=== PATIENT | female | born 1950 | race Hispanic/Latino ===

== ENCOUNTER 2020-03-21 15:40 | Emergency (ER) | payer MEDICARE ==
--- NOTE | 2020-03-21 16:23 | Emergency Department Report ---
ED Fall HPI - General Stated Complaint: FALL Time Seen by Provider: 03/21/20 16:09 Source: EMS Mode of arrival: Stretcher - History of Present Illness Initial Comments: 69-year-old female with history of Alzheimer's disease DVT, fall from [facility] senior care. Patient had ground level fall, fell and hit wheelchair. Unknown LOC. Patient has small abrasions to forehead. She denies any other pain. MD Complaint: fall -: This afternoon Fall From: standing Fall Witnessed: yes, by living facility s Place Fall Occurred: senior care/SNF Loss of Consciousness: unsure Symptoms Prior to Fall: none Location: head Severity: mild Associated Symptoms: headache. denies: neck pain, chest paint, shortness of breath - Related Data Allergies Allergy/AdvReac Type Severity Reaction Status Date / Time codeine Allergy Unknown Verified 03/21/20 16:27 levofloxacin [From Levaquin] Allergy Unknown Verified 03/21/20 16:27 ED Review of Systems ROS: Stated complaint: FALL Other details as noted in HPI Comment: All other systems reviewed and negative Respiratory: denies: shortness of breath Cardiovascular: denies: chest pain Musculoskeletal: denies: back pain Neurological: headache ED Physical Exam - General General appearance: alert, in no apparent distress - Head Head exam: Present: normocephalic, other (1 cm laceration to forehead) - Eye Eye exam: Present: PERRL, EOMI, other (abrasion to left lower eyelid) - ENT ENT exam: Present: mucous membranes moist, other (abrasion to left lower lip) - Neck Neck exam: Present: normal inspection, full ROM. Absent: tenderness - Respiratory Respiratory exam: Present: normal lung sounds bilaterally. Absent: respiratory distress - Cardiovascular Cardiovascular Exam: Present: regular rate, normal rhythm - GI/Abdominal GI/Abdominal exam: Present: soft. Absent: distended, tenderness - Extremities Exam Extremities exam: Present: normal inspection, full ROM. Absent: tenderness - Back Exam Back exam: Present: normal inspection. Absent: paraspinal tenderness, vertebral tenderness - Neurological Exam Neurological exam: Present: alert. Absent: oriented X3 (oriented to self; hx Alzheimer's) - Psychiatric Psychiatric exam: Present: normal affect, normal mood - Skin Skin exam: Present: warm, dry, intact, normal color ED Course Vital Signs 03/21/20 03/21/20 03/21/20 15:53 16:00 16:27 Temperature 98.3 F Pulse Rate 76 72 Respiratory 15 18 Rate Blood Pressure 128/52 130/45 Blood Pressure 128/52 [Left] O2 Sat by Pulse 100 100 Oximetry 03/21/20 03/21/20 03/21/20 17:00 17:38 18:00 Temperature Pulse Rate 68 69 88 Respiratory 15 12 9 L Rate Blood Pressure 130/45 125/63 Blood Pressure 125/61 [Left] O2 Sat by Pulse 100 100 100 Oximetry - Laceration /Wound Repair Face Wound Location: face Wound Length (cm): 1 Wound's Depth, Shape: superficial Irrigated w/ Saline (ccs): 30 Wound Repaired With: Dermabond ED Medical Decision Making - Radiology Data Radiology results: report reviewed, image reviewed - Medical Decision Making 69 yo F, hx dementia, s/p ground level fall at senior care. Pt sustained 1 cm laceration to forehead, with small abrasions to left eye and left lower lip. CT Head negative for any acute abnormalities. Laceration cleaned and repaired w/ dermabond. D/c back to senior care. - Differential Diagnosis intracranial injury, concussion, fracture Critical care attestation.: If time is entered above; I have spent that time in minutes in the direct care of this critically ill patient, excluding procedure time. ED Disposition Clinical Impression: Fall, Acute head injury, Simple laceration of face Disposition: DC-01 TO HOME OR SELFCARE Is pt being admited?: No Condition: Stable Instructions: Laceration (ED), Fall Prevention for Older Adults (ED), Minor Head Injury (ED), Skin Adhesive Care (ED) Referrals: PRIMARY CARE, [Referring] - 3-5 Days Time of Disposition: 18:05
--- NOTE | 2020-03-21 17:34 | Cat Scan Report ---
CT BRAIN: 03/21/2020 INDICATION / CLINICAL INFORMATION: MAIN: fall, injury frontal . COMPARISON: None available. FINDINGS: BRAIN/INTRACRANIAL STRUCTURES: Unenhanced CT images of the brain dated straight no evidence of acute intracranial abnormality. Ventricles and sulci are slightly prominent in size, consistent with age-related atrophic change. There is no evidence of ischemic injury, hemorrhage, or mass. There are no abnormal extra-axial fluid collections. Prominent dural ossification is noted, normal variant. EXTRACRANIAL STRUCTURES: Unremarkable. IMPRESSION: No acute abnormality. All CT scans at this location are performed using dose reduction to ALARA by means of automated expos ure control. Signer Name: Reji Hanna MD Signed: 03/21/2020 5:29 PM Workstation Name: [id number]
[2020-03-21 18:35] VITALS: BP 125/63
== END 2020-03-21 19:35 | disposition home or self-care (01) ==
LOC: ED 15:40
DX: S01.81XA Laceration without foreign body of other part of head, initial encounter (principal); Z88.6 Allergy status to analgesic agent; W22.8XXA Striking against or struck by other objects, initial encounter; Y93.89 Activity, other specified; Y92.89 Other specified places as the place of occurrence of the external cause; Y99.8 Other external cause status
CPT/HCPCS: 70450

== ENCOUNTER 2020-04-02 21:35 | Emergency (ER) | payer MEDICARE ==
[2020-04-02 22:07] VITALS: BP 134/50
[2020-04-02 22:36] LABS: Bilirubin,Urine NEG (Negative); Blood,Urine NEG (Negative); Color,Urine Yellow (Yellow); Hyaline Casts,Urine 3 /LPF; Mucus,Urine 1+ /HPF
[2020-04-02 23:15] LABS: Hematocrit 40.4 % (30.3-42.9); Hemoglobin 13.7 gm/dl (10.1-14.3); Mean Corpuscular HGB Conc 34 % (30-34); Mean Corpuscular Volume 87 fl (79-97); Platelet Count 144 K/mm3 (140-440); Red Blood Count 4.63 M/mm3 (3.65-5.03); Red Cell Distribution Width 14.7 % (13.2-15.2)
[2020-04-02 23:35] LABS: Calcium 9.9 mg/dL (8.4-10.2)
== END 2020-04-03 01:02 | disposition other institution (70) ==
LOC: ED 21:35
DX: E83.42 Hypomagnesemia (principal); R82.81 Pyuria; F03.90 Unspecified dementia, unspecified severity, without behavioral disturbance, psychotic disturbance, mood disturbance, and anxiety; E11.9 Type 2 diabetes mellitus without complications; Z88.6 Allergy status to analgesic agent; Z79.899 Other long term (current) drug therapy; Z88.8 Allergy status to other drugs, medicaments and biological substances; W18.30XA Fall on same level, unspecified, initial encounter; Y93.89 Activity, other specified; Y92.89 Other specified places as the place of occurrence of the external cause; Y99.8 Other external cause status
CPT/HCPCS: 36415; 70450; 71045; 72125; 72170; 80048; 80320; 81001; 82550; 83735; 84443; 85027; 87086; 93005; G0480

== ENCOUNTER 2021-01-13 10:58 | Emergency (ER) | payer MEDICARE ==
--- NOTE | 2021-01-13 12:28 | Emergency Department Report ---
ED Fall HPI - General Chief Complaint: Fall Stated Complaint: FALL Time Seen by Provider: 01/13/21 11:40 Source: EMS Mode of arrival: Stretcher Limitations: No Limitations - History of Present Illness Initial Comments: Patient is a resident at [facility] residential who suffered a fall sometime overnight. The fall was unwitnessed and is unknown whether the patient had loss of consciousness. Is also is unknown whether it was a ground-level fall or from the bed. Patient is complaining of some right forehead pain. There is a large hematoma present. Patient is not complaining of any pain in the extremities. She denies any chest pain abdominal pain or hip pain at this time. - Related Data Previous Rx's Medication Instructions Recorded Last Taken Type Magnesium Oxide 400 mg PO QDAY #30 tablet 04/02/20 Unknown Rx Nitrofurantoin Payne/M-Cryst 100 mg PO Q12HR #13 capsule 04/02/20 Unknown Rx [Macrobid CAP] Allergies Allergy/AdvReac Type Severity Reaction Status Date / Time codeine Allergy Unknown Verified 03/21/20 16:27 levofloxacin [From Levaquin] Allergy Unknown Verified 03/21/20 16:27 ED Review of Systems ROS: Stated complaint: FALL Other details as noted in HPI Comment: All other systems reviewed and negative ED Past Medical Hx - Past Medical History Previous Medical History?: Yes Hx Diabetes: Yes Hx Renal Disease: Yes Hx Dementia: Yes - Social History Smoking Status: Unknown if ever smoked - Medications Home Medications: Home Medications Medication Instructions Recorded Confirmed Last Taken Type Magnesium Oxide 400 mg PO QDAY #30 tablet 04/02/20 Unknown Rx Nitrofurantoin Payne/M-Cryst 100 mg PO Q12HR #13 capsule 04/02/20 Unknown Rx [Macrobid CAP] ED Physical Exam - General Limitations: Other General appearance: alert, in no apparent distress - Head Head exam: Present: normocephalic, other - Expanded Head Exam Expanded 1 - large hematoma present with tenderness - Eye Eye exam: Present: normal appearance - ENT ENT exam: Present: normal orophraynx, mucous membranes moist - Neck Neck exam: Present: normal inspection - Respiratory Respiratory exam: Present: normal lung sounds bilaterally. Absent: respiratory distress, wheezes, rales, rhonchi - Cardiovascular Cardiovascular Exam: Present: regular rate, normal rhythm, normal heart sounds. Absent: systolic murmur, diastolic murmur, rubs, gallop - GI/Abdominal GI/Abdominal exam: Present: soft, normal bowel sounds. Absent: distended, tenderness, guarding, rebound - Extremities Exam Extremities exam: Present: normal inspection - Back Exam Back exam: Present: normal inspection - Neurological Exam Neurological exam: Present: alert, oriented X3 - Psychiatric Psychiatric exam: Present: normal affect, normal mood - Skin Skin exam: Present: warm, dry, intact, normal color. Absent: rash ED Course Vital Signs 01/13/21 01/13/21 12:07 12:09 Temperature 97.6 F Pulse Rate 65 Respiratory 16 16 Rate Blood Pressure 104/46 [Right] O2 Sat by Pulse 100 100 Oximetry ED Medical Decision Making - Radiology Data Conveyor Loader Date: CT cervical spine wo con INDICATION / CLINICAL INFORMATION: 70 years Female; pain from injury. TECHNIQUE: Axial CT images of the cervical spine were obtained. Sagittal and coronal reformatted images were produced. All CT scans at this location are performed using CT dose reduction for ALARA by means of automated exposure control. COMPARISON: 04/02/2020 FINDINGS: POST-SURGICAL CHANGES: None. ALIGNMENT: No significant abnormality. VERTEBRAE: No signs of fracture. Vertebral bodies are grossly normal in height throughout. There is moderate osseous foraminal narrowing on the right at C5-6 from uncinate hypertrophy. INTRAVERTEBRAL DISCS: Disc space narrowing seen at C5-6 and C6-7. Posterocentral disc protrusion with callus desiccation seen at C4-5, which encroaches upon the cervical cord. No definitive impingement. Mild disc disease seen at other levels as well. PARASPINAL SOFT TISSUES: No significant abnormality. ADDITIONAL FINDINGS: Partial opacification of the inferior mastoids noted on the left. Atherosclerotic disease seen in the anterior and posterior circulation. Thyroid gland is mildly enlarged with small cysts/nodules suggested in the right thyroid lobe-unchanged from prior. IMPRESSION: 1. No signs of acute bony trauma to the cervical spine. Signer Name: Mal Murguia MD, III Signed: 01/13/2021 11:49 AM Workstation Name: [email or web address] Reporting MD: Terrell Palma Dictation Time: January 13, 2021 11:46 Edging Machine Catcher: Not available Conveyor Loader Date: CT head/brain wo con INDICATION / CLINICAL INFORMATION: 70 years Female; fall injury. TECHNIQUE: Routine CT head without contrast. All CT scans at this location are performed using CT dose reduction for ALARA by means of automated exposure control. COMPARISON: The study is compared to the previous CT of 04/02/2020. FINDINGS: BRAIN / INTRACRANIAL CONTENTS: There is a right frontal scalp hematoma. There is continued dense calcification along the falx and portions of the tentorium. The motion degrades the image quality. However, there is no clear CT evidence of acute intracranial hemorrhage or significant mass effect. There is mild to moderate cerebral white matter disease most consistent with m icrovascular angiopathy. The ventricular system remains unchanged in size and configuration. The calvarium appears intact. ORBITS: No significant abnormality of visualized orbits. SINUSES / MASTOIDS: There has been interval development of moderate mucosal thickening within the right maxillary sinus with air-fluid level. There is thickening of the right mastoid sinus wall indicative of chronic inflammatory process. CRANIOCERVICAL JUNCTION: No significant abnormality. ADDITIONAL FINDINGS: None. IMPRESSION: 1. There is a hematoma involving right frontal scalp without clear CT ends of acute intracranial hemorrhage. 2. There is continued mild to moderate microvascular angiopathy and mild c erebral atrophy. Signer Name: Terrell Palma MD Signed: 01/13/2021 11:46 AM Workstation Name: [id number] - Medical Decision Making CT head and neck are within normal limits patient will be discharged back to his residential Critical care attestation.: If time is entered above; I have spent that time in minutes in the direct care of this critically ill patient, excluding procedure time. ED Disposition Clinical Impression: Closed head injury Qualifiers: Encounter type: initial encounter Qualified Code(s): S09.90XA - Unspecified injury of head, initial encounter Scalp hematoma Qualifiers: Encounter type: initial encounter Qualified Code(s): S00.03XA - Contusion of scalp, initial encounter Disposition: -01 TO HOME OR SELFCARE Is pt being admited?: No Does the pt Need Aspirin: No Condition: Stable Instructions: Head Injury, Adult, [id number], Facial or Scalp Contusion Referrals: PRIMARY CARE, [Primary Care Provider] - 3-5 Days Time of Disposition: 13:42
--- NOTE | 2021-01-13 12:50 | Cat Scan Report ---
CT head/brain wo con INDICATION / CLINICAL INFORMATION: 70 years Female; fall injury. TECHNIQUE: Routine CT head without contrast. All CT scans at this location are performed using CT dos e reduction for ALARA by means of automated exposure control. COMPARISON: The study is compared to the previous CT of 04/02/2020. FINDINGS: BRAIN / INTRACRANIAL CONTENTS: There is a right frontal scalp hematoma. There is continued dense calc ification along the falx and portions of the tentorium. The motion degrades the image quality. Howeve r, there is no clear CT evidence of acute intracranial hemorrhage or significant mass effect. There is mild to moderate cerebral white matter disease most consistent with microvascular angiopathy . The ventricular system remains unchanged in size and configuration. The calvarium appears intact. ORBITS: No significant abnormality of visualized orbits. SINUSES / MASTOIDS: There has been interval development of moderate mucosal thickening within the rig ht maxillary sinus with air-fluid level. There is thickening of the right mastoid sinus wall indicati ve of chronic inflammatory process. CRANIOCERVICAL JUNCTION: No significant abnormality. ADDITIONAL FINDINGS: None. IMPRESSION: 1. There is a hematoma involving right frontal scalp without clear CT ends of acute intracranial hemo rrhage. 2. There is continued mild to moderate microvascular angiopathy and mild cerebral atrophy. Signer Name: Terrell Palma MD Signed: 01/13/2021 12:46 PM Workstation Name: [id number]
--- NOTE | 2021-01-13 12:53 | Cat Scan Report ---
CT cervical spine wo con INDICATION / CLINICAL INFORMATION: 70 years Female; pain from injury. TECHNIQUE: Axial CT images of the cervical spine were obtained. Sagittal and coronal reformatted images were pr oduced. All CT scans at this location are performed using CT dose reduction for ALARA by means of aut omated exposure control. COMPARISON: 04/02/2020 FINDINGS: POST-SURGICAL CHANGES: None. ALIGNMENT: No significant abnormality. VERTEBRAE: No signs of fracture. Vertebral bodies are grossly normal in height throughout. There is moderate osseous foraminal narrowing on the right at C5-6 from uncinate hypertrophy. INTRAVERTEBRAL DISCS: Disc space narrowing seen at C5-6 and C6-7. Posterocentral disc protrusion with callus desiccation seen at C4-5, which encroaches upon the cervic al cord. No definitive impingement. Mild disc disease seen at other levels as well. PARASPINAL SOFT TISSUES: No significant abnormality. ADDITIONAL FINDINGS: Partial opacification of the inferior mastoids noted on the left. Atherosclerotic disease seen in the anterior and posterior circulation. Thyroid gland is mildly enlarged with small cysts/nodules suggested in the right thyroid lobe-unchang ed from prior. IMPRESSION: 1. No signs of acute bony trauma to the cervical spine. Signer Name: Mal Murguia MD, III Signed: 01/13/2021 12:49 PM Workstation Name: [email or web address]
[2021-01-13 16:25] VITALS: BP 128/80
== END 2021-01-13 20:12 | disposition home or self-care (01) ==
LOC: ED 10:58
DX: S00.03XA Contusion of scalp, initial encounter (principal); E11.9 Type 2 diabetes mellitus without complications; Z79.899 Other long term (current) drug therapy; W18.30XA Fall on same level, unspecified, initial encounter; Y93.89 Activity, other specified; Y92.89 Other specified places as the place of occurrence of the external cause; Y99.8 Other external cause status
CPT/HCPCS: 70450; 72125; 99283

== ENCOUNTER 2021-04-12 20:22 | Emergency (ER) | payer MEDICARE ==
--- NOTE | 2021-04-12 20:58 | Emergency Department Report ---
ED General Adult HPI - General Chief complaint: Fall Stated complaint: GROUND LEVEL FALL Time Seen by Provider: 04/12/21 20:36 Source: EMS, RN notes reviewed Mode of arrival: Stretcher Limitations: Other - History of Present Illness Initial comments: 70-year-old female, history of Alzheimer's dementia, diabetes, CAD, DVT, depression, COVID-19, gait abnormality, presents to ED from longterm for evaluation possible fall. Patient was found crawling on the floor, staff is unsure if patient fell down. Patient sent to ED for evaluation. Patient is poor historian, however she denies any headache, neck pain, back pain. Patient is able to move all extremities. -: This evening Associated Symptoms: denies other symptoms Treatments Prior to Arrival: none - Related Data Previous Rx's Medication Instructions Recorded Last Taken Type Magnesium Oxide 400 mg PO QDAY #30 tablet 04/02/20 Unknown Rx Nitrofurantoin Throckmorton/M-Cryst 100 mg PO Q12HR #13 capsule 04/02/20 Unknown Rx [Macrobid CAP] Allergies Allergy/AdvReac Type Severity Reaction Status Date / Time codeine Allergy Unknown Verified 03/21/20 16:27 levofloxacin [From Levaquin] Allergy Unknown Verified 03/21/20 16:27 ED Review of Systems ROS: Stated complaint: GROUND LEVEL FALL Other details as noted in HPI Comment: Unobtainable due to pts medical conditions (Dementia) Musculoskeletal: denies: back pain Neurological: denies: headache ED Past Medical Hx - Past Medical History Previous Medical History?: Yes Hx Diabetes: Yes Hx Renal Disease: Yes Hx Psychiatric Treatment: Yes (major depressive disorder) Hx Dementia: Yes Additional medical history: Heart DZ - Social History Smoking Status: Unknown if ever smoked - Medications Home Medications: Home Medications Medication Instructions Recorded Confirmed Last Taken Type Magnesium Oxide 400 mg PO QDAY #30 tablet 04/02/20 Unknown Rx Nitrofurantoin Throckmorton/M-Cryst 100 mg PO Q12HR #13 capsule 04/02/20 Unknown Rx [Macrobid CAP] ED Physical Exam - General Limitations: Other General appearance: alert, in no apparent distress - Head Head exam: Present: atraumatic, normocephalic - Eye Eye exam: Present: normal appearance, PERRL, EOMI - ENT ENT exam: Present: mucous membranes moist - Neck Neck exam: Present: normal inspection. Absent: tenderness - Respiratory Respiratory exam: Present: normal lung sounds bilaterally. Absent: respiratory distress - Cardiovascular Cardiovascular Exam: Present: regular rate, normal rhythm - GI/Abdominal GI/Abdominal exam: Present: soft. Absent: distended, tenderness - Extremities Exam Extremities exam: Present: normal inspection, full ROM (Patient able to lift both legs up off of the stretcher; able to flex and extend at the knees and hips). Absent: tenderness - Back Exam Back exam: Present: normal inspection. Absent: paraspinal tenderness, vertebral tenderness - Neurological Exam Neurological exam: Present: alert. Absent: oriented X3 (Confused at baseline, history of dementia) - Psychiatric Psychiatric exam: Present: normal affect, normal mood - Skin Skin exam: Present: warm, dry, intact, normal color ED Course Vital Signs 04/12/21 04/13/21 21:13 03:19 Temperature 97.8 F Pulse Rate 55 L 52 L Respiratory 13 13 Rate Blood Pressure 125/45 Blood Pressure 115/62 [Right] O2 Sat by Pulse 100 100 Oximetry ED Medical Decision Making - Radiology Data Radiology results: report reviewed, image reviewed - Medical Decision Making 70-year-old female floor, presents to ED from longterm for evaluation. CT head and C-spine are unremarkable for any acute findings. Patient is moving all extremities. Vital signs are stable. Patient will be discharged back to longterm. Outpatient follow-up advised, return precautions given. Critical care attestation.: If time is entered above; I have spent that time in minutes in the direct care of this critically ill patient, excluding procedure time. ED Disposition Clinical Impression: Fall Disposition: DC-01 TO HOME OR SELFCARE Is pt being admited?: No Condition: Stable Referrals: PRIMARY CARE, [Primary Care Provider] - 3-5 Days Time of Disposition: 23:07
--- NOTE | 2021-04-12 22:44 | Cat Scan Report ---
CT HEAD WITHOUT CONTRAST INDICATION / CLINICAL INFORMATION: Status-Post fall, now with head pain.. TECHNIQUE: All CT scans at this location are performed using CT dose reduction for ALARA by means of automated e xposure control. COMPARISON: 01/13/2021 FINDINGS: HEMORRHAGE: None. EXTRA-AXIAL SPACES: Normal in size and morphology for the patient's age. VENTRICULAR SYSTEM: Ex vacuo dilatation of the ventricular system consistent with age related changes . CEREBRAL PARENCHYMA: Parenchymal atrophy with chronic microvascular changes, similar to prior exam. N o acute large territorial ischemic changes. MIDLINE SHIFT OR HERNIATION: None. CEREBELLUM / BRAINSTEM: No significant abnormality. ORBITS: Normal as visualized. SOFT TISSUES of HEAD: Interval resolution of previous noted right scalp hematoma. CALVARIUM: No significant abnormality. PARANASAL SINUSES / MASTOID AIR CELLS: Interval worsening of previously noted right maxillary sinus m ucosal thickening. ADDITIONAL FINDINGS: Chronic dural calcifications are again noted. IMPRESSION: 1. No acute intracranial abnormality. 2. Age-related parenchymal atrophy and chronic microvascular changes are similar to prior exam. 3. Interval resolution of previously noted right frontal scalp hematoma. Signer Name: Aiden Jj MD Signed: 04/12/2021 10:40 PM Workstation Name: [id number]
--- NOTE | 2021-04-12 22:48 | Cat Scan Report ---
CT CERVICAL SPINE WITHOUT CONTRAST INDICATION / CLINICAL INFORMATION: Status-Post fall, now with neck pain.. TECHNIQUE: Axial CT images of the spine were obtained. Sagittal and coronal reformatted images were produced. Al l CT scans at this location are performed using CT dose reduction for ALARA by means of automated exp osure control. COMPARISON: 01/13/2021 FINDINGS: Acute Fracture(s) or Subluxation: None. Spinal Degenerative Changes: Moderate multilevel degenerative changes are noted of the spine. Multipl e levels of dural calcifications are noted within the spinal canal. Multiple levels of disc herniatio n are again noted, most prominent at C4-C5, unchanged from prior exam. Paraspinal soft tissues: No soft tissue swelling or other acute abnormalities. Additional Findings: No significant additional findings. IMPRESSION: 1. No acute fracture or misalignment. 2. Moderate multilevel cervical spondylosis, unchanged from prior exam. Signer Name: Aiden Jj MD Signed: 04/12/2021 10:44 PM Workstation Name: [id number]
[2021-04-13 03:20] VITALS: BP 115/62
== END 2021-04-13 03:19 | disposition home or self-care (01) ==
LOC: ED 20:22
DX: F03.90 Unspecified dementia, unspecified severity, without behavioral disturbance, psychotic disturbance, mood disturbance, and anxiety (principal); E11.9 Type 2 diabetes mellitus without complications; Z79.899 Other long term (current) drug therapy; Z88.8 Allergy status to other drugs, medicaments and biological substances; W18.30XA Fall on same level, unspecified, initial encounter; Y93.89 Activity, other specified; Y92.89 Other specified places as the place of occurrence of the external cause; Y99.8 Other external cause status
CPT/HCPCS: 70450; 72125

== ENCOUNTER 2022-05-14 04:56 | Inpatient (IN) | payer MEDICARE ==
[2022-05-14] MEDS ORDERED: SODIUM CHLORIDE 0.9% 1000 ML 1,000 ML IV ONE ×2 (05:19)
[2022-05-14 05:57] LABS: Hematocrit 41.2 % (30.3-42.9); Hemoglobin 14.1 gm/dl (10.1-14.3); Mean Corpuscular HGB Conc 34 % (30-34); Mean Corpuscular Volume 90 fl (79-97); Platelet Count 171 K/mm3 (140-440); Red Blood Count 4.59 M/mm3 (3.65-5.03)
--- NOTE | 2022-05-14 06:00 | XRay Report ---
CHEST 1 VIEW INDICATION / CLINICAL INFORMATION: Fever, hypoxia. COMPARISON: Chest x-ray 04/02/2020 FINDINGS: SUPPORT DEVICES: None. HEART / MEDIASTINUM: Heart size is within normal limits. Mediastinal contour demonstrates no signific ant abnormality. LUNGS / PLEURA: Airspace opacities are present within the mid and lower left lung. Lungs otherwise gr ossly clear. BONES: No significant osseous abnormality. ADDITIONAL FINDINGS: No significant additional findings. IMPRESSION: 1. Infectious process left lung base could be considered. Signer Name: Christiano Mcgee II, MD Signed: 05/14/2022 5:55 AM Workstation Name: [id number]
[2022-05-14 06:19] LABS: Albumin 2.7 g/dL (3.9-5); Calcium 9.8 mg/dL (8.4-10.2)
[2022-05-14] MEDS ORDERED: cefTRIAXone/NS 2 GM/100 ML 2 GM/100 ML BAG IV ONE (06:20)
[2022-05-14] MEDS ORDERED: SODIUM CHLORIDE 0.9% 1000 ML IV SOLN IV ONE (06:20)
[2022-05-14] MEDS ORDERED: AZITHROMYCIN/NS 500 MG/250 ML 500 MG/250 ML BAG IV ONE (06:20)
[2022-05-14] MEDS ORDERED: ACETAMINOPHEN 650 MG RECT SUPP PR ONE (06:21)
[2022-05-14] MEDS ORDERED: INSULIN REGULAR, HUMAN 100 UNITS/1 ML IV ONE (06:26)
[2022-05-14 07:50] LABS: Band Neutrophils # (Manual) 1.2 K/mm3; Basophils % (Manual) 0 % (0.0-1.8); Eosinophils % (Manual) 0 % (0.0-4.3); Total Cells Counted 100
[2022-05-14 07:51] LABS: Platelet Estimate Consistent w Auto; RBC Morphology Normal
[2022-05-14] MEDS ORDERED: MAGNESIUM SULFATE 2 GM/50 ML BAG IV ONE (08:24)
--- NOTE | 2022-05-14 09:12 | Cat Scan Report ---
CT HEAD WITHOUT CONTRAST INDICATION: ams TECHNIQUE: All CT scans at this location are performed using CT dose reduction for ALARA by means of automated exposure control. COMPARISON: 04/12/2021 FINDINGS: BRAIN: No hemorrhage or mass effect are seen. No evidence of acute infarction is noted. Atrophic garza ges are again noted. ORBITS: Normal as visualized. SOFT TISSUES OF HEAD: Normal. CALVARIUM: Normal. VISUALIZED PARANASAL SINUSES AND MASTOID AIR CELLS: Right maxillary prominent mucosal thickening is a gain noted. ADDITIONAL FINDINGS: None. IMPRESSION: No acute intracranial abnormality. Signer Name: Rinku Penaloza MD Signed: 05/14/2022 9:08 AM Workstation Name: [id number]
--- NOTE | 2022-05-14 09:18 | Emergency Department Report ---
ED Altered Mental Status HPI - General Chief Complaint: Altered Mental Status Stated Complaint: SEPSIS Time Seen by Provider: 05/14/22 06:17 Source: EMS, old records reviewed Mode of arrival: Stretcher Limitations: Altered Mental Status, Physical Limitation - History of Present Illness Initial Comments: 71-year-old female presents to the hospital from [facility] with a past medical history of Alzheimer's dementia, chronic renal insufficiency, diabetes, CAD, DVT, depression, dysphagia, thrombocytopenia, and hypomagnesemia with complaints of fever, hypoxia, and diminished mental status. As per triage patient's room air saturation was 88%. Patient currently on 2 L satting 91%. Patient is lethargic, does not open eyes to voice, does not follow commands, and is unable to provide any history of present illness. Triage vital signs include temp 102 .4, BP 150/100, respiratory rate 111, respiratory rate 18, 95% saturation documented initially with nonrebreather. - Related Data Previous Rx's Medication Instructions Recorded Last Taken Type Magnesium Oxide 400 mg PO QDAY #30 tablet 04/02/20 Unknown Rx Nitrofurantoin [place]/M-Cryst 100 mg PO Q12HR #13 capsule 04/02/20 Unknown Rx [Macrobid CAP] Allergies Allergy/AdvReac Type Severity Reaction Status Date / Time codeine Allergy Unknown Verified 03/21/20 16:27 levofloxacin [From Levaquin] Allergy Unknown Verified 03/21/20 16:27 ED Review of Systems ROS: Stated complaint: SEPSIS Other details as noted in HPI Comment: Unobtainable due to pts medical conditions ED Past Medical Hx - Past Medical History Previous Medical History?: Yes Hx Diabetes: Yes Hx Renal Disease: Yes Hx Psychiatric Treatment: Yes (major depressive disorder) Hx Dementia: Yes Additional medical history: Heart DZ - Surgical History Past Surgical History?: No - Social History Smoking Status: Unknown if ever smoked - Medications Home Medications: Home Medications Medication Instructions Recorded Confirmed Last Taken Type Magnesium Oxide 400 mg PO QDAY #30 tablet 04/02/20 Unknown Rx Nitrofurantoin Ocean/M-Cryst 100 mg PO Q12HR #13 capsule 04/02/20 Unknown Rx [Macrobid CAP] ED Physical Exam - General Limitations: Altered Mental Status - Other Other exam information: General: Minimally responsive Head: Atraumatic Eyes: normal appearance ENT: Dry mucous membrane Neck: Normal appearance, no midline tenderness Chest: Bilateral rhonchi CV: Regular rate and rhythm Abdomen: Soft, normal bowel sounds, no grimace with palpation Extremity: Normal inspection, full range of motion Neuro: Lethargic, patient does withdraw extremity in response to tactile stimulation of bilateral arms and legs. Does not follow commands. Nonverbal. Does not open eyes to voice. Psych: Appropriate behavior ED Course Vital Signs 05/14/22 05/14/22 05/14/22 04:57 05:30 05:46 Temperature 102.4 F H Pulse Rate 111 H 88 Respiratory 18 38 H Rate Blood Pressure 150/100 96/37 O2 Sat by Pulse 95 98 91 Oximetry 05/14/22 05/14/22 05/14/22 05:55 05:56 06:00 Temperature 102.4 F H Pulse Rate 98 H 79 Respiratory 37 H Rate Blood Pressure 96/37 O2 Sat by Pulse 91 Oximetry 05/14/22 05/14/22 05/14/22 06:16 06:30 06:46 Temperature Pulse Rate 82 83 80 Respiratory 33 H 25 H 26 H Rate Blood Pressure 96/47 96/47 115/43 O2 Sat by Pulse 89 91 93 Oximetry 05/14/22 05/14/22 05/14/22 06:47 07:00 07:16 Temperature Pulse Rate 79 85 Respiratory 22 26 H 25 H Rate Blood Pressure 115/43 109/56 O2 Sat by Pulse 92 93 93 Oximetry 05/14/22 05/14/22 05/14/22 07:30 07:46 08:00 Temperature Pulse Rate 90 87 84 Respiratory 31 H 25 H 24 Rate Blood Pressure 115/43 111/48 111/48 O2 Sat by Pulse 92 93 94 Oximetry 05/14/22 05/14/22 05/14/22 08:16 09:25 09:30 Temperature Pulse Rate 85 86 84 Respiratory 24 14 25 H Rate Blood Pressure 111/48 95/43 107/50 O2 Sat by Pulse 94 89 Oximetry 05/14/22 05/14/22 05/14/22 09:46 10:00 10:16 Temperature Pulse Rate 88 87 88 Respiratory 33 H 32 H 28 H Rate Blood Pressure 110/47 110/47 100/50 O2 Sat by Pulse 98 95 91 Oximetry 05/14/22 05/14/22 05/14/22 10:30 10:38 10:46 Temperature 98.6 F Pulse Rate 91 H 87 Respiratory 25 H 27 H Rate Blood Pressure 108/53 108/53 O2 Sat by Pulse 98 92 Oximetry 05/14/22 05/14/22 05/14/22 11:00 11:16 11:30 Temperature Pulse Rate 83 86 86 Respiratory 21 26 H 21 Rate Blood Pressure 88/49 106/50 106/50 O2 Sat by Pulse 95 96 94 Oximetry 05/14/22 05/14/22 05/14/22 11:46 12:00 12:16 Temperature Pulse Rate 90 86 83 Respiratory 29 H 26 H 29 H Rate Blood Pressure 103/54 103/54 101/52 O2 Sat by Pulse 94 93 Oximetry 05/14/22 12:31 Temperature Pulse Rate 84 Respiratory 14 Rate Blood Pressure O2 Sat by Pulse 94 Oximetry - Reevaluation(s) Reevaluation #1: 05/14/22 09:38 Prior to going to CAT scan patient was satting 91% 1 to 2 L nasal cannula oxygen. Nurse informs me that patient returned from CT he was not placed on oxygen and was satting 84% on room air. She placed patient on a nonrebreather with improvement to O2 saturation to 91%. I requested for respiratory therapist to come to the bedside and titrate oxygen requirement. 05/14/22 10:47 Patient satting 95% on 50% Ventimask. ABG requested 05/14/22 11:25 ABG results reviewed - Consultations Consultation #1: 05/14/22 11:28 Case discussed with ham sawyer Dr. Romero. Agrees with initiation of high flow oxygen at this time. Recommends cefepime and vancomycin. Cefepime has been ordered by hospitalist and I have added vancomycin. I updated Dr Pennington who is aware - Lab Data Result diagrams: 05/14/22 05:45 05/14/22 05:45 Lab Results 05/14/22 05/14/22 05/14/22 Range/Units 05:45 05:45 05:45 WBC 20.8 H (4.5-11.0) K/mm3 RBC 4.59 (3.65-5.03) M/mm3 Hgb 14.1 (10.1-14.3) gm/dl Hct 41.2 (30.3-42.9) % MCV 90 (79-97) fl MCH 31 (28-32) pg MCHC 34 (30-34) % RDW 14.0 (13.2-15.2) % Plt Count 171 (140-440) K/mm3 Add Manual Diff Complete Total Counted 100 Seg Neutrophils % Cafe Or Restaurant Manager Seg Neuts % (Manual) 85.0 H (40.0-70.0) % Band Neutrophils % 6.0 % Lymphocytes % (Manual) 5.0 L (13.4-35.0) % Reactive Lymphs % (Man) 0 % Monocytes % (Manual) 4.0 (0.0-7.3) % Eosinophils % (Manual) 0 (0.0-4.3) % Basophils % (Manual) 0 (0.0-1.8) % Metamyelocytes % 0 % Myelocytes % 0 % Promyelocytes % 0 % Blast Cells % 0 % Nucleated RBC % Not Reportable Seg Neutrophils # Man 17.7 H (1.8-7.7) K/mm3 Band Neutrophils # 1.2 K/mm3 Lymphocytes # (Manual) 1.0 L (1.2-5.4) K/mm3 Abs React Lymphs (Man) 0.0 K/mm3 Monocytes # (Manual) 0.8 (0.0-0.8) K/mm3 Eosinophils # (Manual) 0.0 (0.0-0.4) K/mm3 Basophils # (Manual) 0.0 (0.0-0.1) K/mm3 Metamyelocytes # 0.0 K/mm3 Myelocytes # 0.0 K/mm3 Promyelocytes # 0.0 K/mm3 Blast Cells # 0.0 K/mm3 WBC Morphology Not Reportable Hypersegmented Neuts Not Reportable Hyposegmented Neuts Not Reportable Hypogranular Neuts Not Reportable Smudge Cells Not Reportable Toxic Granulation Not Reportable Toxic Vacuolation Not Reportable Dohle Bodies Not Reportable Pelger-Huet Anomaly Not Reportable Supa Rods Not Reportable Platelet Estimate Consistent w auto Clumped Platelets Not Reportable Plt Clumps, EDTA Not Reportable Large Platelets Not Reportable Giant Platelets Not Reportable Platelet Satelliting Not Reportable Plt Morphology Comment Not Reportable RBC Morphology Normal Dimorphic RBCs Not Reportable Polychromasia Not Reportable Hypochromasia Not Reportable Poikilocytosis Not Reportable Anisocytosis Not Reportable Microcytosis Not Reportable Macrocytosis Not Reportable Spherocytes Not Reportable Pappenheimer Bodies Not Reportable Sickle Cells Not Reportable Target Cells Not Reportable Tear Drop Cells Not Reportable Ovalocytes Not Reportable Helmet Cells Not Reportable [place] Bodies Not Reportable [place] Rings Not Reportable [place] Cells Not Reportable Bite Cells Not Reportable Crenated Cell Not Reportable Elliptocytes Not Reportable Acanthocytes (Spur) Not Reportable Rouleaux Not Reportable Hemoglobin C Crystals Not Reportable Schistocytes Not Reportable Malaria parasites Not Reportable Parveen Bodies Not Reportable Hem Pathologist Commnt No Sodium 134 L (137-145) mmol/L Potassium 4.3 (3.6-5.0) mmol/L Chloride 94.2 L (98-107) mmol/L Carbon Dioxide 25 (22-30) mmol/L Anion Gap 19 mmol/L BUN 35 H (7-17) mg/dL Creatinine 2.1 H (0.6-1.2) mg/dL Estimated GFR 23 ml/min BUN/Creatinine Ratio 17 % Glucose 403 H (65-100) mg/dL POC Glucose (70-105) mg/dL Lactic Acid 6.60 H* (0.7-2.0) mmol/L Calcium 9.8 (8.4-10.2) mg/dL Magnesium (1.7-2.3) mg/dL Total Bilirubin 0.40 (0.1-1.2) mg/dL AST 18 (5-40) units/L ALT 10 (7-56) units/L Alkaline Phosphatase 57 (35-129) units/L Total Protein 6.3 (6.3-8.2) g/dL Albumin 2.7 L (3.9-5) g/dL Albumin/Globulin Ratio 0.8 % 05/14/22 05/14/22 05/14/22 Range/Units 05:45 07:02 09:26 WBC (4.5-11.0) K/mm3 RBC (3.65-5.03) M/mm3 Hgb (10.1-14.3) gm/dl Hct (30.3-42.9) % MCV (79-97) fl MCH (28-32) pg MCHC (30-34) % RDW (13.2-15.2) % Plt Count (140-440) K/mm3 Add Manual Diff Total Counted Seg Neutrophils % Seg Neuts % (Manual) (40.0-70.0) % Band Neutrophils % % Lymphocytes % (Manual) (13.4-35.0) % Reactive Lymphs % (Man) % Monocytes % (Manual) (0.0-7.3) % Eosinophils % (Manual) (0.0-4.3) % Basophils % (Manual) (0.0-1.8) % Metamyelocytes % % Myelocytes % % Promyelocytes % % Blast Cells % % Nucleated RBC % Seg Neutrophils # Man (1.8-7.7) K/mm3 Band Neutrophils # K/mm3 Lymphocytes # (Manual) (1.2-5.4) K/mm3 Abs React Lymphs (Man) K/mm3 Monocytes # (Manual) (0.0-0.8) K/mm3 Eosinophils # (Manual) (0.0-0.4) K/mm3 Basophils # (Manual) (0.0-0.1) K/mm3 Metamyelocytes # K/mm3 Myelocytes # K/mm3 Promyelocytes # K/mm3 Blast Cells # K/mm3 WBC Morphology Hypersegmented Neuts Hyposegmented Neuts Hypogranular Neuts Smudge Cells Toxic Granulation Toxic Vacuolation Dohle Bodies Pelger-Huet Anomaly Supa Rods Platelet Estimate Clumped Platelets Plt Clumps, EDTA Large Platelets Giant Platelets Platelet Satelliting Plt Morphology Comment RBC Morphology Dimorphic RBCs Polychromasia Hypochromasia Poikilocytosis Anisocytosis Microcytosis Macrocytosis Spherocytes Pappenheimer Bodies Sickle Cells Target Cells Tear Drop Cells Ovalocytes Helmet Cells [place] Bodies [place] Rings [place] Cells Bite Cells Crenated Cell Elliptocytes Acanthocytes (Spur) Rouleaux Hemoglobin C Crystals Schistocytes Malaria parasites Parveen Bodies Hem Pathologist Commnt Sodium (137-145) mmol/L Potassium (3.6-5.0) mmol/L Chloride (98-107) mmol/L Carbon Dioxide (22-30) mmol/L Anion Gap mmol/L BUN (7-17) mg/dL Creatinine (0.6-1.2) mg/dL Estimated GFR ml/min BUN/Creatinine Ratio % Glucose (65-100) mg/dL POC Glucose (70-105) mg/dL Lactic Acid 5.70 H* 5.30 H* (0.7-2.0) mmol/L Calcium (8.4-10.2) mg/dL Magnesium 1.10 L (1.7-2.3) mg/dL Total Bilirubin (0.1-1.2) mg/dL AST (5-40) units/L ALT (7-56) units/L Alkaline Phosphatase (35-129) units/L Total Protein (6.3-8.2) g/dL Albumin (3.9-5) g/dL Albumin/Globulin Ratio % // Range/Units 09:31 WBC (4.5-11.0) K/mm3 RBC (3.65-5.03) M/mm3 Hgb (10.1-14.3) gm/dl Hct (30.3-42.9) % MCV (79-97) fl MCH (28-32) pg MCHC (30-34) % RDW (13.2-15.2) % Plt Count (140-440) K/mm3 Add Manual Diff Total Counted Seg Neutrophils % Seg Neuts % (Manual) (40.0-70.0) % Band Neutrophils % % Lymphocytes % (Manual) (13.4-35.0) % Reactive Lymphs % (Man) % Monocytes % (Manual) (0.0-7.3) % Eosinophils % (Manual) (0.0-4.3) % Basophils % (Manual) (0.0-1.8) % Metamyelocytes % % Myelocytes % % Promyelocytes % % Blast Cells % % Nucleated RBC % Seg Neutrophils # Man (1.8-7.7) K/mm3 Band Neutrophils # K/mm3 Lymphocytes # (Manual) (1.2-5.4) K/mm3 Abs React Lymphs (Man) K/mm3 Monocytes # (Manual) (0.0-0.8) K/mm3 Eosinophils # (Manual) (0.0-0.4) K/mm3 Basophils # (Manual) (0.0-0.1) K/mm3 Metamyelocytes # K/mm3 Myelocytes # K/mm3 Promyelocytes # K/mm3 Blast Cells # K/mm3 WBC Morphology Hypersegmented Neuts Hyposegmented Neuts Hypogranular Neuts Smudge Cells Toxic Granulation Toxic Vacuolation Dohle Bodies Pelger-Huet Anomaly Supa Rods Platelet Estimate Clumped Platelets Plt Clumps, EDTA Large Platelets Giant Platelets Platelet Satelliting Plt Morphology Comment RBC Morphology Dimorphic RBCs Polychromasia Hypochromasia Poikilocytosis Anisocytosis Microcytosis Macrocytosis Spherocytes Pappenheimer Bodies Sickle Cells Target Cells Tear Drop Cells Ovalocytes Helmet Cells [place] Bodies [place] Rings Donovan Cells Bite Cells Crenated Cell Elliptocytes Acanthocytes (Spur) Rouleaux Hemoglobin C Crystals Schistocytes Malaria parasites Parveen Bodies Hem Pathologist Commnt Sodium (137-145) mmol/L Potassium (3.6-5.0) mmol/L Chloride (98-107) mmol/L Carbon Dioxide (22-30) mmol/L Anion Gap mmol/L BUN (7-17) mg/dL Creatinine (0.6-1.2) mg/dL Estimated GFR ml/min BUN/Creatinine Ratio % Glucose (65-100) mg/dL POC Glucose 209 H (70-105) mg/dL Lactic Acid (0.7-2.0) mmol/L Calcium (8.4-10.2) mg/dL Magnesium (1.7-2.3) mg/dL Total Bilirubin (0.1-1.2) mg/dL AST (5-40) units/L ALT (7-56) units/L Alkaline Phosphatase (35-129) units/L Total Protein (6.3-8.2) g/dL Albumin (3.9-5) g/dL Albumin/Globulin Ratio % - EKG Data -: EKG Interpreted by Me (Right bundle branch block, left posterior fascicular block) EKG shows normal: sinus rhythm, ST-T waves (No ST elevation) Rate: normal (94) - Radiology Data Radiology results: report reviewed CT HEAD WITHOUT CONTRAST INDICATION: ams TECHNIQUE: All CT scans at this location are performed using CT dose reduction for ALARA by means of automated exposure control. COMPARISON: 04/12/2021 FINDINGS: BRAIN: No hemorrhage or mass effect are seen. No evidence of acute infarction is noted. Atrophic changes are again noted. ORBITS: Normal as visualized. SOFT TISSUES OF HEAD: Normal. CALVARIUM: Normal. VISUALIZED PARANASAL SINUSES AND MASTOID AIR CELLS: Right maxillary prominent mucosal thickening is again noted. ADDITIONAL FINDINGS: None. IMPRESSION: No acute intracranial abnormality. CHEST 1 VIEW INDICATION / CLINICAL INFORMATION: Fever, hypoxia. COMPARISON: Chest x-ray 04/02/2020 FINDINGS: SUPPORT DEVICES: None. HEART / MEDIASTINUM: Heart size is within normal limits. Mediastinal contour demonstrates no significant abnormality. LUNGS / PLEURA: Airspace opacities are present within the mid and lower left lung. Lungs otherwise grossly clear. BONES: No significant osseous abnormality. ADDITIONAL FINDINGS: No significant additional findings. IMPRESSION: 1. Infectious process left lung base could be considered. - Medical Decision Making 71-year-old female presents to the hospital alteration mental status, fever, and hypoxia. Patient has left lower lobe pneumonia as per chest x-ray. CT head unremarkable. Patient meets criteria for severe sepsis with elevation of lactic acid and leukocytosis. No signs of septic shock at this time. Patient treated as per sepsis protocol with 30 mill per KG bolus of normal saline, Rocephin, azithromycin, Tylenol, and supplemental oxygenation. IV magnesium initiated for mild hypomagnesemia. patient to be admitted to the hospitalist service for further treatment. Bridging orders placed to IMCU after discussion with Dr. Godoy Critical Care Time: Yes Critical care time in (mins) excluding proc time.: 40 Critical care attestation.: If time is entered above; I have spent that time in minutes in the direct care of this critically ill patient, excluding procedure time. Critical Care Time: 40 Minutes of critical care time excluding procedures were used in the care of the patient. I obtained history from EMS at the bedside. I discussed treatment plan with the nursing team members. Patient required multiple interventions and reassessments. Spoke with hospitalist and consultants for collaborative care ED Disposition Clinical Impression: Sepsis, Pneumonia, Acute encephalopathy, Acute respiratory failure with hypoxia, Hypomagnesemia, Hyperglycemia due to diabetes mellitus Disposition: ADMITTED INPATIENT Is pt being admited?: Yes Condition: Stable Time of Disposition: 09:21
[2022-05-14] MEDS ORDERED: ACETAMINOPHEN 325 MG TAB PO PRN (09:33)
[2022-05-14] MEDS ORDERED: MORPHINE 2 MG/1 ML INJ IV PRN (09:33)
--- NOTE | 2022-05-14 10:35 | History and Physical Report ---
History of Present Illness Date of examination: 05/14/22 Date of admission: 05/14/2022 Chief complaint: Altered level of consciousness ,acute respiratory failure and fever History of present illness: 71-year-old female patient [facility] resident with significant past medical history of Alzheimer's dementia diabetes, coronary artery disease, depression, dysphagia, thrombocytopenia was sent to the emergency room with complaints of altered level of consciousness and sepsis. Patient was noted to be severely hypoxemic on arrival saturating only 88% on joann m air however improved to 91% on 2 L. After returning from CT scan patient suddenly went into severe hypoxic respiratory failure requiring 15 L When I went and re evaluated the patient, the respiratory therapist at the bedside and patient is on high flow nasal cannula oxygen 30 L/65% FiO2/O2 sats 95 percent. Patient was already planned to admit to [facility], ER physician consulted pulmonary critical care Dr. Romero. Patient is lethargic noncommunicative, no other history is available Past History Past Medical History: diabetes, hypertension, other (Alzheimer's dementia, major depression) Past Surgical History: No surgical history Social history: denies: smoking, alcohol abuse, prescription drug abuse Family history: no significant family history Medications and Allergies Allergies Allergy/AdvReac Type Severity Reaction Status Date / Time codeine Allergy Unknown Verified 03/21/20 16:27 levofloxacin [From Levaquin] Allergy Unknown Verified 03/21/20 16:27 Home Medications Medication Instructions Recorded Confirmed Last Taken Type Magnesium Oxide 400 mg PO QDAY #30 tablet 04/02/20 05/14/22 Unknown Rx Nitrofurantoin [place]/M-Cryst 100 mg PO Q12HR #13 capsule 04/02/20 05/14/22 Unknown Rx [Macrobid CAP] Acidophilus Lactobacilli 1 mg PO DAILY 05/14/22 05/14/22 Unknown History Aspirin 81 mg PO ONCE 05/14/22 05/14/22 Unknown History Bisacodyl 10 mg PO Q24HR 05/14/22 05/14/22 Unknown History Flonase 2 spray PRN 05/14/22 05/14/22 Unknown History Lantus VIAL 16 units PO BID 05/14/22 05/14/22 Unknown History Multiple Vitamin TAB (Theragran) 1 mg PO DAILY 05/14/22 05/14/22 Unknown History Polyethylene Glycol 3350 17 mg PO PRN 05/14/22 05/14/22 Unknown History Risperdal 0.5 mg PO BID 05/14/22 05/14/22 Unknown History Timolol 1 drop OU BID 05/14/22 05/14/22 Unknown History Travatan Z 0.004% 1 drop OS HS 05/14/22 05/14/22 Unknown History Tylenol /Codeine # 3 tab 650 mg PO PRN 05/14/22 05/14/22 Unknown History Zoloft 50 mg PO DAILY 05/14/22 05/14/22 Unknown History Active Meds: Active Medications Acetaminophen (Acetaminophen 325 Mg Tab) 650 mg PO Q6H PRN PRN Reason: Pain MILD(1-3)/Fever >100.5/SNELL Morphine Sulfate (Morphine 2 Mg/1 Ml Inj) 2 mg IV Q4H PRN PRN Reason: Pain, Moderate (4-6) Sodium Chloride (Sodium Chloride 0.9% 10 Ml Flush Syringe) 10 ml IV BID DUKE Sodium Chloride (Sodium Chloride 0.9% 10 Ml Flush Syringe) 10 ml IV PRN PRN PRN Reason: LINE FLUSH Review of Systems ROS unobtainable: due to mental status Respiratory: other Exam - Constitutional Vitals: Temp Pulse Resp BP Pulse Ox 102.4 F H 87 32 H 110/47 90 05/14/22 05:55 05/14/22 10:00 05/14/22 10:00 05/14/22 10:00 05/14/22 10:00 General appearance: Present: no acute distress, well-nourished - EENT Eyes: Present: PERRL, EOM intact - Neck Neck: Present: supple, normal ROM - Respiratory Respiratory effort: normal Respiratory: bilateral: diminished, negative: rales, rhonchi, wheezing - Cardiovascular Rhythm: regular Heart Sounds: Present: S1 & S2 - Extremities Extremities: no ischemia, No edema - Abdominal General gastrointestinal: Present: soft, non-tender, non-distended - Integumentary Integumentary: Present: clear, warm - Musculoskeletal Musculoskeletal: generalized weakness - Psychiatric Psychiatric: other - Neurologic Neurologic: moves all extremities Results - Labs CBC & Chem 7: 05/14/22 05:45 05/14/22 05:45 Labs: Abnormal lab results 05/14/22 05/14/22 05/14/22 Range/Units 05:45 05:45 05:45 WBC 20.8 H (4.5-11.0) K/mm3 Seg Neuts % (Manual) 85.0 H (40.0-70.0) % Lymphocytes % (Manual) 5.0 L (13.4-35.0) % Seg Neutrophils # Man 17.7 H (1.8-7.7) K/mm3 Lymphocytes # (Manual) 1.0 L (1.2-5.4) K/mm3 Sodium 134 L (137-145) mmol/L Chloride 94.2 L (98-107) mmol/L BUN 35 H (7-17) mg/dL Creatinine 2.1 H (0.6-1.2) mg/dL Glucose 403 H (65-100) mg/dL POC Glucose (70-105) mg/dL Lactic Acid 6.60 H* (0.7-2.0) mmol/L Magnesium (1.7-2.3) mg/dL Albumin 2.7 L (3.9-5) g/dL 05/14/22 05/14/22 05/14/22 Range/Units 05:45 07:02 09:26 WBC (4.5-11.0) K/mm3 Seg Neuts % (Manual) (40.0-70.0) % Lymphocytes % (Manual) (13.4-35.0) % Seg Neutrophils # Man (1.8-7.7) K/mm3 Lymphocytes # (Manual) (1.2-5.4) K/mm3 Sodium (137-145) mmol/L Chloride (98-107) mmol/L BUN (7-17) mg/dL Creatinine (0.6-1.2) mg/dL Glucose (65-100) mg/dL POC Glucose (70-105) mg/dL Lactic Acid 5.70 H* 5.30 H* (0.7-2.0) mmol/L Magnesium 1.10 L (1.7-2.3) mg/dL Albumin (3.9-5) g/dL 05/14/22 Range/Units 09:31 WBC (4.5-11.0) K/mm3 Seg Neuts % (Manual) (40.0-70.0) % Lymphocytes % (Manual) (13.4-35.0) % Seg Neutrophils # Man (1.8-7.7) K/mm3 Lymphocytes # (Manual) (1.2-5.4) K/mm3 Sodium (137-145) mmol/L Chloride (98-107) mmol/L BUN (7-17) mg/dL Creatinine (0.6-1.2) mg/dL Glucose (65-100) mg/dL POC Glucose 209 H (70-105) mg/dL Lactic Acid (0.7-2.0) mmol/L Magnesium (1.7-2.3) mg/dL Albumin (3.9-5) g/dL Assessment and Plan --Acute metabolic encephalopathy; Multifactorial, sepsis, pneumonia , hypoxia Respiratory failure advanced age Treat the underlying cause Neurochecks -- Acute hypoxic respiratory failure; Requiring supplemental oxygen Probably secondary to pneumonia Oxygen titrate O2 sats to more than 90% Pulmonary consult if needed -- Lactic acidosis; Probably secondary to sepsis, IV fluids Empiric IV antibiotics, follow cultures Trend lactic levels -- Left-sided pneumonia[possible HCAP/[facility] resident] Blood cultures, sputum cultures Empiric antibiotics cefepime Oxygen titrate O2 sats to more than 90% Supportive care Pulmonary/ID service needed --Sepsis secondary to left-sided pneumonia -Acute kidney injury; vasomotor nephropathy Gentle hydration, monitor renal function Avoid nephrotoxins, nephrology consult if needed -- Mild hyponatremia; Closely monitor electrolytes -- Severe protein calorie malnutrition; Nutrition supplements, supportive care Nutrition consult -- Severe hypoalbuminemia; Nutrition supplements and supportive care -- DVT prophylaxis Subcu heparin renal dose -- Full CODE STATUS We will closely monitor the patient and adjust the management as needed Patient will be admitted to IMCU, closely monitor ABG wean oxygen as tolerated, if no improvement consider intubation As needed Plan of care reviewed with the patient this nurse and the ER physician. I discussed with video game developer Dr. Romero , who was already consulted by ER physician . Will try to contact family Critical care time 60 minutes; The high probability of a clinically significant, sudden or life threatening deterioration of the [multi] system(s) required my full and direct attention, intervention and personal management. The aggregate critical care time was [60] minutes. [x] Data Review and interpretation [x] Patient assessment and monitoring of vital signs [x] Documentation [x] Medication orders and management Total medical care time spent; 62 minutes
[2022-05-14 11:06] LABS: Bilirubin,Urine NEG (Negative); Blood,Urine MOD (Negative); Urobilinogen,Urine < 2.0 mg/dL (<2.0)
[2022-05-14 11:17] LABS: ABG Base Excess 1.1 mmol/L (-2.0-3.0); ABG HCO3 25.6 mmol/L (20.0-26.0); ABG Methemoglobin 0.3 % (0.0-1.5); ABG Oxygen Saturation 88.4 % (95.0-99.0); ABG PCO2 40.2 mm Hg; ABG PH 7.422 pH Units (7.350-7.450); ABG PO2 51.4 mm Hg (80.0-90.0)
[2022-05-14 11:23] LABS: Bacteria,Urine 4+ /HPF (Negative); Mucus,Urine 1+ /HPF
[2022-05-14 11:25] LABS: Color,Urine Brown (Yellow); RBC,Urine > 182.0 /HPF (0.0-6.0); WBC,Urine > 182.0 /HPF (0.0-6.0)
[2022-05-14] MEDS ORDERED: VANCOMYCIN 1,250 MG in SODIUM CHLORIDE 0.9% 500 ML 500 ML IV ONE (12:00)
[2022-05-14] MEDS ORDERED: ALBUTEROL 2.5 MG/3 ML NEBU IH PRN (12:52)
[2022-05-14] MEDS ORDERED: VANCOMYCIN PHARMACY TO DOSE IV SCH (13:00)
[2022-05-14] MEDS: SODIUM CHLORIDE 0.9% 1000 ML 1,000 ML IV SCH ×2 (15:00→23:23)
[2022-05-14] MEDS: INSULIN LISPRO 100 UNIT/ML SUB-Q SCH (18:23)
[2022-05-14] MEDS: HEPARIN 5,000 UNIT/1 ML VIAL SUB-Q SCH (21:24)
[2022-05-15] MEDS: INSULIN LISPRO 100 UNIT/ML SUB-Q SCH ×4 (00:31→17:01)
--- NOTE | 2022-05-15 08:10 | Progress Note ---
Assessment and Plan Assessment and plan: History of present illness: 71-year-old female patient [facility] resident with significant past medical history of Alzheimer's dementia diabetes, coronary artery disease, depression, dysphagia, thrombocytopenia was sent to the emergency room with complaints of altered level of consciousness and sepsis. Patient was noted to be severely hypoxemic on arrival saturating only 88% on room air however improved to 91% on 2 L. After returning from CT scan patient suddenly went into severe hypoxic respiratory failure requiring 15 L When I went and re evaluated the patient, the respiratory therapist at the bedside and patient is on high flow nasal cannula oxygen 30 L/65% FiO2/O2 sats 95 percent. Patient was already planned to admit to [facility], ER physician consulted pulmonary critical care Dr. Romero. Patient is lethargic noncommunicative, no other history is available Hospital Course: 05/15: Remains encephalopathic, on high flow nasal cannula. We will continue to wean as patient tolerates. Continue therapy with IV vancomycin and cefepime. ABG/Chest x-ray ordered for tomorrow. Will follow pulmonary recs. Assessment and Plan: #Acute hypoxic respiratory failure Requiring supplemental oxygen Probably secondary to pneumonia Oxygen titrate O2 sats to more than 90%, currently on high flow nasal cannula Pulmonary consultation #Sepsis POA secondary to left-sided pneumonia/Urinary Tract Infection - follow bcx,scx,ucx - COVID RT PCR negative - abx: vanc/cefepime IV - trend fever curve/wbc ct #Hospital Acquired Pneumonia [facility] resident] Blood cultures, sputum cultures Empiric antibiotics cefepime Oxygen titrate O2 sats to more than 90% Supportive care Pulmonary/ID service needed #Urinary tract infection - WBC: 20.8K, UA [id number] - cefepime as above. #Acute metabolic encephalopathy; -Multifactorial, sepsis, pneumonia , hypoxia in the setting of advanced dementia -Respiratory failure advanced age -Treat the underlying cause -Neurochecks -CT brain on admission demonstrated no acute intracranial abnormality #Lactic acidosis; -Probably secondary to sepsis, IV fluids -Empiric IV antibiotics, follow cultures -Trend lactic levels #Acute kidney injury; vasomotor nephropathy -Gentle hydration, monitor renal function -Avoid nephrotoxins, nephrology consult if needed #Mild hyponatremia; -Closely monitor electrolytes #Severe protein calorie malnutrition; -Nutrition supplements, supportive care -Nutrition consult #Severe hypoalbuminemia; -Nutrition supplements and supportive care -- Full CODE STATUS dispo: [facility] once clinically stable The high probability of a clinically significant, sudden or life threatening deterioration of the [multi] system(s) required my full and direct attention, intervention and personal management. The aggregate critical care time was [60] minutes. This time is in addition to time spent performing reported procedures but includes the following: [x] Data Review and interpretation [x] Patient assessment and monitoring of vital signs [x] Documentation [x] Medication orders and management History Interval history: Resting comfortably on encounter. Not following commands or localizing to voice. Remains encephalopathic Hospitalist Physical - Physical exam Narrative exam: Physical Exam: VITAL SIGNS: Reviewed. GENERAL: The patient appears normally developed, Vital signs as documented. Ill-appearing elderly woman. HEAD: No signs of head trauma. EYES: Pupils are equal. EARS: Hearing grossly intact. MOUTH: Oropharynx is normal. NECK: No adenopathy, no JVD. CHEST: Chest with clear breath sounds bilaterally. No wheezes, rales, or rhonchi. CARDIAC: Regular rate and rhythm. S1 and S2, without murmurs, gallops, or rubs. VASCULAR: No Edema. Peripheral pulses normal and equal in all extremities. ABDOMEN: Soft, non tender and non distended. No rebound or guarding, and no masses palpated. Bowel Sounds normal. MUSCULOSKELETAL: Good range of motion of all major joints. Extremities without clubbing, cyanosis or edema. NEUROLOGIC EXAM: Unable to assess encephalopathic PSYCHIATRIC: Unable to assess in several SKIN: detail exam as documented in skin assessment - Constitutional Vitals: Temp Pulse Resp BP Pulse Ox 98.3 F 80 17 119/35 100 05/15/22 07:50 05/15/22 07:31 05/15/22 07:31 05/15/22 07:31 05/15/22 07:31 General appearance: Present: no acute distress, well-nourished Results - Labs CBC & Chem 7: 05/14/22 05:45 05/14/22 05:45 Labs: Laboratory Last Values WBC 20.8 K/mm3 (4.5-11.0) H 05/14/22 05:45 RBC 4.59 M/mm3 (3.65-5.03) 05/14/22 05:45 Hgb 14.1 gm/dl (10.1-14.3) 05/14/22 05:45 Hct 41.2 % (30.3-42.9) 05/14/22 05:45 MCV 90 fl (79-97) 05/14/22 05:45 MCH 31 pg (28-32) 05/14/22 05:45 MCHC 34 % (30-34) 05/14/22 05:45 RDW 14.0 % (13.2-15.2) 05/14/22 05:45 Plt Count 171 K/mm3 (140-440) 05/14/22 05:45 Add Manual Diff Complete 05/14/22 05:45 Total Counted 100 05/14/22 05:45 Seg Neutrophils % Flight Attendant/Inflight Supervisor 05/14/22 05:45 Seg Neuts % (Manual) 85.0 % (40.0-70.0) H 05/14/22 05:45 Band Neutrophils % 6.0 % 05/14/22 05:45 Lymphocytes % (Manual) 5.0 % (13.4-35.0) L 05/14/22 05:45 Reactive Lymphs % (Man) 0 % 05/14/22 05:45 Monocytes % (Manual) 4.0 % (0.0-7.3) 05/14/22 05:45 Eosinophils % (Manual) 0 % (0.0-4.3) 05/14/22 05:45 Basophils % (Manual) 0 % (0.0-1.8) 05/14/22 05:45 Metamyelocytes % 0 % 05/14/22 05:45 Myelocytes % 0 % 05/14/22 05:45 Promyelocytes % 0 % 05/14/22 05:45 Blast Cells % 0 % 05/14/22 05:45 Nucleated RBC % Not Reportable 05/14/22 05:45 Seg Neutrophils # Man 17.7 K/mm3 (1.8-7.7) H 05/14/22 05:45 Band Neutrophils # 1.2 K/mm3 05/14/22 05:45 Lymphocytes # (Manual) 1.0 K/mm3 (1.2-5.4) L 05/14/22 05:45 Abs React Lymphs (Man) 0.0 K/mm3 05/14/22 05:45 Monocytes # (Manual) 0.8 K/mm3 (0.0-0.8) 05/14/22 05:45 Eosinophils # (Manual) 0.0 K/mm3 (0.0-0.4) 05/14/22 05:45 Basophils # (Manual) 0.0 K/mm3 (0.0-0.1) 05/14/22 05:45 Metamyelocytes # 0.0 K/mm3 05/14/22 05:45 Myelocytes # 0.0 K/mm3 05/14/22 05:45 Promyelocytes # 0.0 K/mm3 05/14/22 05:45 Blast Cells # 0.0 K/mm3 05/14/22 05:45 WBC Morphology Not Reportable 05/14/22 05:45 Hypersegmented Neuts Not Reportable 05/14/22 05:45 Hyposegmented Neuts Not Reportable 05/14/22 05:45 Hypogranular Neuts Not Reportable 05/14/22 05:45 Smudge Cells Not Reportable 05/14/22 05:45 Toxic Granulation Not Reportable 05/14/22 05:45 Toxic Vacuolation Not Reportable 05/14/22 05:45 Dohle Bodies Not Reportable 05/14/22 05:45 Pelger-Huet Anomaly Not Reportable 05/14/22 05:45 Supa Rods Not Reportable 05/14/22 05:45 Platelet Estimate Consistent w auto 05/14/22 05:45 Clumped Platelets Not Reportable 05/14/22 05:45 Plt Clumps, EDTA Not Reportable 05/14/22 05:45 Large Platelets Not Reportable 05/14/22 05:45 Giant Platelets Not Reportable 05/14/22 05:45 Platelet Satelliting Not Reportable 05/14/22 05:45 Plt Morphology Comment Not Reportable 05/14/22 05:45 RBC Morphology Normal 05/14/22 05:45 Dimorphic RBCs Not Reportable 05/14/22 05:45 Polychromasia Not Reportable 05/14/22 05:45 Hypochromasia Not Reportable 05/14/22 05:45 Poikilocytosis Not Reportable 05/14/22 05:45 Anisocytosis Not Reportable 05/14/22 05:45 Microcytosis Not Reportable 05/14/22 05:45 Macrocytosis Not Reportable 05/14/22 05:45 Spherocytes Not Reportable 05/14/22 05:45 Pappenheimer Bodies Not Reportable 05/14/22 05:45 Sickle Cells Not Reportable 05/14/22 05:45 Target Cells Not Reportable 05/14/22 05:45 Tear Drop Cells Not Reportable 05/14/22 05:45 Ovalocytes Not Reportable 05/14/22 05:45 Helmet Cells Not Reportable 05/14/22 05:45 [place] Bodies Not Reportable 05/14/22 05:45 [place] Rings Not Reportable 05/14/22 05:45 [place] Cells Not Reportable 05/14/22 05:45 Bite Cells Not Reportable 05/14/22 05:45 Crenated Cell Not Reportable 05/14/22 05:45 Elliptocytes Not Reportable 05/14/22 05:45 Acanthocytes (Spur) Not Reportable 05/14/22 05:45 Rouleaux Not Reportable 05/14/22 05:45 Hemoglobin C Crystals Not Reportable 05/14/22 05:45 Schistocytes Not Reportable 05/14/22 05:45 Malaria parasites Not Reportable 05/14/22 05:45 Parveen Bodies Not Reportable 05/14/22 05:45 Hem Pathologist Commnt No 05/14/22 05:45 ABG pH 7.422 pH Units (7.350-7.450) 05/14/22 10:50 ABG pCO2 40.2 mm Hg 05/14/22 10:50 ABG pO2 51.4 mm Hg (80.0-90.0) L 05/14/22 10:50 ABG HCO3 25.6 mmol/L (20.0-26.0) 05/14/22 10:50 ABG O2 Saturation 88.4 % (95.0-99.0) L 05/14/22 10:50 ABG O2 Content 13.9 (0.0-44) 05/14/22 10:50 ABG Base Excess 1.1 mmol/L (-2.0-3.0) 05/14/22 10:50 ABG Hemoglobin 11.5 gm/dl (12.0-16.0) L 05/14/22 10:50 ABG Carboxyhemoglobin 1.8 % (0.0-5.0) 05/14/22 10:50 ABG Methemoglobin 0.3 % (0.0-1.5) 05/14/22 10:50 Oxyhemoglobin 86.5 % (95.0-99.0) L 05/14/22 10:50 FiO2 50 % 05/14/22 10:50 Sodium 134 mmol/L (137-145) L 05/14/22 05:45 Potassium 4.3 mmol/L (3.6-5.0) 05/14/22 05:45 Chloride 94.2 mmol/L (98-107) L 05/14/22 05:45 Carbon Dioxide 25 mmol/L (22-30) 05/14/22 05:45 Anion Gap 19 mmol/L 05/14/22 05:45 BUN 35 mg/dL (7-17) H 05/14/22 05:45 Creatinine 2.1 mg/dL (0.6-1.2) H 05/14/22 05:45 Estimated GFR 23 ml/min 05/14/22 05:45 BUN/Creatinine Ratio 17 % 05/14/22 05:45 Glucose 403 mg/dL (65-100) H 05/14/22 05:45 POC Glucose 245 mg/dL (70-105) H 05/14/22 17:15 Lactic Acid 5.30 mmol/L (0.7-2.0) H* 05/14/22 09:26 Calcium 9.8 mg/dL (8.4-10.2) 05/14/22 05:45 Magnesium 1.10 mg/dL (1.7-2.3) L 05/14/22 05:45 Total Bilirubin 0.40 mg/dL (0.1-1.2) 05/14/22 05:45 AST 18 units/L (5-40) 05/14/22 05:45 ALT 10 units/L (7-56) 05/14/22 05:45 Alkaline Phosphatase 57 units/L (35-129) 05/14/22 05:45 Total Protein 6.3 g/dL (6.3-8.2) 05/14/22 05:45 Albumin 2.7 g/dL (3.9-5) L 05/14/22 05:45 Albumin/Globulin Ratio 0.8 % 05/14/22 05:45 Urine Color Brown (Yellow) 05/14/22 10:38 Urine Turbidity Turbid (Clear) 05/14/22 10:38 Urine pH 5.0 (5.0-7.0) 05/14/22 10:38 Ur Specific [place] 1.017 (1.003-1.030) 05/14/22 10:38 Urine Protein 100 mg/dl mg/dL (Negative) 05/14/22 10:38 Urine Glucose (UA) Neg mg/dL (Negative) 05/14/22 10:38 Urine Ketones Neg mg/dL (Negative) 05/14/22 10:38 Urine Blood Mod (Negative) 05/14/22 10:38 Urine Nitrite Neg (Negative) 05/14/22 10:38 Urine Bilirubin Neg (Negative) 05/14/22 10:38 Urine Ictotest Not Reportable 05/14/22 10:38 Urine Urobilinogen < 2.0 mg/dL (<2.0) 05/14/22 10:38 Ur Leukocyte Esterase Tr (Negative) 05/14/22 10:38 Urine WBC (Auto) > 182.0 /HPF (0.0-6.0) H 05/14/22 10:38 Urine RBC (Auto) > 182.0 /HPF (0.0-6.0) 05/14/22 10:38 Urine Bacteria (Auto) 4+ /HPF (Negative) 05/14/22 10:38 Urine WBC Clumps 3+ /HPF 05/14/22 10:38 Urine Mucus 1+ /HPF 05/14/22 10:38 SARS-CoV-2 (PCR) Negative (Negative) 05/14/22 10:38 Microbiology: Microbiology 05/14/22 05:45 Peripheral/Venous Blood Culture - Preliminary Culture in Progress 05/14/22 05:39 Peripheral/Venous Blood Culture - Preliminary Culture in Progress [place]oe/IV: Voiding Method Indwelling Catheter Active Medications - Current Medications Current Medications: Generic Name Dose Route Start Last Admin Trade Name Freq PRN Reason Stop Dose Admin Acetaminophen 650 mg 05/14/22 09:33 Acetaminophen 325 Mg Tab PO Q6H PRN Pain MILD(1-3)/Fever >100.5/SNELL Albuterol 2.5 mg 05/14/22 12:52 Albuterol 2.5 Mg/3 Ml Nebu IH Q4H PRN Shortness Of Breath Heparin Sodium (Porcine) 5,000 unit 05/14/22 22:00 05/14/22 21:24 Heparin 5,000 Unit/1 Ml Vial SUB-Q 5,000 unit Q12HR [facility] Administration Cefepime HCl 1 gm in 100 mls @ 200 mls/hr 05/15/22 10:00 Cefepime/Ns 1 Gm/100 Ml IV QDAY [facility] Protocol Sodium Chloride 1,000 mls @ 75 mls/hr 05/14/22 14:00 05/14/22 23:23 Nacl 0.9% 1000 Ml IV 75 mls/hr DIRECT [facility] Administration Insulin Human Lispro 0 unit 05/14/22 18:00 05/15/22 05:59 Insulin Lispro 100 Unit/Ml SUB-Q 3 unit Q6HR [facility] Administration Protocol Morphine Sulfate 2 mg 05/14/22 09:33 Morphine 2 Mg/1 Ml Inj IV Q4H PRN Pain, Moderate (4-6) Sodium Chloride 10 ml 05/14/22 10:00 05/14/22 21:24 Sodium Chloride 0.9% 10 Ml Flush Syringe IV 10 ml BID [facility] Administration Sodium Chloride 10 ml 05/14/22 09:32 Sodium Chloride 0.9% 10 Ml Flush Syringe IV PRN PRN LINE FLUSH
[2022-05-15] MEDS: HEPARIN 5,000 UNIT/1 ML VIAL SUB-Q SCH ×2 (09:01→22:21)
[2022-05-15] MEDS: CEFEPIME/NS 1 GM/100 ML 1 GM/100 ML BAG IV SCH (09:01)
[2022-05-15] MEDS: SODIUM CHLORIDE 0.9% 1000 ML 1,000 ML IV SCH ×2 (11:51→22:20)
[2022-05-15] MEDS ORDERED: VANCOMYCIN/NS 1 GM/250 ML 1 GM/250 ML BAG IV SCH (13:00)
--- NOTE | 2022-05-15 13:25 | Consultation ---
History of Present Illness Consult date: 05/15/22 Requesting physician: REECE RODRÍGUEZ Reason for consult: hypoxemia History of present illness: 71 y/o female with acute respiratory failure thought secondary to left lower lobe pneumonia. Patient is not able to provide any further history secondary to mental status. Past History Past Medical History: diabetes, hypertension, other (Alzheimer's dementia, major depression) Past Surgical History: No surgical history Social history: denies: smoking, alcohol abuse, prescription drug abuse Family history: no significant family history Medications and Allergies Allergies Allergy/AdvReac Type Severity Reaction Status Date / Time codeine Allergy Unknown Verified 03/21/20 16:27 levofloxacin [From Levaquin] Allergy Unknown Verified 03/21/20 16:27 Home Medications Medication Instructions Recorded Confirmed Last Taken Type Magnesium Oxide 400 mg PO QDAY #30 tablet 04/02/20 05/14/22 Unknown Rx Nitrofurantoin [place]/M-Cryst 100 mg PO Q12HR #13 capsule 04/02/20 05/14/22 Unknown Rx [Macrobid CAP] Acidophilus Lactobacilli 1 mg PO DAILY 05/14/22 05/14/22 Unknown History Aspirin 81 mg PO ONCE 05/14/22 05/14/22 Unknown History Bisacodyl 10 mg PO Q24HR 05/14/22 05/14/22 Unknown History Flonase 2 spray PRN 05/14/22 05/14/22 Unknown History Lantus VIAL 16 units PO BID 05/14/22 05/14/22 Unknown History Multiple Vitamin TAB (Theragran) 1 mg PO DAILY 05/14/22 05/14/22 Unknown History Polyethylene Glycol 3350 17 mg PO PRN 05/14/22 05/14/22 Unknown History Risperdal 0.5 mg PO BID 05/14/22 05/14/22 Unknown History Timolol 1 drop OU BID 05/14/22 05/14/22 Unknown History Travatan Z 0.004% 1 drop OS HS 05/14/22 05/14/22 Unknown History Tylenol /Codeine # 3 tab 650 mg PO PRN 05/14/22 05/14/22 Unknown History Zoloft 50 mg PO DAILY 05/14/22 05/14/22 Unknown History Active Meds: Active Medications Acetaminophen (Acetaminophen 325 Mg Tab) 650 mg PO Q6H PRN PRN Reason: Pain MILD(1-3)/Fever >100.5/SNELL Albuterol (Albuterol 2.5 Mg/3 Ml Nebu) 2.5 mg IH Q4H PRN PRN Reason: Shortness Of Breath Heparin Sodium (Porcine) (Heparin 5,000 Unit/1 Ml Vial) 5,000 unit SUB-Q Q12HR [facility] Last Admin: 05/15/22 09:01 Dose: 5,000 unit Cefepime HCl (Cefepime/Ns 1 Gm/100 Ml) 1 gm in 100 mls @ 200 mls/hr IV QDAY [facility]; Protocol Last Infusion: 05/15/22 09:33 Dose: Infused Sodium Chloride (Nacl 0.9% 1000 Ml) 1,000 mls @ 75 mls/hr IV DIRECT [facility] Last Admin: 05/15/22 11:51 Dose: 75 mls/hr Vancomycin HCl (Vancomycin/Ns 1 Gm/250 Ml) 1 gm in 250 mls @ 166.667 mls/hr IV Q24H [facility] Last Admin: 05/15/22 12:43 Dose: 166.667 mls/hr Insulin Human Lispro (Insulin Lispro 100 Unit/Ml) 0 unit SUB-Q Q6HR [facility]; Protocol Last Admin: 05/15/22 11:51 Dose: 3 unit Morphine Sulfate (Morphine 2 Mg/1 Ml Inj) 2 mg IV Q4H PRN PRN Reason: Pain, Moderate (4-6) Sodium Chloride (Sodium Chloride 0.9% 10 Ml Flush Syringe) 10 ml IV BID [facility] Last Admin: 05/15/22 09:01 Dose: 10 ml Sodium Chloride (Sodium Chloride 0.9% 10 Ml Flush Syringe) 10 ml IV PRN PRN PRN Reason: LINE FLUSH Review of Systems ROS unobtainable: due to mental status Physical Examination Vital signs: Vital Signs Temp Pulse Resp BP Pulse Ox 102.4 F H 111 H 18 150/100 95 05/14/22 04:57 05/14/22 04:57 05/14/22 04:57 05/14/22 04:57 05/14/22 04:57 General appearance: no acute distress, appears uncomfortable ENT: oropharynx moist Neck: supple Effort: mildly labored Ascultation: Left: rales (left lower lobe) Cardiovascular: regular rate and rhythm Gastrointestinal: normoactive bowel sounds Results - Laboratory Findings CBC and BMP: 05/14/22 05:45 05/14/22 05:45 ABG ABG pH 7.422 pH Units (7.350-7.450) 05/14/22 10:50 ABG pCO2 40.2 mm Hg 05/14/22 10:50 ABG pO2 51.4 mm Hg (80.0-90.0) L 05/14/22 10:50 ABG O2 Saturation 88.4 % (95.0-99.0) L 05/14/22 10:50 Abnormal lab findings: Abnormal Labs 05/14/22 05/14/22 05/14/22 05:45 05:45 05:45 WBC 20.8 H Seg Neuts % (Manual) 85.0 H Lymphocytes % (Manual) 5.0 L Seg Neutrophils # Man 17.7 H Lymphocytes # (Manual) 1.0 L ABG pO2 ABG O2 Saturation ABG Hemoglobin Oxyhemoglobin Sodium 134 L Chloride 94.2 L BUN 35 H Creatinine 2.1 H Glucose 403 H POC Glucose Lactic Acid 6.60 H* Magnesium Albumin 2.7 L Urine WBC (Auto) 05/14/22 05/14/22 05/14/22 05:45 07:02 09:26 WBC Seg Neuts % (Manual) Lymphocytes % (Manual) Seg Neutrophils # Man Lymphocytes # (Manual) ABG pO2 ABG O2 Saturation ABG Hemoglobin Oxyhemoglobin Sodium Chloride BUN Creatinine Glucose POC Glucose Lactic Acid 5.70 H* 5.30 H* Magnesium 1.10 L Albumin Urine WBC (Auto) 05/14/22 05/14/22 05/14/22 09:31 10:38 10:50 WBC Seg Neuts % (Manual) Lymphocytes % (Manual) Seg Neutrophils # Man Lymphocytes # (Manual) ABG pO2 51.4 L ABG O2 Saturation 88.4 L ABG Hemoglobin 11.5 L Oxyhemoglobin 86.5 L Sodium Chloride BUN Creatinine Glucose POC Glucose 209 H Lactic Acid Magnesium Albumin Urine WBC (Auto) > 182.0 H 05/14/22 05/14/22 05/15/22 13:24 17:15 11:25 WBC Seg Neuts % (Manual) Lymphocytes % (Manual) Seg Neutrophils # Man Lymphocytes # (Manual) ABG pO2 ABG O2 Saturation ABG Hemoglobin Oxyhemoglobin Sodium Chloride BUN Creatinine Glucose POC Glucose 212 H 245 H 232 H Lactic Acid Magnesium Albumin Urine WBC (Auto) - Diagnostic Findings Chest x-ray: image reviewed (left lower lobe infiltrate) Assessment and Plan 71 y/o female with sepsis, and acute respiratory failure most likely secondary to left lower lobe infiltrate with acute renal failure 1. Pulm-has been weaned to 15 liters and 55%. Sats good. Continue to wean for sats >88%. Agree with repeat CXR tomorrow and ABG if needed. 2. CV-hypotensive, will bolus now and reassess. May be more volume deplete, especially given renal failure. Repeat chemistry later today to see if renal function improves with volume. If so give more 3. Neuro-intial head CT is negative. May need repeat if she does not improve with abx and fluid hydration. Given her mental state, if her oxygenation worsens, would need intubation, not a candidate for bipap 4. Guarded progonsis CCT 31 minutes.
[2022-05-15] MEDS ORDERED: SODIUM CHLORIDE 0.9% 1000 ML 1,000 ML IV ONE ×2 (13:41→14:00)
--- NOTE | 2022-05-15 15:14 | Electrocardiograph Report ---
[facility] Test Date: 2022-05-14 Test Time: 05:37:13 Pat Name: ROSSY ALEGRIA Department: Room: A264 Gender: F Commutator Tester: MARIZA : 1950 Requested By: LINDA JENSEN Order Number: [id number] Reading MD: Bo Smith Measurements Intervals [place] Rate: 94 P: 61 MI: 182 QRS: 92 QRSD: 127 T: 38 QT: 416 QTc: 520 Interpretive Statements Sinus rhythm RBBB and LPFB No previous ECG available for comparison Electronically Signed On 05-15-2022 15:14:19 EDT by Bo Smith
[2022-05-15 18:24] LABS: BUN/Creatinine Ratio 46; Blood Urea Nitrogen 32 mg/dL (7-17); Calcium 9.1 mg/dL (8.4-10.2); Hemolysis Index 5
[2022-05-16] MEDS: INSULIN LISPRO 100 UNIT/ML SUB-Q SCH ×5 (01:06→23:49)
[2022-05-16 05:11] LABS: Hematocrit 34.7 % (30.3-42.9); Hemoglobin 11.3 gm/dl (10.1-14.3); Mean Corpuscular HGB Conc 33 % (30-34); Mean Corpuscular Volume 92 fl (79-97); Platelet Count 172 K/mm3 (140-440); Red Blood Count 3.79 M/mm3 (3.65-5.03)
--- NOTE | 2022-05-16 05:11 | XRay Report ---
CHEST 1 VIEW INDICATION / CLINICAL INFORMATION: pneumonia. COMPARISON: Chest x-ray 05/14/2022 FINDINGS: SUPPORT DEVICES: None. HEART / MEDIASTINUM: Stable interval appearance of the cardiomediastinal silhouette. LUNGS / PLEURA: Interval partial clearing of left lung base persistent slightly worsened airspace [place] lower right lung. Upper lungs clear. BONES: No significant osseous abnormality. ADDITIONAL FINDINGS: No significant additional findings. IMPRESSION: 1. Interval partial clearing of the left lung base with slightly worsened airspace opacities right lo wer lung. Signer Name: Christiano Mcgee II, MD Signed: 05/16/2022 5:07 AM Workstation Name: [id number]
[2022-05-16 05:29] LABS: Blood Urea Nitrogen 29 mg/dL (7-17); Calcium 9.3 mg/dL (8.4-10.2); Hemolysis Index 8
[2022-05-16 05:46] LABS: BUN/Creatinine Ratio 48
[2022-05-16 08:05] LABS: Basophils % (Manual) 0 % (0.0-1.8); Eosinophils % (Manual) 0 % (0.0-4.3); Platelet Estimate Consistent w Auto; RBC Morphology Normal; Total Cells Counted 100
--- NOTE | 2022-05-16 08:44 | Progress Note ---
Assessment and Plan 71 y/o female with sepsis, and acute respiratory failure most likely secondary to left lower lobe infiltrate with acute renal failure 05/16/22: I gave 2 boluses yesterday secondary to marginal BP's. thats likely why cxr looks slightly worse. Will discontinue IVF's. Continue to wean FiO2 for sats >88%. Continue IV abx, has gram negative rods in the urine so maybe able to stop vanc. stable BP. Would be ok with patient going back to floor. Replace K 1. Pulm-has been weaned to 15 liters and 55%. Sats good. Continue to wean for sats >88%. Agree with repeat CXR tomorrow and ABG if needed. 2. CV-hypotensive, will bolus now and reassess. May be more volume deplete, especially given renal failure. Repeat chemistry later today to see if renal function improves with volume. If so give more 3. Neuro-intial head CT is negative. May need repeat if she does not improve with abx and fluid hydration. Given her mental state, if her oxygenation worsens, would need intubation, not a candidate for bipap 4. Guarded progonsis CCT 31 minutes. Subjective Date of service: 05/16/22 Interval history: Clinically improved despite CXR looking slightly worse. Down to 4 liters with good sats. Mental status is also better as patient actually responded appropriately to me this morning. Objective Vital Signs - 12hr 05/15/22 05/15/22 05/15/22 21:00 22:00 23:00 Temperature Pulse Rate 78 80 83 Pulse Rate [ From Monitor] Respiratory 24 18 20 Rate Respiratory 20 Rate [ Generalized] Blood Pressure 119/44 135/53 101/32 O2 Sat by Pulse 97 99 98 Oximetry 05/16/22 05/16/22 05/16/22 00:00 00:20 01:01 Temperature 98.7 F Pulse Rate 77 83 87 Pulse Rate [ 77 From Monitor] Respiratory 11 L 26 H Rate Respiratory Rate [ Generalized] Blood Pressure 120/46 87/39 O2 Sat by Pulse 100 99 Oximetry 05/16/22 05/16/22 05/16/22 02:00 03:00 03:45 Temperature Pulse Rate 79 78 77 Pulse Rate [ From Monitor] Respiratory 16 24 Rate Respiratory Rate [ Generalized] Blood Pressure 119/40 121/42 O2 Sat by Pulse 100 100 Oximetry 05/16/22 05/16/22 05/16/22 04:00 05:00 05:01 Temperature 98.0 F Pulse Rate 78 95 H Pulse Rate [ 87 From Monitor] Respiratory 17 16 20 Rate Respiratory Rate [ Generalized] Blood Pressure 124/50 132/45 O2 Sat by Pulse 100 96 94 Oximetry 05/16/22 05/16/22 06:00 07:00 Temperature Pulse Rate 78 80 Pulse Rate [ From Monitor] Respiratory 26 H 12 Rate Respiratory Rate [ Generalized] Blood Pressure 130/40 125/52 O2 Sat by Pulse 99 99 Oximetry Constitutional: no acute distress, appears uncomfortable ENT: oropharynx moist Neck: supple Effort: mildly labored Ascultation: Left: rales (left lower lobe) Cardiovascular: regular rate and rhythm Gastrointestinal: normoactive bowel sounds CBC and BMP: 05/16/22 04:28 05/16/22 04:28 ABG, PT/INR, D-dimer: ABG ABG pH 7.422 pH Units (7.350-7.450) 05/14/22 10:50 ABG pCO2 40.2 mm Hg 05/14/22 10:50 ABG pO2 51.4 mm Hg (80.0-90.0) L 05/14/22 10:50 ABG O2 Saturation 88.4 % (95.0-99.0) L 05/14/22 10:50 Abnormal lab findings: Abnormal Labs 05/14/22 05/14/22 05/14/22 05:45 05:45 05:45 WBC 20.8 H Seg Neuts % (Manual) 85.0 H Lymphocytes % (Manual) 5.0 L Seg Neutrophils # Man 17.7 H Lymphocytes # (Manual) 1.0 L ABG pO2 ABG O2 Saturation ABG Hemoglobin Oxyhemoglobin Sodium 134 L Potassium Chloride 94.2 L BUN 35 H Creatinine 2.1 H Glucose 403 H POC Glucose Lactic Acid 6.60 H* Magnesium Albumin 2.7 L Urine WBC (Auto) 05/14/22 05/14/22 05/14/22 05:45 07:02 09:26 WBC Seg Neuts % (Manual) Lymphocytes % (Manual) Seg Neutrophils # Man Lymphocytes # (Manual) ABG pO2 ABG O2 Saturation ABG Hemoglobin Oxyhemoglobin Sodium Potassium Chloride BUN Creatinine Glucose POC Glucose Lactic Acid 5.70 H* 5.30 H* Magnesium 1.10 L Albumin Urine WBC (Auto) 05/14/22 05/14/22 05/14/22 09:31 10:38 10:50 WBC Seg Neuts % (Manual) Lymphocytes % (Manual) Seg Neutrophils # Man Lymphocytes # (Manual) ABG pO2 51.4 L ABG O2 Saturation 88.4 L ABG Hemoglobin 11.5 L Oxyhemoglobin 86.5 L Sodium Potassium Chloride BUN Creatinine Glucose POC Glucose 209 H Lactic Acid Magnesium Albumin Urine WBC (Auto) > 182.0 H 05/14/22 05/14/22 05/15/22 13:24 17:15 11:25 WBC Seg Neuts % (Manual) Lymphocytes % (Manual) Seg Neutrophils # Man Lymphocytes # (Manual) ABG pO2 ABG O2 Saturation ABG Hemoglobin Oxyhemoglobin Sodium Potassium Chloride BUN Creatinine Glucose POC Glucose 212 H 245 H 232 H Lactic Acid Magnesium Albumin Urine WBC (Auto) 05/15/22 05/15/22 05/16/22 16:16 17:56 04:28 WBC 21.8 H Seg Neuts % (Manual) 97.0 H Lymphocytes % (Manual) 0 L Seg Neutrophils # Man 21.1 H Lymphocytes # (Manual) 0.0 L ABG pO2 ABG O2 Saturation ABG Hemoglobin Oxyhemoglobin Sodium Potassium 3.5 L Chloride 110.1 H BUN 32 H Creatinine Glucose 207 H POC Glucose 166 H Lactic Acid Magnesium Albumin Urine WBC (Auto) 05/16/22 04:28 WBC Seg Neuts % (Manual) Lymphocytes % (Manual) Seg Neutrophils # Man Lymphocytes # (Manual) ABG pO2 ABG O2 Saturation ABG Hemoglobin Oxyhemoglobin Sodium Potassium 3.5 L Chloride 110.2 H BUN 29 H Creatinine Glucose 222 H POC Glucose Lactic Acid Magnesium Albumin Urine WBC (Auto)
[2022-05-16] MEDS: HEPARIN 5,000 UNIT/1 ML VIAL SUB-Q SCH ×2 (09:31→21:58)
[2022-05-16] MEDS: CEFEPIME/NS 1 GM/100 ML 1 GM/100 ML BAG IV SCH (09:31)
--- NOTE | 2022-05-16 13:06 | Progress Note ---
<YONI NOONAN - Last Filed: 05/16/22 15:37> Assessment and Plan - Patient Problems (1) Respiratory failure Current Visit: Yes Status: Acute Plan to address problem: Acute hypoxic respiratory failure likely 2/2 to PNA- requiring oxygen supplement Monitor 02 saturation Pulmonary consultation-f/u with reces (2) Leukocytosis (leucocytosis) Current Visit: Yes Status: Acute Plan to address problem: Likely secondary to left-sided pneumonia/Urinary Tract Infection Blood and urine culture-f/u with result Continue vanc/cefepime IV Monitor WBC (3) UTI (urinary tract infection) Current Visit: Yes Status: Acute Plan to address problem: Continue antibiotic F/U with urine culture (4) Physical deconditioning Current Visit: Yes Status: Acute Plan to address problem: PT/OT consult Position every 2hrs-keep pt clean and dry (5) PNA (pneumonia) Current Visit: Yes Status: Acute Plan to address problem: Hospital Acquired Pneumonia NH resident] Blood cultures, sputum cultures Empiric antibiotics cefepime Oxygen titrate O2 sats to more than 90% Supportive care Pulmonary/ID service needed (6) Acute metabolic encephalopathy Current Visit: Yes Status: Acute Plan to address problem: Acute metabolic encephalopathy likely 2/2 to sepsis/PNA Hx of advanced dementia Neurochecks CT brain on admission demonstrated no acute intracranial abnormality (7) Acute kidney failure Current Visit: Yes Status: Acute Plan to address problem: Monitor kidney function -Avoid nephrotoxins (8) Protein calorie malnutrition Current Visit: Yes Status: Acute Plan to address problem: Nutrition supplements, supportive care -Nutrition consult (9) Full code status Current Visit: Yes Status: Acute Plan to address problem: Patient is full code History Interval history: patient seen at bedside. On oxygen per N/C. She open's eye to verbal stimuli. Reviewed lab, mar and v/s. Reviewed specialist note-input appreciated. The high probability of a clinically significant, sudden or life threatening deterioration of the [multi] system(s) required my full and direct attention, intervention and personal management. The aggregate critical care time was [60] minutes. This time is in addition to time spent performing reported procedures but includes the following: [x] Data Review and interpretation [x] Patient assessment and monitoring of vital signs [x] Documentation [x] Medication orders and management Disposition Plan: icu Total Time Spent with Patient (Minutes): 60 Hospitalist Physical - Constitutional Vitals: Temp Pulse Resp BP Pulse Ox 99.4 F 87 16 127/58 96 05/16/22 11:41 05/16/22 12:00 05/16/22 12:00 05/16/22 12:00 05/16/22 12:00 General appearance: Present: no acute distress - Respiratory Respiratory: bilateral: diminished - Integumentary Integumentary: Present: warm, decreased turgor - Allied Health Allied health notes reviewed: nursing, PT Results - Labs CBC & Chem 7: 05/16/22 04:28 05/16/22 04:28 Labs: Laboratory Last Values WBC 21.8 K/mm3 (4.5-11.0) H 05/16/22 04:28 RBC 3.79 M/mm3 (3.65-5.03) 05/16/22 04:28 Hgb 11.3 gm/dl (10.1-14.3) 05/16/22 04:28 Hct 34.7 % (30.3-42.9) D 05/16/22 04:28 MCV 92 fl (79-97) 05/16/22 04:28 MCH 30 pg (28-32) 05/16/22 04:28 MCHC 33 % (30-34) 05/16/22 04:28 RDW 14.0 % (13.2-15.2) 05/16/22 04:28 Plt Count 172 K/mm3 (140-440) 05/16/22 04:28 Add Manual Diff Complete 05/16/22 04:28 Total Counted 100 05/16/22 04:28 Seg Neutrophils % [facility] 05/16/22 04:28 Seg Neuts % (Manual) 97.0 % (40.0-70.0) H 05/16/22 04:28 Band Neutrophils % 0 % 05/16/22 04:28 Lymphocytes % (Manual) 0 % (13.4-35.0) L 05/16/22 04:28 Reactive Lymphs % (Man) 0 % 05/16/22 04:28 Monocytes % (Manual) 3.0 % (0.0-7.3) 05/16/22 04:28 Eosinophils % (Manual) 0 % (0.0-4.3) 05/16/22 04:28 Basophils % (Manual) 0 % (0.0-1.8) 05/16/22 04:28 Metamyelocytes % 0 % 05/16/22 04:28 Myelocytes % 0 % 05/16/22 04:28 Promyelocytes % 0 % 05/16/22 04:28 Blast Cells % 0 % 05/16/22 04:28 Nucleated RBC % Not Reportable 05/16/22 04:28 Seg Neutrophils # Man 21.1 K/mm3 (1.8-7.7) H 05/16/22 04:28 Band Neutrophils # 0.0 K/mm3 05/16/22 04:28 Lymphocytes # (Manual) 0.0 K/mm3 (1.2-5.4) L 05/16/22 04:28 Abs React Lymphs (Man) 0.0 K/mm3 05/16/22 04:28 Monocytes # (Manual) 0.7 K/mm3 (0.0-0.8) 05/16/22 04:28 Eosinophils # (Manual) 0.0 K/mm3 (0.0-0.4) 05/16/22 04:28 Basophils # (Manual) 0.0 K/mm3 (0.0-0.1) 05/16/22 04:28 Metamyelocytes # 0.0 K/mm3 05/16/22 04:28 Myelocytes # 0.0 K/mm3 05/16/22 04:28 Promyelocytes # 0.0 K/mm3 05/16/22 04:28 Blast Cells # 0.0 K/mm3 05/16/22 04:28 WBC Morphology Not Reportable 05/16/22 04:28 Hypersegmented Neuts Not Reportable 05/16/22 04:28 Hyposegmented Neuts Not Reportable 05/16/22 04:28 Hypogranular Neuts Not Reportable 05/16/22 04:28 Smudge Cells Not Reportable 05/16/22 04:28 Toxic Granulation Not Reportable 05/16/22 04:28 Toxic Vacuolation Not Reportable 05/16/22 04:28 Dohle Bodies Not Reportable 05/16/22 04:28 Pelger-Huet Anomaly Not Reportable 05/16/22 04:28 Supa Rods Not Reportable 05/16/22 04:28 Platelet Estimate Consistent w auto 05/16/22 04:28 Clumped Platelets Not Reportable 05/16/22 04:28 Plt Clumps, EDTA Not Reportable 05/16/22 04:28 Large Platelets Not Reportable 05/16/22 04:28 Giant Platelets Not Reportable 05/16/22 04:28 Platelet Satelliting Not Reportable 05/16/22 04:28 Plt Morphology Comment Not Reportable 05/16/22 04:28 RBC Morphology Normal 05/16/22 04:28 Dimorphic RBCs Not Reportable 05/16/22 04:28 Polychromasia Not Reportable 05/16/22 04:28 Hypochromasia Not Reportable 05/16/22 04:28 Poikilocytosis Not Reportable 05/16/22 04:28 Anisocytosis Not Reportable 05/16/22 04:28 Microcytosis Not Reportable 05/16/22 04:28 Macrocytosis Not Reportable 05/16/22 04:28 Spherocytes Not Reportable 05/16/22 04:28 Pappenheimer Bodies Not Reportable 05/16/22 04:28 Sickle Cells Not Reportable 05/16/22 04:28 Target Cells Not Reportable 05/16/22 04:28 Tear Drop Cells Not Reportable 05/16/22 04:28 Ovalocytes Not Reportable 05/16/22 04:28 Helmet Cells Not Reportable 05/16/22 04:28 [place] Bodies Not Reportable 05/16/22 04:28 [place] Rings Not Reportable 05/16/22 04:28 [place] Cells Not Reportable 05/16/22 04:28 Bite Cells Not Reportable 05/16/22 04:28 Crenated Cell Not Reportable 05/16/22 04:28 Elliptocytes Not Reportable 05/16/22 04:28 Acanthocytes (Spur) Not Reportable 05/16/22 04:28 Rouleaux Not Reportable 05/16/22 04:28 Hemoglobin C Crystals Not Reportable 05/16/22 04:28 Schistocytes Not Reportable 05/16/22 04:28 Malaria parasites Not Reportable 05/16/22 04:28 Parveen Bodies Not Reportable 05/16/22 04:28 Hem Pathologist Commnt No 05/16/22 04:28 ABG pH 7.422 pH Units (7.350-7.450) 05/14/22 10:50 ABG pCO2 40.2 mm Hg 05/14/22 10:50 ABG pO2 51.4 mm Hg (80.0-90.0) L 05/14/22 10:50 ABG HCO3 25.6 mmol/L (20.0-26.0) 05/14/22 10:50 ABG O2 Saturation 88.4 % (95.0-99.0) L 05/14/22 10:50 ABG O2 Content 13.9 (0.0-44) 05/14/22 10:50 ABG Base Excess 1.1 mmol/L (-2.0-3.0) 05/14/22 10:50 ABG Hemoglobin 11.5 gm/dl (12.0-16.0) L 05/14/22 10:50 ABG Carboxyhemoglobin 1.8 % (0.0-5.0) 05/14/22 10:50 ABG Methemoglobin 0.3 % (0.0-1.5) 05/14/22 10:50 Oxyhemoglobin 86.5 % (95.0-99.0) L 05/14/22 10:50 FiO2 50 % 05/14/22 10:50 Sodium 144 mmol/L (137-145) 05/16/22 04:28 Potassium 3.5 mmol/L (3.6-5.0) L 05/16/22 04:28 Chloride 110.2 mmol/L (98-107) H 05/16/22 04:28 Carbon Dioxide 22 mmol/L (22-30) 05/16/22 04:28 Anion Gap 15 mmol/L 05/16/22 04:28 BUN 29 mg/dL (7-17) H 05/16/22 04:28 Creatinine 0.6 mg/dL (0.6-1.2) 05/16/22 04:28 Estimated GFR > 60 ml/min 05/16/22 04:28 BUN/Creatinine Ratio 48 % 05/16/22 04:28 Glucose 222 mg/dL (65-100) H 05/16/22 04:28 POC Glucose 193 mg/dL (70-105) H 05/16/22 11:36 Lactic Acid 1.50 mmol/L (0.7-2.0) 05/16/22 04:28 Calcium 9.3 mg/dL (8.4-10.2) 05/16/22 04:28 Magnesium 1.10 mg/dL (1.7-2.3) L 05/14/22 05:45 Total Bilirubin 0.40 mg/dL (0.1-1.2) 05/14/22 05:45 AST 18 units/L (5-40) 05/14/22 05:45 ALT 10 units/L (7-56) 05/14/22 05:45 Alkaline Phosphatase 57 units/L (35-129) 05/14/22 05:45 Total Protein 6.3 g/dL (6.3-8.2) 05/14/22 05:45 Albumin 2.7 g/dL (3.9-5) L 05/14/22 05:45 Albumin/Globulin Ratio 0.8 % 05/14/22 05:45 Urine Color Brown (Yellow) 05/14/22 10:38 Urine Turbidity Turbid (Clear) 05/14/22 10:38 Urine pH 5.0 (5.0-7.0) 05/14/22 10:38 Ur Specific [place] 1.017 (1.003-1.030) 05/14/22 10:38 Urine Protein 100 mg/dl mg/dL (Negative) 05/14/22 10:38 Urine Glucose (UA) Neg mg/dL (Negative) 05/14/22 10:38 Urine Ketones Neg mg/dL (Negative) 05/14/22 10:38 Urine Blood Mod (Negative) 05/14/22 10:38 Urine Nitrite Neg (Negative) 05/14/22 10:38 Urine Bilirubin Neg (Negative) 05/14/22 10:38 Urine Ictotest Not Reportable 05/14/22 10:38 Urine Urobilinogen < 2.0 mg/dL (<2.0) 05/14/22 10:38 Ur Leukocyte Esterase Tr (Negative) 05/14/22 10:38 Urine WBC (Auto) > 182.0 /HPF (0.0-6.0) H 05/14/22 10:38 Urine RBC (Auto) > 182.0 /HPF (0.0-6.0) 05/14/22 10:38 Urine Bacteria (Auto) 4+ /HPF (Negative) 05/14/22 10:38 Urine WBC Clumps 3+ /HPF 05/14/22 10:38 Urine Mucus 1+ /HPF 05/14/22 10:38 SARS-CoV-2 (PCR) Negative (Negative) 05/14/22 10:38 Microbiology: Microbiology 05/14/22 05:45 Peripheral/Venous Blood Culture - Preliminary NO GROWTH AFTER 48 HOURS 05/14/22 05:39 Peripheral/Venous Blood Culture - Preliminary NO GROWTH AFTER 48 HOURS 05/14/22 Unknown Urine,Catheterized - Straight Catheter Urine Culture - Preliminary Gram Negative Rene Choe/IV: Voiding Method Incontinent Active Medications - Current Medications Current Medications: Generic Name Dose Route Start Last Admin Trade Name Freq PRN Reason Stop Dose Admin Acetaminophen 650 mg 05/14/22 09:33 Acetaminophen 325 Mg Tab PO Q6H PRN Pain MILD(1-3)/Fever >100.5/SNELL Albuterol 2.5 mg 05/14/22 12:52 Albuterol 2.5 Mg/3 Ml Nebu IH Q4H PRN Shortness Of Breath Heparin Sodium (Porcine) 5,000 unit 05/14/22 22:00 05/16/22 09:31 Heparin 5,000 Unit/1 Ml Vial SUB-Q 5,000 unit Q12HR DUKE Administration Cefepime HCl 1 gm in 100 mls @ 200 mls/hr 05/15/22 10:00 05/16/22 09:31 Cefepime/Ns 1 Gm/100 Ml IV 100 mls/hr QDAY DUKE Administration Protocol Insulin Human Lispro 0 unit 05/14/22 18:00 05/16/22 12:11 Insulin Lispro 100 Unit/Ml SUB-Q 2 unit Q6HR DUKE Administration Protocol Morphine Sulfate 2 mg 05/14/22 09:33 Morphine 2 Mg/1 Ml Inj IV Q4H PRN Pain, Moderate (4-6) Sodium Chloride 10 ml 05/14/22 10:00 05/16/22 09:30 Sodium Chloride 0.9% 10 Ml Flush Syringe IV 10 ml BID DUKE Administration Sodium Chloride 10 ml 05/14/22 09:32 Sodium Chloride 0.9% 10 Ml Flush Syringe IV PRN PRN LINE FLUSH Nutrition/Malnutrition Assess - Dietary Evaluation Nutrition/Malnutrition Findings: Nutrition Notes Start: 05/15/22 11:28 Freq: Status: Active Protocol: Document 05/15/22 11:28 RS (Rec: 05/15/22 11:46 [id number]) Nutrition Notes Need for Assessment generated from: MD Order Initial or Follow up Assessment Current Diagnosis Acute Kidney Injury,Coronary Artery Disease,Diabetes, Respiratory Failure Other Pertinent Diagnosis Dementia, Depression, Dysphasia, Encephalopathy, Pneu Current Diet NPO Labs/Tests No recent labs Pertinent Medications NaCl 0.9% at 75mL/hr Height 5 ft 2.4 in Weight 62 kg [place] Body Weight (kg) 50.90 BMI 24.7 Weight change and time frame JUSTIN wt hx Weight Status Appropriate Subjective/Other Information MD consult for Malnutrition. pt currently NPO. RD unable to assess intakes before adm and wt hx. RD performed physical assessment. Noted moderate- severe temporal muscle wasting , hollow look/loose skin around orbital region, protruding clavical bone, and noted edema. Percent of energy/protein needs met: 0%/0% Burn Absent Trauma Absent GI Symptoms None Current % PO Negligible Minimum of two criteria Yes Body Fat Depletion Mild depletion (non-severe) Muscle Mass Moderate Depletion (severe) Fluid Accumulation Moderate to Severe (severe) #1 Nutrition Diagnosis Malnutrition Etiology Dementia As Evidenced by Signs and Symptoms severe edema, moderate-severe temporal muscle wasting, hollow look/loose skin around orbital region, protruding clavical bone Is patient on ventilator? No Is Patient Ambulatory and/or Out of Bed No REE-([facility]-confined to bed) 1325.532 Kcal/Kg value to use for calculation 30 Approximate Energy Requirements Using 1860 kcal/Kg Calculation Used for Recommendations Kcal/kg Additional Notes Protein: 75-93g/day (1.2-1.5g/ kg BW/day) Fluid needs: 1mL/kcal or per MD Nutrition Intervention Goal #1 Diet advancement Anticipated Discharge Needs: JUSTIN at this time Follow-Up By: 05/17/22 Additional Comments F/U for diet advancement <TAPAN BYDR - Last Filed: 05/17/22 13:01> History Interval history: I saw and evaluated the patient. Discussed with the nurse practitioner and agree with their findings and plan as documented in this note. Hospitalist Physical - Constitutional Vitals: Temp Pulse Resp BP Pulse Ox 99.0 F 92 H 18 126/57 99 05/17/22 06:00 05/17/22 06:00 05/17/22 06:00 05/17/22 06:00 05/17/22 08:38 Results - Labs CBC & Chem 7: 05/17/22 00:17 05/17/22 00:17 Labs: Laboratory Last Values WBC 18.6 K/mm3 (4.5-11.0) H 05/17/22 00:17 RBC 3.81 M/mm3 (3.65-5.03) 05/17/22 00:17 Hgb 11.4 gm/dl (10.1-14.3) 05/17/22 00:17 Hct 34.8 % (30.3-42.9) 05/17/22 00:17 MCV 91 fl (79-97) 05/17/22 00:17 MCH 30 pg (28-32) 05/17/22 00:17 MCHC 33 % (30-34) 05/17/22 00:17 RDW 14.2 % (13.2-15.2) 05/17/22 00:17 Plt Count 168 K/mm3 (140-440) 05/17/22 00:17 Add Manual Diff Complete 05/17/22 00:17 Total Counted 100 05/17/22 00:17 Seg Neutrophils % [facility] 05/17/22 00:17 Seg Neuts % (Manual) 91.0 % (40.0-70.0) H 05/17/22 00:17 Band Neutrophils % 1.0 % 05/17/22 00:17 Lymphocytes % (Manual) 4.0 % (13.4-35.0) L 05/17/22 00:17 Reactive Lymphs % (Man) 0 % 05/17/22 00:17 Monocytes % (Manual) 4.0 % (0.0-7.3) 05/17/22 00:17 Eosinophils % (Manual) 0 % (0.0-4.3) 05/17/22 00:17 Basophils % (Manual) 0 % (0.0-1.8) 05/17/22 00:17 Metamyelocytes % 0 % 05/17/22 00:17 Myelocytes % 0 % 05/17/22 00:17 Promyelocytes % 0 % 05/17/22 00:17 Blast Cells % 0 % 05/17/22 00:17 Nucleated RBC % Not Reportable 05/17/22 00:17 Seg Neutrophils # Man 16.9 K/mm3 (1.8-7.7) H 05/17/22 00:17 Band Neutrophils # 0.2 K/mm3 05/17/22 00:17 Lymphocytes # (Manual) 0.7 K/mm3 (1.2-5.4) L 05/17/22 00:17 Abs React Lymphs (Man) 0.0 K/mm3 05/17/22 00:17 Monocytes # (Manual) 0.7 K/mm3 (0.0-0.8) 05/17/22 00:17 Eosinophils # (Manual) 0.0 K/mm3 (0.0-0.4) 05/17/22 00:17 Basophils # (Manual) 0.0 K/mm3 (0.0-0.1) 05/17/22 00:17 Metamyelocytes # 0.0 K/mm3 05/17/22 00:17 Myelocytes # 0.0 K/mm3 05/17/22 00:17 Promyelocytes # 0.0 K/mm3 05/17/22 00:17 Blast Cells # 0.0 K/mm3 05/17/22 00:17 WBC Morphology Not Reportable 05/17/22 00:17 Hypersegmented Neuts Not Reportable 05/17/22 00:17 Hyposegmented Neuts Not Reportable 05/17/22 00:17 Hypogranular Neuts Not Reportable 05/17/22 00:17 Smudge Cells Not Reportable 05/17/22 00:17 Toxic Granulation Not Reportable 05/17/22 00:17 Toxic Vacuolation Not Reportable 05/17/22 00:17 Dohle Bodies Not Reportable 05/17/22 00:17 Pelger-Huet Anomaly Not Reportable 05/17/22 00:17 Supa Rods Not Reportable 05/17/22 00:17 Platelet Estimate Consistent w auto 05/17/22 00:17 Clumped Platelets Not Reportable 05/17/22 00:17 Plt Clumps, EDTA Not Reportable 05/17/22 00:17 Large Platelets Not Reportable 05/17/22 00:17 Giant Platelets Not Reportable 05/17/22 00:17 Platelet Satelliting Not Reportable 05/17/22 00:17 Plt Morphology Comment Not Reportable 05/17/22 00:17 RBC Morphology Normal 05/17/22 00:17 Dimorphic RBCs Not Reportable 05/17/22 00:17 Polychromasia Not Reportable 05/17/22 00:17 Hypochromasia Not Reportable 05/17/22 00:17 Poikilocytosis Not Reportable 05/17/22 00:17 Anisocytosis Not Reportable 05/17/22 00:17 Microcytosis Not Reportable 05/17/22 00:17 Macrocytosis Not Reportable 05/17/22 00:17 Spherocytes Not Reportable 05/17/22 00:17 Pappenheimer Bodies Not Reportable 05/17/22 00:17 Sickle Cells Not Reportable 05/17/22 00:17 Target Cells Not Reportable 05/17/22 00:17 Tear Drop Cells Not Reportable 05/17/22 00:17 Ovalocytes Not Reportable 05/17/22 00:17 Helmet Cells Not Reportable 05/17/22 00:17 [place] Bodies Not Reportable 05/17/22 00:17 [place] Rings Not Reportable 05/17/22 00:17 [place] Cells Not Reportable 05/17/22 00:17 Bite Cells Not Reportable 05/17/22 00:17 Crenated Cell Not Reportable 05/17/22 00:17 Elliptocytes Not Reportable 05/17/22 00:17 Acanthocytes (Spur) Not Reportable 05/17/22 00:17 Rouleaux Not Reportable 05/17/22 00:17 Hemoglobin C Crystals Not Reportable 05/17/22 00:17 Schistocytes Not Reportable 05/17/22 00:17 Malaria parasites Not Reportable 05/17/22 00:17 Parveen Bodies Not Reportable 05/17/22 00:17 Hem Pathologist Commnt No 05/17/22 00:17 ABG pH 7.422 pH Units (7.350-7.450) 05/14/22 10:50 ABG pCO2 40.2 mm Hg 05/14/22 10:50 ABG pO2 51.4 mm Hg (80.0-90.0) L 05/14/22 10:50 ABG HCO3 25.6 mmol/L (20.0-26.0) 05/14/22 10:50 ABG O2 Saturation 88.4 % (95.0-99.0) L 05/14/22 10:50 ABG O2 Content 13.9 (0.0-44) 05/14/22 10:50 ABG Base Excess 1.1 mmol/L (-2.0-3.0) 05/14/22 10:50 ABG Hemoglobin 11.5 gm/dl (12.0-16.0) L 05/14/22 10:50 ABG Carboxyhemoglobin 1.8 % (0.0-5.0) 05/14/22 10:50 ABG Methemoglobin 0.3 % (0.0-1.5) 05/14/22 10:50 Oxyhemoglobin 86.5 % (95.0-99.0) L 05/14/22 10:50 FiO2 50 % 05/14/22 10:50 Sodium 150 mmol/L (137-145) H 05/17/22 00:17 Potassium 3.5 mmol/L (3.6-5.0) L 05/17/22 00:17 Chloride 112.5 mmol/L (98-107) H 05/17/22 00:17 Carbon Dioxide 18 mmol/L (22-30) L 05/17/22 00:17 Anion Gap 23 mmol/L 05/17/22 00:17 BUN 22 mg/dL (7-17) H 05/17/22 00:17 Creatinine 0.4 mg/dL (0.6-1.2) L 05/17/22 00:17 Estimated GFR > 60 ml/min 05/17/22 00:17 BUN/Creatinine Ratio 55 % 05/17/22 00:17 Glucose 242 mg/dL (65-100) H 05/17/22 00:17 POC Glucose 305 mg/dL (70-105) H 05/17/22 12:13 Lactic Acid 1.50 mmol/L (0.7-2.0) 05/16/22 04:28 Calcium 9.7 mg/dL (8.4-10.2) 05/17/22 00:17 Magnesium 1.10 mg/dL (1.7-2.3) L 05/14/22 05:45 Total Bilirubin 0.40 mg/dL (0.1-1.2) 05/14/22 05:45 AST 18 units/L (5-40) 05/14/22 05:45 ALT 10 units/L (7-56) 05/14/22 05:45 Alkaline Phosphatase 57 units/L (35-129) 05/14/22 05:45 Total Protein 6.3 g/dL (6.3-8.2) 05/14/22 05:45 Albumin 2.7 g/dL (3.9-5) L 05/14/22 05:45 Albumin/Globulin Ratio 0.8 % 05/14/22 05:45 Urine Color Brown (Yellow) 05/14/22 10:38 Urine Turbidity Turbid (Clear) 05/14/22 10:38 Urine pH 5.0 (5.0-7.0) 05/14/22 10:38 Ur Specific [place] 1.017 (1.003-1.030) 05/14/22 10:38 Urine Protein 100 mg/dl mg/dL (Negative) 05/14/22 10:38 Urine Glucose (UA) Neg mg/dL (Negative) 05/14/22 10:38 Urine Ketones Neg mg/dL (Negative) 05/14/22 10:38 Urine Blood Mod (Negative) 05/14/22 10:38 Urine Nitrite Neg (Negative) 05/14/22 10:38 Urine Bilirubin Neg (Negative) 05/14/22 10:38 Urine Ictotest Not Reportable 05/14/22 10:38 Urine Urobilinogen < 2.0 mg/dL (<2.0) 05/14/22 10:38 Ur Leukocyte Esterase Tr (Negative) 05/14/22 10:38 Urine WBC (Auto) > 182.0 /HPF (0.0-6.0) H 05/14/22 10:38 Urine RBC (Auto) > 182.0 /HPF (0.0-6.0) 05/14/22 10:38 Urine Bacteria (Auto) 4+ /HPF (Negative) 05/14/22 10:38 Urine WBC Clumps 3+ /HPF 05/14/22 10:38 Urine Mucus 1+ /HPF 05/14/22 10:38 SARS-CoV-2 (PCR) Negative (Negative) 05/14/22 10:38 Microbiology: Microbiology 05/14/22 05:45 Peripheral/Venous Blood Culture - Preliminary NO GROWTH AFTER 72 HOURS 05/14/22 05:39 Peripheral/Venous Blood Culture - Preliminary NO GROWTH AFTER 72 HOURS 05/14/22 Unknown Urine,Catheterized - Straight Catheter Urine Culture - Final Escherichia Coli Choe/IV: Voiding Method Incontinent Active Medications - Current Medications Current Medications: Generic Name Dose Route Start Last Admin Trade Name Freq PRN Reason Stop Dose Admin Acetaminophen 650 mg 05/14/22 09:33 Acetaminophen 325 Mg Tab PO Q6H PRN Pain MILD(1-3)/Fever >100.5/SNELL Albuterol 2.5 mg 05/14/22 12:52 Albuterol 2.5 Mg/3 Ml Nebu IH Q4H PRN Shortness Of Breath Heparin Sodium (Porcine) 5,000 unit 05/14/22 22:00 05/17/22 09:46 Heparin 5,000 Unit/1 Ml Vial SUB-Q 5,000 unit Q12HR DUKE Administration Ceftriaxone Sodium 1 gm in 50 mls @ 100 mls/hr 05/18/22 10:00 Rocephin/Ns 1 Gm/50 Ml IV 05/21/22 10:29 Q24H DUKE Protocol Insulin Human Lispro 0 unit 05/14/22 18:00 05/17/22 12:20 Insulin Lispro 100 Unit/Ml SUB-Q 6 unit Q6HR DUKE Administration Protocol Morphine Sulfate 2 mg 05/14/22 09:33 Morphine 2 Mg/1 Ml Inj IV Q4H PRN Pain, Moderate (4-6) Sodium Chloride 10 ml 05/14/22 10:00 05/17/22 09:46 Sodium Chloride 0.9% 10 Ml Flush Syringe IV 10 ml BID DUKE Administration Sodium Chloride 10 ml 05/14/22 09:32 Sodium Chloride 0.9% 10 Ml Flush Syringe IV PRN PRN LINE FLUSH Nutrition/Malnutrition Assess - Dietary Evaluation Nutrition/Malnutrition Findings: Nutrition Notes Start: 05/15/22 11:28 Freq: Status: Active Protocol: Document 05/15/22 11:28 RS (Rec: 05/15/22 11:46 RS [id number]) Nutrition Notes Need for Assessment generated from: MD Order Initial or Follow up Assessment Current Diagnosis Acute Kidney Injury,Coronary Artery Disease,Diabetes, Respiratory Failure Other Pertinent Diagnosis Dementia, Depression, Dysphasia, Encephalopathy, Pneu Current Diet NPO Labs/Tests No recent labs Pertinent Medications NaCl 0.9% at 75mL/hr Height 5 ft 2.4 in Weight 62 kg [place] Body Weight (kg) 50.90 BMI 24.7 Weight change and time frame JUSTIN wt hx Weight Status Appropriate Subjective/Other Information MD consult for Malnutrition. pt currently NPO. RD unable to assess intakes before adm and wt hx. RD performed physical assessment. Noted moderate- severe temporal muscle wasting , hollow look/loose skin around orbital region, protruding clavical bone, and noted edema. Percent of energy/protein needs met: 0%/0% Burn Absent Trauma Absent GI Symptoms None Current % PO Negligible Minimum of two criteria Yes Body Fat Depletion Mild depletion (non-severe) Muscle Mass Moderate Depletion (severe) Fluid Accumulation Moderate to Severe (severe) #1 Nutrition Diagnosis Malnutrition Etiology Dementia As Evidenced by Signs and Symptoms severe edema, moderate-severe temporal muscle wasting, hollow look/loose skin around orbital region, protruding clavical bone Is patient on ventilator? No Is Patient Ambulatory and/or Out of Bed No REE-([place]-confined to bed) 1325.532 Kcal/Kg value to use for calculation 30 Approximate Energy Requirements Using 1860 kcal/Kg Calculation Used for Recommendations Kcal/kg Additional Notes Protein: 75-93g/day (1.2-1.5g/ kg BW/day) Fluid needs: 1mL/kcal or per MD Nutrition Intervention Goal #1 Diet advancement Anticipated Discharge Needs: JUSTIN at this time Follow-Up By: 05/17/22 Additional Comments F/U for diet advancement
--- NOTE | 2022-05-16 15:36 | XRay Report ---
ABDOMEN 1 VIEW 05/16/2022 INDICATION / CLINICAL INFORMATION: Feeding tube placement. COMPARISON: Chest radiograph dated 05/14/2022 FINDINGS: TUBES / LINES: Weighted enteric tube terminates within the stomach. BOWEL GAS PATTERN: No significant abnormality. FREE AIR / EXTRALUMINAL GAS: None seen. ADDITIONAL FINDINGS: Increased interstitial markings bilateral lung bases. IMPRESSION: 1. No significant abnormality. Signer Name: Jvay Richardson DO Signed: 05/16/2022 3:26 PM Workstation Name: [id number]
[2022-05-17 01:05] LABS: Hematocrit 34.8 % (30.3-42.9); Hemoglobin 11.4 gm/dl (10.1-14.3); Mean Corpuscular HGB Conc 33 % (30-34); Mean Corpuscular Volume 91 fl (79-97); Platelet Count 168 K/mm3 (140-440); Red Blood Count 3.81 M/mm3 (3.65-5.03); Red Cell Distribution Width 14.2 % (13.2-15.2)
[2022-05-17 02:18] LABS: Band Neutrophils # (Manual) 0.2 K/mm3; Basophils % (Manual) 0 % (0.0-1.8); Eosinophils % (Manual) 0 % (0.0-4.3); Total Cells Counted 100
[2022-05-17 02:19] LABS: Platelet Estimate Consistent w Auto; RBC Morphology Normal
[2022-05-17 02:21] LABS: Blood Urea Nitrogen 22 mg/dL (7-17); Calcium 9.7 mg/dL (8.4-10.2); Hemolysis Index 40
[2022-05-17 02:24] LABS: BUN/Creatinine Ratio 55
[2022-05-17] MEDS: INSULIN LISPRO 100 UNIT/ML SUB-Q SCH ×3 (06:24→18:22)
[2022-05-17] MEDS: CEFEPIME/NS 1 GM/100 ML 1 GM/100 ML BAG IV SCH (09:46)
[2022-05-17] MEDS: HEPARIN 5,000 UNIT/1 ML VIAL SUB-Q SCH ×2 (09:46→22:12)
--- NOTE | 2022-05-17 09:48 | Progress Note ---
Assessment and Plan Assessment and plan: 71-year-old female patient [facility] intermediate resident with significant past medical history of Alzheimer's dementia diabetes, coronary artery disease, depression, dysphagia, thrombocytopenia was sent to the emergency room with complaints of altered level of consciousness and sepsis. Patient was noted to be severely hypoxemic on arrival saturating only 88% on room air however improved to 91% on 2 L. After returning from CT scan patient suddenly went into severe hypoxic respiratory failure requiring 15 L When I went and re evaluated the patient, the respiratory therapist at the bedside and patient is on high flow nasal cannula oxygen 30 L/65% FiO2/O2 sats 95 percent. Patient was already planned to admit to [facility], ER physician consulted pulmonary critical care Dr. Romero. Patient is lethargic noncommunicative, no other history is available Hospital Course: 05/15: Remains encephalopathic, on high flow nasal cannula. We will continue to wean as patient tolerates. Continue therapy with IV vancomycin and cefepime. ABG/Chest x-ray ordered for tomorrow. Will follow pulmonary recs. 05/17: Patient remains encephalopathic. Patient requiring 3 L O2 with sa turations at 99%. Patient still with significant leukocytosis. Urine culture reveals E. coli. Abx will be switched to Rocephin Assessment and Plan: #Acute hypoxic respiratory failure Requiring supplemental oxygen Probably secondary to pneumonia Oxygen titrate O2 sats to more than 90%, currently on high flow nasal cannula Pulmonary consultation #Sepsis POA secondary to left-sided pneumonia/Urinary Tract Infection - follow bcx,scx,ucx - COVID RT PCR negative - abx: vanc/cefepime IV - trend fever curve/wbc ct #Hospital Acquired Pneumonia [place] resident] Blood cultures, sputum cultures Empiric antibiotics cefepime Oxygen titrate O2 sats to more than 90% Supportive care Pulmonary/ID service needed #Urinary tract infection #Acute metabolic encephalopathy; -Multifactorial, sepsis, pneumonia , hypoxia in the setting of advanced dementia -Respiratory failure advanced age -Treat the underlying cause -Neurochecks -CT brain on admission demonstrated no acute intracranial abnormality #Lactic acidosis; -Probably secondary to sepsis, IV fluids -Empiric IV antibiotics, follow cultures -Trend lactic levels #Acute kidney injury; vasomotor nephropathy -Gentle hydration, monitor renal function -Avoid nephrotoxins, nephrology consult if needed #Mild hyponatremia; -Closely monitor electrolytes #Severe protein calorie malnutrition; -Nutrition supplements, supportive care -Nutrition consult #Severe hypoalbuminemia; -Nutrition supplements and supportive care History Interval history: No new issues overnight Hospitalist Physical - Constitutional Vitals: Temp Pulse Resp BP Pulse Ox 99.0 F 92 H 18 126/57 99 05/17/22 06:00 05/17/22 06:00 05/17/22 06:00 05/17/22 06:00 05/17/22 08:38 General appearance: Present: no acute distress - EENT Eyes: Present: PERRL, EOM intact ENT: hearing intact, clear oral mucosa, dentition normal - Neck Neck: Present: supple, normal ROM - Respiratory Respiratory effort: normal Respiratory: bilateral: CTA - Cardiovascular Rhythm: regular Heart Sounds: Present: S1 & S2. Absent: gallop, rub - Extremities Extremities: no ischemia, No edema, Full ROM - Abdominal General gastrointestinal: soft, non-tender, non-distended, normal bowel sounds - Integumentary Integumentary: Present: clear, warm, dry - Neurologic Neurologic: CNII-XII intact, moves all extremities Results - Labs CBC & Chem 7: 05/17/22 00:17 05/17/22 00:17 Labs: Laboratory Last Values WBC 18.6 K/mm3 (4.5-11.0) H 05/17/22 00:17 RBC 3.81 M/mm3 (3.65-5.03) 05/17/22 00:17 Hgb 11.4 gm/dl (10.1-14.3) 05/17/22 00:17 Hct 34.8 % (30.3-42.9) 05/17/22 00:17 MCV 91 fl (79-97) 05/17/22 00:17 MCH 30 pg (28-32) 05/17/22 00:17 MCHC 33 % (30-34) 05/17/22 00:17 RDW 14.2 % (13.2-15.2) 05/17/22 00:17 Plt Count 168 K/mm3 (140-440) 05/17/22 00:17 Add Manual Diff Complete 05/17/22 00:17 Total Counted 100 05/17/22 00:17 Seg Neutrophils % Educational Institution Curator 05/17/22 00:17 Seg Neuts % (Manual) 91.0 % (40.0-70.0) H 05/17/22 00:17 Band Neutrophils % 1.0 % 05/17/22 00:17 Lymphocytes % (Manual) 4.0 % (13.4-35.0) L 05/17/22 00:17 Reactive Lymphs % (Man) 0 % 05/17/22 00:17 Monocytes % (Manual) 4.0 % (0.0-7.3) 05/17/22 00:17 Eosinophils % (Manual) 0 % (0.0-4.3) 05/17/22 00:17 Basophils % (Manual) 0 % (0.0-1.8) 05/17/22 00:17 Metamyelocytes % 0 % 05/17/22 00:17 Myelocytes % 0 % 05/17/22 00:17 Promyelocytes % 0 % 05/17/22 00:17 Blast Cells % 0 % 05/17/22 00:17 Nucleated RBC % Not Reportable 05/17/22 00:17 Seg Neutrophils # Man 16.9 K/mm3 (1.8-7.7) H 05/17/22 00:17 Band Neutrophils # 0.2 K/mm3 05/17/22 00:17 Lymphocytes # (Manual) 0.7 K/mm3 (1.2-5.4) L 05/17/22 00:17 Abs React Lymphs (Man) 0.0 K/mm3 05/17/22 00:17 Monocytes # (Manual) 0.7 K/mm3 (0.0-0.8) 05/17/22 00:17 Eosinophils # (Manual) 0.0 K/mm3 (0.0-0.4) 05/17/22 00:17 Basophils # (Manual) 0.0 K/mm3 (0.0-0.1) 05/17/22 00:17 Metamyelocytes # 0.0 K/mm3 05/17/22 00:17 Myelocytes # 0.0 K/mm3 05/17/22 00:17 Promyelocytes # 0.0 K/mm3 05/17/22 00:17 Blast Cells # 0.0 K/mm3 05/17/22 00:17 WBC Morphology Not Reportable 05/17/22 00:17 Hypersegmented Neuts Not Reportable 05/17/22 00:17 Hyposegmented Neuts Not Reportable 05/17/22 00:17 Hypogranular Neuts Not Reportable 05/17/22 00:17 Smudge Cells Not Reportable 05/17/22 00:17 Toxic Granulation Not Reportable 05/17/22 00:17 Toxic Vacuolation Not Reportable 05/17/22 00:17 Dohle Bodies Not Reportable 05/17/22 00:17 Pelger-Huet Anomaly Not Reportable 05/17/22 00:17 Supa Rods Not Reportable 05/17/22 00:17 Platelet Estimate Consistent w auto 05/17/22 00:17 Clumped Platelets Not Reportable 05/17/22 00:17 Plt Clumps, EDTA Not Reportable 05/17/22 00:17 Large Platelets Not Reportable 05/17/22 00:17 Giant Platelets Not Reportable 05/17/22 00:17 Platelet Satelliting Not Reportable 05/17/22 00:17 Plt Morphology Comment Not Reportable 05/17/22 00:17 RBC Morphology Normal 05/17/22 00:17 Dimorphic RBCs Not Reportable 05/17/22 00:17 Polychromasia Not Reportable 05/17/22 00:17 Hypochromasia Not Reportable 05/17/22 00:17 Poikilocytosis Not Reportable 05/17/22 00:17 Anisocytosis Not Reportable 05/17/22 00:17 Microcytosis Not Reportable 05/17/22 00:17 Macrocytosis Not Reportable 05/17/22 00:17 Spherocytes Not Reportable 05/17/22 00:17 Pappenheimer Bodies Not Reportable 05/17/22 00:17 Sickle Cells Not Reportable 05/17/22 00:17 Target Cells Not Reportable 05/17/22 00:17 Tear Drop Cells Not Reportable 05/17/22 00:17 Ovalocytes Not Reportable 05/17/22 00:17 Helmet Cells Not Reportable 05/17/22 00:17 [place] Bodies Not Reportable 05/17/22 00:17 [place] Rings Not Reportable 05/17/22 00:17 [place] Cells Not Reportable 05/17/22 00:17 Bite Cells Not Reportable 05/17/22 00:17 Crenated Cell Not Reportable 05/17/22 00:17 Elliptocytes Not Reportable 05/17/22 00:17 Acanthocytes (Spur) Not Reportable 05/17/22 00:17 Rouleaux Not Reportable 05/17/22 00:17 Hemoglobin C Crystals Not Reportable 05/17/22 00:17 Schistocytes Not Reportable 05/17/22 00:17 Malaria parasites Not Reportable 05/17/22 00:17 Parveen Bodies Not Reportable 05/17/22 00:17 Hem Pathologist Commnt No 05/17/22 00:17 ABG pH 7.422 pH Units (7.350-7.450) 05/14/22 10:50 ABG pCO2 40.2 mm Hg 05/14/22 10:50 ABG pO2 51.4 mm Hg (80.0-90.0) L 05/14/22 10:50 ABG HCO3 25.6 mmol/L (20.0-26.0) 05/14/22 10:50 ABG O2 Saturation 88.4 % (95.0-99.0) L 05/14/22 10:50 ABG O2 Content 13.9 (0.0-44) 05/14/22 10:50 ABG Base Excess 1.1 mmol/L (-2.0-3.0) 05/14/22 10:50 ABG Hemoglobin 11.5 gm/dl (12.0-16.0) L 05/14/22 10:50 ABG Carboxyhemoglobin 1.8 % (0.0-5.0) 05/14/22 10:50 ABG Methemoglobin 0.3 % (0.0-1.5) 05/14/22 10:50 Oxyhemoglobin 86.5 % (95.0-99.0) L 05/14/22 10:50 FiO2 50 % 05/14/22 10:50 Sodium 150 mmol/L (137-145) H 05/17/22 00:17 Potassium 3.5 mmol/L (3.6-5.0) L 05/17/22 00:17 Chloride 112.5 mmol/L (98-107) H 05/17/22 00:17 Carbon Dioxide 18 mmol/L (22-30) L 05/17/22 00:17 Anion Gap 23 mmol/L 05/17/22 00:17 BUN 22 mg/dL (7-17) H 05/17/22 00:17 Creatinine 0.4 mg/dL (0.6-1.2) L 05/17/22 00:17 Estimated GFR > 60 ml/min 05/17/22 00:17 BUN/Creatinine Ratio 55 % 05/17/22 00:17 Glucose 242 mg/dL (65-100) H 05/17/22 00:17 POC Glucose 277 mg/dL (70-105) H 05/17/22 05:17 Lactic Acid 1.50 mmol/L (0.7-2.0) 05/16/22 04:28 Calcium 9.7 mg/dL (8.4-10.2) 05/17/22 00:17 Magnesium 1.10 mg/dL (1.7-2.3) L 05/14/22 05:45 Total Bilirubin 0.40 mg/dL (0.1-1.2) 05/14/22 05:45 AST 18 units/L (5-40) 05/14/22 05:45 ALT 10 units/L (7-56) 05/14/22 05:45 Alkaline Phosphatase 57 units/L (35-129) 05/14/22 05:45 Total Protein 6.3 g/dL (6.3-8.2) 05/14/22 05:45 Albumin 2.7 g/dL (3.9-5) L 05/14/22 05:45 Albumin/Globulin Ratio 0.8 % 05/14/22 05:45 Urine Color Brown (Yellow) 05/14/22 10:38 Urine Turbidity Turbid (Clear) 05/14/22 10:38 Urine pH 5.0 (5.0-7.0) 05/14/22 10:38 Ur Specific [place] 1.017 (1.003-1.030) 05/14/22 10:38 Urine Protein 100 mg/dl mg/dL (Negative) 05/14/22 10:38 Urine Glucose (UA) Neg mg/dL (Negative) 05/14/22 10:38 Urine Ketones Neg mg/dL (Negative) 05/14/22 10:38 Urine Blood Mod (Negative) 05/14/22 10:38 Urine Nitrite Neg (Negative) 05/14/22 10:38 Urine Bilirubin Neg (Negative) 05/14/22 10:38 Urine Ictotest Not Reportable 05/14/22 10:38 Urine Urobilinogen < 2.0 mg/dL (<2.0) 05/14/22 10:38 Ur Leukocyte Esterase Tr (Negative) 05/14/22 10:38 Urine WBC (Auto) > 182.0 /HPF (0.0-6.0) H 05/14/22 10:38 Urine RBC (Auto) > 182.0 /HPF (0.0-6.0) 05/14/22 10:38 Urine Bacteria (Auto) 4+ /HPF (Negative) 05/14/22 10:38 Urine WBC Clumps 3+ /HPF 05/14/22 10:38 Urine Mucus 1+ /HPF 05/14/22 10:38 SARS-CoV-2 (PCR) Negative (Negative) 05/14/22 10:38 Microbiology: Microbiology 05/14/22 Unknown Urine,Catheterized - Straight Catheter Urine Culture - Final Escherichia Coli 05/14/22 05:45 Peripheral/Venous Blood Culture - Preliminary NO GROWTH AFTER 48 HOURS 05/14/22 05:39 Peripheral/Venous Blood Culture - Preliminary NO GROWTH AFTER 48 HOURS Choe/IV: Voiding Method Incontinent Active Medications - Current Medications Current Medications: Generic Name Dose Route Start Last Admin Trade Name Freq PRN Reason Stop Dose Admin Acetaminophen 650 mg 05/14/22 09:33 Acetaminophen 325 Mg Tab PO Q6H PRN Pain MILD(1-3)/Fever >100.5/SNELL Albuterol 2.5 mg 05/14/22 12:52 Albuterol 2.5 Mg/3 Ml Nebu IH Q4H PRN Shortness Of Breath Heparin Sodium (Porcine) 5,000 unit 05/14/22 22:00 05/16/22 21:58 Heparin 5,000 Unit/1 Ml Vial SUB-Q 5,000 unit Q12HR DUKE Administration Cefepime HCl 1 gm in 100 mls @ 200 mls/hr 05/15/22 10:00 05/16/22 09:31 Cefepime/Ns 1 Gm/100 Ml IV 100 mls/hr QDAY DUKE Administration Protocol Insulin Human Lispro 0 unit 05/14/22 18:00 05/17/22 06:24 Insulin Lispro 100 Unit/Ml SUB-Q 4 unit Q6HR DUKE Administration Protocol Morphine Sulfate 2 mg 07/16/22 09:33 Morphine 2 Mg/1 Ml Inj IV Q4H PRN Pain, Moderate (4-6) Sodium Chloride 10 ml 05/14/22 10:00 05/16/22 21:58 Sodium Chloride 0.9% 10 Ml Flush Syringe IV 10 ml BID DUKE Administration Sodium Chloride 10 ml 05/14/22 09:32 Sodium Chloride 0.9% 10 Ml Flush Syringe IV PRN PRN LINE FLUSH Nutrition/Malnutrition Assess - Dietary Evaluation Nutrition/Malnutrition Findings: Nutrition Notes Start: 05/15/22 11:28 Freq: Status: Active Protocol: Document 05/15/22 11:28 RS (Rec: 05/15/22 11:46 RS [id number]) Nutrition Notes Need for Assessment generated from: MD Order Initial or Follow up Assessment Current Diagnosis Acute Kidney Injury,Coronary Artery Disease,Diabetes, Respiratory Failure Other Pertinent Diagnosis Dementia, Depression, Dysphasia, Encephalopathy, Pneu Current Diet NPO Labs/Tests No recent labs Pertinent Medications NaCl 0.9% at 75mL/hr Height 5 ft 2.4 in Weight 62 kg [place] Body Weight (kg) 50.90 BMI 24.7 Weight change and time frame JUSTIN wt hx Weight Status Appropriate Subjective/Other Information MD consult for Malnutrition. pt currently NPO. RD unable to assess intakes before adm and wt hx. RD performed physical assessment. Noted moderate- severe temporal muscle wasting , hollow look/loose skin around orbital region, protruding clavical bone, and noted edema. Percent of energy/protein needs met: 0%/0% Burn Absent Trauma Absent GI Symptoms None Current % PO Negligible Minimum of two criteria Yes Body Fat Depletion Mild depletion (non-severe) Muscle Mass Moderate Depletion (severe) Fluid Accumulation Moderate to Severe (severe) #1 Nutrition Diagnosis Malnutrition Etiology Dementia As Evidenced by Signs and Symptoms severe edema, moderate-severe temporal muscle wasting, hollow look/loose skin around orbital region, protruding clavical bone Is patient on ventilator? No Is Patient Ambulatory and/or Out of Bed No REE-([facility]-confined to bed) 1325.532 Kcal/Kg value to use for calculation 30 Approximate Energy Requirements Using 1860 kcal/Kg Calculation Used for Recommendations Kcal/kg Additional Notes Protein: 75-93g/day (1.2-1.5g/ kg BW/day) Fluid needs: 1mL/kcal or per MD Nutrition Intervention Goal #1 Diet advancement Anticipated Discharge Needs: JUSTIN at this time Follow-Up By: 05/17/22 Additional Comments F/U for diet advancement
--- NOTE | 2022-05-17 10:31 | Progress Note ---
Assessment and Plan 71 y/o female with sepsis, and acute respiratory failure most likely secondary to left lower lobe infiltrate with acute renal failure 05/17/22: IV abx therapy. Growing E. Coli. Wean FiO2 as tolerated for sats >88% 05/16/22: I gave 2 boluses yesterday secondary to marginal BP's. thats likely why cxr looks slightly worse. Will discontinue IVF's. Continue to wean FiO2 for sats >88%. Continue IV abx, has gram negative rods in the urine so maybe able to stop vanc. stable BP. Would be ok with patient going back to floor. Replace K 1. Pulm-has been weaned to 15 liters and 55%. Sats good. Continue to wean for sats >88%. Agree with repeat CXR tomorrow and ABG if needed. 2. CV-hypotensive, will bolus now and reassess. May be more volume deplete, especially given renal failure. Repeat chemistry later today to see if renal function improves with volume. If so give more 3. Neuro-intial head CT is negative. May need repeat if she does not improve with abx and fluid hydration. Given her mental state, if her oxygenation worsens, would need intubation, not a candidate for bipap 4. Guarded progonsis CCT 31 minutes. Subjective Date of service: 05/17/22 Interval history: Down to 3 liters. Good sats. Objective Vital Signs - 12hr 05/17/22 05/17/22 05/17/22 00:33 06:00 08:33 Temperature 98.1 F 99.0 F Pulse Rate 85 92 H Respiratory 18 18 Rate Blood Pressure 120/57 126/57 [Right] O2 Sat by Pulse 100 98 96 Oximetry 05/17/22 08:38 Temperature Pulse Rate Respiratory Rate Blood Pressure [Right] O2 Sat by Pulse 99 Oximetry Constitutional: no acute distress, appears uncomfortable ENT: oropharynx moist Neck: supple Effort: mildly labored Ascultation: Left: rales (left lower lobe) Cardiovascular: regular rate and rhythm Gastrointestinal: normoactive bowel sounds CBC and BMP: 05/17/22 00:17 05/17/22 00:17 ABG, PT/INR, D-dimer: ABG ABG pH 7.422 pH Units (7.350-7.450) 05/14/22 10:50 ABG pCO2 40.2 mm Hg 05/14/22 10:50 ABG pO2 51.4 mm Hg (80.0-90.0) L 05/14/22 10:50 ABG O2 Saturation 88.4 % (95.0-99.0) L 05/14/22 10:50 Abnormal lab findings: Abnormal Labs 05/14/22 05/14/22 05/14/22 05:45 05:45 05:45 WBC 20.8 H Seg Neuts % (Manual) 85.0 H Lymphocytes % (Manual) 5.0 L Seg Neutrophils # Man 17.7 H Lymphocytes # (Manual) 1.0 L ABG pO2 ABG O2 Saturation ABG Hemoglobin Oxyhemoglobin Sodium 134 L Potassium Chloride 94.2 L Carbon Dioxide BUN 35 H Creatinine 2.1 H Glucose 403 H POC Glucose Lactic Acid 6.60 H* Magnesium Albumin 2.7 L Urine WBC (Auto) 05/14/22 05/14/22 05/14/22 05:45 07:02 09:26 WBC Seg Neuts % (Manual) Lymphocytes % (Manual) Seg Neutrophils # Man Lymphocytes # (Manual) ABG pO2 ABG O2 Saturation ABG Hemoglobin Oxyhemoglobin Sodium Potassium Chloride Carbon Dioxide BUN Creatinine Glucose POC Glucose Lactic Acid 5.70 H* 5.30 H* Magnesium 1.10 L Albumin Urine WBC (Auto) 05/14/22 05/14/22 05/14/22 09:31 10:38 10:50 WBC Seg Neuts % (Manual) Lymphocytes % (Manual) Seg Neutrophils # Man Lymphocytes # (Manual) ABG pO2 51.4 L ABG O2 Saturation 88.4 L ABG Hemoglobin 11.5 L Oxyhemoglobin 86.5 L Sodium Potassium Chloride Carbon Dioxide BUN Creatinine Glucose POC Glucose 209 H Lactic Acid Magnesium Albumin Urine WBC (Auto) > 182.0 H 05/14/22 05/14/22 05/15/22 13:24 17:15 11:25 WBC Seg Neuts % (Manual) Lymphocytes % (Manual) Seg Neutrophils # Man Lymphocytes # (Manual) ABG pO2 ABG O2 Saturation ABG Hemoglobin Oxyhemoglobin Sodium Potassium Chloride Carbon Dioxide BUN Creatinine Glucose POC Glucose 212 H 245 H 232 H Lactic Acid Magnesium Albumin Urine WBC (Auto) 05/15/22 05/15/22 05/16/22 16:16 17:56 04:28 WBC 21.8 H Seg Neuts % (Manual) 97.0 H Lymphocytes % (Manual) 0 L Seg Neutrophils # Man 21.1 H Lymphocytes # (Manual) 0.0 L ABG pO2 ABG O2 Saturation ABG Hemoglobin Oxyhemoglobin Sodium Potassium 3.5 L Chloride 110.1 H Carbon Dioxide BUN 32 H Creatinine Glucose 207 H POC Glucose 166 H Lactic Acid Magnesium Albumin Urine WBC (Auto) 05/16/22 05/16/22 05/16/22 04:28 11:36 17:24 WBC Seg Neuts % (Manual) Lymphocytes % (Manual) Seg Neutrophils # Man Lymphocytes # (Manual) ABG pO2 ABG O2 Saturation ABG Hemoglobin Oxyhemoglobin Sodium Potassium 3.5 L Chloride 110.2 H Carbon Dioxide BUN 29 H Creatinine Glucose 222 H POC Glucose 193 H 170 H Lactic Acid Magnesium Albumin Urine WBC (Auto) 05/16/22 05/17/22 05/17/22 23:21 00:17 00:17 WBC 18.6 H Seg Neuts % (Manual) 91.0 H Lymphocytes % (Manual) 4.0 L Seg Neutrophils # Man 16.9 H Lymphocytes # (Manual) 0.7 L ABG pO2 ABG O2 Saturation ABG Hemoglobin Oxyhemoglobin Sodium 150 H Potassium 3.5 L Chloride 112.5 H Carbon Dioxide 18 L BUN 22 H Creatinine 0.4 L Glucose 242 H POC Glucose 192 H Lactic Acid Magnesium Albumin Urine WBC (Auto) 05/17/22 05:17 WBC Seg Neuts % (Manual) Lymphocytes % (Manual) Seg Neutrophils # Man Lymphocytes # (Manual) ABG pO2 ABG O2 Saturation ABG Hemoglobin Oxyhemoglobin Sodium Potassium Chloride Carbon Dioxide BUN Creatinine Glucose POC Glucose 277 H Lactic Acid Magnesium Albumin Urine WBC (Auto)
[2022-05-18] MEDS: INSULIN LISPRO 100 UNIT/ML SUB-Q SCH ×4 (00:17→18:25)
--- NOTE | 2022-05-18 05:46 | Progress Note ---
Assessment and Plan 71 y/o female with sepsis, and acute respiratory failure most likely secondary to left lower lobe infiltrate with acute renal failure 05/18/22: Stable pulm status, however, would continue to attempt to wean for sats >88%. Pt/OT and Incentive naila. No objection to discharge once bed available. Will continue to follow. 05/17/22: IV abx therapy. Growing E. Coli. Wean FiO2 as tolerated for sats >88% 05/16/22: I gave 2 boluses yesterday secondary to marginal BP's. thats likely why cxr looks slightly worse. Will discontinue IVF's. Continue to wean FiO2 for sats >88%. Continue IV abx, has gram negative rods in the urine so maybe able to stop vanc. stable BP. Would be ok with patient going back to floor. Replace K 1. Pulm-has been weaned to 15 liters and 55%. Sats good. Continue to wean for sats >88%. Agree with repeat CXR tomorrow and ABG if needed. 2. CV-hypotensive, will bolus now and reassess. May be more volume deplete, especially given renal failure. Repeat chemistry later today to see if renal function improves with volume. If so give more 3. Neuro-intial head CT is negative. May need repeat if she does not improve with abx and fluid hydration. Given her mental state, if her oxygenation worsen s, would need intubation, not a candidate for bipap 4. Guarded progonsis CCT 31 minutes. Subjective Date of service: 05/18/22 Interval history: No acute events. Stable on 3 liters. Per CM note, working on placement at [facility]. Abx changed. Objective Vital Signs - 12hr 05/17/22 05/17/22 22:00 23:33 Temperature 99.0 F Pulse Rate 101 H 99 H Respiratory 18 16 Rate Blood Pressure 138/60 O2 Sat by Pulse 96 100 Oximetry Constitutional: no acute distress, appears uncomfortable ENT: oropharynx moist Neck: supple Effort: mildly labored Ascultation: Left: rales (left lower lobe) Cardiovascular: regular rate and rhythm Gastrointestinal: normoactive bowel sounds CBC and BMP: 05/17/22 00:17 05/17/22 00:17 ABG, PT/INR, D-dimer: ABG ABG pH 7.422 pH Units (7.350-7.450) 05/14/22 10:50 ABG pCO2 40.2 mm Hg 05/14/22 10:50 ABG pO2 51.4 mm Hg (80.0-90.0) L 05/14/22 10:50 ABG O2 Saturation 88.4 % (95.0-99.0) L 05/14/22 10:50 Abnormal lab findings: Abnormal Labs 05/14/22 05/14/22 05/14/22 05:45 05:45 05:45 WBC 20.8 H Seg Neuts % (Manual) 85.0 H Lymphocytes % (Manual) 5.0 L Seg Neutrophils # Man 17.7 H Lymphocytes # (Manual) 1.0 L ABG pO2 ABG O2 Saturation ABG Hemoglobin Oxyhemoglobin Sodium 134 L Potassium Chloride 94.2 L Carbon Dioxide BUN 35 H Creatinine 2.1 H Glucose 403 H POC Glucose Lactic Acid 6.60 H* Magnesium Albumin 2.7 L Urine WBC (Auto) 05/14/22 05/14/22 05/14/22 05:45 07:02 09:26 WBC Seg Neuts % (Manual) Lymphocytes % (Manual) Seg Neutrophils # Man Lymphocytes # (Manual) ABG pO2 ABG O2 Saturation ABG Hemoglobin Oxyhemoglobin Sodium Potassium Chloride Carbon Dioxide BUN Creatinine Glucose POC Glucose Lactic Acid 5.70 H* 5.30 H* Magnesium 1.10 L Albumin Urine WBC (Auto) 05/14/22 05/14/22 05/14/22 09:31 10:38 10:50 WBC Seg Neuts % (Manual) Lymphocytes % (Manual) Seg Neutrophils # Man Lymphocytes # (Manual) ABG pO2 51.4 L ABG O2 Saturation 88.4 L ABG Hemoglobin 11.5 L Oxyhemoglobin 86.5 L Sodium Potassium Chloride Carbon Dioxide BUN Creatinine Glucose POC Glucose 209 H Lactic Acid Magnesium Albumin Urine WBC (Auto) > 182.0 H 05/14/22 05/14/22 05/14/22 13:24 17:15 23:38 WBC Seg Neuts % (Manual) Lymphocytes % (Manual) Seg Neutrophils # Man Lymphocytes # (Manual) ABG pO2 ABG O2 Saturation ABG Hemoglobin Oxyhemoglobin Sodium Potassium Chloride Carbon Dioxide BUN Creatinine Glucose POC Glucose 212 H 245 H 246 H Lactic Acid Magnesium Albumin Urine WBC (Auto) 05/15/22 05/15/22 05/15/22 05:23 11:25 16:16 WBC Seg Neuts % (Manual) Lymphocytes % (Manual) Seg Neutrophils # Man Lymphocytes # (Manual) ABG pO2 ABG O2 Saturation ABG Hemoglobin Oxyhemoglobin Sodium Potassium Chloride Carbon Dioxide BUN Creatinine Glucose POC Glucose 236 H 232 H 166 H Lactic Acid Magnesium Albumin Urine WBC (Auto) 05/15/22 05/16/22 05/16/22 17:56 00:58 04:28 WBC 21.8 H Seg Neuts % (Manual) 97.0 H Lymphocytes % (Manual) 0 L Seg Neutrophils # Man 21.1 H Lymphocytes # (Manual) 0.0 L ABG pO2 ABG O2 Saturation ABG Hemoglobin Oxyhemoglobin Sodium Potassium 3.5 L Chloride 110.1 H Carbon Dioxide BUN 32 H Creatinine Glucose 207 H POC Glucose 215 H Lactic Acid Magnesium Albumin Urine WBC (Auto) 05/16/22 05/16/22 05/16/22 04:28 05:47 11:36 WBC Seg Neuts % (Manual) Lymphocytes % (Manual) Seg Neutrophils # Man Lymphocytes # (Manual) ABG pO2 ABG O2 Saturation ABG Hemoglobin Oxyhemoglobin Sodium Potassium 3.5 L Chloride 110.2 H Carbon Dioxide BUN 29 H Creatinine Glucose 222 H POC Glucose 186 H 193 H Lactic Acid Magnesium Albumin Urine WBC (Auto) 05/16/22 05/16/22 05/17/22 17:24 23:21 00:17 WBC 18.6 H Seg Neuts % (Manual) 91.0 H Lymphocytes % (Manual) 4.0 L Seg Neutrophils # Man 16.9 H Lymphocytes # (Manual) 0.7 L ABG pO2 ABG O2 Saturation ABG Hemoglobin Oxyhemoglobin Sodium Potassium Chloride Carbon Dioxide BUN Creatinine Glucose POC Glucose 170 H 192 H Lactic Acid Magnesium Albumin Urine WBC (Auto) 05/17/22 05/17/22 05/17/22 00:17 05:17 12:13 WBC Seg Neuts % (Manual) Lymphocytes % (Manual) Seg Neutrophils # Man Lymphocytes # (Manual) ABG pO2 ABG O2 Saturation ABG Hemoglobin Oxyhemoglobin Sodium 150 H Potassium 3.5 L Chloride 112.5 H Carbon Dioxide 18 L BUN 22 H Creatinine 0.4 L Glucose 242 H POC Glucose 277 H 305 H Lactic Acid Magnesium Albumin Urine WBC (Auto) 05/17/22 05/17/22 05/18/22 18:17 23:41 05:16 WBC Seg Neuts % (Manual) Lymphocytes % (Manual) Seg Neutrophils # Man Lymphocytes # (Manual) ABG pO2 ABG O2 Saturation ABG Hemoglobin Oxyhemoglobin Sodium Potassium Chloride Carbon Dioxide BUN Creatinine Glucose POC Glucose 331 H 372 H 313 H Lactic Acid Magnesium Albumin Urine WBC (Auto)
--- NOTE | 2022-05-18 09:06 | Progress Note ---
Assessment and Plan Assessment and plan: 71-year-old female patient [facility] resident with significant past medical history of Alzheimer's dementia diabetes, coronary artery disease, depression, dysphagia, thrombocytopenia was sent to the emergency room with complaints of altered level of consciousness and sepsis. Patient was noted to be severely hypoxemic on arrival saturating only 88% on room air however improved to 91% on 2 L. After returning from CT scan patient suddenly went into severe hypoxic respiratory failure requiring 15 L When I went and re evaluated the patient, the respiratory therapist at the bedside and patient is on high flow nasal cannula oxygen 30 L/65% FiO2/O2 sats 95 percent. Patient was already planned to admit to [facility], ER physician consulted pulmonary critical care Dr. Romero. Patient is lethargic noncommunicative, no other history is available Assessment and Plan: #Acute hypoxic respiratory failure Requiring supplemental oxygen Probably secondary to pneumonia Oxygen titrate O2 sats to more than 90%, currently on high flow nasal cannula Pulmonary consultation #Sepsis POA secondary to left-sided pneumonia/Urinary Tract Infection - follow bcx,scx,ucx - COVID RT PCR negative - abx: vanc/cefepime IV - trend fever curve/wbc ct #Hospital Acquired Pneumonia [place] resident Blood cultures, sputum cultures Empiric antibiotics cefepime Oxygen titrate O2 sats to more than 90% Supportive care Pulmonary/ID service needed #E. coli urinary tract infection #Acute metabolic encephalopathy; -Multifactorial, sepsis, pneumonia , hypoxia in the setting of advanced dementia -Respiratory failure advanced age -Treat the underlying cause -Neurochecks -CT brain on admission demonstrated no acute intracranial abnormality #Lactic acidosis; -Probably secondary to sepsis, IV fluids -Empiric IV antibiotics, follow cultures -Trend lactic levels #Acute kidney injury; vasomotor nephropathy -Gentle hydration, monitor renal function -Avoid nephrotoxins, nephrology consult if needed #Mild hyponatremia; -Closely monitor electrolytes #Severe protein calorie malnutrition; -Nutrition supplements, supportive care -Nutrition consult #Severe hypoalbuminemia; -Nutrition supplements and supportive care Hospital Course: 05/15: Remains encephalopathic, on high flow nasal cannula. We will continue to wean as patient tolerates. Continue therapy with IV vancomycin and cefepime. ABG/Chest x-ray ordered for tomorrow. Will follow pulmonary recs. 05/16/22: Pulmonary gave 2 boluses yesterday secondary to marginal BP's which is why cxr looks slightly worse. Will discontinue IVF's. Continue to wean FiO2 for sats >88%. Continue IV abx, has gram negative rods in the urine so maybe able to stop vanc. stable BP. Would be ok with patient going back to floor. Replace K 05/17: Patient remains encephalopathic. Patient requiring 3 L O2 with satur ations at 99%. Patient still with significant leukocytosis. Urine culture reveals E. coli. Abx will be switched to Rocephin 05/18: Patient with stable respiratory status. Patient with saturations of 95% on 2 L O2. Continue antibiotics of Rocephin. Authorization started for fdc placement History Interval history: No new issues overnight Hospitalist Physical - Constitutional Vitals: Temp Pulse Resp BP Pulse Ox 99.0 F 99 H 16 138/60 95 05/17/22 23:33 05/17/22 23:33 05/17/22 23:33 05/17/22 23:33 05/18/22 08:41 General appearance: Present: no acute distress - EENT Eyes: Present: PERRL, EOM intact ENT: hearing intact, clear oral mucosa, dentition normal - Neck Neck: Present: supple, normal ROM - Respiratory Respiratory effort: normal Respiratory: bilateral: CTA - Cardiovascular Rhythm: regular Heart Sounds: Present: S1 & S2. Absent: gallop, rub - Extremities Extremities: no ischemia, No edema, Full ROM - Abdominal General gastrointestinal: soft, non-tender, non-distended, normal bowel sounds - Integumentary Integumentary: Present: clear, warm, dry - Neurologic Neurologic: CNII-XII intact, moves all extremities Results - Labs CBC & Chem 7: 05/17/22 00:17 05/17/22 00:17 Labs: Laboratory Last Values WBC 18.6 K/mm3 (4.5-11.0) H 05/17/22 00:17 RBC 3.81 M/mm3 (3.65-5.03) 05/17/22 00:17 Hgb 11.4 gm/dl (10.1-14.3) 05/17/22 00:17 Hct 34.8 % (30.3-42.9) 05/17/22 00:17 MCV 91 fl (79-97) 05/17/22 00:17 MCH 30 pg (28-32) 05/17/22 00:17 MCHC 33 % (30-34) 05/17/22 00:17 RDW 14.2 % (13.2-15.2) 05/17/22 00:17 Plt Count 168 K/mm3 (140-440) 05/17/22 00:17 Add Manual Diff Complete 05/17/22 00:17 Total Counted 100 05/17/22 00:17 Seg Neutrophils % Retail Sales Associate Seasonal 05/17/22 00:17 Seg Neuts % (Manual) 91.0 % (40.0-70.0) H 05/17/22 00:17 Band Neutrophils % 1.0 % 05/17/22 00:17 Lymphocytes % (Manual) 4.0 % (13.4-35.0) L 05/17/22 00:17 Reactive Lymphs % (Man) 0 % 05/17/22 00:17 Monocytes % (Manual) 4.0 % (0.0-7.3) 05/17/22 00:17 Eosinophils % (Manual) 0 % (0.0-4.3) 05/17/22 00:17 Basophils % (Manual) 0 % (0.0-1.8) 05/17/22 00:17 Metamyelocytes % 0 % 05/17/22 00:17 Myelocytes % 0 % 05/17/22 00:17 Promyelocytes % 0 % 05/17/22 00:17 Blast Cells % 0 % 05/17/22 00:17 Nucleated RBC % Not Reportable 05/17/22 00:17 Seg Neutrophils # Man 16.9 K/mm3 (1.8-7.7) H 05/17/22 00:17 Band Neutrophils # 0.2 K/mm3 05/17/22 00:17 Lymphocytes # (Manual) 0.7 K/mm3 (1.2-5.4) L 05/17/22 00:17 Abs React Lymphs (Man) 0.0 K/mm3 05/17/22 00:17 Monocytes # (Manual) 0.7 K/mm3 (0.0-0.8) 05/17/22 00:17 Eosinophils # (Manual) 0.0 K/mm3 (0.0-0.4) 05/17/22 00:17 Basophils # (Manual) 0.0 K/mm3 (0.0-0.1) 05/17/22 00:17 Metamyelocytes # 0.0 K/mm3 05/17/22 00:17 Myelocytes # 0.0 K/mm3 05/17/22 00:17 Promyelocytes # 0.0 K/mm3 05/17/22 00:17 Blast Cells # 0.0 K/mm3 05/17/22 00:17 WBC Morphology Not Reportable 05/17/22 00:17 Hypersegmented Neuts Not Reportable 05/17/22 00:17 Hyposegmented Neuts Not Reportable 05/17/22 00:17 Hypogranular Neuts Not Reportable 05/17/22 00:17 Smudge Cells Not Reportable 05/17/22 00:17 Toxic Granulation Not Reportable 05/17/22 00:17 Toxic Vacuolation Not Reportable 05/17/22 00:17 Dohle Bodies Not Reportable 05/17/22 00:17 Pelger-Huet Anomaly Not Reportable 05/17/22 00:17 Supa Rods Not Reportable 05/17/22 00:17 Platelet Estimate Consistent w auto 05/17/22 00:17 Clumped Platelets Not Reportable 05/17/22 00:17 Plt Clumps, EDTA Not Reportable 05/17/22 00:17 Large Platelets Not Reportable 05/17/22 00:17 Giant Platelets Not Reportable 05/17/22 00:17 Platelet Satelliting Not Reportable 05/17/22 00:17 Plt Morphology Comment Not Reportable 05/17/22 00:17 RBC Morphology Normal 05/17/22 00:17 Dimorphic RBCs Not Reportable 05/17/22 00:17 Polychromasia Not Reportable 05/17/22 00:17 Hypochromasia Not Reportable 05/17/22 00:17 Poikilocytosis Not Reportable 05/17/22 00:17 Anisocytosis Not Reportable 05/17/22 00:17 Microcytosis Not Reportable 05/17/22 00:17 Macrocytosis Not Reportable 05/17/22 00:17 Spherocytes Not Reportable 05/17/22 00:17 Pappenheimer Bodies Not Reportable 05/17/22 00:17 Sickle Cells Not Reportable 05/17/22 00:17 Target Cells Not Reportable 05/17/22 00:17 Tear Drop Cells Not Reportable 05/17/22 00:17 Ovalocytes Not Reportable 05/17/22 00:17 Helmet Cells Not Reportable 05/17/22 00:17 [place] Bodies Not Reportable 05/17/22 00:17 Volin Rings Not Reportable 05/17/22 00:17 Donovan Cells Not Reportable 05/17/22 00:17 Bite Cells Not Reportable 05/17/22 00:17 Crenated Cell Not Reportable 05/17/22 00:17 Elliptocytes Not Reportable 05/17/22 00:17 Acanthocytes (Spur) Not Reportable 05/17/22 00:17 Rouleaux Not Reportable 05/17/22 00:17 Hemoglobin C Crystals Not Reportable 05/17/22 00:17 Schistocytes Not Reportable 05/17/22 00:17 Malaria parasites Not Reportable 05/17/22 00:17 Parveen Bodies Not Reportable 05/17/22 00:17 Hem Pathologist Commnt No 05/17/22 00:17 ABG pH 7.422 pH Units (7.350-7.450) 05/14/22 10:50 ABG pCO2 40.2 mm Hg 05/14/22 10:50 ABG pO2 51.4 mm Hg (80.0-90.0) L 05/14/22 10:50 ABG HCO3 25.6 mmol/L (20.0-26.0) 05/14/22 10:50 ABG O2 Saturation 88.4 % (95.0-99.0) L 05/14/22 10:50 ABG O2 Content 13.9 (0.0-44) 05/14/22 10:50 ABG Base Excess 1.1 mmol/L (-2.0-3.0) 05/14/22 10:50 ABG Hemoglobin 11.5 gm/dl (12.0-16.0) L 05/14/22 10:50 ABG Carboxyhemoglobin 1.8 % (0.0-5.0) 05/14/22 10:50 ABG Methemoglobin 0.3 % (0.0-1.5) 05/14/22 10:50 Oxyhemoglobin 86.5 % (95.0-99.0) L 05/14/22 10:50 FiO2 50 % 05/14/22 10:50 Sodium 150 mmol/L (137-145) H 05/17/22 00:17 Potassium 3.5 mmol/L (3.6-5.0) L 05/17/22 00:17 Chloride 112.5 mmol/L (98-107) H 05/17/22 00:17 Carbon Dioxide 18 mmol/L (22-30) L 05/17/22 00:17 Anion Gap 23 mmol/L 05/17/22 00:17 BUN 22 mg/dL (7-17) H 05/17/22 00:17 Creatinine 0.4 mg/dL (0.6-1.2) L 05/17/22 00:17 Estimated GFR > 60 ml/min 05/17/22 00:17 BUN/Creatinine Ratio 55 % 05/17/22 00:17 Glucose 242 mg/dL (65-100) H 05/17/22 00:17 POC Glucose 313 mg/dL (70-105) H 05/18/22 05:16 Lactic Acid 1.50 mmol/L (0.7-2.0) 05/16/22 04:28 Calcium 9.7 mg/dL (8.4-10.2) 05/17/22 00:17 Magnesium 1.10 mg/dL (1.7-2.3) L 05/14/22 05:45 Total Bilirubin 0.40 mg/dL (0.1-1.2) 05/14/22 05:45 AST 18 units/L (5-40) 05/14/22 05:45 ALT 10 units/L (7-56) 05/14/22 05:45 Alkaline Phosphatase 57 units/L (35-129) 05/14/22 05:45 Total Protein 6.3 g/dL (6.3-8.2) 05/14/22 05:45 Albumin 2.7 g/dL (3.9-5) L 05/14/22 05:45 Albumin/Globulin Ratio 0.8 % 05/14/22 05:45 Urine Color Brown (Yellow) 05/14/22 10:38 Urine Turbidity Turbid (Clear) 05/14/22 10:38 Urine pH 5.0 (5.0-7.0) 05/14/22 10:38 Ur Specific [place] 1.017 (1.003-1.030) 05/14/22 10:38 Urine Protein 100 mg/dl mg/dL (Negative) 05/14/22 10:38 Urine Glucose (UA) Neg mg/dL (Negative) 05/14/22 10:38 Urine Ketones Neg mg/dL (Negative) 05/14/22 10:38 Urine Blood Mod (Negative) 05/14/22 10:38 Urine Nitrite Neg (Negative) 05/14/22 10:38 Urine Bilirubin Neg (Negative) 05/14/22 10:38 Urine Ictotest Not Reportable 05/14/22 10:38 Urine Urobilinogen < 2.0 mg/dL (<2.0) 05/14/22 10:38 Ur Leukocyte Esterase Tr (Negative) 05/14/22 10:38 Urine WBC (Auto) > 182.0 /HPF (0.0-6.0) H 05/14/22 10:38 Urine RBC (Auto) > 182.0 /HPF (0.0-6.0) 05/14/22 10:38 Urine Bacteria (Auto) 4+ /HPF (Negative) 05/14/22 10:38 Urine WBC Clumps 3+ /HPF 05/14/22 10:38 Urine Mucus 1+ /HPF 05/14/22 10:38 SARS-CoV-2 (PCR) Negative (Negative) 05/14/22 10:38 Microbiology: Microbiology 05/14/22 05:45 Peripheral/Venous Blood Culture - Preliminary NO GROWTH AFTER 72 HOURS 05/14/22 05:39 Peripheral/Venous Blood Culture - Preliminary NO GROWTH AFTER 72 HOURS Choe/IV: Voiding Method Incontinent Active Medications - Current Medications Current Medications: Generic Name Dose Route Start Last Admin Trade Name Freq PRN Reason Stop Dose Admin Acetaminophen 650 mg 05/14/22 09:33 Acetaminophen 325 Mg Tab PO Q6H PRN Pain MILD(1-3)/Fever >100.5/SNELL Albuterol 2.5 mg 05/14/22 12:52 Albuterol 2.5 Mg/3 Ml Nebu IH Q4H PRN Shortness Of Breath Heparin Sodium (Porcine) 5,000 unit 05/14/22 22:00 05/17/22 22:12 Heparin 5,000 Unit/1 Ml Vial SUB-Q 5,000 unit Q12HR DUKE Administration Ceftriaxone Sodium 1 gm in 50 mls @ 100 mls/hr 05/18/22 10:00 Rocephin/Ns 1 Gm/50 Ml IV 05/21/22 10:29 Q24H DUKE Protocol Insulin Human Lispro 0 unit 05/14/22 18:00 05/18/22 05:54 Insulin Lispro 100 Unit/Ml SUB-Q 6 unit Q6HR DUKE Administration Protocol Morphine Sulfate 2 mg 05/14/22 09:33 Morphine 2 Mg/1 Ml Inj IV Q4H PRN Pain, Moderate (4-6) Sodium Chloride 10 ml 05/14/22 10:00 05/17/22 22:12 Sodium Chloride 0.9% 10 Ml Flush Syringe IV 10 ml BID DUKE Administration Sodium Chloride 10 ml 05/14/22 09:32 Sodium Chloride 0.9% 10 Ml Flush Syringe IV PRN PRN LINE FLUSH Nutrition/Malnutrition Assess - Dietary Evaluation Nutrition/Malnutrition Findings: Nutrition Notes Start: 05/15/22 11:28 Freq: Status: Active Protocol: Document 05/17/22 12:26 CLARENCE (Rec: 05/17/22 13:12 CLARENCE [email or web address]) Nutrition Notes Initial or Follow up Reassessment Current Diagnosis Acute Kidney Injury,Sepsis, Respiratory Failure, Malnutrition Other Pertinent Diagnosis Metabolic Encephalopathy, UTI, HAP, Leukocytosis, Lactic Acidosis, ... Current Diet TF-Glucerna 1.2 [place] @ 45 ml/hr (since B 05/17). Labs/Tests 05/17: Na 150, K 3.5, Cl 112.5 , CO2 18, BUN 22, Crea 0.4, Glu 242. Pertinent Medications 05/17: Humalog 6U, others nutritionally unremarkable. 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 No body weight change reported in 2 days. Weight Status Appropriate Subjective/Other Information RD consult for routine F/U on dietary advancement. Diet advanced to TF without RD consultation, Pt currently receiving TF-Glucerna 1.2 [place] @ 35 ml/hr (75% Kcal; 68%AA) since this morning. I will assess and adjust current TF prescription if needed to provide Pt with, at least, 75% of energy/protein needs during LOS. Pt on Nasal Cannula, O2 saturation @ 96%, according to Physical Assessment History notes. Pt presents L-LE wounds as signs of concern for skin risk at the time, according to Physical Assessment History notes. Percent of energy/protein needs met: Prescribed TF-Glucerna 1.2 [place] @ 45 ml/hr provides for energy/protein needs (1,310 Kcal/66 g) during LOS, 99% Kcal; 89% AA. Burn Absent Trauma Absent GI Symptoms None Food Allergy No Skin Integrity/Comment L-LE wounds. 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 No Is Patient Ambulatory and/or Out of Bed No REE-([place]-[facility] [place]-confined to bed) 1325.148 Calculation Used for Recommendations [facility] Additional Notes Protein: 1.2-1.5 g/Kg ABW; 74- 93 g/day. Fluids: 1 ml/Kcal, or as per MD. Nutrition Intervention Nutrition Support: Adjust to TF-Glucerna 1.2 [place] @ 45 ml/hr. Flush: 100 ml water Q 4 hr, or as per MD. Kcal 1,310 Protein (gm) 66 Carbohydrates (gm) 125 Fat (gm) 66 Fluid (mL) 879 Fiber (gm) 18 % RDI: 99% Kcal; 89% AA. Goal #1 Provide at least 75% of energy /protein needs through Enteral Feeding during LOS. Follow-Up By: 05/19/22 Additional Comments Continue monitoring TF tolerance and BM.
[2022-05-18] MEDS: cefTRIAXone/NS 1 GM/50 ML 1 GM/50 ML BAG IV SCH (09:37)
[2022-05-18] MEDS: HEPARIN 5,000 UNIT/1 ML VIAL SUB-Q SCH ×2 (09:37→21:50)
--- NOTE | 2022-05-18 14:07 | XRay Report ---
CHEST 1 VIEW INDICATION / CLINICAL INFORMATION: pna STUDY TIME: 1222 COMPARISON: 05/16/2022 FINDINGS: SUPPORT DEVICES: Feeding tube now extends well into the stomach HEART / MEDIASTINUM: No significant abnormality. LUNGS / PLEURA: Bilateral perihilar and basilar infiltrates, worse left than right, have increased in prominence from prior study. Mild congestion is noted. No pneumothorax. ADDITIONAL FINDINGS: No significant additional findings. Signer Name: Rinku Penaloza MD Signed: 05/18/2022 2:02 PM Workstation Name: [employer]
[2022-05-18] MEDS: INSULIN GLARGINE 100 UNITS/ML SUB-Q SCH (14:10)
[2022-05-19] MEDS: INSULIN LISPRO 100 UNIT/ML SUB-Q SCH ×4 (00:13→18:38)
[2022-05-19 05:27] LABS: Hemoglobin 11.2 gm/dl (10.1-14.3); Mean Corpuscular HGB Conc 33 % (30-34); Mean Corpuscular Volume 91 fl (79-97); Platelet Count 210 K/mm3 (140-440); Red Blood Count 3.74 M/mm3 (3.65-5.03); Red Cell Distribution Width 13.8 % (13.2-15.2)
[2022-05-19 05:44] LABS: Blood Urea Nitrogen 18 mg/dL (7-17); Calcium 10.4 mg/dL (8.4-10.2); Hemolysis Index 1
[2022-05-19 05:46] LABS: BUN/Creatinine Ratio 45
[2022-05-19 08:25] LABS: Band Neutrophils # (Manual) 0.2 K/mm3; Basophils % (Manual) 0 % (0.0-1.8); Eosinophils % (Manual) 0 % (0.0-4.3); Platelet Estimate Consistent w Auto; RBC Morphology Normal; Total Cells Counted 100
[2022-05-19] MEDS: cefTRIAXone/NS 1 GM/50 ML 1 GM/50 ML BAG IV SCH (09:09)
[2022-05-19] MEDS: HEPARIN 5,000 UNIT/1 ML VIAL SUB-Q SCH ×2 (09:10→22:14)
[2022-05-19] MEDS: INSULIN GLARGINE 100 UNITS/ML SUB-Q SCH (09:10)
--- NOTE | 2022-05-19 09:27 | Progress Note ---
Assessment and Plan Assessment and plan: 71-year-old female patient [facility] resident with significant past medical history of Alzheimer's dementia diabetes, coronary artery disease, depression, dysphagia, thrombocytopenia was sent to the emergency room with complaints of altered level of consciousness and sepsis. Patient was noted to be severely hypoxemic on arrival saturating only 88% on room air however improved to 91% on 2 L. After returning from CT scan patient suddenly went into severe hypoxic respiratory failure requiring 15 L When I went and re evaluated the patient, the respiratory therapist at the bedside and patient is on high flow nasal cannula oxygen 30 L/65% FiO2/O2 sats 95 percent. Patient was already planned to admit to [facility], ER physician consulted pulmonary critical care Dr. Romero. Patient is lethargic noncommunicative, no other history is available Assessment and Plan: #Acute hypoxic respiratory failure Requiring supplemental oxygen Probably secondary to pneumonia Oxygen titrate O2 sats to more than 90%, currently on high flow nasal cannula Pulmonary consultation #Sepsis POA secondary to left-sided pneumonia/Urinary Tract Infection - follow bcx,scx,ucx - COVID RT PCR negative - abx: vanc/cefepime IV - trend fever curve/wbc ct #Hospital Acquired Pneumonia [place] resident Blood cultures, sputum cultures Empiric antibiotics cefepime Oxygen titrate O2 sats to more than 90% Supportive care Pulmonary/ID service needed #E. coli urinary tract infection #Acute metabolic encephalopathy; -Multifactorial, sepsis, pneumonia , hypoxia in the setting of advanced dementia -Respiratory failure advanced age -Treat the underlying cause -Neurochecks -CT brain on admission demonstrated no acute intracranial abnormality #Lactic acidosis; -Probably secondary to sepsis, IV fluids -Empiric IV antibiotics, follow cultures -Trend lactic levels #Acute kidney injury; vasomotor nephropathy -Gentle hydration, monitor renal function -Avoid nephrotoxins, nephrology consult if needed #Mild hyponatremia; -Closely monitor electrolytes #Severe protein calorie malnutrition; -Nutrition supplements, supportive care -Nutrition consult #Severe hypoalbuminemia; -Nutrition supplements and supportive care Hospital Course: 05/15: Remains encephalopathic, on high flow nasal cannula. We will continue to wean as patient tolerates. Continue therapy with IV vancomycin and cefepime. ABG/Chest x-ray ordered for tomorrow. Will follow pulmonary recs. 05/16/22: Pulmonary gave 2 boluses yesterday secondary to marginal BP's which is why cxr looks slightly worse. Will discontinue IVF's. Continue to wean FiO2 for sats >88%. Continue IV abx, has gram negative rods in the urine so maybe able to stop vanc. stable BP. Would be ok with patient going back to floor. Replace K 05/17: Patient remains encephalopathic. Patient requiring 3 L O2 with satur ations at 99%. Patient still with significant leukocytosis. Urine culture reveals E. coli. Abx will be switched to Rocephin 05/18: Patient with stable respiratory status. Patient with saturations of 95% on 2 L O2. Continue antibiotics of Rocephin. Authorization started for jail placement 05/19: Patient with blood cultures no growth to date x4 days. Rocephin to complete on 05/21 for E. coli UTI. Await authorization for patient to return to [facility]. The patient remains lethargic and noncommunicative since admission. I discussed patient's mental status with the [id number] ([phone]) yesterday who reports that this is essentially the baseline. She also reports that the patient's /her brother is autistic. Patient currently with DHT receiving enteral feeds. GI consulted for PEG placement. History Interval history: No new issues overnight Hospitalist Physical - Constitutional Vitals: Temp Pulse Resp BP Pulse Ox 98.1 F 80 20 144/53 98 05/19/22 05:10 05/19/22 05:10 05/19/22 05:10 05/19/22 05:10 05/19/22 05:10 General appearance: Present: no acute distress - EENT Eyes: Present: PERRL, EOM intact ENT: hearing intact, clear oral mucosa, dentition normal - Neck Neck: Present: supple, normal ROM - Respiratory Respiratory effort: normal Respiratory: bilateral: CTA - Cardiovascular Rhythm: regular Heart Sounds: Present: S1 & S2. Absent: gallop, rub - Extremities Extremities: no ischemia, No edema, Full ROM - Abdominal General gastrointestinal: soft, non-tender, non-distended, normal bowel sounds - Integumentary Integumentary: Present: clear, warm, dry - Neurologic Neurologic: CNII-XII intact, moves all extremities Results - Labs CBC & Chem 7: 05/19/22 04:22 05/19/22 04:22 Labs: Laboratory Last Values WBC 17.3 K/mm3 (4.5-11.0) H 05/19/22 04:22 RBC 3.74 M/mm3 (3.65-5.03) 05/19/22 04:22 Hgb 11.2 gm/dl (10.1-14.3) 05/19/22 04:22 Hct 34.0 % (30.3-42.9) 05/19/22 04:22 MCV 91 fl (79-97) 05/19/22 04:22 MCH 30 pg (28-32) 05/19/22 04:22 MCHC 33 % (30-34) 05/19/22 04:22 RDW 13.8 % (13.2-15.2) 05/19/22 04:22 Plt Count 210 K/mm3 (140-440) 05/19/22 04:22 Add Manual Diff Complete 05/19/22 04:22 Total Counted 100 05/19/22 04:22 Seg Neutrophils % [employer] 05/17/22 00:17 Seg Neuts % (Manual) 96.0 % (40.0-70.0) H 05/19/22 04:22 Band Neutrophils % 1.0 % 05/19/22 04:22 Lymphocytes % (Manual) 1.0 % (13.4-35.0) L 05/19/22 04:22 Reactive Lymphs % (Man) 1.0 % 05/19/22 04:22 Monocytes % (Manual) 1.0 % (0.0-7.3) 05/19/22 04:22 Eosinophils % (Manual) 0 % (0.0-4.3) 05/19/22 04:22 Basophils % (Manual) 0 % (0.0-1.8) 05/19/22 04:22 Metamyelocytes % 0 % 05/19/22 04:22 Myelocytes % 0 % 05/19/22 04:22 Promyelocytes % 0 % 05/19/22 04:22 Blast Cells % 0 % 05/19/22 04:22 Nucleated RBC % Not Reportable 05/19/22 04:22 Seg Neutrophils # Man 16.6 K/mm3 (1.8-7.7) H 05/19/22 04:22 Band Neutrophils # 0.2 K/mm3 05/19/22 04:22 Lymphocytes # (Manual) 0.2 K/mm3 (1.2-5.4) L 05/19/22 04:22 Abs React Lymphs (Man) 0.2 K/mm3 05/19/22 04:22 Monocytes # (Manual) 0.2 K/mm3 (0.0-0.8) 05/19/22 04:22 Eosinophils # (Manual) 0.0 K/mm3 (0.0-0.4) 05/19/22 04:22 Basophils # (Manual) 0.0 K/mm3 (0.0-0.1) 05/19/22 04:22 Metamyelocytes # 0.0 K/mm3 05/19/22 04:22 Myelocytes # 0.0 K/mm3 05/19/22 04:22 Promyelocytes # 0.0 K/mm3 05/19/22 04:22 Blast Cells # 0.0 K/mm3 05/19/22 04:22 WBC Morphology Not Reportable 05/19/22 04:22 Hypersegmented Neuts Not Reportable 05/19/22 04:22 Hyposegmented Neuts Not Reportable 05/19/22 04:22 Hypogranular Neuts Not Reportable 05/19/22 04:22 Smudge Cells Not Reportable 05/19/22 04:22 Toxic Granulation Not Reportable 05/19/22 04:22 Toxic Vacuolation Not Reportable 05/19/22 04:22 Dohle Bodies Not Reportable 05/19/22 04:22 Pelger-Huet Anomaly Not Reportable 05/19/22 04:22 Supa Rods Not Reportable 05/19/22 04:22 Platelet Estimate Consistent w auto 05/19/22 04:22 Clumped Platelets Not Reportable 05/19/22 04:22 Plt Clumps, EDTA Not Reportable 05/19/22 04:22 Large Platelets Not Reportable 05/19/22 04:22 Giant Platelets Not Reportable 05/19/22 04:22 Platelet Satelliting Not Reportable 05/19/22 04:22 Plt Morphology Comment Not Reportable 05/19/22 04:22 RBC Morphology Normal 05/19/22 04:22 Dimorphic RBCs Not Reportable 05/19/22 04:22 Polychromasia Not Reportable 05/19/22 04:22 Hypochromasia Not Reportable 05/19/22 04:22 Poikilocytosis Not Reportable 05/19/22 04:22 Anisocytosis Not Reportable 05/19/22 04:22 Microcytosis Not Reportable 05/19/22 04:22 Macrocytosis Not Reportable 05/19/22 04:22 Spherocytes Not Reportable 05/19/22 04:22 Pappenheimer Bodies Not Reportable 05/19/22 04:22 Sickle Cells Not Reportable 05/19/22 04:22 Target Cells Not Reportable 05/19/22 04:22 Tear Drop Cells Not Reportable 05/19/22 04:22 Ovalocytes Not Reportable 05/19/22 04:22 Helmet Cells Not Reportable 05/19/22 04:22 [place] Bodies Not Reportable 05/19/22 04:22 [place] Rings Not Reportable 05/19/22 04:22 Donovan Cells Not Reportable 05/19/22 04:22 Bite Cells Not Reportable 05/19/22 04:22 Crenated Cell Not Reportable 05/19/22 04:22 Elliptocytes Not Reportable 05/19/22 04:22 Acanthocytes (Spur) Not Reportable 05/19/22 04:22 Rouleaux Not Reportable 05/19/22 04:22 Hemoglobin C Crystals Not Reportable 05/19/22 04:22 Schistocytes Not Reportable 05/19/22 04:22 Malaria parasites Not Reportable 05/19/22 04:22 Parveen Bodies Not Reportable 05/19/22 04:22 Hem Pathologist Commnt No 05/19/22 04:22 ABG pH 7.422 pH Units (7.350-7.450) 05/14/22 10:50 ABG pCO2 40.2 mm Hg 05/14/22 10:50 ABG pO2 51.4 mm Hg (80.0-90.0) L 05/14/22 10:50 ABG HCO3 25.6 mmol/L (20.0-26.0) 05/14/22 10:50 ABG O2 Saturation 88.4 % (95.0-99.0) L 05/14/22 10:50 ABG O2 Content 13.9 (0.0-44) 05/14/22 10:50 ABG Base Excess 1.1 mmol/L (-2.0-3.0) 05/14/22 10:50 ABG Hemoglobin 11.5 gm/dl (12.0-16.0) L 05/14/22 10:50 ABG Carboxyhemoglobin 1.8 % (0.0-5.0) 05/14/22 10:50 ABG Methemoglobin 0.3 % (0.0-1.5) 05/14/22 10:50 Oxyhemoglobin 86.5 % (95.0-99.0) L 05/14/22 10:50 FiO2 50 % 05/14/22 10:50 Sodium 151 mmol/L (137-145) H 05/19/22 04:22 Potassium 3.7 mmol/L (3.6-5.0) 05/19/22 04:22 Chloride 111.9 mmol/L (98-107) H 05/19/22 04:22 Carbon Dioxide 32 mmol/L (22-30) H D 05/19/22 04:22 Anion Gap 11 mmol/L 05/19/22 04:22 BUN 18 mg/dL (7-17) H 05/19/22 04:22 Creatinine 0.4 mg/dL (0.6-1.2) L 05/19/22 04:22 Estimated GFR > 60 ml/min 05/19/22 04:22 BUN/Creatinine Ratio 45 % 05/19/22 04:22 Glucose 323 mg/dL (65-100) H 05/19/22 04:22 POC Glucose 296 mg/dL (70-105) H 05/19/22 04:59 Lactic Acid 1.50 mmol/L (0.7-2.0) 05/16/22 04:28 Calcium 10.4 mg/dL (8.4-10.2) H 05/19/22 04:22 Magnesium 1.10 mg/dL (1.7-2.3) L 05/14/22 05:45 Total Bilirubin 0.40 mg/dL (0.1-1.2) 05/14/22 05:45 AST 18 units/L (5-40) 05/14/22 05:45 ALT 10 units/L (7-56) 05/14/22 05:45 Alkaline Phosphatase 57 units/L (35-129) 05/14/22 05:45 Total Protein 6.3 g/dL (6.3-8.2) 05/14/22 05:45 Albumin 2.7 g/dL (3.9-5) L 05/14/22 05:45 Albumin/Globulin Ratio 0.8 % 05/14/22 05:45 Urine Color Brown (Yellow) 05/14/22 10:38 Urine Turbidity Turbid (Clear) 05/14/22 10:38 Urine pH 5.0 (5.0-7.0) 05/14/22 10:38 Ur Specific [place] 1.017 (1.003-1.030) 05/14/22 10:38 Urine Protein 100 mg/dl mg/dL (Negative) 05/14/22 10:38 Urine Glucose (UA) Neg mg/dL (Negative) 05/14/22 10:38 Urine Ketones Neg mg/dL (Negative) 05/14/22 10:38 Urine Blood Mod (Negative) 05/14/22 10:38 Urine Nitrite Neg (Negative) 05/14/22 10:38 Urine Bilirubin Neg (Negative) 05/14/22 10:38 Urine Ictotest Not Reportable 05/14/22 10:38 Urine Urobilinogen < 2.0 mg/dL (<2.0) 05/14/22 10:38 Ur Leukocyte Esterase Tr (Negative) 05/14/22 10:38 Urine WBC (Auto) > 182.0 /HPF (0.0-6.0) H 05/14/22 10:38 Urine RBC (Auto) > 182.0 /HPF (0.0-6.0) 05/14/22 10:38 Urine Bacteria (Auto) 4+ /HPF (Negative) 05/14/22 10:38 Urine WBC Clumps 3+ /HPF 05/14/22 10:38 Urine Mucus 1+ /HPF 05/14/22 10:38 SARS-CoV-2 (PCR) Negative (Negative) 05/14/22 10:38 Microbiology: Microbiology 05/14/22 05:45 Peripheral/Venous Blood Culture - Preliminary NO GROWTH AFTER 4 DAYS 05/14/22 05:39 Peripheral/Venous Blood Culture - Preliminary NO GROWTH AFTER 4 DAYS Choe/IV: Voiding Method External Female Catheter Active Medications - Current Medications Current Medications: Generic Name Dose Route Start Last Admin Trade Name Freq PRN Reason Stop Dose Admin Acetaminophen 650 mg 05/14/22 09:33 Acetaminophen 325 Mg Tab PO Q6H PRN Pain MILD(1-3)/Fever >100.5/SNELL Albuterol 2.5 mg 05/14/22 12:52 Albuterol 2.5 Mg/3 Ml Nebu IH Q4H PRN Shortness Of Breath Heparin Sodium (Porcine) 5,000 unit 05/14/22 22:00 05/19/22 09:10 Heparin 5,000 Unit/1 Ml Vial SUB-Q 5,000 unit Q12HR [facility] Administration Ceftriaxone Sodium 1 gm in 50 mls @ 100 mls/hr 05/18/22 10:00 05/19/22 09:09 Rocephin/Ns 1 Gm/50 Ml IV 05/21/22 10:29 100 mls/hr Q24H DUKE Administration Protocol Insulin Glargine 15 units 05/18/22 13:00 05/19/22 09:10 Insulin Glargine 100 Units/Ml SUB-Q 15 units DAILY DUKE Administration Insulin Human Lispro 0 unit 05/14/22 18:00 05/19/22 05:17 Insulin Lispro 100 Unit/Ml SUB-Q 6 unit Q6HR DUKE Administration Protocol Morphine Sulfate 2 mg 05/14/22 09:33 Morphine 2 Mg/1 Ml Inj IV Q4H PRN Pain, Moderate (4-6) Sodium Chloride 10 ml 05/14/22 10:00 05/19/22 09:10 Sodium Chloride 0.9% 10 Ml Flush Syringe IV 10 ml BID DUKE Administration Sodium Chloride 10 ml 05/14/22 09:32 Sodium Chloride 0.9% 10 Ml Flush Syringe IV PRN PRN LINE FLUSH Nutrition/Malnutrition Assess - Dietary Evaluation Nutrition/Malnutrition Findings: Nutrition Notes Start: 05/15/22 11:28 Freq: Status: Active Protocol: Document 05/17/22 12:26 CLARENCE (Rec: 05/17/22 13:12 CLARENCE [id number]) Nutrition Notes Initial or Follow up Reassessment Current Diagnosis Acute Kidney Injury,Sepsis, Respiratory Failure, Malnutrition Other Pertinent Diagnosis Metabolic Encephalopathy, UTI, HAP, Leukocytosis, Lactic Acidosis, ... Current Diet TF-Glucerna 1.2 Le[place] @ 45 ml/hr (since B 05/17). Labs/Tests 05/17: Na 150, K 3.5, Cl 112.5 , CO2 18, BUN 22, Crea 0.4, Glu 242. Pertinent Medications 05/17: Humalog 6U, others nutritionally unremarkable. Height 5 ft 2.4 in Weight 62 kg Anderson Body Weight (kg) 50.90 BMI 24.7 Intake Prior to Admission Poor Weight change and time frame Pt states being unsure if loss body weight KNOT [employer]ER. No body weight change reported in 2 days. Weight Status Appropriate Subjective/Other Information RD consult for routine F/U on dietary advancement. Diet advanced to TF without RD consultation, Pt currently receiving TF-Glucerna 1.2 [place] @ 35 ml/hr (75% Kcal; 68%AA) since this morning. I will assess and adjust current TF prescription if needed to provide Pt with, at least, 75% of energy/protein needs during LOS. Pt on Nasal Cannula, O2 saturation @ 96%, according to Physical Assessment History notes. Pt presents L-LE wounds as signs of concern for skin risk at the time, according to Physical Assessment History notes. Percent of energy/protein needs met: Prescribed TF-Glucerna 1.2 [place] @ 45 ml/hr provides for energy/protein needs (1,310 Kcal/66 g) during LOS, 99% Kcal; 89% AA. Burn Absent Trauma Absent GI Symptoms None Food Allergy No Skin Integrity/Comment L-LE wounds. Current % PO Other Minimum of two criteria Yes Body Fat Depletion Mild depletion (non-severe) Muscle Mass Moderate Depletion (severe) Fluid Accumulation Moderate to Severe (severe) Reduced Instrumentation Designer Strength N/A (non-severe) Protein-Calorie Malnutrition Severe #1 Nutrition Diagnosis Malnutrition Diagnosis Progress(for reassessment Continues documentation) Is patient on ventilator? No Is Patient Ambulatory and/or Out of Bed No REE-([facility]-confined to bed) [phone] Calculation Used for Recommendations [facility] Additional Notes Protein: 1.2-1.5 g/Kg ABW; 74- 93 g/day. Fluids: 1 ml/Kcal, or as per MD. Nutrition Intervention Nutrition Support: Adjust to TF-Glucerna 1.2 [place] @ 45 ml/hr. Flush: 100 ml water Q 4 hr, or as per MD. Kcal 1,310 Protein (gm) 66 Carbohydrates (gm) 125 Fat (gm) 66 Fluid (mL) 879 Fiber (gm) 18 % RDI: 99% Kcal; 89% AA. Goal #1 Provide at least 75% of energy /protein needs through Enteral Feeding during LOS. Follow-Up By: 05/19/22 Additional Comments Continue monitoring TF tolerance and BM.
--- NOTE | 2022-05-19 16:07 | Gastroenterology Consultation ---
History of Present Illness - Reason for Consult Consult date: 05/19/22 Neurogenic Dysphagia Requesting physician: SAGAR ESTRADA - History of Present Illness The patient is a 71 yo female with dementia who resides at a memory care facility x 2 years. Hx is per the chart and her Jordan. She was admitted with a UTI, but also pneumonia. While here, her PO consumption has been minimal, and is now being fed with an NG tube. She has no N/V and no obvious pain. No blood in her BMs. Her says "she eats fine" at the [facility], though admits she has lost some weight recently. On exam, she follows no commands nor can respond to questions. Past History Past Medical History: diabetes, hypertension, other (Alzheimer's dementia, major depression) Past Surgical History: No surgical history Social history: denies: smoking, alcohol abuse, prescription drug abuse Family history: no significant family history Medications and Allergies Allergies Allergy/AdvReac Type Severity Reaction Status Date / Time codeine Allergy Unknown Verified 03/21/20 16:27 levofloxacin [From Levaquin] Allergy Unknown Verified 03/21/20 16:27 Home Medications Medication Instructions Recorded Confirmed Last Taken Type Magnesium Oxide 400 mg PO QDAY #30 tablet 04/02/20 05/14/22 Unknown Rx Nitrofurantoin Craven/M-Cryst 100 mg PO Q12HR #13 capsule 04/02/20 05/14/22 Unknown Rx [Macrobid CAP] Acidophilus Lactobacilli 1 mg PO DAILY 05/14/22 05/14/22 Unknown History Aspirin 81 mg PO ONCE 05/14/22 05/14/22 Unknown History Bisacodyl 10 mg PO Q24HR 05/14/22 05/14/22 Unknown History Flonase 2 spray PRN 05/14/22 05/14/22 Unknown History Lantus VIAL 16 units PO BID 05/14/22 05/14/22 Unknown History Multiple Vitamin TAB (Theragran) 1 mg PO DAILY 05/14/22 05/14/22 Unknown History Polyethylene Glycol 3350 17 mg PO PRN 05/14/22 05/14/22 Unknown History Risperdal 0.5 mg PO BID 05/14/22 05/14/22 Unknown History Timolol 1 drop OU BID 05/14/22 05/14/22 Unknown History Travatan Z 0.004% 1 drop OS HS 05/14/22 05/14/22 Unknown History Tylenol /Codeine # 3 tab 650 mg PO PRN 05/14/22 05/14/22 Unknown History Zoloft 50 mg PO DAILY 05/14/22 05/14/22 Unknown History Active Meds: Active Medications Acetaminophen (Acetaminophen 325 Mg Tab) 650 mg PO Q6H PRN PRN Reason: Pain MILD(1-3)/Fever >100.5/SNELL Albuterol (Albuterol 2.5 Mg/3 Ml Nebu) 2.5 mg IH Q4H PRN PRN Reason: Shortness Of Breath Heparin Sodium (Porcine) (Heparin 5,000 Unit/1 Ml Vial) 5,000 unit SUB-Q Q12HR [facility] Last Admin: 05/19/22 09:10 Dose: 5,000 unit Ceftriaxone Sodium (Rocephin/Ns 1 Gm/50 Ml) 1 gm in 50 mls @ 100 mls/hr IV Q24H [facility]; Protocol Stop: 05/21/22 10:29 Last Infusion: 05/19/22 09:56 Dose: Infused Insulin Glargine (Insulin Glargine 100 Units/Ml) 15 units SUB-Q DAILY [facility] Last Admin: 05/19/22 09:10 Dose: 15 units Insulin Human Lispro (Insulin Lispro 100 Unit/Ml) 0 unit SUB-Q Q6HR [facility]; Protocol Last Admin: 05/19/22 13:08 Dose: 6 unit Morphine Sulfate (Morphine 2 Mg/1 Ml Inj) 2 mg IV Q4H PRN PRN Reason: Pain, Moderate (4-6) Sodium Chloride (Sodium Chloride 0.9% 10 Ml Flush Syringe) 10 ml IV BID [facility] Last Admin: 05/19/22 09:10 Dose: 10 ml Sodium Chloride (Sodium Chloride 0.9% 10 Ml Flush Syringe) 10 ml IV PRN PRN PRN Reason: LINE FLUSH I HAVE REVIEWED/RECONCILED MEDICATIONS Review of Systems - Review of Systems ROS unobtainable: due to mental status Exam - Constitutional Vital Signs: Temp Pulse Resp BP Pulse Ox 97.3 F L 75 18 153/66 98 05/19/22 12:47 05/19/22 12:47 05/19/22 12:47 05/19/22 12:47 05/19/22 12:47 General appearance: no acute distress - EENT Eyes: PERRL, EOM intact ENT: clear oral mucosa, other (NG tube present in the nares) - Neck Neck: supple, normal ROM - Respiratory Respiratory effort: normal Respiratory: bilateral: CTA - Cardiovascular Rhythm: regular Heart Sounds: Present: S1 & S2 Extremities: no ischemia, No edema - Gastrointestinal General gastrointestinal: Present: soft, non-tender, non-distended - Integumentary Integumentary: Present: clear, warm, dry - Neurologic Neurological: disoriented, other (Does not follow commands, but will open eyes with stimulation; no meaningful speech) - Labs CBC & Chem 7: 05/19/22 04:22 05/19/22 04:22 Lab Results: Laboratory Results - last 24 hr 05/18/22 05/18/22 05/19/22 16:43 23:53 04:22 WBC 17.3 H RBC 3.74 Hgb 11.2 Hct 34.0 MCV 91 MCH 30 MCHC 33 RDW 13.8 Plt Count 210 Add Manual Diff Complete Total Counted 100 Seg Neuts % (Manual) 96.0 H Band Neutrophils % 1.0 Lymphocytes % (Manual) 1.0 L Reactive Lymphs % (Man) 1.0 Monocytes % (Manual) 1.0 Eosinophils % (Manual) 0 Basophils % (Manual) 0 Metamyelocytes % 0 Myelocytes % 0 Promyelocytes % 0 Blast Cells % 0 Nucleated RBC % Not Reportable Seg Neutrophils # Man 16.6 H Band Neutrophils # 0.2 Lymphocytes # (Manual) 0.2 L Abs React Lymphs (Man) 0.2 Monocytes # (Manual) 0.2 Eosinophils # (Manual) 0.0 Basophils # (Manual) 0.0 Metamyelocytes # 0.0 Myelocytes # 0.0 Promyelocytes # 0.0 Blast Cells # 0.0 WBC Morphology Not Reportable Hypersegmented Neuts Not Reportable Hyposegmented Neuts Not Reportable Hypogranular Neuts Not Reportable Smudge Cells Not Reportable Toxic Granulation Not Reportable Toxic Vacuolation Not Reportable Dohle Bodies Not Reportable Pelger-Huet Anomaly Not Reportable Supa Rods Not Reportable Platelet Estimate Consistent w auto Clumped Platelets Not Reportable Plt Clumps, EDTA Not Reportable Large Platelets Not Reportable Giant Platelets Not Reportable Platelet Satelliting Not Reportable Plt Morphology Comment Not Reportable RBC Morphology Normal Dimorphic RBCs Not Reportable Polychromasia Not Reportable Hypochromasia Not Reportable Poikilocytosis Not Reportable Anisocytosis Not Reportable Microcytosis Not Reportable Macrocytosis Not Reportable Spherocytes Not Reportable Pappenheimer Bodies Not Reportable Sickle Cells Not Reportable Target Cells Not Reportable Tear Drop Cells Not Reportable Ovalocytes Not Reportable Helmet Cells Not Reportable [place] Bodies Not Reportable [place] Rings Not Reportable [place] Cells Not Reportable Bite Cells Not Reportable Crenated Cell Not Reportable Elliptocytes Not Reportable Acanthocytes (Spur) Not Reportable Rouleaux Not Reportable Hemoglobin C Crystals Not Reportable Schistocytes Not Reportable Malaria parasites Not Reportable Parveen Bodies Not Reportable Hem Pathologist Commnt No Sodium Potassium Chloride Carbon Dioxide Anion Gap BUN Creatinine Estimated GFR BUN/Creatinine Ratio Glucose POC Glucose 287 H 300 H Calcium 05/19/22 05/19/22 05/19/22 04:22 04:59 11:17 WBC RBC Hgb Hct MCV MCH MCHC RDW Plt Count Add Manual Diff Total Counted Seg Neuts % (Manual) Band Neutrophils % Lymphocytes % (Manual) Reactive Lymphs % (Man) Monocytes % (Manual) Eosinophils % (Manual) Basophils % (Manual) Metamyelocytes % Myelocytes % Promyelocytes % Blast Cells % Nucleated RBC % Seg Neutrophils # Man Band Neutrophils # Lymphocytes # (Manual) Abs React Lymphs (Man) Monocytes # (Manual) Eosinophils # (Manual) Basophils # (Manual) Metamyelocytes # Myelocytes # Promyelocytes # Blast Cells # WBC Morphology Hypersegmented Neuts Hyposegmented Neuts Hypogranular Neuts Smudge Cells Toxic Granulation Toxic Vacuolation Dohle Bodies Pelger-Huet Anomaly Supa Rods Platelet Estimate Clumped Platelets Plt Clumps, EDTA Large Platelets Giant Platelets Platelet Satelliting Plt Morphology Comment RBC Morphology Dimorphic RBCs Polychromasia Hypochromasia Poikilocytosis Anisocytosis Microcytosis Macrocytosis Spherocytes Pappenheimer Bodies Sickle Cells Target Cells Tear Drop Cells Ovalocytes Helmet Cells [place] Bodies [place] Rings Donovan Cells Bite Cells Crenated Cell Elliptocytes Acanthocytes (Spur) Rouleaux Hemoglobin C Crystals Schistocytes Malaria parasites Parveen Bodies Hem Pathologist Commnt Sodium 151 H Potassium 3.7 Chloride 111.9 H Carbon Dioxide 32 H D Anion Gap 11 BUN 18 H Creatinine 0.4 L Estimated GFR > 60 BUN/Creatinine Ratio 45 Glucose 323 H POC Glucose 296 H 295 H Calcium 10.4 H Assessment and Plan - Patient Problems (1) Neurogenic dysphagia Current Visit: Yes Status: Acute Plan to address problem: - I discussed the case with the . He does not want a PEG tube "unless there is no other choice" but declines to pursue comfort measures/hospice. - I will get a formal opinion from ST about her ability to safely swallow any consistencies. - If she fails ST evaluation, then the will consent to placement of a PEG tube.
--- NOTE | 2022-05-20 00:22 | Progress Note ---
Assessment and Plan Imp: 1. Acute metabolic encephalopathy 2. UTI 3. LLL pneumonia 4. Sepsis 5. R/o OP dysphagia 6. ROXANE 7. Hypernatremia Rec: 1. ST eval. 2. Aspiration precautions 3. Free water per DHT 4. Finish ABX 5. Will follow No family present Subjective Date of service: 05/19/22 Principal diagnosis: Pneumonia, Sepsis Interval history: No events. Eyes open. Nonverbal. Cannot give history. On NC. Active Medications Acetaminophen (Acetaminophen 325 Mg Tab) 650 mg PO Q6H PRN PRN Reason: Pain MILD(1-3)/Fever >100.5/SNELL Albuterol (Albuterol 2.5 Mg/3 Ml Nebu) 2.5 mg IH Q4H PRN PRN Reason: Shortness Of Breath Heparin Sodium (Porcine) (Heparin 5,000 Unit/1 Ml Vial) 5,000 unit SUB-Q Q12HR [facility] Last Admin: 05/19/22 22:14 Dose: 5,000 unit Ceftriaxone Sodium (Rocephin/Ns 1 Gm/50 Ml) 1 gm in 50 mls @ 100 mls/hr IV Q24H [facility]; Protocol Stop: 05/21/22 10:29 Last Infusion: 05/19/22 09:56 Dose: Infused Insulin Glargine (Insulin Glargine 100 Units/Ml) 15 units SUB-Q DAILY [facility] Last Admin: 05/19/22 09:10 Dose: 15 units Insulin Human Lispro (Insulin Lispro 100 Unit/Ml) 0 unit SUB-Q Q6HR [facility]; Protocol Last Admin: 05/19/22 18:38 Dose: 6 unit Morphine Sulfate (Morphine 2 Mg/1 Ml Inj) 2 mg IV Q4H PRN PRN Reason: Pain, Moderate (4-6) Sodium Chloride (Sodium Chloride 0.9% 10 Ml Flush Syringe) 10 ml IV BID [facility] Last Admin: 05/19/22 22:15 Dose: 10 ml Sodium Chloride (Sodium Chloride 0.9% 10 Ml Flush Syringe) 10 ml IV PRN PRN PRN Reason: LINE FLUSH Objective Vital Signs - 12hr 05/19/22 05/19/22 05/19/22 12:47 17:38 20:59 Temperature 97.3 F L 98.6 F Pulse Rate 75 82 Respiratory 18 18 Rate Respiratory Rate [ Generalized] Blood Pressure 153/66 142/54 O2 Sat by Pulse 98 92 99 Oximetry 05/19/22 05/19/22 22:00 23:25 Temperature 99.0 F Pulse Rate 82 Respiratory 18 20 Rate Respiratory 19 Rate [ Generalized] Blood Pressure 154/40 O2 Sat by Pulse 97 97 Oximetry Constitutional: no acute distress, alert Eyes: non-icteric ENT: oropharynx moist Neck: supple Effort: normal Ascultation: Bilateral: rhonchi Cardiovascular: regular rate and rhythm (no mrg) Gastrointestinal: normoactive bowel sounds, soft, non-tender, non-distended Integumentary: normal Extremities: no cyanosis, no edema, pink and warm Neurologic: unable to assess Psychiatric: other (unable to assess) CBC and BMP: 05/19/22 04:22 05/19/22 04:22 ABG, PT/INR, D-dimer: ABG ABG pH 7.422 pH Units (7.350-7.450) 05/14/22 10:50 ABG pCO2 40.2 mm Hg 05/14/22 10:50 ABG pO2 51.4 mm Hg (80.0-90.0) L 05/14/22 10:50 ABG O2 Saturation 88.4 % (95.0-99.0) L 05/14/22 10:50 Abnormal lab findings: Abnormal Labs 05/14/22 05/14/22 05/14/22 05:45 05:45 05:45 WBC 20.8 H Seg Neuts % (Manual) 85.0 H Lymphocytes % (Manual) 5.0 L Seg Neutrophils # Man 17.7 H Lymphocytes # (Manual) 1.0 L ABG pO2 ABG O2 Saturation ABG Hemoglobin Oxyhemoglobin Sodium 134 L Potassium Chloride 94.2 L Carbon Dioxide BUN 35 H Creatinine 2.1 H Glucose 403 H POC Glucose Lactic Acid 6.60 H* Calcium Magnesium Albumin 2.7 L Urine WBC (Auto) 05/14/22 05/14/22 05/14/22 05:45 07:02 09:26 WBC Seg Neuts % (Manual) Lymphocytes % (Manual) Seg Neutrophils # Man Lymphocytes # (Manual) ABG pO2 ABG O2 Saturation ABG Hemoglobin Oxyhemoglobin Sodium Potassium Chloride Carbon Dioxide BUN Creatinine Glucose POC Glucose Lactic Acid 5.70 H* 5.30 H* Calcium Magnesium 1.10 L Albumin Urine WBC (Auto) 05/14/22 05/14/22 05/14/22 09:31 10:38 10:50 WBC Seg Neuts % (Manual) Lymphocytes % (Manual) Seg Neutrophils # Man Lymphocytes # (Manual) ABG pO2 51.4 L ABG O2 Saturation 88.4 L ABG Hemoglobin 11.5 L Oxyhemoglobin 86.5 L Sodium Potassium Chloride Carbon Dioxide BUN Creatinine Glucose POC Glucose 209 H Lactic Acid Calcium Magnesium Albumin Urine WBC (Auto) > 182.0 H 05/14/22 05/14/22 05/14/22 13:24 17:15 23:38 WBC Seg Neuts % (Manual) Lymphocytes % (Manual) Seg Neutrophils # Man Lymphocytes # (Manual) ABG pO2 ABG O2 Saturation ABG Hemoglobin Oxyhemoglobin Sodium Potassium Chloride Carbon Dioxide BUN Creatinine Glucose POC Glucose 212 H 245 H 246 H Lactic Acid Calcium Magnesium Albumin Urine WBC (Auto) 05/15/22 05/15/22 05/15/22 05:23 11:25 16:16 WBC Seg Neuts % (Manual) Lymphocytes % (Manual) Seg Neutrophils # Man Lymphocytes # (Manual) ABG pO2 ABG O2 Saturation ABG Hemoglobin Oxyhemoglobin Sodium Potassium Chloride Carbon Dioxide BUN Creatinine Glucose POC Glucose 236 H 232 H 166 H Lactic Acid Calcium Magnesium Albumin Urine WBC (Auto) 05/15/22 05/16/22 05/16/22 17:56 00:58 04:28 WBC 21.8 H Seg Neuts % (Manual) 97.0 H Lymphocytes % (Manual) 0 L Seg Neutrophils # Man 21.1 H Lymphocytes # (Manual) 0.0 L ABG pO2 ABG O2 Saturation ABG Hemoglobin Oxyhemoglobin Sodium Potassium 3.5 L Chloride 110.1 H Carbon Dioxide BUN 32 H Creatinine Glucose 207 H POC Glucose 215 H Lactic Acid Calcium Magnesium Albumin Urine WBC (Auto) 05/16/22 05/16/22 05/16/22 04:28 05:47 11:36 WBC Seg Neuts % (Manual) Lymphocytes % (Manual) Seg Neutrophils # Man Lymphocytes # (Manual) ABG pO2 ABG O2 Saturation ABG Hemoglobin Oxyhemoglobin Sodium Potassium 3.5 L Chloride 110.2 H Carbon Dioxide BUN 29 H Creatinine Glucose 222 H POC Glucose 186 H 193 H Lactic Acid Calcium Magnesium Albumin Urine WBC (Auto) 05/16/22 05/16/22 05/17/22 17:24 23:21 00:17 WBC 18.6 H Seg Neuts % (Manual) 91.0 H Lymphocytes % (Manual) 4.0 L Seg Neutrophils # Man 16.9 H Lymphocytes # (Manual) 0.7 L ABG pO2 ABG O2 Saturation ABG Hemoglobin Oxyhemoglobin Sodium Potassium Chloride Carbon Dioxide BUN Creatinine Glucose POC Glucose 170 H 192 H Lactic Acid Calcium Magnesium Albumin Urine WBC (Auto) 05/17/22 05/17/22 05/17/22 00:17 05:17 12:13 WBC Seg Neuts % (Manual) Lymphocytes % (Manual) Seg Neutrophils # Man Lymphocytes # (Manual) ABG pO2 ABG O2 Saturation ABG Hemoglobin Oxyhemoglobin Sodium 150 H Potassium 3.5 L Chloride 112.5 H Carbon Dioxide 18 L BUN 22 H Creatinine 0.4 L Glucose 242 H POC Glucose 277 H 305 H Lactic Acid Calcium Magnesium Albumin Urine WBC (Auto) 05/17/22 05/17/22 05/18/22 18:17 23:41 05:16 WBC Seg Neuts % (Manual) Lymphocytes % (Manual) Seg Neutrophils # Man Lymphocytes # (Manual) ABG pO2 ABG O2 Saturation ABG Hemoglobin Oxyhemoglobin Sodium Potassium Chloride Carbon Dioxide BUN Creatinine Glucose POC Glucose 331 H 372 H 313 H Lactic Acid Calcium Magnesium Albumin Urine WBC (Auto) 05/18/22 05/18/22 05/18/22 11:23 16:43 23:53 WBC Seg Neuts % (Manual) Lymphocytes % (Manual) Seg Neutrophils # Man Lymphocytes # (Manual) ABG pO2 ABG O2 Saturation ABG Hemoglobin Oxyhemoglobin Sodium Potassium Chloride Carbon Dioxide BUN Creatinine Glucose POC Glucose 332 H 287 H 300 H Lactic Acid Calcium Magnesium Albumin Urine WBC (Auto) 05/19/22 05/19/22 05/19/22 04:22 04:22 04:59 WBC 17.3 H Seg Neuts % (Manual) 96.0 H Lymphocytes % (Manual) 1.0 L Seg Neutrophils # Man 16.6 H Lymphocytes # (Manual) 0.2 L ABG pO2 ABG O2 Saturation ABG Hemoglobin Oxyhemoglobin Sodium 151 H Potassium Chloride 111.9 H Carbon Dioxide 32 H D BUN 18 H Creatinine 0.4 L Glucose 323 H POC Glucose 296 H Lactic Acid Calcium 10.4 H Magnesium Albumin Urine WBC (Auto) 05/19/22 05/19/22 05/19/22 11:17 17:17 23:20 WBC Seg Neuts % (Manual) Lymphocytes % (Manual) Seg Neutrophils # Man Lymphocytes # (Manual) ABG pO2 ABG O2 Saturation ABG Hemoglobin Oxyhemoglobin Sodium Potassium Chloride Carbon Dioxide BUN Creatinine Glucose POC Glucose 295 H 266 H 250 H Lactic Acid Calcium Magnesium Albumin Urine WBC (Auto) Chest x-ray: report reviewed, image reviewed
[2022-05-20] MEDS: INSULIN LISPRO 100 UNIT/ML SUB-Q SCH ×4 (00:33→17:47)
[2022-05-20] MEDS: INSULIN GLARGINE 100 UNITS/ML SUB-Q SCH (09:51)
[2022-05-20] MEDS: HEPARIN 5,000 UNIT/1 ML VIAL SUB-Q SCH ×2 (09:52→22:28)
[2022-05-20] MEDS: cefTRIAXone/NS 1 GM/50 ML 1 GM/50 ML BAG IV SCH (09:57)
--- NOTE | 2022-05-20 10:03 | Progress Note ---
Assessment and Plan Assessment and plan: 71-year-old female patient [facility] resident with significant past medical history of Alzheimer's dementia diabetes, coronary artery disease, depression, dysphagia, thrombocytopenia was sent to the emergency room with complaints of altered level of consciousness and sepsis. Patient was noted to be severely hypoxemic on arrival saturating only 88% on room air however improved to 91% on 2 L. After returning from CT scan patient suddenly went into severe hypoxic respiratory failure requiring 15 L When I went and re evaluated the patient, the respiratory therapist at the bedside and patient is on high flow nasal cannula oxygen 30 L/65% FiO2/O2 sats 95 percent. Patient was already planned to admit to [facility], ER physician consulted pulmonary critical care Dr. Romero. Patient is lethargic noncommunicative, no other history is available Assessment and Plan: #Acute hypoxic respiratory failure Requiring supplemental oxygen Probably secondary to pneumonia Oxygen titrate O2 sats to more than 90%, currently on high flow nasal cannula Pulmonary consultation #Sepsis POA secondary to left-sided pneumonia/Urinary Tract Infection - follow bcx,scx,ucx - COVID RT PCR negative - abx: vanc/cefepime IV - trend fever curve/wbc ct #Hospital Acquired Pneumonia [place] resident Blood cultures, sputum cultures Empiric antibiotics cefepime Oxygen titrate O2 sats to more than 90% Supportive care Pulmonary/ID service needed #E. coli urinary tract infection #Acute metabolic encephalopathy; -Multifactorial, sepsis, pneumonia , hypoxia in the setting of advanced dementia -Respiratory failure advanced age -Treat the underlying cause -Neurochecks -CT brain on admission demonstrated no acute intracranial abnormality #Lactic acidosis; -Probably secondary to sepsis, IV fluids -Empiric IV antibiotics, follow cultures -Trend lactic levels #Acute kidney injury; vasomotor nephropathy -Gentle hydration, monitor renal function -Avoid nephrotoxins, nephrology consult if needed #Mild hyponatremia; -Closely monitor electrolytes #Severe protein calorie malnutrition; -Nutrition supplements, supportive care -Nutrition consult #Severe hypoalbuminemia; -Nutrition supplements and supportive care Hospital Course: 05/15: Remains encephalopathic, on high flow nasal cannula. We will continue to wean as patient tolerates. Continue therapy with IV vancomycin and cefepime. ABG/Chest x-ray ordered for tomorrow. Will follow pulmonary recs. 05/16/22: Pulmonary gave 2 boluses yesterday secondary to marginal BP's which is why cxr looks slightly worse. Will discontinue IVF's. Continue to wean FiO2 for sats >88%. Continue IV abx, has gram negative rods in the urine so maybe able to stop vanc. stable BP. Would be ok with patient going back to floor. Replace K 05/17: Patient remains encephalopathic. Patient requiring 3 L O2 with satur ations at 99%. Patient still with significant leukocytosis. Urine culture reveals E. coli. Abx will be switched to Rocephin 05/18: Patient with stable respiratory status. Patient with saturations of 95% on 2 L O2. Continue antibiotics of Rocephin. Authorization started for [facility] placement 05/19: Patient with blood cultures no growth to date x4 days. Rocephin to complete on 05/21 for E. coli UTI. Await authorization for patient to return to [facility]. The patient remains lethargic and noncommunicative since admission. I discussed patient's mental status with the [id number] ([phone]) yesterday who reports that this is essentially the baseline. She also reports that the patient's /her brother is autistic. Patient currently with DHT receiving enteral feeds. GI consulted for PEG placement. 05/20: GI evaluated the patient and attempted to obtain consent from the who reported he did not want a PEG tube unless there is no other choice. Ho wever, the also does not want to pursue hospice/comfort measures either. Speech therapy evaluation with regards to swallowing. If pt fails ST evaluation, then the will consent to placement of a PEG tube. IV Rocephin completes tomorrow for UTI. History Interval history: No new issues overnight Hospitalist Physical - Constitutional Vitals: Temp Pulse Resp BP Pulse Ox 100.1 F H 91 H 20 133/32 95 05/20/22 05:38 05/20/22 05:38 05/20/22 05:38 05/20/22 05:38 05/20/22 05:38 General appearance: Present: no acute distress - EENT Eyes: Present: PERRL, EOM intact ENT: hearing intact, clear oral mucosa, dentition normal - Neck Neck: Present: supple, normal ROM - Respiratory Respiratory effort: normal Respiratory: bilateral: CTA - Cardiovascular Rhythm: regular Heart Sounds: Present: S1 & S2. Absent: gallop, rub - Extremities Extremities: no ischemia, No edema, Full ROM - Abdominal General gastrointestinal: soft, non-tender, non-distended, normal bowel sounds - Integumentary Integumentary: Present: clear, warm, dry - Neurologic Neurologic: CNII-XII intact, moves all extremities Results - Labs CBC & Chem 7: 05/19/22 04:22 05/19/22 04:22 Labs: Laboratory Last Values WBC 17.3 K/mm3 (4.5-11.0) H 05/19/22 04:22 RBC 3.74 M/mm3 (3.65-5.03) 05/19/22 04:22 Hgb 11.2 gm/dl (10.1-14.3) 05/19/22 04:22 Hct 34.0 % (30.3-42.9) 05/19/22 04:22 MCV 91 fl (79-97) 05/19/22 04:22 MCH 30 pg (28-32) 05/19/22 04:22 MCHC 33 % (30-34) 05/19/22 04:22 RDW 13.8 % (13.2-15.2) 05/19/22 04:22 Plt Count 210 K/mm3 (140-440) 05/19/22 04:22 Add Manual Diff Complete 05/19/22 04:22 Total Counted 100 05/19/22 04:22 Seg Neutrophils % Simulation Engineer 05/17/22 00:17 Seg Neuts % (Manual) 96.0 % (40.0-70.0) H 05/19/22 04:22 Band Neutrophils % 1.0 % 05/19/22 04:22 Lymphocytes % (Manual) 1.0 % (13.4-35.0) L 05/19/22 04:22 Reactive Lymphs % (Man) 1.0 % 05/19/22 04:22 Monocytes % (Manual) 1.0 % (0.0-7.3) 05/19/22 04:22 Eosinophils % (Manual) 0 % (0.0-4.3) 05/19/22 04:22 Basophils % (Manual) 0 % (0.0-1.8) 05/19/22 04:22 Metamyelocytes % 0 % 05/19/22 04:22 Myelocytes % 0 % 05/19/22 04:22 Promyelocytes % 0 % 05/19/22 04:22 Blast Cells % 0 % 05/19/22 04:22 Nucleated RBC % Not Reportable 05/19/22 04:22 Seg Neutrophils # Man 16.6 K/mm3 (1.8-7.7) H 05/19/22 04:22 Band Neutrophils # 0.2 K/mm3 05/19/22 04:22 Lymphocytes # (Manual) 0.2 K/mm3 (1.2-5.4) L 05/19/22 04:22 Abs React Lymphs (Man) 0.2 K/mm3 05/19/22 04:22 Monocytes # (Manual) 0.2 K/mm3 (0.0-0.8) 05/19/22 04:22 Eosinophils # (Manual) 0.0 K/mm3 (0.0-0.4) 05/19/22 04:22 Basophils # (Manual) 0.0 K/mm3 (0.0-0.1) 05/19/22 04:22 Metamyelocytes # 0.0 K/mm3 05/19/22 04:22 Myelocytes # 0.0 K/mm3 05/19/22 04:22 Promyelocytes # 0.0 K/mm3 05/19/22 04:22 Blast Cells # 0.0 K/mm3 05/19/22 04:22 WBC Morphology Not Reportable 05/19/22 04:22 Hypersegmented Neuts Not Reportable 05/19/22 04:22 Hyposegmented Neuts Not Reportable 05/19/22 04:22 Hypogranular Neuts Not Reportable 05/19/22 04:22 Smudge Cells Not Reportable 05/19/22 04:22 Toxic Granulation Not Reportable 05/19/22 04:22 Toxic Vacuolation Not Reportable 05/19/22 04:22 Dohle Bodies Not Reportable 05/19/22 04:22 Pelger-Huet Anomaly Not Reportable 05/19/22 04:22 Supa Rods Not Reportable 05/19/22 04:22 Platelet Estimate Consistent w auto 05/19/22 04:22 Clumped Platelets Not Reportable 05/19/22 04:22 Plt Clumps, EDTA Not Reportable 05/19/22 04:22 Large Platelets Not Reportable 05/19/22 04:22 Giant Platelets Not Reportable 05/19/22 04:22 Platelet Satelliting Not Reportable 05/19/22 04:22 Plt Morphology Comment Not Reportable 05/19/22 04:22 RBC Morphology Normal 05/19/22 04:22 Dimorphic RBCs Not Reportable 05/19/22 04:22 Polychromasia Not Reportable 05/19/22 04:22 Hypochromasia Not Reportable 05/19/22 04:22 Poikilocytosis Not Reportable 05/19/22 04:22 Anisocytosis Not Reportable 05/19/22 04:22 Microcytosis Not Reportable 05/19/22 04:22 Macrocytosis Not Reportable 05/19/22 04:22 Spherocytes Not Reportable 05/19/22 04:22 Pappenheimer Bodies Not Reportable 05/19/22 04:22 Sickle Cells Not Reportable 05/19/22 04:22 Target Cells Not Reportable 05/19/22 04:22 Tear Drop Cells Not Reportable 05/19/22 04:22 Ovalocytes Not Reportable 05/19/22 04:22 Helmet Cells Not Reportable 05/19/22 04:22 [place] Bodies Not Reportable 05/19/22 04:22 [place] Rings Not Reportable 05/19/22 04:22 Se[place]our Cells Not Reportable 05/19/22 04:22 Bite Cells Not Reportable 05/19/22 04:22 Crenated Cell Not Reportable 05/19/22 04:22 Elliptocytes Not Reportable 05/19/22 04:22 Acanthocytes (Spur) Not Reportable 05/19/22 04:22 Rouleaux Not Reportable 05/19/22 04:22 Hemoglobin C Crystals Not Reportable 05/19/22 04:22 Schistocytes Not Reportable 05/19/22 04:22 Malaria parasites Not Reportable 05/19/22 04:22 Parveen Bodies Not Reportable 05/19/22 04:22 Hem Pathologist Commnt No 05/19/22 04:22 ABG pH 7.422 pH Units (7.350-7.450) 05/14/22 10:50 ABG pCO2 40.2 mm Hg 05/14/22 10:50 ABG pO2 51.4 mm Hg (80.0-90.0) L 05/14/22 10:50 ABG HCO3 25.6 mmol/L (20.0-26.0) 05/14/22 10:50 ABG O2 Saturation 88.4 % (95.0-99.0) L 05/14/22 10:50 ABG O2 Content 13.9 (0.0-44) 05/14/22 10:50 ABG Base Excess 1.1 mmol/L (-2.0-3.0) 05/14/22 10:50 ABG Hemoglobin 11.5 gm/dl (12.0-16.0) L 05/14/22 10:50 ABG Carboxyhemoglobin 1.8 % (0.0-5.0) 05/14/22 10:50 ABG Methemoglobin 0.3 % (0.0-1.5) 05/14/22 10:50 Oxyhemoglobin 86.5 % (95.0-99.0) L 05/14/22 10:50 FiO2 50 % 05/14/22 10:50 Sodium 151 mmol/L (137-145) H 05/19/22 04:22 Potassium 3.7 mmol/L (3.6-5.0) 05/19/22 04:22 Chloride 111.9 mmol/L (98-107) H 05/19/22 04:22 Carbon Dioxide 32 mmol/L (22-30) H D 05/19/22 04:22 Anion Gap 11 mmol/L 05/19/22 04:22 BUN 18 mg/dL (7-17) H 05/19/22 04:22 Creatinine 0.4 mg/dL (0.6-1.2) L 05/19/22 04:22 Estimated GFR > 60 ml/min 05/19/22 04:22 BUN/Creatinine Ratio 45 % 05/19/22 04:22 Glucose 323 mg/dL (65-100) H 05/19/22 04:22 POC Glucose 263 mg/dL (70-105) H 05/20/22 05:36 Lactic Acid 1.50 mmol/L (0.7-2.0) 05/16/22 04:28 Calcium 10.4 mg/dL (8.4-10.2) H 05/19/22 04:22 Magnesium 1.10 mg/dL (1.7-2.3) L 05/14/22 05:45 Total Bilirubin 0.40 mg/dL (0.1-1.2) 05/14/22 05:45 AST 18 units/L (5-40) 05/14/22 05:45 ALT 10 units/L (7-56) 05/14/22 05:45 Alkaline Phosphatase 57 units/L (35-129) 05/14/22 05:45 Total Protein 6.3 g/dL (6.3-8.2) 05/14/22 05:45 Albumin 2.7 g/dL (3.9-5) L 05/14/22 05:45 Albumin/Globulin Ratio 0.8 % 05/14/22 05:45 Urine Color Brown (Yellow) 05/14/22 10:38 Urine Turbidity Turbid (Clear) 05/14/22 10:38 Urine pH 5.0 (5.0-7.0) 05/14/22 10:38 Ur Specific Bivalve 1.017 (1.003-1.030) 05/14/22 10:38 Urine Protein 100 mg/dl mg/dL (Negative) 05/14/22 10:38 Urine Glucose (UA) Neg mg/dL (Negative) 05/14/22 10:38 Urine Ketones Neg mg/dL (Negative) 05/14/22 10:38 Urine Blood Mod (Negative) 05/14/22 10:38 Urine Nitrite Neg (Negative) 05/14/22 10:38 Urine Bilirubin Neg (Negative) 05/14/22 10:38 Urine Ictotest Not Reportable 05/14/22 10:38 Urine Urobilinogen < 2.0 mg/dL (<2.0) 05/14/22 10:38 Ur Leukocyte Esterase Tr (Negative) 05/14/22 10:38 Urine WBC (Auto) > 182.0 /HPF (0.0-6.0) H 05/14/22 10:38 Urine RBC (Auto) > 182.0 /HPF (0.0-6.0) 05/14/22 10:38 Urine Bacteria (Auto) 4+ /HPF (Negative) 05/14/22 10:38 Urine WBC Clumps 3+ /HPF 05/14/22 10:38 Urine Mucus 1+ /HPF 05/14/22 10:38 SARS-CoV-2 (PCR) Negative (Negative) 05/14/22 10:38 Microbiology: Microbiology 05/14/22 05:45 Peripheral/Venous Blood Culture - Final NO GROWTH AFTER 5 DAYS 05/14/22 05:39 Peripheral/Venous Blood Culture - Final NO GROWTH AFTER 5 DAYS Choe/IV: Voiding Method External Female Catheter Active Medications - Current Medications Current Medications: Generic Name Dose Route Start Last Admin Trade Name Freq PRN Reason Stop Dose Admin Acetaminophen 650 mg 05/14/22 09:33 Acetaminophen 325 Mg Tab PO Q6H PRN Pain MILD(1-3)/Fever >100.5/SNELL Albuterol 2.5 mg 05/14/22 12:52 Albuterol 2.5 Mg/3 Ml Nebu IH Q4H PRN Shortness Of Breath Heparin Sodium (Porcine) 5,000 unit 05/14/22 22:00 05/20/22 09:52 Heparin 5,000 Unit/1 Ml Vial SUB-Q 5,000 unit Q12HR [facility] Administration Ceftriaxone Sodium 1 gm in 50 mls @ 100 mls/hr 05/18/22 10:00 05/20/22 09:57 Rocephin/Ns 1 Gm/50 Ml IV 05/21/22 10:29 100 mls/hr Q24H [facility] Administration Protocol Insulin Glargine 15 units 05/18/22 13:00 05/20/22 09:51 Insulin Glargine 100 Units/Ml SUB-Q 15 units DAILY [facility] Administration Insulin Human Lispro 0 unit 05/14/22 18:00 05/20/22 06:46 Insulin Lispro 100 Unit/Ml SUB-Q 6 unit Q6HR [facility] Administration Protocol Morphine Sulfate 2 mg 05/14/22 09:33 Morphine 2 Mg/1 Ml Inj IV Q4H PRN Pain, Moderate (4-6) Sodium Chloride 10 ml 05/14/22 10:00 05/20/22 09:52 Sodium Chloride 0.9% 10 Ml Flush Syringe IV 10 ml BID [facility] Administration Sodium Chloride 10 ml 05/14/22 09:32 Sodium Chloride 0.9% 10 Ml Flush Syringe IV PRN PRN LINE FLUSH Nutrition/Malnutrition Assess - Dietary Evaluation Nutrition/Malnutrition Findings: Nutrition Notes Start: 05/15/22 11:28 Freq: Status: Active Protocol: Document 05/19/22 11:34 CLARENCE (Rec: 05/19/22 12:07 CLARENCE [email or web address]) Nutrition Notes Initial or Follow up Reassessment Current Diagnosis Acute Kidney Injury,Sepsis, Respiratory Failure, Malnutrition Other Pertinent Diagnosis Metabolic Encephalopathy, UTI, HAP, Lactic Acidosis, ... Current Diet TF-Vital AF 1.2 [place] @ 45 ml/hr (from D 05/19). Labs/Tests 05/19: Na 151, Cl 111.9, Cl 32 , BUN 18, Crea 0.4, Glu 323, Ca 10.4. Pertinent Medications 05/19: Lantus 15U, Humalog 6U, others nutritionally unremarkable. Height 5 ft 2.4 in Weight 62 kg Cory Body Weight (kg) 50.90 BMI 24.7 Weight change and time frame No body weight change reported in 4 days. Weight Status Appropriate Subjective/Other Information RD consult for routine F/U on dietary advancement. TF continues as prescribed, however, due to the current unavailability of TF Glucerna 1.2 [place], I will temporarly replace this order with Vital AF 1.2 [place]. Pt is on Nasal Cannula, O2 saturation @ 98%, according to Physical Assessment History notes. PEG tube placement before discharge is being considered, according to Progress notes. Pt will be discharged to SNF when medically cleared, according to Progress notes. Percent of energy/protein needs met: Prescribed TF-Vital AF 1.2 [place] @ 45 ml/hr provides for energy/protein needs (1,310 Kcal/82 g) during LOS, 99% Kcal; 100% AA. Burn Absent Trauma Absent GI Symptoms None Skin Integrity/Comment L-LE wounds. Current % PO Other Minimum of two criteria No Body Fat Depletion Mild depletion (non-severe) Muscle Mass Moderate Depletion (severe) Fluid Accumulation Moderate to Severe (severe) Reduced Web Specialist Strength N/A (non-severe) Protein-Calorie Malnutrition Severe #1 Nutrition Diagnosis Malnutrition Diagnosis Progress(for reassessment Continues documentation) Is patient on ventilator? No Is Patient Ambulatory and/or Out of Bed No REE-([facility]-confined to bed) 7301.507 Calculation Used for Recommendations [facility] Additional Notes Protein: 1.2-1.5 g/Kg ABW; 74- 93 g/day. Fluids: 1 ml/Kcal, or as per MD. Nutrition Intervention Nutrition Support: Change formula to TF-Vital AF 1.2 [place] @ 45 ml/hr. Flush: 70 ml water Q 4 hr, or as per MD. Kcal 1,310 Protein (gm) 82 Carbohydrates (gm) 121 Fat (gm) 59 Fluid (mL) 885 Fiber (gm) 6 % RDI: 99% Kcal; 100% AA. Goal #1 Provide at least 75% of energy /protein needs through Enteral Feeding during LOS. Goal #2 Adjust the dietary intervention to better serve Pt's needs and clinical conditions during LOS. Follow-Up By: 05/20/22 Additional Comments Continue monitoring TF tolerance and BM.
--- NOTE | 2022-05-20 14:05 | Gastroenterology Progress Note ---
Assessment and Plan - Patient Problems (1) Neurogenic dysphagia Current Visit: Yes Status: Acute Plan to address problem: - I discussed the case with the . He does not want a PEG tube "unless there is no other choice" but declines to pursue comfort measures/hospice. - Patient still too disoriented from sepsis to attempt meaningful ST evaluation. - If she fails ST evaluation, then a PEG is likely Monday; OK to continue anticoagulation (if on) for now. Subjective Date of service: 05/20/22 Principal diagnosis: Pneumonia, Sepsis Interval history: The patient is tolerating Dobhoff feeds without event. No blood in nares or stool. No gross abdominal pain, but remains lethargic and disoriented. Objective - Constitutional Vitals: Temp Pulse Resp BP Pulse Ox 100.1 F H 91 H 16 133/32 94 05/20/22 05:38 05/20/22 05:38 05/20/22 08:40 05/20/22 05:38 05/20/22 10:00 General appearance: no acute distress - EENT ENT: other (Dobhoff present in nares) - Respiratory Respiratory effort: normal Respiratory: bilateral: CTA - Cardiovascular Rhythm: regular Heart Sounds: Present: S1 & S2 - Gastrointestinal General gastrointestinal: Present: soft, non-tender, non-distended - Labs CBC & Chem 7: 05/19/22 04:22 05/19/22 04:22 Labs: Laboratory Results - last 24 hr 05/19/22 05/19/22 05/20/22 17:17 23:20 05:36 POC Glucose 266 H 250 H 263 H 05/20/22 11:50 POC Glucose 314 H
--- NOTE | 2022-05-20 22:06 | Progress Note ---
Assessment and Plan Imp: 1. Acute metabolic encephalopathy 2. UTI 3. LLL pneumonia 4. Sepsis 5. R/o OP dysphagia 6. ROXANE 7. Hypernatremia Rec: 1. ST eval. 2. Aspiration precautions 3. Free water per DHT 4. Finish ABX 5. Will follow No family present Subjective Date of service: 05/20/22 Principal diagnosis: Pneumonia, Sepsis Interval history: No events. Eyes open. Nonverbal. Cannot give history. On NC. Active Medications Acetaminophen (Acetaminophen 325 Mg Tab) 650 mg PO Q6H PRN PRN Reason: Pain MILD(1-3)/Fever >100.5/SNELL Last Admin: 05/20/22 17:13 Dose: 650 mg Albuterol (Albuterol 2.5 Mg/3 Ml Nebu) 2.5 mg IH Q4H PRN PRN Reason: Shortness Of Breath Heparin Sodium (Porcine) (Heparin 5,000 Unit/1 Ml Vial) 5,000 unit SUB-Q Q12HR [facility] Last Admin: 05/21/22 09:46 Dose: 5,000 unit Insulin Glargine (Insulin Glargine 100 Units/Ml) 20 units SUB-Q DAILY [facility] Insulin Glargine (Insulin Glargine 100 Units/Ml) 5 units SUB-Q ONCE@1200 [facility] Stop: 05/21/22 16:00 Last Admin: 05/21/22 12:14 Dose: 5 units Insulin Human Lispro (Insulin Lispro 100 Unit/Ml) 0 unit SUB-Q Q6HR [facility]; Protocol Last Admin: 05/21/22 12:03 Dose: 6 unit Morphine Sulfate (Morphine 2 Mg/1 Ml Inj) 2 mg IV Q4H PRN PRN Reason: Pain, Moderate (4-6) Sodium Chloride (Sodium Chloride 0.9% 10 Ml Flush Syringe) 10 ml IV BID [facility] Last Admin: 05/21/22 10:03 Dose: 10 ml Sodium Chloride (Sodium Chloride 0.9% 10 Ml Flush Syringe) 10 ml IV PRN PRN PRN Reason: LINE FLUSH Objective Vital Signs - 12hr 05/20/22 05/20/22 05/20/22 17:08 17:09 20:31 Temperature 102.0 F H Pulse Rate 96 H Respiratory 20 Rate Blood Pressure 148/57 O2 Sat by Pulse 94 97 Oximetry Constitutional: no acute distress, alert Eyes: non-icteric ENT: oropharynx moist Neck: supple Effort: normal Ascultation: Bilateral: rhonchi Cardiovascular: regular rate and rhythm (no mrg) Gastrointestinal: normoactive bowel sounds, soft, non-tender, non-distended Integumentary: normal Extremities: no cyanosis, no edema, pink and warm Neurologic: unable to assess Psychiatric: other (unable to assess) CBC and BMP: 05/19/22 04:22 05/19/22 04:22 ABG, PT/INR, D-dimer: ABG ABG pH 7.422 pH Units (7.350-7.450) 05/14/22 10:50 ABG pCO2 40.2 mm Hg 05/14/22 10:50 ABG pO2 51.4 mm Hg (80.0-90.0) L 05/14/22 10:50 ABG O2 Saturation 88.4 % (95.0-99.0) L 05/14/22 10:50 Abnormal lab findings: Abnormal Labs 05/14/22 05/14/22 05/14/22 05:45 05:45 05:45 WBC 20.8 H Seg Neuts % (Manual) 85.0 H Lymphocytes % (Manual) 5.0 L Seg Neutrophils # Man 17.7 H Lymphocytes # (Manual) 1.0 L ABG pO2 ABG O2 Saturation ABG Hemoglobin Oxyhemoglobin Sodium 134 L Potassium Chloride 94.2 L Carbon Dioxide BUN 35 H Creatinine 2.1 H Glucose 403 H POC Glucose Lactic Acid 6.60 H* Calcium Magnesium Albumin 2.7 L Urine WBC (Auto) 05/14/22 05/14/22 05/14/22 05:45 07:02 09:26 WBC Seg Neuts % (Manual) Lymphocytes % (Manual) Seg Neutrophils # Man Lymphocytes # (Manual) ABG pO2 ABG O2 Saturation ABG Hemoglobin Oxyhemoglobin Sodium Potassium Chloride Carbon Dioxide BUN Creatinine Glucose POC Glucose Lactic Acid 5.70 H* 5.30 H* Calcium Magnesium 1.10 L Albumin Urine WBC (Auto) 05/14/22 05/14/22 05/14/22 09:31 10:38 10:50 WBC Seg Neuts % (Manual) Lymphocytes % (Manual) Seg Neutrophils # Man Lymphocytes # (Manual) ABG pO2 51.4 L ABG O2 Saturation 88.4 L ABG Hemoglobin 11.5 L Oxyhemoglobin 86.5 L Sodium Potassium Chloride Carbon Dioxide BUN Creatinine Glucose POC Glucose 209 H Lactic Acid Calcium Magnesium Albumin Urine WBC (Auto) > 182.0 H 05/14/22 05/14/22 05/14/22 13:24 17:15 23:38 WBC Seg Neuts % (Manual) Lymphocytes % (Manual) Seg Neutrophils # Man Lymphocytes # (Manual) ABG pO2 ABG O2 Saturation ABG Hemoglobin Oxyhemoglobin Sodium Potassium Chloride Carbon Dioxide BUN Creatinine Glucose POC Glucose 212 H 245 H 246 H Lactic Acid Calcium Magnesium Albumin Urine WBC (Auto) 05/15/22 05/15/22 05/15/22 05:23 11:25 16:16 WBC Seg Neuts % (Manual) Lymphocytes % (Manual) Seg Neutrophils # Man Lymphocytes # (Manual) ABG pO2 ABG O2 Saturation ABG Hemoglobin Oxyhemoglobin Sodium Potassium Chloride Carbon Dioxide BUN Creatinine Glucose POC Glucose 236 H 232 H 166 H Lactic Acid Calcium Magnesium Albumin Urine WBC (Auto) 05/15/22 05/16/22 05/16/22 17:56 00:58 04:28 WBC 21.8 H Seg Neuts % (Manual) 97.0 H Lymphocytes % (Manual) 0 L Seg Neutrophils # Man 21.1 H Lymphocytes # (Manual) 0.0 L ABG pO2 ABG O2 Saturation ABG Hemoglobin Oxyhemoglobin Sodium Potassium 3.5 L Chloride 110.1 H Carbon Dioxide BUN 32 H Creatinine Glucose 207 H POC Glucose 215 H Lactic Acid Calcium Magnesium Albumin Urine WBC (Auto) 05/16/22 05/16/22 05/16/22 04:28 05:47 11:36 WBC Seg Neuts % (Manual) Lymphocytes % (Manual) Seg Neutrophils # Man Lymphocytes # (Manual) ABG pO2 ABG O2 Saturation ABG Hemoglobin Oxyhemoglobin Sodium Potassium 3.5 L Chloride 110.2 H Carbon Dioxide BUN 29 H Creatinine Glucose 222 H POC Glucose 186 H 193 H Lactic Acid Calcium Magnesium Albumin Urine WBC (Auto) 05/16/22 05/16/22 05/17/22 17:24 23:21 00:17 WBC 18.6 H Seg Neuts % (Manual) 91.0 H Lymphocytes % (Manual) 4.0 L Seg Neutrophils # Man 16.9 H Lymphocytes # (Manual) 0.7 L ABG pO2 ABG O2 Saturation ABG Hemoglobin Oxyhemoglobin Sodium Potassium Chloride Carbon Dioxide BUN Creatinine Glucose POC Glucose 170 H 192 H Lactic Acid Calcium Magnesium Albumin Urine WBC (Auto) 05/17/22 05/17/22 05/17/22 00:17 05:17 12:13 WBC Seg Neuts % (Manual) Lymphocytes % (Manual) Seg Neutrophils # Man Lymphocytes # (Manual) ABG pO2 ABG O2 Saturation ABG Hemoglobin Oxyhemoglobin Sodium 150 H Potassium 3.5 L Chloride 112.5 H Carbon Dioxide 18 L BUN 22 H Creatinine 0.4 L Glucose 242 H POC Glucose 277 H 305 H Lactic Acid Calcium Magnesium Albumin Urine WBC (Auto) 05/17/22 05/17/22 05/18/22 18:17 23:41 05:16 WBC Seg Neuts % (Manual) Lymphocytes % (Manual) Seg Neutrophils # Man Lymphocytes # (Manual) ABG pO2 ABG O2 Saturation ABG Hemoglobin Oxyhemoglobin Sodium Potassium Chloride Carbon Dioxide BUN Creatinine Glucose POC Glucose 331 H 372 H 313 H Lactic Acid Calcium Magnesium Albumin Urine WBC (Auto) 05/18/22 05/18/22 05/18/22 11:23 16:43 23:53 WBC Seg Neuts % (Manual) Lymphocytes % (Manual) Seg Neutrophils # Man Lymphocytes # (Manual) ABG pO2 ABG O2 Saturation ABG Hemoglobin Oxyhemoglobin Sodium Potassium Chloride Carbon Dioxide BUN Creatinine Glucose POC Glucose 332 H 287 H 300 H Lactic Acid Calcium Magnesium Albumin Urine WBC (Auto) 05/19/22 05/19/22 05/19/22 04:22 04:22 04:59 WBC 17.3 H Seg Neuts % (Manual) 96.0 H Lymphocytes % (Manual) 1.0 L Seg Neutrophils # Man 16.6 H Lymphocytes # (Manual) 0.2 L ABG pO2 ABG O2 Saturation ABG Hemoglobin Oxyhemoglobin Sodium 151 H Potassium Chloride 111.9 H Carbon Dioxide 32 H D BUN 18 H Creatinine 0.4 L Glucose 323 H POC Glucose 296 H Lactic Acid Calcium 10.4 H Magnesium Albumin Urine WBC (Auto) 05/19/22 05/19/22 05/19/22 11:17 17:17 23:20 WBC Seg Neuts % (Manual) Lymphocytes % (Manual) Seg Neutrophils # Man Lymphocytes # (Manual) ABG pO2 ABG O2 Saturation ABG Hemoglobin Oxyhemoglobin Sodium Potassium Chloride Carbon Dioxide BUN Creatinine Glucose POC Glucose 295 H 266 H 250 H Lactic Acid Calcium Magnesium Albumin Urine WBC (Auto) 05/20/22 05/20/2205/20/22 05:36 11:50 17:29 WBC Seg Neuts % (Manual) Lymphocytes % (Manual) Seg Neutrophils # Man Lymphocytes # (Manual) ABG pO2 ABG O2 Saturation ABG Hemoglobin Oxyhemoglobin Sodium Potassium Chloride Carbon Dioxide BUN Creatinine Glucose POC Glucose 263 H 314 H 255 H Lactic Acid Calcium Magnesium Albumin Urine WBC (Auto) Chest x-ray: report reviewed, image reviewed
[2022-05-21] MEDS: INSULIN LISPRO 100 UNIT/ML SUB-Q SCH ×4 (00:22→17:26)
[2022-05-21] MEDS: HEPARIN 5,000 UNIT/1 ML VIAL SUB-Q SCH ×2 (09:46→22:55)
[2022-05-21] MEDS: INSULIN GLARGINE 100 UNITS/ML SUB-Q SCH (09:46)
[2022-05-21] MEDS: cefTRIAXone/NS 1 GM/50 ML 1 GM/50 ML BAG IV SCH (10:03)
--- NOTE | 2022-05-21 11:32 | Progress Note ---
Assessment and Plan Assessment and plan: 71-year-old female patient [facility] resident with significant past medical history of Alzheimer's dementia diabetes, coronary artery disease, depression, dysphagia, thrombocytopenia was sent to the emergency room with complaints of altered level of consciousness and sepsis. Patient was noted to be severely hypoxemic on arrival saturating only 88% on room air however improved to 91% on 2 L. After returning from CT scan patient suddenly went into severe hypoxic respiratory failure requiring 15 L When I went and re evaluated the patient, the respiratory therapist at the bedside and patient is on high flow nasal cannula oxygen 30 L/65% FiO2/O2 sats 95 percent. Patient was already planned to admit to [facility], ER physician consulted pulmonary critical care Dr. Romero. Patient is lethargic noncommunicative, no other history is available Assessment and Plan: #Acute hypoxic respiratory failure Requiring supplemental oxygen Probably secondary to pneumonia Oxygen titrate O2 sats to more than 90%, currently on high flow nasal cannula Pulmonary consultation #Sepsis POA secondary to left-sided pneumonia/Urinary Tract Infection - follow bcx,scx,ucx - COVID RT PCR negative - abx: vanc/cefepime IV - trend fever curve/wbc ct #Hospital Acquired Pneumonia ID resident Blood cultures, sputum cultures Empiric antibiotics cefepime Oxygen titrate O2 sats to more than 90% Supportive care Pulmonary/ID service needed #E. coli urinary tract infection #Acute metabolic encephalopathy; -Multifactorial, sepsis, pneumonia , hypoxia in the setting of advanced dementia -Respiratory failure advanced age -Treat the underlying cause -Neurochecks -CT brain on admission demonstrated no acute intracranial abnormality #Lactic acidosis; -Probably secondary to sepsis, IV fluids -Empiric IV antibiotics, follow cultures -Trend lactic levels #Acute kidney injury; vasomotor nephropathy -Gentle hydration, monitor renal function -Avoid nephrotoxins, nephrology consult if needed #Mild hyponatremia; -Closely monitor electrolytes #Severe protein calorie malnutrition; -Nutrition supplements, supportive care -Nutrition consult #Severe hypoalbuminemia; -Nutrition supplements and supportive care Hospital Course: 05/15: Remains encephalopathic, on high flow nasal cannula. We will continue to wean as patient tolerates. Continue therapy with IV vancomycin and cefepime. ABG/Chest x-ray ordered for tomorrow. Will follow pulmonary recs. 05/16/22: Pulmonary gave 2 boluses yesterday secondary to marginal BP's which is why cxr looks slightly worse. Will discontinue IVF's. Continue to wean FiO2 for sats >88%. Continue IV abx, has gram negative rods in the urine so maybe able to stop vanc. stable BP. Would be ok with patient going back to floor. Replace K 05/17: Patient remains encephalopathic. Patient requiring 3 L O2 with satur ations at 99%. Patient still with significant leukocytosis. Urine culture reveals E. coli. Abx will be switched to Rocephin 05/18: Patient with stable respiratory status. Patient with saturations of 95% on 2 L O2. Continue antibiotics of Rocephin. Authorization started for alf placement 05/19: Patient with blood cultures no growth to date x4 days. Rocephin to complete on 05/21 for E. coli UTI. Await authorization for patient to return to [facility]. The patient remains lethargic and noncommunicative since admission. I discussed patient's mental status with the [id number] ([phone]) yesterday who reports that this is essentially the baseline. She also reports that the patient's /her brother is autistic. Patient currently with DHT receiving enteral feeds. GI consulted for PEG placement. 05/20: GI evaluated the patient and attempted to obtain consent from the who reported he did not want a PEG tube unless there is no other choice. Ho wever, the also does not want to pursue hospice/comfort measures either. Speech therapy evaluation with regards to swallowing. If pt fails ST evaluation, then the will consent to placement of a PEG tube. IV Rocephin completes tomorrow for UTI. 05/21: Await speech therapy evaluation. PEG tube placement per GI. History Interval history: No new issues overnight Hospitalist Physical - Constitutional Vitals: Temp Pulse Resp BP Pulse Ox 102.0 F H 96 H 19 148/57 97 05/20/22 17:09 05/20/22 17:08 05/20/22 22:00 05/20/22 17:08 05/20/22 22:00 General appearance: Present: no acute distress - EENT Eyes: Present: PERRL, EOM intact ENT: hearing intact, clear oral mucosa, dentition normal - Neck Neck: Present: supple, normal ROM - Respiratory Respiratory effort: normal Respiratory: bilateral: CTA - Cardiovascular Rhythm: regular Heart Sounds: Present: S1 & S2. Absent: gallop, rub - Extremities Extremities: no ischemia, No edema, Full ROM - Abdominal General gastrointestinal: soft, non-tender, non-distended, normal bowel sounds - Integumentary Integumentary: Present: clear, warm, dry - Neurologic Neurologic: CNII-XII intact, moves all extremities Results - Labs CBC & Chem 7: 05/19/22 04:22 05/19/22 04:22 Labs: Laboratory Last Values WBC 17.3 K/mm3 (4.5-11.0) H 05/19/22 04:22 RBC 3.74 M/mm3 (3.65-5.03) 05/19/22 04:22 Hgb 11.2 gm/dl (10.1-14.3) 05/19/22 04:22 Hct 34.0 % (30.3-42.9) 05/19/22 04:22 MCV 91 fl (79-97) 05/19/22 04:22 MCH 30 pg (28-32) 05/19/22 04:22 MCHC 33 % (30-34) 05/19/22 04:22 RDW 13.8 % (13.2-15.2) 05/19/22 04:22 Plt Count 210 K/mm3 (140-440) 05/19/22 04:22 Add Manual Diff Complete 05/19/22 04:22 Total Counted 100 05/19/22 04:22 Seg Neutrophils % Mannequin Wig Maker 05/17/22 00:17 Seg Neuts % (Manual) 96.0 % (40.0-70.0) H 05/19/22 04:22 Band Neutrophils % 1.0 % 05/19/22 04:22 Lymphocytes % (Manual) 1.0 % (13.4-35.0) L 05/19/22 04:22 Reactive Lymphs % (Man) 1.0 % 05/19/22 04:22 Monocytes % (Manual) 1.0 % (0.0-7.3) 05/19/22 04:22 Eosinophils % (Manual) 0 % (0.0-4.3) 05/19/22 04:22 Basophils % (Manual) 0 % (0.0-1.8) 05/19/22 04:22 Metamyelocytes % 0 % 05/19/22 04:22 Myelocytes % 0 % 05/19/22 04:22 Promyelocytes % 0 % 05/19/22 04:22 Blast Cells % 0 % 05/19/22 04:22 Nucleated RBC % Not Reportable 05/19/22 04:22 Seg Neutrophils # Man 16.6 K/mm3 (1.8-7.7) H 05/19/22 04:22 Band Neutrophils # 0.2 K/mm3 05/19/22 04:22 Lymphocytes # (Manual) 0.2 K/mm3 (1.2-5.4) L 05/19/22 04:22 Abs React Lymphs (Man) 0.2 K/mm3 05/19/22 04:22 Monocytes # (Manual) 0.2 K/mm3 (0.0-0.8) 05/19/22 04:22 Eosinophils # (Manual) 0.0 K/mm3 (0.0-0.4) 05/19/22 04:22 Basophils # (Manual) 0.0 K/mm3 (0.0-0.1) 05/19/22 04:22 Metamyelocytes # 0.0 K/mm3 05/19/22 04:22 Myelocytes # 0.0 K/mm3 05/19/22 04:22 Promyelocytes # 0.0 K/mm3 05/19/22 04:22 Blast Cells # 0.0 K/mm3 05/19/22 04:22 WBC Morphology Not Reportable 05/19/22 04:22 Hypersegmented Neuts Not Reportable 05/19/22 04:22 Hyposegmented Neuts Not Reportable 05/19/22 04:22 Hypogranular Neuts Not Reportable 05/19/22 04:22 Smudge Cells Not Reportable 05/19/22 04:22 Toxic Granulation Not Reportable 05/19/22 04:22 Toxic Vacuolation Not Reportable 05/19/22 04:22 Dohle Bodies Not Reportable 05/19/22 04:22 Pelger-Huet Anomaly Not Reportable 05/19/22 04:22 Supa Rods Not Reportable 05/19/22 04:22 Platelet Estimate Consistent w auto 05/19/22 04:22 Clumped Platelets Not Reportable 05/19/22 04:22 Plt Clumps, EDTA Not Reportable 05/19/22 04:22 Large Platelets Not Reportable 05/19/22 04:22 Giant Platelets Not Reportable 05/19/22 04:22 Platelet Satelliting Not Reportable 05/19/22 04:22 Plt Morphology Comment Not Reportable 05/19/22 04:22 RBC Morphology Normal 05/19/22 04:22 Dimorphic RBCs Not Reportable 05/19/22 04:22 Polychromasia Not Reportable 05/19/22 04:22 Hypochromasia Not Reportable 05/19/22 04:22 Poikilocytosis Not Reportable 05/19/22 04:22 Anisocytosis Not Reportable 05/19/22 04:22 Microcytosis Not Reportable 05/19/22 04:22 Macrocytosis Not Reportable 05/19/22 04:22 Spherocytes Not Reportable 05/19/22 04:22 Pappenheimer Bodies Not Reportable 05/19/22 04:22 Sickle Cells Not Reportable 05/19/22 04:22 Target Cells Not Reportable 05/19/22 04:22 Tear Drop Cells Not Reportable 05/19/22 04:22 Ovalocytes Not Reportable 05/19/22 04:22 Helmet Cells Not Reportable 05/19/22 04:22 [place] Bodies Not Reportable 05/19/22 04:22 Atkins Rings Not Reportable 05/19/22 04:22 Donovan Cells Not Reportable 05/19/22 04:22 Bite Cells Not Reportable 05/19/22 04:22 Crenated Cell Not Reportable 05/19/22 04:22 Elliptocytes Not Reportable 05/19/22 04:22 Acanthocytes (Spur) Not Reportable 05/19/22 04:22 Rouleaux Not Reportable 05/19/22 04:22 Hemoglobin C Crystals Not Reportable 05/19/22 04:22 Schistocytes Not Reportable 05/19/22 04:22 Malaria parasites Not Reportable 05/19/22 04:22 Parveen Bodies Not Reportable 05/19/22 04:22 Hem Pathologist Commnt No 05/19/22 04:22 ABG pH 7.422 pH Units (7.350-7.450) 05/14/22 10:50 ABG pCO2 40.2 mm Hg 05/14/22 10:50 ABG pO2 51.4 mm Hg (80.0-90.0) L 05/14/22 10:50 ABG HCO3 25.6 mmol/L (20.0-26.0) 05/14/22 10:50 ABG O2 Saturation 88.4 % (95.0-99.0) L 05/14/22 10:50 ABG O2 Content 13.9 (0.0-44) 05/14/22 10:50 ABG Base Excess 1.1 mmol/L (-2.0-3.0) 05/14/22 10:50 ABG Hemoglobin 11.5 gm/dl (12.0-16.0) L 05/14/22 10:50 ABG Carboxyhemoglobin 1.8 % (0.0-5.0) 05/14/22 10:50 ABG Methemoglobin 0.3 % (0.0-1.5) 05/14/22 10:50 Oxyhemoglobin 86.5 % (95.0-99.0) L 05/14/22 10:50 FiO2 50 % 05/14/22 10:50 Sodium 151 mmol/L (137-145) H 05/19/22 04:22 Potassium 3.7 mmol/L (3.6-5.0) 05/19/22 04:22 Chloride 111.9 mmol/L (98-107) H 05/19/22 04:22 Carbon Dioxide 32 mmol/L (22-30) H D 05/19/22 04:22 Anion Gap 11 mmol/L 05/19/22 04:22 BUN 18 mg/dL (7-17) H 05/19/22 04:22 Creatinine 0.4 mg/dL (0.6-1.2) L 05/19/22 04:22 Estimated GFR > 60 ml/min 05/19/22 04:22 BUN/Creatinine Ratio 45 % 05/19/22 04:22 Glucose 323 mg/dL (65-100) H 05/19/22 04:22 POC Glucose 290 mg/dL (70-105) H 05/21/22 11:19 Lactic Acid 1.50 mmol/L (0.7-2.0) 05/16/22 04:28 Calcium 10.4 mg/dL (8.4-10.2) H 05/19/22 04:22 Magnesium 1.10 mg/dL (1.7-2.3) L 05/14/22 05:45 Total Bilirubin 0.40 mg/dL (0.1-1.2) 05/14/22 05:45 AST 18 units/L (5-40) 05/14/22 05:45 ALT 10 units/L (7-56) 05/14/22 05:45 Alkaline Phosphatase 57 units/L (35-129) 05/14/22 05:45 Total Protein 6.3 g/dL (6.3-8.2) 05/14/22 05:45 Albumin 2.7 g/dL (3.9-5) L 05/14/22 05:45 Albumin/Globulin Ratio 0.8 % 05/14/22 05:45 Urine Color Brown (Yellow) 05/14/22 10:38 Urine Turbidity Turbid (Clear) 05/14/22 10:38 Urine pH 5.0 (5.0-7.0) 05/14/22 10:38 Ur Specific [place] 1.017 (1.003-1.030) 05/14/22 10:38 Urine Protein 100 mg/dl mg/dL (Negative) 05/14/22 10:38 Urine Glucose (UA) Neg mg/dL (Negative) 05/14/22 10:38 Urine Ketones Neg mg/dL (Negative) 05/14/22 10:38 Urine Blood Mod (Negative) 05/14/22 10:38 Urine Nitrite Neg (Negative) 05/14/22 10:38 Urine Bilirubin Neg (Negative) 05/14/22 10:38 Urine Ictotest Not Reportable 05/14/22 10:38 Urine Urobilinogen < 2.0 mg/dL (<2.0) 05/14/22 10:38 Ur Leukocyte Esterase Tr (Negative) 05/14/22 10:38 Urine WBC (Auto) > 182.0 /HPF (0.0-6.0) H 05/14/22 10:38 Urine RBC (Auto) > 182.0 /HPF (0.0-6.0) 05/14/22 10:38 Urine Bacteria (Auto) 4+ /HPF (Negative) 05/14/22 10:38 Urine WBC Clumps 3+ /HPF 05/14/22 10:38 Urine Mucus 1+ /HPF 05/14/22 10:38 SARS-CoV-2 (PCR) Negative (Negative) 05/14/22 10:38 Microbiology: Microbiology 05/20/22 20:03 Peripheral/Venous Blood Culture - Preliminary Culture in Progress 05/20/22 20:03 Peripheral/Venous Blood Culture - Preliminary Culture in Progress [place]/IV: Voiding Method External Female Catheter Active Medications - Current Medications Current Medications: Generic Name Dose Route Start Last Admin Trade Name Freq PRN Reason Stop Dose Admin Acetaminophen 650 mg 05/14/22 09:33 05/20/22 17:13 Acetaminophen 325 Mg Tab PO 650 mg Q6H PRN Administration Pain MILD(1-3)/Fever >100.5/SNELL Albuterol 2.5 mg 05/14/22 12:52 Albuterol 2.5 Mg/3 Ml Nebu IH Q4H PRN Shortness Of Breath Heparin Sodium (Porcine) 5,000 unit 05/14/22 22:00 05/21/22 09:46 Heparin 5,000 Unit/1 Ml Vial SUB-Q 5,000 unit Q12HR DUKE Administration Insulin Glargine 15 units 05/18/22 13:00 05/21/22 09:46 Insulin Glargine 100 Units/Ml SUB-Q 15 units DAILY DUKE Administration Insulin Human Lispro 0 unit 05/14/22 18:00 05/21/22 05:45 Insulin Lispro 100 Unit/Ml SUB-Q 6 unit Q6HR DUKE Administration Protocol Morphine Sulfate 2 mg 05/14/22 09:33 Morphine 2 Mg/1 Ml Inj IV Q4H PRN Pain, Moderate (4-6) Sodium Chloride 10 ml 05/14/22 10:00 05/21/22 10:03 Sodium Chloride 0.9% 10 Ml Flush Syringe IV 10 ml BID DUKE Administration Sodium Chloride 10 ml 05/14/22 09:32 Sodium Chloride 0.9% 10 Ml Flush Syringe IV PRN PRN LINE FLUSH Nutrition/Malnutrition Assess - Dietary Evaluation Nutrition/Malnutrition Findings: Nutrition Notes Start: 05/15/22 11:28 Freq: Status: Active Protocol: Document 05/19/22 11:34 CLARENCE (Rec: 05/19/22 12:07 CLARENCE [id number]) Nutrition Notes Initial or Follow up Reassessment Current Diagnosis Acute Kidney Injury,Sepsis, Respiratory Failure, Malnutrition Other Pertinent Diagnosis Metabolic Encephalopathy, UTI, HAP, Lactic Acidosis, ... Current Diet TF-Vital AF 1.2 [place] @ 45 ml/hr (from D 05/19). Labs/Tests 05/19: Na 151, Cl 111.9, Cl 32 , BUN 18, Crea 0.4, Glu 323, Ca 10.4. Pertinent Medications 05/19: Lantus 15U, Humalog 6U, others nutritionally unremarkable. Height 5 ft 2.4 in Weight 62 kg [place] Body Weight (kg) 50.90 BMI 24.7 Weight change and time frame No body weight change reported in 4 days. Weight Status Appropriate Subjective/Other Information RD consult for routine F/U on dietary advancement. TF continues as prescribed, however, due to the current unavailability of TF Glucerna 1.2 [place], I will temporarly replace this order with Vital AF 1.2 [place]. Pt is on Nasal Cannula, O2 saturation @ 98%, according to Physical Assessment History notes. PEG tube placement before discharge is being considered, according to Progress notes. Pt will be discharged to SNF when medically cleared, according to Progress notes. Percent of energy/protein needs met: Prescribed TF-Vital AF 1.2 [place] @ 45 ml/hr provides for energy/protein needs (1,310 Kcal/82 g) during LOS, 99% Kcal; 100% AA. Burn Absent Trauma Absent GI Symptoms None Skin Integrity/Comment L-LE wounds. Current % PO Other Minimum of two criteria No Body Fat Depletion Mild depletion (non-severe) Muscle Mass Moderate Depletion (severe) Fluid Accumulation Moderate to Severe (severe) Reduced Cancellation Clerk Strength N/A (non-severe) Protein-Calorie Malnutrition Severe #1 Nutrition Diagnosis Malnutrition Diagnosis Progress(for reassessment Continues documentation) Is patient on ventilator? No Is Patient Ambulatory and/or Out of Bed No REE-([place]-St Jeor-confined to bed) [phone] [facility]culation [facility] Additional Notes Protein: 1.2-1.5 g/Kg ABW; 74- 93 g/day. Fluids: 1 ml/Kcal, or as per MD. Nutrition Intervention Nutrition Support: Change formula to TF-Vital AF 1.2 [place] @ 45 ml/hr. Flush: 70 ml water Q 4 hr, or as per MD. Kcal 1,310 Protein (gm) 82 Carbohydrates (gm) 121 Fat (gm) 59 Fluid (mL) 885 Fiber (gm) 6 % RDI: 99% Kcal; 100% AA. Goal #1 Provide at least 75% of energy /protein needs through Enteral Feeding during LOS. Goal #2 Adjust the dietary intervention to better serve Pt's needs and clinical conditions during LOS. Follow-Up By: 05/23/22 Additional Comments Continue monitoring TF tolerance and BM.
[2022-05-21] MEDS ORDERED: INSULIN GLARGINE 100 UNITS/ML SUB-Q SCH (12:00)
[2022-05-22] MEDS: INSULIN LISPRO 100 UNIT/ML SUB-Q SCH ×4 (00:05→17:04)
[2022-05-22] MEDS: HEPARIN 5,000 UNIT/1 ML VIAL SUB-Q SCH ×2 (09:11→22:19)
[2022-05-22] MEDS: INSULIN GLARGINE 100 UNITS/ML SUB-Q SCH (09:12)
--- NOTE | 2022-05-22 16:02 | Progress Note ---
Assessment and Plan Assessment and plan: 71-year-old female patient [facility] resident with significant past medical history of Alzheimer's dementia diabetes, coronary artery disease, depression, dysphagia, thrombocytopenia was sent to the emergency room with complaints of altered level of consciousness and sepsis. Patient was noted to be severely hypoxemic on arrival saturating only 88% on room air however improved to 91% on 2 L. After returning from CT scan patient suddenly went into severe hypoxic respiratory failure requiring 15 L When I went and re evaluated the patient, the respiratory therapist at the bedside and patient is on high flow nasal cannula oxygen 30 L/65% FiO2/O2 sats 95 percent. Patient was already planned to admit to [facility], ER physician consulted pulmonary critical care Dr. Romero. Patient is lethargic noncommunicative, no other history is available Assessment and Plan: #Acute hypoxic respiratory failure Requiring supplemental oxygen Probably secondary to pneumonia Oxygen titrate O2 sats to more than 90%, currently on high flow nasal cannula Pulmonary consultation #Sepsis POA secondary to left-sided pneumonia/Urinary Tract Infection - follow bcx,scx,ucx - COVID RT PCR negative - abx: vanc/cefepime IV - trend fever curve/wbc ct #Hospital Acquired Pneumonia [place] resident Blood cultures, sputum cultures Empiric antibiotics cefepime Oxygen titrate O2 sats to more than 90% Supportive care Pulmonary/ID service needed #E. coli urinary tract infection #Acute metabolic encephalopathy; -Multifactorial, sepsis, pneumonia , hypoxia in the setting of advanced dementia -Respiratory failure advanced age -Treat the underlying cause -Neurochecks -CT brain on admission demonstrated no acute intracranial abnormality #Lactic acidosis; -Probably secondary to sepsis, IV fluids -Empiric IV antibiotics, follow cultures -Trend lactic levels #Acute kidney injury; vasomotor nephropathy -Gentle hydration, monitor renal function -Avoid nephrotoxins, nephrology consult if needed #Mild hyponatremia; -Closely monitor electrolytes #Severe protein calorie malnutrition; -Nutrition supplements, supportive care -Nutrition consult #Severe hypoalbuminemia; -Nutrition supplements and supportive care Hospital Course: 05/15: Remains encephalopathic, on high flow nasal cannula. We will continue to wean as patient tolerates. Continue therapy with IV vancomycin and cefepime. ABG/Chest x-ray ordered for tomorrow. Will follow pulmonary recs. 05/16/22: Pulmonary gave 2 boluses yesterday secondary to marginal BP's which is why cxr looks slightly worse. Will discontinue IVF's. Continue to wean FiO2 for sats >88%. Continue IV abx, has gram negative rods in the urine so maybe able to stop vanc. stable BP. Would be ok with patient going back to floor. Replace K 05/17: Patient remains encephalopathic. Patient requiring 3 L O2 with satur ations at 99%. Patient still with significant leukocytosis. Urine culture reveals E. coli. Abx will be switched to Rocephin 05/18: Patient with stable respiratory status. Patient with saturations of 95% on 2 L O2. Continue antibiotics of Rocephin. Authorization started for [facility] placement 05/19: Patient with blood cultures no growth to date x4 days. Rocephin to complete on 05/21 for E. coli UTI. Await authorization for patient to return to [facility]. The patient remains lethargic and noncommunicative since admission. I discussed patient's mental status with the [id number] ([phone]) yesterday who reports that this is essentially the baseline. She also reports that the patient's /her brother is autistic. Patient currently with DHT receiving enteral feeds. GI consulted for PEG placement. 05/20: GI evaluated the patient and attempted to obtain consent from the who reported he did not want a PEG tube unless there is no other choice. Ho wever, the also does not want to pursue hospice/comfort measures either. Speech therapy evaluation with regards to swallowing. If pt fails ST evaluation, then the will consent to placement of a PEG tube. IV Rocephin completes tomorrow for UTI. 05/21: Await speech therapy evaluation. PEG tube placement per GI. 05/22: Speeech therapy reports patient unable to arouse or participate in evaluation. GI evaluated the patient and attempted to obtain consent from the who reported he did not want a PEG tube unless there is no other choice. However, the also does not want to pursue hospice/comfort measures either. Cont. enteral feeds. Aspiration precautions. Restraints for safety. F/U labs in am. History Interval history: No new issues overnight Hospitalist Physical - Constitutional Vitals: Temp Pulse Resp BP Pulse Ox 98.7 F 68 18 145/57 100 05/22/22 12:09 05/22/22 12:09 05/22/22 12:09 05/22/22 12:09 05/22/22 12:09 General appearance: Present: no acute distress - EENT Eyes: Present: PERRL, EOM intact ENT: hearing intact, clear oral mucosa, dentition normal - Neck Neck: Present: supple, normal ROM - Respiratory Respiratory effort: normal Respiratory: bilateral: CTA - Cardiovascular Rhythm: regular Heart Sounds: Present: S1 & S2. Absent: gallop, rub - Extremities Extremities: no ischemia, No edema, Full ROM - Abdominal General gastrointestinal: soft, non-tender, non-distended, normal bowel sounds - Integumentary Integumentary: Present: clear, warm, dry - Neurologic Neurologic: CNII-XII intact, moves all extremities Results - Labs CBC & Chem 7: 05/19/22 04:22 05/19/22 04:22 Labs: Laboratory Last Values WBC 17.3 K/mm3 (4.5-11.0) H 05/19/22 04:22 RBC 3.74 M/mm3 (3.65-5.03) 05/19/22 04:22 Hgb 11.2 gm/dl (10.1-14.3) 05/19/22 04:22 Hct 34.0 % (30.3-42.9) 05/19/22 04:22 MCV 91 fl (79-97) 05/19/22 04:22 MCH 30 pg (28-32) 05/19/22 04:22 MCHC 33 % (30-34) 05/19/22 04:22 RDW 13.8 % (13.2-15.2) 05/19/22 04:22 Plt Count 210 K/mm3 (140-440) 05/19/22 04:22 Add Manual Diff Complete 05/19/22 04:22 Total Counted 100 05/19/22 04:22 Seg Neutrophils % Merchandise Pickup/Receiving Associate 05/17/22 00:17 Seg Neuts % (Manual) 96.0 % (40.0-70.0) H 05/19/22 04:22 Band Neutrophils % 1.0 % 05/19/22 04:22 Lymphocytes % (Manual) 1.0 % (13.4-35.0) L 05/19/22 04:22 Reactive Lymphs % (Man) 1.0 % 05/19/22 04:22 Monocytes % (Manual) 1.0 % (0.0-7.3) 05/19/22 04:22 Eosinophils % (Manual) 0 % (0.0-4.3) 05/19/22 04:22 Basophils % (Manual) 0 % (0.0-1.8) 05/19/22 04:22 Metamyelocytes % 0 % 05/19/22 04:22 Myelocytes % 0 % 05/19/22 04:22 Promyelocytes % 0 % 05/19/22 04:22 Blast Cells % 0 % 05/19/22 04:22 Nucleated RBC % Not Reportable 05/19/22 04:22 Seg Neutrophils # Man 16.6 K/mm3 (1.8-7.7) H 05/19/22 04:22 Band Neutrophils # 0.2 K/mm3 05/19/22 04:22 Lymphocytes # (Manual) 0.2 K/mm3 (1.2-5.4) L 05/19/22 04:22 Abs React Lymphs (Man) 0.2 K/mm3 05/19/22 04:22 Monocytes # (Manual) 0.2 K/mm3 (0.0-0.8) 05/19/22 04:22 Eosinophils # (Manual) 0.0 K/mm3 (0.0-0.4) 05/19/22 04:22 Basophils # (Manual) 0.0 K/mm3 (0.0-0.1) 05/19/22 04:22 Metamyelocytes # 0.0 K/mm3 05/19/22 04:22 Myelocytes # 0.0 K/mm3 05/19/22 04:22 Promyelocytes # 0.0 K/mm3 05/19/22 04:22 Blast Cells # 0.0 K/mm3 05/19/22 04:22 WBC Morphology Not Reportable 05/19/22 04:22 Hypersegmented Neuts Not Reportable 05/19/22 04:22 Hyposegmented Neuts Not Reportable 05/19/22 04:22 Hypogranular Neuts Not Reportable 05/19/22 04:22 Smudge Cells Not Reportable 05/19/22 04:22 Toxic Granulation Not Reportable 05/19/22 04:22 Toxic Vacuolation Not Reportable 05/19/22 04:22 Dohle Bodies Not Reportable 05/19/22 04:22 Pelger-Huet Anomaly Not Reportable 05/19/22 04:22 Supa Rods Not Reportable 05/19/22 04:22 Platelet Estimate Consistent w auto 05/19/22 04:22 Clumped Platelets Not Reportable 05/19/22 04:22 Plt Clumps, EDTA Not Reportable 05/19/22 04:22 Large Platelets Not Reportable 05/19/22 04:22 Giant Platelets Not Reportable 05/19/22 04:22 Platelet Satelliting Not Reportable 05/19/22 04:22 Plt Morphology Comment Not Reportable 05/19/22 04:22 RBC Morphology Normal 05/19/22 04:22 Dimorphic RBCs Not Reportable 05/19/22 04:22 Polychromasia Not Reportable 05/19/22 04:22 Hypochromasia Not Reportable 05/19/22 04:22 Poikilocytosis Not Reportable 05/19/22 04:22 Anisocytosis Not Reportable 05/19/22 04:22 Microcytosis Not Reportable 05/19/22 04:22 Macrocytosis Not Reportable 05/19/22 04:22 Spherocytes Not Reportable 05/19/22 04:22 Pappenheimer Bodies Not Reportable 05/19/22 04:22 Sickle Cells Not Reportable 05/19/22 04:22 Target Cells Not Reportable 05/19/22 04:22 Tear Drop Cells Not Reportable 05/19/22 04:22 Ovalocytes Not Reportable 05/19/22 04:22 Helmet Cells Not Reportable 05/19/22 04:22 Truong-Farson Bodies Not Reportable 05/19/22 04:22 [place] Rings Not Reportable 05/19/22 04:22 Donovan Cells Not Reportable 05/19/22 04:22 Bite Cells Not Reportable 05/19/22 04:22 Crenated Cell Not Reportable 05/19/22 04:22 Elliptocytes Not Reportable 05/19/22 04:22 Acanthocytes (Spur) Not Reportable 05/19/22 04:22 Rouleaux Not Reportable 05/19/22 04:22 Hemoglobin C Crystals Not Reportable 05/19/22 04:22 Schistocytes Not Reportable 05/19/22 04:22 Malaria parasites Not Reportable 05/19/22 04:22 Parveen Bodies Not Reportable 05/19/22 04:22 Hem Pathologist Commnt No 05/19/22 04:22 ABG pH 7.422 pH Units (7.350-7.450) 05/14/22 10:50 ABG pCO2 40.2 mm Hg 05/14/22 10:50 ABG pO2 51.4 mm Hg (80.0-90.0) L 05/14/22 10:50 ABG HCO3 25.6 mmol/L (20.0-26.0) 05/14/22 10:50 ABG O2 Saturation 88.4 % (95.0-99.0) L 05/14/22 10:50 ABG O2 Content 13.9 (0.0-44) 05/14/22 10:50 ABG Base Excess 1.1 mmol/L (-2.0-3.0) 05/14/22 10:50 ABG Hemoglobin 11.5 gm/dl (12.0-16.0) L 05/14/22 10:50 ABG Carboxyhemoglobin 1.8 % (0.0-5.0) 05/14/22 10:50 ABG Methemoglobin 0.3 % (0.0-1.5) 05/14/22 10:50 Oxyhemoglobin 86.5 % (95.0-99.0) L 05/14/22 10:50 FiO2 50 % 05/14/22 10:50 Sodium 151 mmol/L (137-145) H 05/19/22 04:22 Potassium 3.7 mmol/L (3.6-5.0) 05/19/22 04:22 Chloride 111.9 mmol/L (98-107) H 05/19/22 04:22 Carbon Dioxide 32 mmol/L (22-30) H D 05/19/22 04:22 Anion Gap 11 mmol/L 05/19/22 04:22 BUN 18 mg/dL (7-17) H 05/19/22 04:22 Creatinine 0.4 mg/dL (0.6-1.2) L 05/19/22 04:22 Estimated GFR > 60 ml/min 05/19/22 04:22 BUN/Creatinine Ratio 45 % 05/19/22 04:22 Glucose 323 mg/dL (65-100) H 05/19/22 04:22 POC Glucose 123 mg/dL (70-105) H 05/22/22 12:07 Lactic Acid 1.50 mmol/L (0.7-2.0) 05/16/22 04:28 Calcium 10.4 mg/dL (8.4-10.2) H 05/19/22 04:22 Magnesium 1.10 mg/dL (1.7-2.3) L 05/14/22 05:45 Total Bilirubin 0.40 mg/dL (0.1-1.2) 05/14/22 05:45 AST 18 units/L (5-40) 05/14/22 05:45 ALT 10 units/L (7-56) 05/14/22 05:45 Alkaline Phosphatase 57 units/L (35-129) 05/14/22 05:45 Total Protein 6.3 g/dL (6.3-8.2) 05/14/22 05:45 Albumin 2.7 g/dL (3.9-5) L 05/14/22 05:45 Albumin/Globulin Ratio 0.8 % 05/14/22 05:45 Urine Color Brown (Yellow) 05/14/22 10:38 Urine Turbidity Turbid (Clear) 05/14/22 10:38 Urine pH 5.0 (5.0-7.0) 05/14/22 10:38 Ur Specific Taylor 1.017 (1.003-1.030) 05/14/22 10:38 Urine Protein 100 mg/dl mg/dL (Negative) 05/14/22 10:38 Urine Glucose (UA) Neg mg/dL (Negative) 05/14/22 10:38 Urine Ketones Neg mg/dL (Negative) 05/14/22 10:38 Urine Blood Mod (Negative) 05/14/22 10:38 Urine Nitrite Neg (Negative) 05/14/22 10:38 Urine Bilirubin Neg (Negative) 05/14/22 10:38 Urine Ictotest Not Reportable 05/14/22 10:38 Urine Urobilinogen < 2.0 mg/dL (<2.0) 05/14/22 10:38 Ur Leukocyte Esterase Tr (Negative) 05/14/22 10:38 Urine WBC (Auto) > 182.0 /HPF (0.0-6.0) H 05/14/22 10:38 Urine RBC (Auto) > 182.0 /HPF (0.0-6.0) 05/14/22 10:38 Urine Bacteria (Auto) 4+ /HPF (Negative) 05/14/22 10:38 Urine WBC Clumps 3+ /HPF 05/14/22 10:38 Urine Mucus 1+ /HPF 05/14/22 10:38 SARS-CoV-2 (PCR) Negative (Negative) 05/14/22 10:38 Microbiology: Microbiology 05/20/22 20:03 Peripheral/Venous Blood Culture - Preliminary NO GROWTH AFTER 24 HOURS 05/20/22 20:03 Peripheral/Venous Blood Culture - Preliminary NO GROWTH AFTER 24 HOURS Choe/IV: Voiding Method External Female Catheter Active Medications - Current Medications Current Medications: Generic Name Dose Route Start Last Admin Trade Name Freq PRN Reason Stop Dose Admin Acetaminophen 650 mg 05/14/22 09:33 05/20/22 17:13 Acetaminophen 325 Mg Tab PO 650 mg Q6H PRN Administration Pain MILD(1-3)/Fever >100.5/SNELL Albuterol 2.5 mg 05/14/22 12:52 Albuterol 2.5 Mg/3 Ml Nebu IH Q4H PRN Shortness Of Breath Heparin Sodium (Porcine) 5,000 unit 05/14/22 22:00 05/22/22 09:11 Heparin 5,000 Unit/1 Ml Vial SUB-Q 5,000 unit Q12HR DUKE Administration Insulin Glargine 20 units 05/22/22 10:00 05/22/22 09:12 Insulin Glargine 100 Units/Ml SUB-Q 20 units DAILY DUKE Administration Insulin Human Lispro 0 unit 05/14/22 18:00 05/22/22 12:00 Insulin Lispro 100 Unit/Ml SUB-Q Not Given Q6HR [facility] Protocol Morphine Sulfate 2 mg 05/14/22 09:33 Morphine 2 Mg/1 Ml Inj IV Q4H PRN Pain, Moderate (4-6) Sodium Chloride 10 ml 05/14/22 10:00 05/22/22 09:12 Sodium Chloride 0.9% 10 Ml Flush Syringe IV 10 ml BID DUKE Administration Sodium Chloride 10 ml 05/14/22 09:32 Sodium Chloride 0.9% 10 Ml Flush Syringe IV PRN PRN LINE FLUSH Nutrition/Malnutrition Assess - Dietary Evaluation Nutrition/Malnutrition Findings: Nutrition Notes Start: 05/15/22 11:28 Freq: Status: Active Protocol: Document 05/19/22 11:34 CLARENCE (Rec: 05/19/22 12:07 CLARENCE [id number]) Nutrition Notes Initial or Follow up Reassessment Current Diagnosis Acute Kidney Injury,Sepsis, Respiratory Failure, Malnutrition Other Pertinent Diagnosis Metabolic Encephalopathy, UTI, HAP, Lactic Acidosis, ... Current Diet TF-Vital AF 1.2 Le[place] @ 45 ml/hr (from D 05/19). Labs/Tests 05/19: Na 151, Cl 111.9, Cl 32 , BUN 18, Crea 0.4, Glu 323, Ca 10.4. Pertinent Medications 05/19: Lantus 15U, Humalog 6U, others nutritionally unremarkable. Height 5 ft 2.4 in Weight 62 kg Flynn Body Weight (kg) 50.90 BMI 24.7 Weight change and time frame No body weight change reported in 4 days. Weight Status Appropriate Subjective/Other Information RD consult for routine F/U on dietary advancement. TF continues as prescribed, however, due to the current unavailability of TF Glucerna 1.2 Le[place], I will temporarly replace this order with Vital AF 1.2 Le[place]. Pt is on Nasal Cannula, O2 saturation @ 98%, according to Physical Assessment History notes. PEG tube placement before discharge is being considered, according to Progress notes. Pt will be discharged to SNF when medically cleared, according to Progress notes. Percent of energy/protein needs met: Prescribed TF-Vital AF 1.2 [place] @ 45 ml/hr provides for energy/protein needs (1,310 Kcal/82 g) during LOS, 99% Kcal; 100% AA. Burn Absent Trauma Absent GI Symptoms None Skin Integrity/Comment L-LE wounds. Current % PO Other Minimum of two criteria No Body Fat Depletion Mild depletion (non-severe) Muscle Mass Moderate Depletion (severe) Fluid Accumulation Moderate to Severe (severe) Reduced Nuclear Physics Professor Strength N/A (non-severe) Protein-Calorie Malnutrition Severe #1 Nutrition Diagnosis Malnutrition Diagnosis Progress(for reassessment Continues documentation) Is patient on ventilator? No Is Patient Ambulatory and/or Out of Bed No REE-([place]-St. Jeor-confined to bed) [phone] Calculation Used for Recommendations [place]-St Jeor Additional Notes Protein: 1.2-1.5 g/Kg ABW; 74- 93 g/day. Fluids: 1 ml/Kcal, or as per MD. Nutrition Intervention Nutrition Support: Change formula to TF-Vital AF 1.2 [place] @ 45 ml/hr. Flush: 70 ml water Q 4 hr, or as per MD. Kcal 1,310 Protein (gm) 82 Carbohydrates (gm) 121 Fat (gm) 59 Fluid (mL) 885 Fiber (gm) 6 % RDI: 99% Kcal; 100% AA. Goal #1 Provide at least 75% of energy /protein needs through Enteral Feeding during LOS. Goal #2 Adjust the dietary intervention to better serve Pt's needs and clinical conditions during LOS. Follow-Up By: 05/23/22 Additional Comments Continue monitoring TF tolerance and BM.
--- NOTE | 2022-05-22 16:23 | Gastroenterology Progress Note ---
Assessment and Plan 1. oropharyngeal dysphagia - no meaningful improvement in mentation, likely will need peg tube for half-way nutrition. attempted to call x 2 today (number [phone]) to discuss peg tube. however, unable to reach him. if able to obtain consent, will proceed with egd/peg tube placement. cont tube feeds via ng tube for now. stop tube feeds at midnight in case consent is able to be obtained tomorrow. Subjective Date of service: 05/22/22 Principal diagnosis: Pneumonia, Sepsis Interval history: no meaningful improvement in mentation and unable to participate in swallow study. has ng tube and tolerating tube feeds. Objective - Exam Narrative Exam: Gen: nad, non-verbal Abd: obese, nd CV: rrr - Constitutional Vitals: Temp Pulse Resp BP Pulse Ox 98.7 F 68 18 145/57 100 05/22/22 12:09 05/22/22 12:09 05/22/22 12:09 05/22/22 12:09 05/22/22 12:09 - Labs CBC & Chem 7: 05/19/22 04:22 05/19/22 04:22 Labs: Laboratory Results - last 24 hr 05/21/22 05/22/22 05/22/22 23:57 06:30 12:07 POC Glucose 137 H 134 H 123 H
--- NOTE | 2022-05-22 17:24 | Progress Note ---
Assessment and Plan Imp: 1. Acute metabolic encephalopathy 2. UTI 3. LLL pneumonia 4. Sepsis 5. R/o OP dysphagia 6. ROXANE 7. Hypernatremia Rec: 1. ST eval. 2. Aspiration precautions 3. Free water per DHT 4. Finish ABX 5. Will follow No family present Subjective Date of service: 05/21/22 Principal diagnosis: Pneumonia, Sepsis Interval history: No events. Eyes open. Nonverbal. Cannot give history. On NC. Active Medications Acetaminophen (Acetaminophen 325 Mg Tab) 650 mg PO Q6H PRN PRN Reason: Pain MILD(1-3)/Fever >100.5/SNELL Last Admin: 05/20/22 17:13 Dose: 650 mg Albuterol (Albuterol 2.5 Mg/3 Ml Nebu) 2.5 mg IH Q4H PRN PRN Reason: Shortness Of Breath Heparin Sodium (Porcine) (Heparin 5,000 Unit/1 Ml Vial) 5,000 unit SUB-Q Q12HR [facility] Last Admin: 05/21/22 09:46 Dose: 5,000 unit Insulin Glargine (Insulin Glargine 100 Units/Ml) 20 units SUB-Q DAILY [facility] Insulin Glargine (Insulin Glargine 100 Units/Ml) 5 units SUB-Q ONCE@1200 [place] Stop: 05/21/22 16:00 Last Admin: 05/21/22 12:14 Dose: 5 units Insulin Human Lispro (Insulin Lispro 100 Unit/Ml) 0 unit SUB-Q Q6HR [facility]; Protocol Last Admin: 05/21/22 12:03 Dose: 6 unit Morphine Sulfate (Morphine 2 Mg/1 Ml Inj) 2 mg IV Q4H PRN PRN Reason: Pain, Moderate (4-6) Sodium Chloride (Sodium Chloride 0.9% 10 Ml Flush Syringe) 10 ml IV BID [facility] Last Admin: 05/21/22 10:03 Dose: 10 ml Sodium Chloride (Sodium Chloride 0.9% 10 Ml Flush Syringe) 10 ml IV PRN PRN PRN Reason: LINE FLUSH Objective Vital Signs - 12hr 05/22/22 05/22/22 10:00 12:09 Temperature 98.7 F Pulse Rate 68 Respiratory 18 Rate Blood Pressure 145/57 O2 Sat by Pulse 95 100 Oximetry Constitutional: no acute distress, alert Eyes: non-icteric ENT: oropharynx moist Neck: supple Effort: normal Ascultation: Left: rales (left lower lobe), Bilateral: rhonchi Cardiovascular: regular rate and rhythm (no mrg) Gastrointestinal: normoactive bowel sounds, soft, non-tender, non-distended Integumentary: normal Extremities: no cyanosis, no edema, pink and warm Neurologic: unable to assess Psychiatric: other (unable to assess) CBC and BMP: 05/19/22 04:22 05/19/22 04:22 ABG, PT/INR, D-dimer: ABG ABG pH 7.422 pH Units (7.350-7.450) 05/14/22 10:50 ABG pCO2 40.2 mm Hg 05/14/22 10:50 ABG pO2 51.4 mm Hg (80.0-90.0) L 05/14/22 10:50 ABG O2 Saturation 88.4 % (95.0-99.0) L 05/14/22 10:50 Abnormal lab findings: Abnormal Labs 05/14/22 05/14/22 05/14/22 05:45 05:45 05:45 WBC 20.8 H Seg Neuts % (Manual) 85.0 H Lymphocytes % (Manual) 5.0 L Seg Neutrophils # Man 17.7 H Lymphocytes # (Manual) 1.0 L ABG pO2 ABG O2 Saturation ABG Hemoglobin Oxyhemoglobin Sodium 134 L Potassium Chloride 94.2 L Carbon Dioxide BUN 35 H Creatinine 2.1 H Glucose 403 H POC Glucose Lactic Acid 6.60 H* Calcium Magnesium Albumin 2.7 L Urine WBC (Auto) 05/14/22 05/14/22 05/14/22 05:45 07:02 09:26 WBC Seg Neuts % (Manual) Lymphocytes % (Manual) Seg Neutrophils # Man Lymphocytes # (Manual) ABG pO2 ABG O2 Saturation ABG Hemoglobin Oxyhemoglobin Sodium Potassium Chloride Carbon Dioxide BUN Creatinine Glucose POC Glucose Lactic Acid 5.70 H* 5.30 H* Calcium Magnesium 1.10 L Albumin Urine WBC (Auto) 05/14/22 05/14/22 05/14/22 09:31 10:38 10:50 WBC Seg Neuts % (Manual) Lymphocytes % (Manual) Seg Neutrophils # Man Lymphocytes # (Manual) ABG pO2 51.4 L ABG O2 Saturation 88.4 L ABG Hemoglobin 11.5 L Oxyhemoglobin 86.5 L Sodium Potassium Chloride Carbon Dioxide BUN Creatinine Glucose POC Glucose 209 H Lactic Acid Calcium Magnesium Albumin Urine WBC (Auto) > 182.0 H 05/14/22 05/14/22 05/14/22 13:24 17:15 23:38 WBC Seg Neuts % (Manual) Lymphocytes % (Manual) Seg Neutrophils # Man Lymphocytes # (Manual) ABG pO2 ABG O2 Saturation ABG Hemoglobin Oxyhemoglobin Sodium Potassium Chloride Carbon Dioxide BUN Creatinine Glucose POC Glucose 212 H 245 H 246 H Lactic Acid Calcium Magnesium Albumin Urine WBC (Auto) 05/15/22 05/15/22 05/15/22 05:23 11:25 16:16 WBC Seg Neuts % (Manual) Lymphocytes % (Manual) Seg Neutrophils # Man Lymphocytes # (Manual) ABG pO2 ABG O2 Saturation ABG Hemoglobin Oxyhemoglobin Sodium Potassium Chloride Carbon Dioxide BUN Creatinine Glucose POC Glucose 236 H 232 H 166 H Lactic Acid Calcium Magnesium Albumin Urine WBC (Auto) 05/15/22 05/16/22 05/16/22 17:56 00:58 04:28 WBC 21.8 H Seg Neuts % (Manual) 97.0 H Lymphocytes % (Manual) 0 L Seg Neutrophils # Man 21.1 H Lymphocytes # (Manual) 0.0 L ABG pO2 ABG O2 Saturation ABG Hemoglobin Oxyhemoglobin Sodium Potassium 3.5 L Chloride 110.1 H Carbon Dioxide BUN 32 H Creatinine Glucose 207 H POC Glucose 215 H Lactic Acid Calcium Magnesium Albumin Urine WBC (Auto) 05/16/22 05/16/22 05/16/22 04:28 05:47 11:36 WBC Seg Neuts % (Manual) Lymphocytes % (Manual) Seg Neutrophils # Man Lymphocytes # (Manual) ABG pO2 ABG O2 Saturation ABG Hemoglobin Oxyhemoglobin Sodium Potassium 3.5 L Chloride 110.2 H Carbon Dioxide BUN 29 H Creatinine Glucose 222 H POC Glucose 186 H 193 H Lactic Acid Calcium Magnesium Albumin Urine WBC (Auto) 05/16/22 05/16/22 05/17/22 17:24 23:21 00:17 WBC 18.6 H Seg Neuts % (Manual) 91.0 H Lymphocytes % (Manual) 4.0 L Seg Neutrophils # Man 16.9 H Lymphocytes # (Manual) 0.7 L ABG pO2 ABG O2 Saturation ABG Hemoglobin Oxyhemoglobin Sodium Potassium Chloride Carbon Dioxide BUN Creatinine Glucose POC Glucose 170 H 192 H Lactic Acid Calcium Magnesium Albumin Urine WBC (Auto) 05/17/22 05/17/22 05/17/22 00:17 05:17 12:13 WBC Seg Neuts % (Manual) Lymphocytes % (Manual) Seg Neutrophils # Man Lymphocytes # (Manual) ABG pO2 ABG O2 Saturation ABG Hemoglobin Oxyhemoglobin Sodium 150 H Potassium 3.5 L Chloride 112.5 H Carbon Dioxide 18 L BUN 22 H Creatinine 0.4 L Glucose 242 H POC Glucose 277 H 305 H Lactic Acid Calcium Magnesium Albumin Urine WBC (Auto) 05/17/22 05/17/22 05/18/22 18:17 23:41 05:16 WBC Seg Neuts % (Manual) Lymphocytes % (Manual) Seg Neutrophils # Man Lymphocytes # (Manual) ABG pO2 ABG O2 Saturation ABG Hemoglobin Oxyhemoglobin Sodium Potassium Chloride Carbon Dioxide BUN Creatinine Glucose POC Glucose 331 H 372 H 313 H Lactic Acid Calcium Magnesium Albumin Urine WBC (Auto) 05/18/22 05/18/22 05/18/22 11:23 16:43 23:53 WBC Seg Neuts % (Manual) Lymphocytes % (Manual) Seg Neutrophils # Man Lymphocytes # (Manual) ABG pO2 ABG O2 Saturation ABG Hemoglobin Oxyhemoglobin Sodium Potassium Chloride Carbon Dioxide BUN Creatinine Glucose POC Glucose 332 H 287 H 300 H Lactic Acid Calcium Magnesium Albumin Urine WBC (Auto) 05/19/22 05/19/22 05/19/22 04:22 04:22 04:59 WBC 17.3 H Seg Neuts % (Manual) 96.0 H Lymphocytes % (Manual) 1.0 L Seg Neutrophils # Man 16.6 H Lymphocytes # (Manual) 0.2 L ABG pO2 ABG O2 Saturation ABG Hemoglobin Oxyhemoglobin Sodium 151 H Potassium Chloride 111.9 H Carbon Dioxide 32 H D BUN 18 H Creatinine 0.4 L Glucose 323 H POC Glucose 296 H Lactic Acid Calcium 10.4 H Magnesium Albumin Urine WBC (Auto) 05/19/22 05/19/22 05/19/22 11:17 17:17 23:20 WBC Seg Neuts % (Manual) Lymphocytes % (Manual) Seg Neutrophils # Man Lymphocytes # (Manual) ABG pO2 ABG O2 Saturation ABG Hemoglobin Oxyhemoglobin Sodium Potassium Chloride Carbon Dioxide BUN Creatinine Glucose POC Glucose 295 H 266 H 250 H Lactic Acid Calcium Magnesium Albumin Urine WBC (Auto) 05/20/22 05/20/2205/20/22 05:36 11:50 17:29 WBC Seg Neuts % (Manual) Lymphocytes % (Manual) Seg Neutrophils # Man Lymphocytes # (Manual) ABG pO2 ABG O2 Saturation ABG Hemoglobin Oxyhemoglobin Sodium Potassium Chloride Carbon Dioxide BUN Creatinine Glucose POC Glucose 263 H 314 H 255 H Lactic Acid Calcium Magnesium Albumin Urine WBC (Auto) 05/20/22 05/21/22 05/21/22 23:55 05:34 11:19 WBC Seg Neuts % (Manual) Lymphocytes % (Manual) Seg Neutrophils # Man Lymphocytes # (Manual) ABG pO2 ABG O2 Saturation ABG Hemoglobin Oxyhemoglobin Sodium Potassium Chloride Carbon Dioxide BUN Creatinine Glucose POC Glucose 216 H 266 H 290 H Lactic Acid Calcium Magnesium Albumin Urine WBC (Auto) 05/21/22 05/21/22 05/22/22 16:13 23:57 06:30 WBC Seg Neuts % (Manual) Lymphocytes % (Manual) Seg Neutrophils # Man Lymphocytes # (Manual) ABG pO2 ABG O2 Saturation ABG Hemoglobin Oxyhemoglobin Sodium Potassium Chloride Carbon Dioxide BUN Creatinine Glucose POC Glucose 240 H 137 H 134 H Lactic Acid Calcium Magnesium Albumin Urine WBC (Auto) 05/22/22 12:07 WBC Seg Neuts % (Manual) Lymphocytes % (Manual) Seg Neutrophils # Man Lymphocytes # (Manual) ABG pO2 ABG O2 Saturation ABG Hemoglobin Oxyhemoglobin Sodium Potassium Chloride Carbon Dioxide BUN Creatinine Glucose POC Glucose 123 H Lactic Acid Calcium Magnesium Albumin Urine WBC (Auto) Chest x-ray: report reviewed, image reviewed
[2022-05-22 19:01] LABS: INR 0.94 (0.87-1.13)
--- NOTE | 2022-05-22 22:57 | XRay Report ---
XR abdomen 1V ap INDICATION / CLINICAL INFORMATION: Dobhoff re-insertion. COMPARISON: Abdominal x-ray 05/16/2022; 1354 hours TECHNIQUE: One view supine AP abdomen. FINDINGS: TUBES / LINES: Weighted feeding tube terminates at or just through the GE junction, advancement by 12 -15 cm recommended for optimal positioning. BOWEL GAS PATTERN: No significant abnormality. FREE AIR / EXTRALUMINAL GAS: None seen. ADDITIONAL FINDINGS: No significant additional findings. IMPRESSION: 1. Weighted feeding tube tip at or just through the GE junction. Advancement by 12-15 cm recommended for optimal positioning within the distal fundus first portion of the duodenum. Signer Name: Christiano Mcgee II, MD Signed: 05/22/2022 10:53 PM Workstation Name: [id number]
--- NOTE | 2022-05-22 23:36 | Progress Note ---
Assessment and Plan Imp: 1. Acute metabolic encephalopathy 2. UTI 3. LLL pneumonia 4. Sepsis 5. R/o OP dysphagia 6. ROXANE 7. Hypernatremia Rec: 1. ST eval. 2. Aspiration precautions 3. Free water per DHT; needs repeat BMP 4. Finished ABX 5. Will follow No family present Subjective Date of service: 05/22/22 Principal diagnosis: Pneumonia, Sepsis Interval history: No events. Eyes open. Nonverbal. Cannot give history. On NC. Active Medications Acetaminophen (Acetaminophen 325 Mg Tab) 650 mg PO Q6H PRN PRN Reason: Pain MILD(1-3)/Fever >100.5/SNELL Last Admin: 05/20/22 17:13 Dose: 650 mg Albuterol (Albuterol 2.5 Mg/3 Ml Nebu) 2.5 mg IH Q4H PRN PRN Reason: Shortness Of Breath Heparin Sodium (Porcine) (Heparin 5,000 Unit/1 Ml Vial) 5,000 unit SUB-Q Q12HR [facility] Last Admin: 05/22/22 22:19 Dose: 5,000 unit Insulin Glargine (Insulin Glargine 100 Units/Ml) 20 units SUB-Q DAILY [facility] Last Admin: 05/22/22 09:12 Dose: 20 units Insulin Human Lispro (Insulin Lispro 100 Unit/Ml) 0 unit SUB-Q Q6HR [facility]; Protocol Last Admin: 05/22/22 17:04 Dose: Not Given Morphine Sulfate (Morphine 2 Mg/1 Ml Inj) 2 mg IV Q4H PRN PRN Reason: Pain, Moderate (4-6) Sodium Chloride (Sodium Chloride 0.9% 10 Ml Flush Syringe) 10 ml IV BID [facility] Last Admin: 05/22/22 22:19 Dose: 10 ml Sodium Chloride (Sodium Chloride 0.9% 10 Ml Flush Syringe) 10 ml IV PRN PRN PRN Reason: LINE FLUSH Objective Vital Signs - 12hr 05/22/22 05/22/22 05/22/22 12:09 20:39 22:22 Temperature 98.7 F 98.7 F Pulse Rate 68 68 Respiratory 18 18 Rate Blood Pressure 145/57 Blood Pressure 126/53 [Left] O2 Sat by Pulse 100 99 99 Oximetry Constitutional: no acute distress, alert Eyes: non-icteric ENT: oropharynx moist Neck: supple Effort: normal Ascultation: Left: rales (left lower lobe), Bilateral: rhonchi Cardiovascular: regular rate and rhythm (no mrg) Gastrointestinal: normoactive bowel sounds, soft, non-tender, non-distended Integumentary: normal Extremities: no cyanosis, no edema, pink and warm Neurologic: unable to assess Psychiatric: other (unable to assess) CBC and BMP: 05/19/22 04:22 05/19/22 04:22 ABG, PT/INR, D-dimer: ABG ABG pH 7.422 pH Units (7.350-7.450) 05/14/22 10:50 ABG pCO2 40.2 mm Hg 05/14/22 10:50 ABG pO2 51.4 mm Hg (80.0-90.0) L 05/14/22 10:50 ABG O2 Saturation 88.4 % (95.0-99.0) L 05/14/22 10:50 PT/INR, D-dimer PT 13.6 Sec. (12.2-14.9) 05/22/22 17:51 INR 0.94 (0.87-1.13) 05/22/22 17:51 Abnormal lab findings: Abnormal Labs 05/14/22 05/14/22 05/14/22 05:45 05:45 05:45 WBC 20.8 H Seg Neuts % (Manual) 85.0 H Lymphocytes % (Manual) 5.0 L Seg Neutrophils # Man 17.7 H Lymphocytes # (Manual) 1.0 L ABG pO2 ABG O2 Saturation ABG Hemoglobin Oxyhemoglobin Sodium 134 L Potassium Chloride 94.2 L Carbon Dioxide BUN 35 H Creatinine 2.1 H Glucose 403 H POC Glucose Lactic Acid 6.60 H* Calcium Magnesium Albumin 2.7 L Urine WBC (Auto) 05/14/22 05/14/22 05/14/22 05:45 07:02 09:26 WBC Seg Neuts % (Manual) Lymphocytes % (Manual) Seg Neutrophils # Man Lymphocytes # (Manual) ABG pO2 ABG O2 Saturation ABG Hemoglobin Oxyhemoglobin Sodium Potassium Chloride Carbon Dioxide BUN Creatinine Glucose POC Glucose Lactic Acid 5.70 H* 5.30 H* Calcium Magnesium 1.10 L Albumin Urine WBC (Auto) 05/14/22 05/14/22 05/14/22 09:31 10:38 10:50 WBC Seg Neuts % (Manual) Lymphocytes % (Manual) Seg Neutrophils # Man Lymphocytes # (Manual) ABG pO2 51.4 L ABG O2 Saturation 88.4 L ABG Hemoglobin 11.5 L Oxyhemoglobin 86.5 L Sodium Potassium Chloride Carbon Dioxide BUN Creatinine Glucose POC Glucose 209 H Lactic Acid Calcium Magnesium Albumin Urine WBC (Auto) > 182.0 H 05/14/22 05/14/22 05/14/22 13:24 17:15 23:38 WBC Seg Neuts % (Manual) Lymphocytes % (Manual) Seg Neutrophils # Man Lymphocytes # (Manual) ABG pO2 ABG O2 Saturation ABG Hemoglobin Oxyhemoglobin Sodium Potassium Chloride Carbon Dioxide BUN Creatinine Glucose POC Glucose 212 H 245 H 246 H Lactic Acid Calcium Magnesium Albumin Urine WBC (Auto) 05/15/22 05/15/22 05/15/22 05:23 11:25 16:16 WBC Seg Neuts % (Manual) Lymphocytes % (Manual) Seg Neutrophils # Man Lymphocytes # (Manual) ABG pO2 ABG O2 Saturation ABG Hemoglobin Oxyhemoglobin Sodium Potassium Chloride Carbon Dioxide BUN Creatinine Glucose POC Glucose 236 H 232 H 166 H Lactic Acid Calcium Magnesium Albumin Urine WBC (Auto) 05/15/22 05/16/22 05/16/22 17:56 00:58 04:28 WBC 21.8 H Seg Neuts % (Manual) 97.0 H Lymphocytes % (Manual) 0 L Seg Neutrophils # Man 21.1 H Lymphocytes # (Manual) 0.0 L ABG pO2 ABG O2 Saturation ABG Hemoglobin Oxyhemoglobin Sodium Potassium 3.5 L Chloride 110.1 H Carbon Dioxide BUN 32 H Creatinine Glucose 207 H POC Glucose 215 H Lactic Acid Calcium Magnesium Albumin Urine WBC (Auto) 05/16/22 05/16/22 05/16/22 04:28 05:47 11:36 WBC Seg Neuts % (Manual) Lymphocytes % (Manual) Seg Neutrophils # Man Lymphocytes # (Manual) ABG pO2 ABG O2 Saturation ABG Hemoglobin Oxyhemoglobin Sodium Potassium 3.5 L Chloride 110.2 H Carbon Dioxide BUN 29 H Creatinine Glucose 222 H POC Glucose 186 H 193 H Lactic Acid Calcium Magnesium Albumin Urine WBC (Auto) 05/16/22 05/16/22 05/17/22 17:24 23:21 00:17 WBC 18.6 H Seg Neuts % (Manual) 91.0 H Lymphocytes % (Manual) 4.0 L Seg Neutrophils # Man 16.9 H Lymphocytes # (Manual) 0.7 L ABG pO2 ABG O2 Saturation ABG Hemoglobin Oxyhemoglobin Sodium Potassium Chloride Carbon Dioxide BUN Creatinine Glucose POC Glucose 170 H 192 H Lactic Acid Calcium Magnesium Albumin Urine WBC (Auto) 05/17/22 05/17/22 05/17/22 00:17 05:17 12:13 WBC Seg Neuts % (Manual) Lymphocytes % (Manual) Seg Neutrophils # Man Lymphocytes # (Manual) ABG pO2 ABG O2 Saturation ABG Hemoglobin Oxyhemoglobin Sodium 150 H Potassium 3.5 L Chloride 112.5 H Carbon Dioxide 18 L BUN 22 H Creatinine 0.4 L Glucose 242 H POC Glucose 277 H 305 H Lactic Acid Calcium Magnesium Albumin Urine WBC (Auto) 05/17/22 05/17/22 05/18/22 18:17 23:41 05:16 WBC Seg Neuts % (Manual) Lymphocytes % (Manual) Seg Neutrophils # Man Lymphocytes # (Manual) ABG pO2 ABG O2 Saturation ABG Hemoglobin Oxyhemoglobin Sodium Potassium Chloride Carbon Dioxide BUN Creatinine Glucose POC Glucose 331 H 372 H 313 H Lactic Acid Calcium Magnesium Albumin Urine WBC (Auto) 05/18/22 05/18/22 05/18/22 11:23 16:43 23:53 WBC Seg Neuts % (Manual) Lymphocytes % (Manual) Seg Neutrophils # Man Lymphocytes # (Manual) ABG pO2 ABG O2 Saturation ABG Hemoglobin Oxyhemoglobin Sodium Potassium Chloride Carbon Dioxide BUN Creatinine Glucose POC Glucose 332 H 287 H 300 H Lactic Acid Calcium Magnesium Albumin Urine WBC (Auto) 05/19/22 05/19/22 05/19/22 04:22 04:22 04:59 WBC 17.3 H Seg Neuts % (Manual) 96.0 H Lymphocytes % (Manual) 1.0 L Seg Neutrophils # Man 16.6 H Lymphocytes # (Manual) 0.2 L ABG pO2 ABG O2 Saturation ABG Hemoglobin Oxyhemoglobin Sodium 151 H Potassium Chloride 111.9 H Carbon Dioxide 32 H D BUN 18 H Creatinine 0.4 L Glucose 323 H POC Glucose 296 H Lactic Acid Calcium 10.4 H Magnesium Albumin Urine WBC (Auto) 05/19/22 05/19/22 05/19/22 11:17 17:17 23:20 WBC Seg Neuts % (Manual) Lymphocytes % (Manual) Seg Neutrophils # Man Lymphocytes # (Manual) ABG pO2 ABG O2 Saturation ABG Hemoglobin Oxyhemoglobin Sodium Potassium Chloride Carbon Dioxide BUN Creatinine Glucose POC Glucose 295 H 266 H 250 H Lactic Acid Calcium Magnesium Albumin Urine WBC (Auto) 05/20/22 05/20/22 05/20/22 05:36 11:50 17:29 WBC Seg Neuts % (Manual) Lymphocytes % (Manual) Seg Neutrophils # Man Lymphocytes # (Manual) ABG pO2 ABG O2 Saturation ABG Hemoglobin Oxyhemoglobin Sodium Potassium Chloride Carbon Dioxide BUN Creatinine Glucose POC Glucose 263 H 314 H 255 H Lactic Acid Calcium Magnesium Albumin Urine WBC (Auto) 05/20/22 05/21/22 05/21/22 23:55 05:34 11:19 WBC Seg Neuts % (Manual) Lymphocytes % (Manual) Seg Neutrophils # Man Lymphocytes # (Manual) ABG pO2 ABG O2 Saturation ABG Hemoglobin Oxyhemoglobin Sodium Potassium Chloride Carbon Dioxide BUN Creatinine Glucose POC Glucose 216 H 266 H 290 H Lactic Acid Calcium Magnesium Albumin Urine WBC (Auto) 05/21/22 05/21/22 05/22/22 16:13 23:57 06:30 WBC Seg Neuts % (Manual) Lymphocytes % (Manual) Seg Neutrophils # Man Lymphocytes # (Manual) ABG pO2 ABG O2 Saturation ABG Hemoglobin Oxyhemoglobin Sodium Potassium Chloride Carbon Dioxide BUN Creatinine Glucose POC Glucose 240 H 137 H 134 H Lactic Acid Calcium Magnesium Albumin Urine WBC (Auto) 05/22/22 12:07 WBC Seg Neuts % (Manual) Lymphocytes % (Manual) Seg Neutrophils # Man Lymphocytes # (Manual) ABG pO2 ABG O2 Saturation ABG Hemoglobin Oxyhemoglobin Sodium Potassium Chloride Carbon Dioxide BUN Creatinine Glucose POC Glucose 123 H Lactic Acid Calcium Magnesium Albumin Urine WBC (Auto) Chest x-ray: report reviewed, image reviewed
[2022-05-23] MEDS: INSULIN LISPRO 100 UNIT/ML SUB-Q SCH ×4 (00:45→19:00)
[2022-05-23 06:04] LABS: Hematocrit 30.4 % (30.3-42.9); Hemoglobin 10.2 gm/dl (10.1-14.3); Mean Corpuscular HGB Conc 34 % (30-34); Mean Corpuscular Volume 91 fl (79-97); Platelet Count 179 K/mm3 (140-440); Red Blood Count 3.35 M/mm3 (3.65-5.03); Red Cell Distribution Width 13.7 % (13.2-15.2)
[2022-05-23 06:21] LABS: Blood Urea Nitrogen 23 mg/dL (7-17); Calcium 9.2 mg/dL (8.4-10.2); Hemolysis Index 3
[2022-05-23 06:22] LABS: BUN/Creatinine Ratio 77
[2022-05-23 07:06] LABS: Anisocytosis 1+; Basophils % (Manual) 0 % (0.0-1.8); Platelet Estimate Consistent w Auto; Total Cells Counted 100
--- NOTE | 2022-05-23 08:13 | Progress Note ---
Assessment and Plan - Patient Problems (1) Acute respiratory failure Current Visit: Yes Status: Acute (2) Acute kidney failure Current Visit: Yes Status: Acute (3) Acute metabolic encephalopathy Current Visit: Yes Status: Acute (4) Leukocytosis (leucocytosis) Current Visit: Yes Status: Acute (5) Neurogenic dysphagia Current Visit: Yes Status: Acute (6) PNA (pneumonia) Current Visit: Yes Status: Acute (7) Physical deconditioning Current Visit: Yes Status: Acute (8) Protein calorie malnutrition Current Visit: Yes Status: Acute (9) UTI (urinary tract infection) Current Visit: Yes Status: Acute Subjective Principal diagnosis: Pneumonia, Sepsis Interval history: opens eyes Objective Vital Signs - 12hr 05/22/22 05/22/22 05/22/22 20:39 21:50 22:22 Temperature 98.7 F Pulse Rate 68 Respiratory 18 Rate Blood Pressure 126/53 [Left] O2 Sat by Pulse 99 98 99 Oximetry 05/23/22 06:07 Temperature 98.5 F Pulse Rate 69 Respiratory 18 Rate Blood Pressure 129/50 [Left] O2 Sat by Pulse 100 Oximetry Constitutional: no acute distress Eyes: non-icteric ENT: oropharynx moist Neck: supple Effort: normal Ascultation: Left: rales (left lower lobe), Bilateral: rhonchi Cardiovascular: regular rate and rhythm (no mrg) Gastrointestinal: normoactive bowel sounds, soft, non-tender, non-distended Integumentary: normal Extremities: no cyanosis, no edema, pink and warm Neurologic: unable to assess Psychiatric: other (unable to assess) CBC and BMP: 05/23/22 05:23 05/23/22 05:23 ABG, PT/INR, D-dimer: ABG ABG pH 7.422 pH Units (7.350-7.450) 05/14/22 10:50 ABG pCO2 40.2 mm Hg 05/14/22 10:50 ABG pO2 51.4 mm Hg (80.0-90.0) L 05/14/22 10:50 ABG O2 Saturation 88.4 % (95.0-99.0) L 05/14/22 10:50 PT/INR, D-dimer PT 13.6 Sec. (12.2-14.9) 05/22/22 17:51 INR 0.94 (0.87-1.13) 05/22/22 17:51 Abnormal lab findings: Abnormal Labs 05/14/22 05/14/22 05/14/22 05:45 05:45 05:45 WBC 20.8 H RBC Seg Neuts % (Manual) 85.0 H Lymphocytes % (Manual) 5.0 L Seg Neutrophils # Man 17.7 H Lymphocytes # (Manual) 1.0 L ABG pO2 ABG O2 Saturation ABG Hemoglobin Oxyhemoglobin Sodium 134 L Potassium Chloride 94.2 L Carbon Dioxide BUN 35 H Creatinine 2.1 H Glucose 403 H POC Glucose Lactic Acid 6.60 H* Calcium Magnesium Albumin 2.7 L Urine WBC (Auto) 05/14/22 05/14/22 05/14/22 05:45 07:02 09:26 WBC RBC Seg Neuts % (Manual) Lymphocytes % (Manual) Seg Neutrophils # Man Lymphocytes # (Manual) ABG pO2 ABG O2 Saturation ABG Hemoglobin Oxyhemoglobin Sodium Potassium Chloride Carbon Dioxide BUN Creatinine Glucose POC Glucose Lactic Acid 5.70 H* 5.30 H* Calcium Magnesium 1.10 L Albumin Urine WBC (Auto) 05/14/22 05/14/22 05/14/22 09:31 10:38 10:50 WBC RBC Seg Neuts % (Manual) Lymphocytes % (Manual) Seg Neutrophils # Man Lymphocytes # (Manual) ABG pO2 51.4 L ABG O2 Saturation 88.4 L ABG Hemoglobin 11.5 L Oxyhemoglobin 86.5 L Sodium Potassium Chloride Carbon Dioxide BUN Creatinine Glucose POC Glucose 209 H Lactic Acid Calcium Magnesium Albumin Urine WBC (Auto) > 182.0 H 05/14/22 05/14/22 05/14/22 13:24 17:15 23:38 WBC RBC Seg Neuts % (Manual) Lymphocytes % (Manual) Seg Neutrophils # Man Lymphocytes # (Manual) ABG pO2 ABG O2 Saturation ABG Hemoglobin Oxyhemoglobin Sodium Potassium Chloride Carbon Dioxide BUN Creatinine Glucose POC Glucose 212 H 245 H 246 H Lactic Acid Calcium Magnesium Albumin Urine WBC (Auto) 05/15/22 05/15/22 05/15/22 05:23 11:25 16:16 WBC RBC Seg Neuts % (Manual) Lymphocytes % (Manual) Seg Neutrophils # Man Lymphocytes # (Manual) ABG pO2 ABG O2 Saturation ABG Hemoglobin Oxyhemoglobin Sodium Potassium Chloride Carbon Dioxide BUN Creatinine Glucose POC Glucose 236 H 232 H 166 H Lactic Acid Calcium Magnesium Albumin Urine WBC (Auto) 05/15/22 05/16/22 05/16/22 17:56 00:58 04:28 WBC 21.8 H RBC Seg Neuts % (Manual) 97.0 H Lymphocytes % (Manual) 0 L Seg Neutrophils # Man 21.1 H Lymphocytes # (Manual) 0.0 L ABG pO2 ABG O2 Saturation ABG Hemoglobin Oxyhemoglobin Sodium Potassium 3.5 L Chloride 110.1 H Carbon Dioxide BUN 32 H Creatinine Glucose 207 H POC Glucose 215 H Lactic Acid Calcium Magnesium Albumin Urine WBC (Auto) 05/16/22 05/16/22 05/16/22 04:28 05:47 11:36 WBC RBC Seg Neuts % (Manual) Lymphocytes % (Manual) Seg Neutrophils # Man Lymphocytes # (Manual) ABG pO2 ABG O2 Saturation ABG Hemoglobin Oxyhemoglobin Sodium Potassium 3.5 L Chloride 110.2 H Carbon Dioxide BUN 29 H Creatinine Glucose 222 H POC Glucose 186 H 193 H Lactic Acid Calcium Magnesium Albumin Urine WBC (Auto) 05/16/22 05/16/22 05/17/22 17:24 23:21 00:17 WBC 18.6 H RBC Seg Neuts % (Manual) 91.0 H Lymphocytes % (Manual) 4.0 L Seg Neutrophils # Man 16.9 H Lymphocytes # (Manual) 0.7 L ABG pO2 ABG O2 Saturation ABG Hemoglobin Oxyhemoglobin Sodium Potassium Chloride Carbon Dioxide BUN Creatinine Glucose POC Glucose 170 H 192 H Lactic Acid Calcium Magnesium Albumin Urine WBC (Auto) 05/17/22 05/17/22 05/17/22 00:17 05:17 12:13 WBC RBC Seg Neuts % (Manual) Lymphocytes % (Manual) Seg Neutrophils # Man Lymphocytes # (Manual) ABG pO2 ABG O2 Saturation ABG Hemoglobin Oxyhemoglobin Sodium 150 H Potassium 3.5 L Chloride 112.5 H Carbon Dioxide 18 L BUN 22 H Creatinine 0.4 L Glucose 242 H POC Glucose 277 H 305 H Lactic Acid Calcium Magnesium Albumin Urine WBC (Auto) 05/17/22 05/17/22 05/18/22 18:17 23:41 05:16 WBC RBC Seg Neuts % (Manual) Lymphocytes % (Manual) Seg Neutrophils # Man Lymphocytes # (Manual) ABG pO2 ABG O2 Saturation ABG Hemoglobin Oxyhemoglobin Sodium Potassium Chloride Carbon Dioxide BUN Creatinine Glucose POC Glucose 331 H 372 H 313 H Lactic Acid Calcium Magnesium Albumin Urine WBC (Auto) 05/18/22 05/18/22 05/18/22 11:23 16:43 23:53 WBC RBC Seg Neuts % (Manual) Lymphocytes % (Manual) Seg Neutrophils # Man Lymphocytes # (Manual) ABG pO2 ABG O2 Saturation ABG Hemoglobin Oxyhemoglobin Sodium Potassium Chloride Carbon Dioxide BUN Creatinine Glucose POC Glucose 332 H 287 H 300 H Lactic Acid Calcium Magnesium Albumin Urine WBC (Auto) 05/19/22 05/19/22 05/19/22 04:22 04:22 04:59 WBC 17.3 H RBC Seg Neuts % (Manual) 96.0 H Lymphocytes % (Manual) 1.0 L Seg Neutrophils # Man 16.6 H Lymphocytes # (Manual) 0.2 L ABG pO2 ABG O2 Saturation ABG Hemoglobin Oxyhemoglobin Sodium 151 H Potassium Chloride 111.9 H Carbon Dioxide 32 H D BUN 18 H Creatinine 0.4 L Glucose 323 H POC Glucose 296 H Lactic Acid Calcium 10.4 H Magnesium Albumin Urine WBC (Auto) 05/19/22 05/19/22 05/19/22 11:17 17:17 23:20 WBC RBC Seg Neuts % (Manual) Lymphocytes % (Manual) Seg Neutrophils # Man Lymphocytes # (Manual) ABG pO2 ABG O2 Saturation ABG Hemoglobin Oxyhemoglobin Sodium Potassium Chloride Carbon Dioxide BUN Creatinine Glucose POC Glucose 295 H 266 H 250 H Lactic Acid Calcium Magnesium Albumin Urine WBC (Auto) 05/20/22 05/20/22 05/20/22 05:36 11:50 17:29 WBC RBC Seg Neuts % (Manual) Lymphocytes % (Manual) Seg Neutrophils # Man Lymphocytes # (Manual) ABG pO2 ABG O2 Saturation ABG Hemoglobin Oxyhemoglobin Sodium Potassium Chloride Carbon Dioxide BUN Creatinine Glucose POC Glucose 263 H 314 H 255 H Lactic Acid Calcium Magnesium Albumin Urine WBC (Auto) 05/20/22 05/21/22 05/21/22 23:55 05:34 11:19 WBC RBC Seg Neuts % (Manual) Lymphocytes % (Manual) Seg Neutrophils # Man Lymphocytes # (Manual) ABG pO2 ABG O2 Saturation ABG Hemoglobin Oxyhemoglobin Sodium Potassium Chloride Carbon Dioxide BUN Creatinine Glucose POC Glucose 216 H 266 H 290 H Lactic Acid Calcium Magnesium Albumin Urine WBC (Auto) 05/21/22 05/21/22 05/22/22 16:13 23:57 06:30 WBC RBC Seg Neuts % (Manual) Lymphocytes % (Manual) Seg Neutrophils # Man Lymphocytes # (Manual) ABG pO2 ABG O2 Saturation ABG Hemoglobin Oxyhemoglobin Sodium Potassium Chloride Carbon Dioxide BUN Creatinine Glucose POC Glucose 240 H 137 H 134 H Lactic Acid Calcium Magnesium Albumin Urine WBC (Auto) 05/22/22 05/23/22 05/23/22 12:07 05:23 05:23 WBC 13.4 H RBC 3.35 L Seg Neuts % (Manual) 91.0 H Lymphocytes % (Manual) 6.0 L Seg Neutrophils # Man 12.2 H Lymphocytes # (Manual) 0.8 L ABG pO2 ABG O2 Saturation ABG Hemoglobin Oxyhemoglobin Sodium 147 H Potassium 3.5 L Chloride Carbon Dioxide 38 H BUN 23 H Creatinine 0.3 L Glucose POC Glucose 123 H Lactic Acid Calcium Magnesium Albumin Urine WBC (Auto)
--- NOTE | 2022-05-23 09:09 | Progress Note ---
Assessment and Plan Assessment and plan: 71-year-old female patient [facility] resident with significant past medical history of Alzheimer's dementia diabetes, coronary artery disease, depression, dysphagia, thrombocytopenia was sent to the emergency room with complaints of altered level of consciousness and sepsis. Patient was noted to be severely hypoxemic on arrival saturating only 88% on room air however improved to 91% on 2 L. After returning from CT scan patient suddenly went into severe hypoxic respiratory failure requiring 15 L When I went and re evaluated the patient, the respiratory therapist at the bedside and patient is on high flow nasal cannula oxygen 30 L/65% FiO2/O2 sats 95 percent. Patient was already planned to admit to [facility], ER physician consulted pulmonary critical care Dr. Romero. Patient is lethargic noncommunicative, no other history is available Assessment and Plan: #PEG tube placement today 05/23/2022; Patient tolerated the procedure well Start tube feeding per PEG tube protocols Aspiration precautions #Acute hypoxic respiratory failure Requiring supplemental oxygen Probably secondary to pneumonia Oxygen titrate O2 sats to more than 90%, currently on high flow nasal cannula Pulmonary consultation #Sepsis POA secondary to left-sided pneumonia/Urinary Tract Infection - follow bcx,scx,ucx - COVID RT PCR negative - abx: vanc/cefepime IV - trend fever curve/wbc ct #Hospital Acquired Pneumonia [place] resident Blood cultures, sputum cultures Empiric antibiotics cefepime Oxygen titrate O2 sats to more than 90% Supportive care Pulmonary/ID service needed #E. coli urinary tract infection #Acute metabolic encephalopathy; -Multifactorial, sepsis, pneumonia , hypoxia in the setting of advanced dementia -Respiratory failure advanced age -Treat the underlying cause -Neurochecks -CT brain on admission demonstrated no acute intracranial abnormality #Lactic acidosis; -Probably secondary to sepsis, IV fluids -Empiric IV antibiotics, follow cultures -Trend lactic levels #Acute kidney injury; vasomotor nephropathy -Gentle hydration, monitor renal function -Avoid nephrotoxins, nephrology consult if needed #Mild hyponatremia; -Closely monitor electrolytes #Severe protein calorie malnutrition; -Nutrition supplements, supportive care -Nutrition consult #Severe hypoalbuminemia; -Nutrition supplements and supportive care Hospital Course: 05/15: Remains encephalopathic, on high flow nasal cannula. We will continue to wean as patient tolerates. Continue therapy with IV vancomycin and cefepime. ABG/Chest x-ray ordered for tomorrow. Will follow pulmonary recs. 05/16/22: Pulmonary gave 2 boluses yesterday secondary to marginal BP's which is why cxr looks slightly worse. Will discontinue IVF's. Continue to wean FiO2 for sats >88%. Continue IV abx, has gram negative rods in the urine so maybe able to stop vanc. stable BP. Would be ok with patient going back to floor. Replace K 05/17: Patient remains encephalopathic. Patient requiring 3 L O2 with saturations at 99%. Patient still with significant leukocytosis. Urine culture reveals E. coli. Abx will be switched to Rocephin 05/18: Patient with stable respiratory status. Patient with saturations of 95% on 2 L O2. Continue antibiotics of Rocephin. Authorization started for fpc placement 05/19: Patient with blood cultures no growth to date x4 days. Rocephin to complete on 05/21 for E. coli UTI. Await authorization for patient to return to [facility]. The patient remains lethargic and noncommunicative s emmett admission. I discussed patient's mental status with the [id number] ([phone]) yesterday who reports that this is essentially the baseline. She also reports that the patient's /her brother is autistic. Patient currently with DHT receiving enteral feeds. GI consulted for PEG placement. 05/20: GI evaluated the patient and attempted to obtain consent from the who reported he did not want a PEG tube unless there is no other choice. However, the also does not want to pursue hospice/comfort measures either. Speech therapy evaluation with regards to swallowing. If pt fails ST evaluation, then the will consent to placement of a PEG tube. IV Rocephin completes tomorrow for UTI. 05/21: Await speech therapy evaluation. PEG tube placement per GI. 05/22: Speeech therapy reports patient unable to arouse or participate in evaluation. GI evaluated the patient and attempted to obtain consent from the who reported he did not want a PEG tube unless there is no other choice. However, the also does not want to pursue hospice/comfort measures either. Cont. enteral feeds. Aspiration precautions. Restraints for safety. F/U labs in am. 05/23; patient had PEG placement today, tolerated the procedure well, initiate PEG feeds per protocol Aspiration precautions History Interval history: I have seen and examined the patient at the bedside Patient's chart and medications reviewed Patient received PEG tube this morning Tolerated the procedure well Hospitalist Physical - Constitutional Vitals: Temp Pulse Resp BP Pulse Ox 98.5 F 69 18 129/50 93 05/23/22 06:07 05/23/22 06:07 05/23/22 06:07 05/23/22 06:07 05/23/22 08:15 General appearance: Present: no acute distress, well-nourished - EENT Eyes: Present: PERRL, EOM intact - Neck Neck: Present: supple, normal ROM - Respiratory Respiratory effort: normal Respiratory: bilateral: diminished, negative: rales, rhonchi, wheezing - Cardiovascular Rhythm: regular Heart Sounds: Present: S1 & S2 - Extremities Extremities: no ischemia, No edema - Abdominal General gastrointestinal: soft, non-tender, non-distended, other (PEG tube in place) - Integumentary Integumentary: Present: clear, warm - Psychiatric Psychiatric: appropriate mood/affect - Neurologic Neurologic: moves all extremities Results - Labs CBC & Chem 7: 05/23/22 05:23 05/23/22 05:23 Labs: Laboratory Last Values WBC 13.4 K/mm3 (4.5-11.0) H 05/23/22 05:23 RBC 3.35 M/mm3 (3.65-5.03) L 05/23/22 05:23 Hgb 10.2 gm/dl (10.1-14.3) 05/23/22 05:23 Hct 30.4 % (30.3-42.9) 05/23/22 05:23 MCV 91 fl (79-97) 05/23/22 05:23 MCH 30 pg (28-32) 05/23/22 05:23 MCHC 34 % (30-34) 05/23/22 05:23 RDW 13.7 % (13.2-15.2) 05/23/22 05:23 Plt Count 179 K/mm3 (140-440) 05/23/22 05:23 Add Manual Diff Complete 05/23/22 05:23 Total Counted 100 05/23/22 05:23 Seg Neutrophils % Catalyst Impregnator 05/17/22 00:17 Seg Neuts % (Manual) 91.0 % (40.0-70.0) H 05/23/22 05:23 Band Neutrophils % 0 % 05/23/22 05:23 Lymphocytes % (Manual) 6.0 % (13.4-35.0) L 05/23/22 05:23 Reactive Lymphs % (Man) 0 % 05/23/22 05:23 Monocytes % (Manual) 1.0 % (0.0-7.3) 05/23/22 05:23 Eosinophils % (Manual) 2.0 % (0.0-4.3) 05/23/22 05:23 Basophils % (Manual) 0 % (0.0-1.8) 05/23/22 05:23 Metamyelocytes % 0 % 05/23/22 05:23 Myelocytes % 0 % 05/23/22 05:23 Promyelocytes % 0 % 05/23/22 05:23 Blast Cells % 0 % 05/23/22 05:23 Nucleated RBC % Not Reportable 05/23/22 05:23 Seg Neutrophils # Man 12.2 K/mm3 (1.8-7.7) H 05/23/22 05:23 Band Neutrophils # 0.0 K/mm3 05/23/22 05:23 Lymphocytes # (Manual) 0.8 K/mm3 (1.2-5.4) L 05/23/22 05:23 Abs React Lymphs (Man) 0.0 K/mm3 05/23/22 05:23 Monocytes # (Manual) 0.1 K/mm3 (0.0-0.8) 05/23/22 05:23 Eosinophils # (Manual) 0.3 K/mm3 (0.0-0.4) 05/23/22 05:23 Basophils # (Manual) 0.0 K/mm3 (0.0-0.1) 05/23/22 05:23 Metamyelocytes # 0.0 K/mm3 05/23/22 05:23 Myelocytes # 0.0 K/mm3 05/23/22 05:23 Promyelocytes # 0.0 K/mm3 05/23/22 05:23 Blast Cells # 0.0 K/mm3 05/23/22 05:23 WBC Morphology Not Reportable 05/23/22 05:23 Hypersegmented Neuts Not Reportable 05/23/22 05:23 Hyposegmented Neuts Not Reportable 05/23/22 05:23 Hypogranular Neuts Not Reportable 05/23/22 05:23 Smudge Cells Not Reportable 05/23/22 05:23 Toxic Granulation Not Reportable 05/23/22 05:23 Toxic Vacuolation Not Reportable 05/23/22 05:23 Dohle Bodies Not Reportable 05/23/22 05:23 Pelger-Huet Anomaly Not Reportable 05/23/22 05:23 Supa Rods Not Reportable 05/23/22 05:23 Platelet Estimate Consistent w auto 05/23/22 05:23 Clumped Platelets Not Reportable 05/23/22 05:23 Plt Clumps, EDTA Not Reportable 05/23/22 05:23 Large Platelets Not Reportable 05/23/22 05:23 Giant Platelets Not Reportable 05/23/22 05:23 Platelet Satelliting Not Reportable 05/23/22 05:23 Plt Morphology Comment Not Reportable 05/23/22 05:23 RBC Morphology Not Reportable 05/23/22 05:23 Dimorphic RBCs Not Reportable 05/23/22 05:23 Polychromasia Not Reportable 05/23/22 05:23 Hypochromasia Not Reportable 05/23/22 05:23 Poikilocytosis Not Reportable 05/23/22 05:23 Anisocytosis 1+ 05/23/22 05:23 Microcytosis Not Reportable 05/23/22 05:23 Macrocytosis Not Reportable 05/23/22 05:23 Spherocytes Not Reportable 05/23/22 05:23 Pappenheimer Bodies Not Reportable 05/23/22 05:23 Sickle Cells Not Reportable 05/23/22 05:23 Target Cells Not Reportable 05/23/22 05:23 Tear Drop Cells Not Reportable 05/23/22 05:23 Ovalocytes Not Reportable 05/23/22 05:23 Helmet Cells Not Reportable 05/23/22 05:23 Truong-[place] Bodies Not Reportable 05/23/22 05:23 [place] Rings Not Reportable 05/23/22 05:23 [place] Cells Not Reportable 05/23/22 05:23 Bite Cells Not Reportable 05/23/22 05:23 Crenated Cell Not Reportable 05/23/22 05:23 Elliptocytes Not Reportable 05/23/22 05:23 Acanthocytes (Spur) Not Reportable 05/23/22 05:23 Rouleaux Not Reportable 05/23/22 05:23 Hemoglobin C Crystals Not Reportable 05/23/22 05:23 Schistocytes Not Reportable 05/23/22 05:23 Malaria parasites Not Reportable 05/23/22 05:23 Parveen Bodies Not Reportable 05/23/22 05:23 Hem Pathologist Commnt No 05/23/22 05:23 PT 13.6 Sec. (12.2-14.9) 05/22/22 17:51 INR 0.94 (0.87-1.13) 05/22/22 17:51 ABG pH 7.422 pH Units (7.350-7.450) 05/14/22 10:50 ABG pCO2 40.2 mm Hg 05/14/22 10:50 ABG pO2 51.4 mm Hg (80.0-90.0) L 05/14/22 10:50 ABG HCO3 25.6 mmol/L (20.0-26.0) 05/14/22 10:50 ABG O2 Saturation 88.4 % (95.0-99.0) L 05/14/22 10:50 ABG O2 Content 13.9 (0.0-44) 05/14/22 10:50 ABG Base Excess 1.1 mmol/L (-2.0-3.0) 05/14/22 10:50 ABG Hemoglobin 11.5 gm/dl (12.0-16.0) L 05/14/22 10:50 ABG Carboxyhemoglobin 1.8 % (0.0-5.0) 05/14/22 10:50 ABG Methemoglobin 0.3 % (0.0-1.5) 05/14/22 10:50 Oxyhemoglobin 86.5 % (95.0-99.0) L 05/14/22 10:50 FiO2 50 % 05/14/22 10:50 Sodium 147 mmol/L (137-145) H 05/23/22 05:23 Potassium 3.5 mmol/L (3.6-5.0) L 05/23/22 05:23 Chloride 103.7 mmol/L (98-107) 05/23/22 05:23 Carbon Dioxide 38 mmol/L (22-30) H 05/23/22 05:23 Anion Gap 9 mmol/L 05/23/22 05:23 BUN 23 mg/dL (7-17) H 05/23/22 05:23 Creatinine 0.3 mg/dL (0.6-1.2) L 05/23/22 05:23 Estimated GFR > 60 ml/min 05/23/22 05:23 BUN/Creatinine Ratio 77 % 05/23/22 05:23 Glucose 79 mg/dL (65-100) 05/23/22 05:23 POC Glucose 81 mg/dL (70-105) 05/23/22 06:09 Lactic Acid 1.50 mmol/L (0.7-2.0) 05/16/22 04:28 Calcium 9.2 mg/dL (8.4-10.2) 05/23/22 05:23 Magnesium 1.10 mg/dL (1.7-2.3) L 05/14/22 05:45 Total Bilirubin 0.40 mg/dL (0.1-1.2) 05/14/22 05:45 AST 18 units/L (5-40) 05/14/22 05:45 ALT 10 units/L (7-56) 05/14/22 05:45 Alkaline Phosphatase 57 units/L (35-129) 05/14/22 05:45 Total Protein 6.3 g/dL (6.3-8.2) 05/14/22 05:45 Albumin 2.7 g/dL (3.9-5) L 05/14/22 05:45 Albumin/Globulin Ratio 0.8 % 05/14/22 05:45 Urine Color Brown (Yellow) 05/14/22 10:38 Urine Turbidity Turbid (Clear) 05/14/22 10:38 Urine pH 5.0 (5.0-7.0) 05/14/22 10:38 Ur Specific Commerce 1.017 (1.003-1.030) 05/14/22 10:38 Urine Protein 100 mg/dl mg/dL (Negative) 05/14/22 10:38 Urine Glucose (UA) Neg mg/dL (Negative) 05/14/22 10:38 Urine Ketones Neg mg/dL (Negative) 05/14/22 10:38 Urine Blood Mod (Negative) 05/14/22 10:38 Urine Nitrite Neg (Negative) 05/14/22 10:38 Urine Bilirubin Neg (Negative) 05/14/22 10:38 Urine Ictotest Not Reportable 05/14/22 10:38 Urine Urobilinogen < 2.0 mg/dL (<2.0) 05/14/22 10:38 Ur Leukocyte Esterase Tr (Negative) 05/14/22 10:38 Urine WBC (Auto) > 182.0 /HPF (0.0-6.0) H 05/14/22 10:38 Urine RBC (Auto) > 182.0 /HPF (0.0-6.0) 05/14/22 10:38 Urine Bacteria (Auto) 4+ /HPF (Negative) 05/14/22 10:38 Urine WBC Clumps 3+ /HPF 05/14/22 10:38 Urine Mucus 1+ /HPF 05/14/22 10:38 SARS-CoV-2 (PCR) Negative (Negative) 05/14/22 10:38 Microbiology: Microbiology 05/20/22 20:03 Peripheral/Venous Blood Culture - Preliminary NO GROWTH AFTER 48 HOURS 05/20/22 20:03 Peripheral/Venous Blood Culture - Preliminary NO GROWTH AFTER 48 HOURS Choe/IV: Voiding Method External Female Catheter Active Medications - Current Medications Current Medications: Generic Name Dose Route Start Last Admin Trade Name Freq PRN Reason Stop Dose Admin Acetaminophen 650 mg 05/14/22 09:33 05/20/22 17:13 Acetaminophen 325 Mg Tab PO 650 mg Q6H PRN Administration Pain MILD(1-3)/Fever >100.5/SNELL Albuterol 2.5 mg 05/14/22 12:52 Albuterol 2.5 Mg/3 Ml Nebu IH Q4H PRN Shortness Of Breath Heparin Sodium (Porcine) 5,000 unit 05/14/22 22:00 05/22/22 22:19 Heparin 5,000 Unit/1 Ml Vial SUB-Q 5,000 unit Q12HR DUKE Administration Insulin Glargine 20 units 05/22/22 10:00 05/22/22 09:12 Insulin Glargine 100 Units/Ml SUB-Q 20 units DAILY DUKE Administration Insulin Human Lispro 0 unit 05/14/22 18:00 05/23/22 06:29 Insulin Lispro 100 Unit/Ml SUB-Q Not Given Q6HR [facility] Protocol Morphine Sulfate 2 mg 05/14/22 09:33 Morphine 2 Mg/1 Ml Inj IV Q4H PRN Pain, Moderate (4-6) Sodium Chloride 10 ml 05/14/22 10:00 05/22/22 22:19 Sodium Chloride 0.9% 10 Ml Flush Syringe IV 10 ml BID DUKE Administration Sodium Chloride 10 ml 05/14/22 09:32 Sodium Chloride 0.9% 10 Ml Flush Syringe IV PRN PRN LINE FLUSH Nutrition/Malnutrition Assess - Dietary Evaluation Nutrition/Malnutrition Findings: Nutrition Notes Start: 05/15/22 11:28 Freq: Status: Active Protocol: Document 05/19/22 11:34 CLARENCE (Rec: 05/19/22 12:07 CLARENCE [id number]) Nutrition Notes Initial or Follow up Reassessment Current Diagnosis Acute Kidney Injury,Sepsis, Respiratory Failure, Malnutrition Other Pertinent Diagnosis Metabolic Encephalopathy, UTI, HAP, Lactic Acidosis, ... Current Diet TF-Vital AF 1.2 [place] @ 45 ml/hr (from D 05/19). Labs/Tests 05/19: Na 151, Cl 111.9, Cl 32 , BUN 18, Crea 0.4, Glu 323, Ca 10.4. Pertinent Medications 05/19: Lantus 15U, Humalog 6U, others nutritionally unremarkable. Height 5 ft 2.4 in Weight 62 kg [place] Body Weight (kg) 50.90 BMI 24.7 Weight change and time frame No body weight change reported in 4 days. Weight Status Appropriate Subjective/Other Information RD consult for routine F/U on dietary advancement. TF continues as prescribed, however, due to the current unavailability of TF Glucerna 1.2 [place], I will temporarly replace this order with Vital AF 1.2 [place]. Pt is on Nasal Cannula, O2 saturation @ 98%, according to Physical Assessment History notes. PEG tube placement before discharge is being considered, according to Progress notes. Pt will be discharged to SNF when medically cleared, according to Progress notes. Percent of energy/protein needs met: Prescribed TF-Vital AF 1.2 [place] @ 45 ml/hr provides for energy/protein needs (1,310 Kcal/82 g) during LOS, 99% Kcal; 100% AA. Burn Absent Trauma Absent GI Symptoms None Skin Integrity/Comment L-LE wounds. Current % PO Other Minimum of two criteria No Body Fat Depletion Mild depletion (non-severe) Muscle Mass Moderate Depletion (severe) Fluid Accumulation Moderate to Severe (severe) Reduced Consultants Intern Strength N/A (non-severe) Protein-Calorie Malnutrition Severe #1 Nutrition Diagnosis Malnutrition Diagnosis Progress(for reassessment Continues documentation) Is patient on ventilator? No Is Patient Ambulatory and/or Out of Bed No REE-([facility]-confined to bed) 1325.532 Calculation Used for Recommendations [facility] Additional Notes Protein: 1.2-1.5 g/Kg ABW; 74- 93 g/day. Fluids: 1 ml/Kcal, or as per MD. Nutrition Intervention Nutrition Support: Change formula to TF-Vital AF 1.2 [place] @ 45 ml/hr. Flush: 70 ml water Q 4 hr, or as per MD. Kcal 1,310 Protein (gm) 82 Carbohydrates (gm) 121 Fat (gm) 59 Fluid (mL) 885 Fiber (gm) 6 % RDI: 99% Kcal; 100% AA. Goal #1 Provide at least 75% of energy /protein needs through Enteral Feeding during LOS. Goal #2 Adjust the dietary intervention to better serve Pt's needs and clinical conditions during LOS. Follow-Up By: 05/23/22 Additional Comments Continue monitoring TF tolerance and BM.
[2022-05-23] MEDS ORDERED: WATER FOR IRRIG STERILE 1,000 ML BOTTLE ONE ×2 (10:30→10:48)
[2022-05-23] MEDS ORDERED: SODIUM CHLORIDE 0.9% 1000 ML 1,000 ML ONE (10:30)
[2022-05-23] MEDS ORDERED: WATER FOR IRRIG STERILE 250 ML BOTTLE IR ONE (10:30)
[2022-05-23] MEDS: HEPARIN 5,000 UNIT/1 ML VIAL SUB-Q SCH ×2 (10:31→23:33)
[2022-05-23] MEDS: INSULIN GLARGINE 100 UNITS/ML SUB-Q SCH (10:31)
[2022-05-23] MEDS ORDERED: ceFAZolin/Water 2 GM/20 ML 2 GM/20 ML SYRINGE IV ONE (10:55)
--- NOTE | 2022-05-23 11:23 | Anesthesia Consultation ---
Anesthesia Consult and Med Hx Date of service: 05/23/22 - Airway Anesthetic Teeth Evaluation: Poor ROM Head & Neck: Inadequate Mental/Hyoid Distance: Inadequate Mallampati Class: Class II Intubation Access Assessment: Possibly Difficult - Pulmonary Exam CTA: Yes - Cardiac Exam Cardiac Exam: RRR - Pre-Operative Health Status ASA Pre-Surgery Classification: ASA3 Proposed Anesthetic Plan: MAC - Cardiovascular System Hx Coronary Artery Disease: Yes - Central Nervous System Hx Psychiatric Problems: Yes (advance dementia) - Endocrine Hx Renal Disease: Yes Hx Non-Insulin Dependent Diabetes: Yes - Additional Comments Anesthesia Medical History Comments: sepsis, respitory failure
--- NOTE | 2022-05-23 11:24 | Anesthesia Day of Surgery ---
Anesthesia Day of Surgery - Day of Surgery Patient Examined: Yes Patient H&P Reviewed: Yes Patient is NPO: Yes
[2022-05-23] MEDS ORDERED: propofoL 200 MG/20 ML VIAL IV ONE (11:27)
--- NOTE | 2022-05-23 11:49 | Operative Report ---
Operative Report Operative Report: Esophagogastroduodenoscopy Procedure Note with PEG tube placement Date of procedure: 05/23/2022 Endoscopist: Hill Jerome Pre-op diagnosis/indication: Oropharyngeal dysphagia Post-op diagnosis: Mild gastritis MEDICATIONS: MAC, ancef 2 grams COMPLICATIONS: No immediate complications ESTIMATED BLOOD LOSS: Minimal DESCRIPTION OF PROCEDURE: After consent was obtained from the patient's (phone number [phone]), the patient was placed in the supine position. The olympus endoscope was inserted into the patient's mouth under direct vision and advanced to the 2nd portion of the duodenum without difficulty. The patient tolerated the procedure well. The views of the mucosa were good. The patient's vital signs were monitored continuously throughout the procedure. The stomach was transilluminated and an optimal position for the PEG tube was identified using the single poke method. The skin was infiltrated with local lidocaine, followed by a small incision. The needle and sheath were inserted through the abdomen into the stomach under direct visualization. The needle was removed and a guidewire was inserted through the sheath. The guidewire was grasped from above with a snare. It was removed completely and the 20 Fr PEG tube was secured to the guidewire. The guidewire and PEG tube were then pulled through the mouth and esophagus and snug to the abdominal wall. The endoscope was re-inserted which showed good positioning of the internal bumper. The external bumper was at 3 cm at the end of the procedure. FINDINGS: The esophagus appeared normal There was mild erythematous mucosa in the body of the stomach. Otherwise, the stomach appeared normal. Successful PEG tube placement as above with external bumper at 3 cm. The duodenum appeared normal. IMPRESSION: 1. Mild gastritis. 2. Successful PEG tube placement as above. RECOMMENDATIONS: -can use peg tube for medications after 2 hours, and can start tube feeds after 6 hours if no new symptoms. -post PEG care daily -tube feedings per nutrition recommendations -will follow-up tomorrow and loosen external bumper -patient's updated over the phone after the procedure was completed
[2022-05-23] MEDS ORDERED: SIMPLE SYRUP 15 ML FEEDTUBE PRN ×2 (15:34)
[2022-05-23] MEDS ORDERED: LIPASE 10,500/PROTEASE 25,000/AMYLASE 43,750 (UNITS) DR CAP FEEDTUBE PRN (15:34)
[2022-05-23] MEDS ORDERED: SODIUM BICARBONATE 325 MG TAB FEEDTUBE PRN (15:34)
--- NOTE | 2022-05-23 17:08 | Post Anesthesia Evaluation ---
- Post Anesthesia Evaluation Patient Participated: Yes Airway Patent: Yes Stable Respiratory Function: Yes Nausea/Vomiting: No Temp > 96.8F: Yes Pain Manageable: Yes Adequeate Hydration: Yes Anesthesia Complications: No Block Receding Appropriately: Not Applicable Patient on Ventilator: No
[2022-05-24] MEDS: INSULIN LISPRO 100 UNIT/ML SUB-Q SCH ×4 (00:39→18:35)
[2022-05-24 05:38] LABS: Basophils # (Auto) 0.1 K/mm3 (0.0-0.1); Basophils % (Auto) 0.5 % (0.0-1.8); Eosinophils # (Auto) 0.3 K/mm3 (0.0-0.4); Eosinophils % (Auto) 2.2 % (0.0-4.3); Hematocrit 33.4 % (30.3-42.9); Hemoglobin 10.8 gm/dl (10.1-14.3); Lymphocytes # (Auto) 1.1 K/mm3 (1.2-5.4); Lymphocytes % (Auto) 9.2 % (13.4-35.0); Mean Corpuscular HGB Conc 32 % (30-34); Mean Corpuscular Volume 93 fl (79-97); Monocytes # (Auto) 0.5 K/mm3 (0.0-0.8); Monocytes % (Auto) 4.1 % (0.0-7.3); Platelet Count 188 K/mm3 (140-440); Red Blood Count 3.59 M/mm3 (3.65-5.03)
[2022-05-24 06:00] LABS: Blood Urea Nitrogen 20 mg/dL (7-17); Calcium 9.1 mg/dL (8.4-10.2); Hemolysis Index 5
[2022-05-24 06:10] LABS: BUN/Creatinine Ratio 50
--- NOTE | 2022-05-24 10:37 | Gastroenterology Progress Note ---
Assessment and Plan Oropharyngeal dysphagia - s/p egd/peg tube placement on 05/24; external bumper loosened at bedside. cont tube feeds per nutrition recommendations, post PEG care daily, keep abdominal binder on at all times. will sign off, please call as needed. Subjective Date of service: 05/24/22 Principal diagnosis: Pneumonia, Sepsis Interval history: tolerating tube feeds, no events overnight Objective - Exam Narrative Exam: gen: nad, non-verbal abd: soft, nd, external bumper loosened at bedside - Constitutional Vitals: Temp Pulse Resp BP Pulse Ox 97.7 F 72 16 132/53 96 05/23/22 21:23 05/23/22 21:23 05/23/22 21:23 05/23/22 21:23 05/24/22 08:18 - Labs CBC & Chem 7: 05/24/22 04:47 05/24/22 04:47 Labs: Laboratory Results - last 24 hr 05/23/22 05/23/22 05/23/22 12:38 18:21 23:44 WBC RBC Hgb Hct MCV MCH MCHC RDW Plt Count Lymph % (Auto) [place] % (Auto) Eos % (Auto) Baso % (Auto) Lymph # (Auto) [place] # (Auto) Eos # (Auto) Baso # (Auto) Seg Neutrophils % Seg Neutrophils # Sodium Potassium Chloride Carbon Dioxide Anion Gap BUN Creatinine Estimated GFR BUN/Creatinine Ratio Glucose POC Glucose 80 73 89 Calcium Magnesium 05/24/22 05/24/22 05/24/22 04:47 04:47 05:57 WBC 12.0 H RBC 3.59 L Hgb 10.8 Hct 33.4 MCV 93 MCH 30 MCHC 32 RDW 14.0 Plt Count 188 Lymph % (Auto) 9.2 L [place] % (Auto) 4.1 Eos % (Auto) 2.2 Baso % (Auto) 0.5 Lymph # (Auto) 1.1 L [place] # (Auto) 0.5 Eos # (Auto) 0.3 Baso # (Auto) 0.1 Seg Neutrophils % 84.0 H Seg Neutrophils # 10.1 H Sodium 146 H Potassium 3.6 Chloride 104.1 Carbon Dioxide 35 H Anion Gap 11 BUN 20 H Creatinine 0.4 L Estimated GFR > 60 BUN/Creatinine Ratio 50 Glucose 151 H POC Glucose 153 H Calcium 9.1 Magnesium 0.90 L*
--- NOTE | 2022-05-24 11:27 | Progress Note ---
Assessment and Plan 71 y/o female with sepsis, and acute respiratory failure most likely secondary to left lower lobe infiltrate with acute renal failure 05/24/22: Wean FiO2 as tolerated. No objection to discharge from a pulm standpoint. 05/18/22: Stable pulm status, however, would continue to attempt to wean for sats >88%. Pt/OT and Incentive naila. No objection to discharge once bed available. Will continue to follow. 05/17/22: IV abx therapy. Growing E. Coli. Wean FiO2 as tolerated for sats >88% 05/16/22: I gave 2 boluses yesterday secondary to marginal BP's. thats likely why cxr looks slightly worse. Will discontinue IVF's. Continue to wean FiO2 for sats >88%. Continue IV abx, has gram negative rods in the urine so maybe able to stop vanc. stable BP. Would be ok with patient going back to floor. Replace K 1. Pulm-has been weaned to 15 liters and 55%. Sats good. Continue to wean for sats >88%. Agree with repeat CXR tomorrow and ABG if needed. 2. CV-hypotensive, will bolus now and reassess. May be more volume deplete, especially given renal failure. Repeat chemistry later today to see if renal function improves with volume. If so give more 3. Neuro-intial head CT is negative. May need repeat if she does not improve with abx and fluid hydration. Given her mental state, if her oxygenation worsens, would need intubation, not a candidate for bipap 4. Guarded progonsis CCT 31 minutes. Subjective Date of service: 05/24/22 Principal diagnosis: Pneumonia, Sepsis Interval history: No acute events. EGD with peg placement on yesterday. Objective Vital Signs - 12hr 05/24/22 08:18 O2 Sat by Pulse 96 Oximetry Constitutional: no acute distress Eyes: non-icteric ENT: oropharynx moist Neck: supple Effort: normal Ascultation: Left: rales (left lower lobe), Bilateral: rhonchi Cardiovascular: regular rate and rhythm (no mrg) Gastrointestinal: normoactive bowel sounds, soft, non-tender, non-distended Integumentary: normal Extremities: no cyanosis, no edema, pink and warm Neurologic: unable to assess Psychiatric: other (unable to assess) CBC and BMP: 05/24/22 04:47 05/24/22 04:47 ABG, PT/INR, D-dimer: ABG ABG pH 7.422 pH Units (7.350-7.450) 05/14/22 10:50 ABG pCO2 40.2 mm Hg 05/14/22 10:50 ABG pO2 51.4 mm Hg (80.0-90.0) L 05/14/22 10:50 ABG O2 Saturation 88.4 % (95.0-99.0) L 05/14/22 10:50 PT/INR, D-dimer PT 13.6 Sec. (12.2-14.9) 05/22/22 17:51 INR 0.94 (0.87-1.13) 05/22/22 17:51 Abnormal lab findings: Abnormal Labs 05/14/22 05/14/22 05/14/22 05:45 05:45 05:45 WBC 20.8 H RBC Lymph % (Auto) Lymph # (Auto) Seg Neutrophils % Seg Neuts % (Manual) 85.0 H Lymphocytes % (Manual) 5.0 L Seg Neutrophils # Seg Neutrophils # Man 17.7 H Lymphocytes # (Manual) 1.0 L ABG pO2 ABG O2 Saturation ABG Hemoglobin Oxyhemoglobin Sodium 134 L Potassium Chloride 94.2 L Carbon Dioxide BUN 35 H Creatinine 2.1 H Glucose 403 H POC Glucose Lactic Acid 6.60 H* Calcium Magnesium Albumin 2.7 L Urine WBC (Auto) 05/14/22 05/14/22 05/14/22 05:45 07:02 09:26 WBC RBC Lymph % (Auto) Lymph # (Auto) Seg Neutrophils % Seg Neuts % (Manual) Lymphocytes % (Manual) Seg Neutrophils # Seg Neutrophils # Man Lymphocytes # (Manual) ABG pO2 ABG O2 Saturation ABG Hemoglobin Oxyhemoglobin Sodium Potassium Chloride Carbon Dioxide BUN Creatinine Glucose POC Glucose Lactic Acid 5.70 H* 5.30 H* Calcium Magnesium 1.10 L Albumin Urine WBC (Auto) 05/14/22 05/14/22 05/14/22 09:31 10:38 10:50 WBC RBC Lymph % (Auto) Lymph # (Auto) Seg Neutrophils % Seg Neuts % (Manual) Lymphocytes % (Manual) Seg Neutrophils # Seg Neutrophils # Man Lymphocytes # (Manual) ABG pO2 51.4 L ABG O2 Saturation 88.4 L ABG Hemoglobin 11.5 L Oxyhemoglobin 86.5 L Sodium Potassium Chloride Carbon Dioxide BUN Creatinine Glucose POC Glucose 209 H Lactic Acid Calcium Magnesium Albumin Urine WBC (Auto) > 182.0 H 05/14/22 05/14/22 05/14/22 13:24 17:15 23:38 WBC RBC Lymph % (Auto) Lymph # (Auto) Seg Neutrophils % Seg Neuts % (Manual) Lymphocytes % (Manual) Seg Neutrophils # Seg Neutrophils # Man Lymphocytes # (Manual) ABG pO2 ABG O2 Saturation ABG Hemoglobin Oxyhemoglobin Sodium Potassium Chloride Carbon Dioxide BUN Creatinine Glucose POC Glucose 212 H 245 H 246 H Lactic Acid Calcium Magnesium Albumin Urine WBC (Auto) 05/15/22 05/15/22 05/15/22 05:23 11:25 16:16 WBC RBC Lymph % (Auto) Lymph # (Auto) Seg Neutrophils % Seg Neuts % (Manual) Lymphocytes % (Manual) Seg Neutrophils # Seg Neutrophils # Man Lymphocytes # (Manual) ABG pO2 ABG O2 Saturation ABG Hemoglobin Oxyhemoglobin Sodium Potassium Chloride Carbon Dioxide BUN Creatinine Glucose POC Glucose 236 H 232 H 166 H Lactic Acid Calcium Magnesium Albumin Urine WBC (Auto) 05/15/22 05/16/22 05/16/22 17:56 00:58 04:28 WBC 21.8 H RBC Lymph % (Auto) Lymph # (Auto) Seg Neutrophils % Seg Neuts % (Manual) 97.0 H Lymphocytes % (Manual) 0 L Seg Neutrophils # Seg Neutrophils # Man 21.1 H Lymphocytes # (Manual) 0.0 L ABG pO2 ABG O2 Saturation ABG Hemoglobin Oxyhemoglobin Sodium Potassium 3.5 L Chloride 110.1 H Carbon Dioxide BUN 32 H Creatinine Glucose 207 H POC Glucose 215 H Lactic Acid Calcium Magnesium Albumin Urine WBC (Auto) 05/16/22 05/16/22 05/16/22 04:28 05:47 11:36 WBC RBC Lymph % (Auto) Lymph # (Auto) Seg Neutrophils % Seg Neuts % (Manual) Lymphocytes % (Manual) Seg Neutrophils # Seg Neutrophils # Man Lymphocytes # (Manual) ABG pO2 ABG O2 Saturation ABG Hemoglobin Oxyhemoglobin Sodium Potassium 3.5 L Chloride 110.2 H Carbon Dioxide BUN 29 H Creatinine Glucose 222 H POC Glucose 186 H 193 H Lactic Acid Calcium Magnesium Albumin Urine WBC (Auto) 05/16/22 05/16/22 05/17/22 17:24 23:21 00:17 WBC 18.6 H RBC Lymph % (Auto) Lymph # (Auto) Seg Neutrophils % Seg Neuts % (Manual) 91.0 H Lymphocytes % (Manual) 4.0 L Seg Neutrophils # Seg Neutrophils # Man 16.9 H Lymphocytes # (Manual) 0.7 L ABG pO2 ABG O2 Saturation ABG Hemoglobin Oxyhemoglobin Sodium Potassium Chloride Carbon Dioxide BUN Creatinine Glucose POC Glucose 170 H 192 H Lactic Acid Calcium Magnesium Albumin Urine WBC (Auto) 05/17/22 05/17/22 05/17/22 00:17 05:17 12:13 WBC RBC Lymph % (Auto) Lymph # (Auto) Seg Neutrophils % Seg Neuts % (Manual) Lymphocytes % (Manual) Seg Neutrophils # Seg Neutrophils # Man Lymphocytes # (Manual) ABG pO2 ABG O2 Saturation ABG Hemoglobin Oxyhemoglobin Sodium 150 H Potassium 3.5 L Chloride 112.5 H Carbon Dioxide 18 L BUN 22 H Creatinine 0.4 L Glucose 242 H POC Glucose 277 H 305 H Lactic Acid Calcium Magnesium Albumin Urine WBC (Auto) 05/17/22 05/17/22 05/18/22 18:17 23:41 05:16 WBC RBC Lymph % (Auto) Lymph # (Auto) Seg Neutrophils % Seg Neuts % (Manual) Lymphocytes % (Manual) Seg Neutrophils # Seg Neutrophils # Man Lymphocytes # (Manual) ABG pO2 ABG O2 Saturation ABG Hemoglobin Oxyhemoglobin Sodium Potassium Chloride Carbon Dioxide BUN Creatinine Glucose POC Glucose 331 H 372 H 313 H Lactic Acid Calcium Magnesium Albumin Urine WBC (Auto) 05/18/22 05/18/22 05/18/22 11:23 16:43 23:53 WBC RBC Lymph % (Auto) Lymph # (Auto) Seg Neutrophils % Seg Neuts % (Manual) Lymphocytes % (Manual) Seg Neutrophils # Seg Neutrophils # Man Lymphocytes # (Manual) ABG pO2 ABG O2 Saturation ABG Hemoglobin Oxyhemoglobin Sodium Potassium Chloride Carbon Dioxide BUN Creatinine Glucose POC Glucose 332 H 287 H 300 H Lactic Acid Calcium Magnesium Albumin Urine WBC (Auto) 05/19/22 05/19/22 05/19/22 04:22 04:22 04:59 WBC 17.3 H RBC Lymph % (Auto) Lymph # (Auto) Seg Neutrophils % Seg Neuts % (Manual) 96.0 H Lymphocytes % (Manual) 1.0 L Seg Neutrophils # Seg Neutrophils # Man 16.6 H Lymphocytes # (Manual) 0.2 L ABG pO2 ABG O2 Saturation ABG Hemoglobin Oxyhemoglobin Sodium 151 H Potassium Chloride 111.9 H Carbon Dioxide 32 H D BUN 18 H Creatinine 0.4 L Glucose 323 H POC Glucose 296 H Lactic Acid Calcium 10.4 H Magnesium Albumin Urine WBC (Auto) 05/19/22 05/19/22 05/19/22 11:17 17:17 23:20 WBC RBC Lymph % (Auto) Lymph # (Auto) Seg Neutrophils % Seg Neuts % (Manual) Lymphocytes % (Manual) Seg Neutrophils # Seg Neutrophils # Man Lymphocytes # (Manual) ABG pO2 ABG O2 Saturation ABG Hemoglobin Oxyhemoglobin Sodium Potassium Chloride Carbon Dioxide BUN Creatinine Glucose POC Glucose 295 H 266 H 250 H Lactic Acid Calcium Magnesium Albumin Urine WBC (Auto) 05/20/22 05/20/22 05/20/22 05:36 11:50 17:29 WBC RBC Lymph % (Auto) Lymph # (Auto) Seg Neutrophils % Seg Neuts % (Manual) Lymphocytes % (Manual) Seg Neutrophils # Seg Neutrophils # Man Lymphocytes # (Manual) ABG pO2 ABG O2 Saturation ABG Hemoglobin Oxyhemoglobin Sodium Potassium Chloride Carbon Dioxide BUN Creatinine Glucose POC Glucose 263 H 314 H 255 H Lactic Acid Calcium Magnesium Albumin Urine WBC (Auto) 05/20/22 05/21/22 05/21/22 23:55 05:34 11:19 WBC RBC Lymph % (Auto) Lymph # (Auto) Seg Neutrophils % Seg Neuts % (Manual) Lymphocytes % (Manual) Seg Neutrophils # Seg Neutrophils # Man Lymphocytes # (Manual) ABG pO2 ABG O2 Saturation ABG Hemoglobin Oxyhemoglobin Sodium Potassium Chloride Carbon Dioxide BUN Creatinine Glucose POC Glucose 216 H 266 H 290 H Lactic Acid Calcium Magnesium Albumin Urine WBC (Auto) 05/21/22 05/21/22 05/22/22 16:13 23:57 06:30 WBC RBC Lymph % (Auto) Lymph # (Auto) Seg Neutrophils % Seg Neuts % (Manual) Lymphocytes % (Manual) Seg Neutrophils # Seg Neutrophils # Man Lymphocytes # (Manual) ABG pO2 ABG O2 Saturation ABG Hemoglobin Oxyhemoglobin Sodium Potassium Chloride Carbon Dioxide BUN Creatinine Glucose POC Glucose 240 H 137 H 134 H Lactic Acid Calcium Magnesium Albumin Urine WBC (Auto) 05/22/22 05/23/22 05/23/22 12:07 05:23 05:23 WBC 13.4 H RBC 3.35 L Lymph % (Auto) Lymph # (Auto) Seg Neutrophils % Seg Neuts % (Manual) 91.0 H Lymphocytes % (Manual) 6.0 L Seg Neutrophils # Seg Neutrophils # Man 12.2 H Lymphocytes # (Manual) 0.8 L ABG pO2 ABG O2 Saturation ABG Hemoglobin Oxyhemoglobin Sodium 147 H Potassium 3.5 L Chloride Carbon Dioxide 38 H BUN 23 H Creatinine 0.3 L Glucose POC Glucose 123 H Lactic Acid Calcium Magnesium Albumin Urine WBC (Auto) 05/24/22 05/24/22 05/24/22 04:47 04:47 05:57 WBC 12.0 H RBC 3.59 L Lymph % (Auto) 9.2 L Lymph # (Auto) 1.1 L Seg Neutrophils % 84.0 H Seg Neuts % (Manual) Lymphocytes % (Manual) Seg Neutrophils # 10.1 H Seg Neutrophils # Man Lymphocytes # (Manual) ABG pO2 ABG O2 Saturation ABG Hemoglobin Oxyhemoglobin Sodium 146 H Potassium Chloride Carbon Dioxide 35 H BUN 20 H Creatinine 0.4 L Glucose 151 H POC Glucose 153 H Lactic Acid Calcium Magnesium 0.90 L* Albumin Urine WBC (Auto)
[2022-05-24] MEDS: INSULIN GLARGINE 100 UNITS/ML SUB-Q SCH (11:31)
[2022-05-24] MEDS: HEPARIN 5,000 UNIT/1 ML VIAL SUB-Q SCH ×2 (11:50→22:30)
[2022-05-24] MEDS ORDERED: MAGNESIUM SULFATE 4 GM/100 ML BAG IV ONE (12:00)
[2022-05-24] MEDS: MAGNESIUM OXIDE 400 MG TAB PO SCH (14:00)
--- NOTE | 2022-05-24 17:26 | Progress Note ---
Assessment and Plan Assessment and plan: 71-year-old female patient [facility] resident with significant past medical history of Alzheimer's dementia diabetes, coronary artery disease, depression, dysphagia, thrombocytopenia was sent to the emergency room with complaints of altered level of consciousness and sepsis. Patient was noted to be severely hypoxemic on arrival saturating only 88% on room air however improved to 91% on 2 L. After returning from CT scan patient suddenly went into severe hypoxic respiratory failure requiring 15 L When I went and re evaluated the patient, the respiratory therapist at the bedside and patient is on high flow nasal cannula oxygen 30 L/65% FiO2/O2 sats 95 percent. Patient was already planned to admit to [facility], ER physician consulted pulmonary critical care Dr. Romero. Patient is lethargic noncommunicative, no other history is available Assessment and Plan: COVID-19 test[ 05/14/2022]--negative COVID-19 test[ 05/24/2022]--negative #Severe hypomagnesemia; Mg 0.90 Replenished with mag sulfate 4 g IV riders Mag-Ox 400 twice a day Closely monitor electrolytes Seizure precaution #PEG tube placement today 05/23/2022; Patient tolerated the procedure well Start tube feeding per PEG tube protocols Aspiration precautions #Acute hypoxic respiratory failure Requiring supplemental oxygen Probably secondary to pneumonia Oxygen titrate O2 sats to more than 90%, currently on high flow nasal cannula Pulmonary consultation #Sepsis POA secondary to left-sided pneumonia/Urinary Tract Infection - follow bcx,scx,ucx - COVID RT PCR negative - abx: vanc/cefepime IV - trend fever curve/wbc ct #Hospital Acquired Pneumonia [place] resident Blood cultures, sputum cultures Empiric antibiotics cefepime Oxygen titrate O2 sats to more than 90% Supportive care Pulmonary/ID service needed #E. coli urinary tract infection #Acute metabolic encephalopathy; -Multifactorial, sepsis, pneumonia , hypoxia in the setting of advanced dementia -Respiratory failure advanced age -Treat the underlying cause -Neurochecks -CT brain on admission demonstrated no acute intracranial abnormality #Lactic acidosis; -Probably secondary to sepsis, IV fluids -Empiric IV antibiotics, follow cultures -Trend lactic levels #Acute kidney injury; vasomotor nephropathy -Gentle hydration, monitor renal function -Avoid nephrotoxins, nephrology consult if needed #Mild hyponatremia; -Closely monitor electrolytes #Severe protein calorie malnutrition; -Nutrition supplements, supportive care -Nutrition consult #Severe hypoalbuminemia; -Nutrition supplements and supportive care DC planning per case management Possible discharge to [facility] facility tomorrow if stable Patient's COVID-19 05/24/2022 is negative Hospital Course: 05/15: Remains encephalopathic, on high flow nasal cannula. We will continue to wean as patient tolerates. Continue therapy with IV vancomycin and cefepime. ABG/Chest x-ray ordered for tomorrow. Will follow pulmonary recs. 05/16/22: Pulmonary gave 2 boluses yesterday secondary to marginal BP's which is why cxr looks slightly worse. Will discontinue IVF's. Continue to wean FiO2 for sats >88%. Continue IV abx, has gram negative rods in the urine so maybe able to stop vanc. stable BP. Would be ok with patient going back to floor. Replace K 05/17: Patient remains encephalopathic. Patient requiring 3 L O2 with saturations at 99%. Patient still with significant leukocytosis. Urine culture reveals E. coli. Abx will be switched to Rocephin 05/18: Patient with stable respiratory status. Patient with saturations of 95% on 2 L O2. Continue antibiotics of Rocephin. Authorization started for group home placement 05/19: Patient with blood cultures no growth to date x4 days. Rocephin to complete on 05/21 for E. coli UTI. Await authorization for patient to return to [facility] home. The patient remains lethargic and noncommunicative since admission. I discussed patient's mental status with the [id number] ([phone]) yesterday who reports that this is essentially the baseline. She also reports that the patient's /her brother is autistic. Patient currently with DHT receiving enteral feeds. GI consulted for PEG placement. 05/20: GI evaluated the patient and attempted to obtain consent from the who reported he did not want a PEG tube unless there is no other choice. However, the also does not want to pursue hospice/comfort measures either. Speech therapy evaluation with regards to swallowing. If pt fails ST evaluation, then the will consent to placement of a PEG tube. IV Rocephin completes tomorrow for UTI. 05/21: Await speech therapy evaluation. PEG tube placement per GI. 05/22: Speeech therapy reports patient unable to arouse or participate in evaluation. GI evaluated the patient and attempted to obtain consent from the who reported he did not want a PEG tube unless there is no other choice. However, the also does not want to pursue hospice/comfort measures either. Cont. enteral feeds. Aspiration precautions. Restraints for safety. F/U labs in am. 05/23; patient had PEG placement today, tolerated the procedure well, initiate PEG feeds per protocol Aspiration precautions 05/24; severe hypomagnesemia magnesium 0.90 4 g of mag sulfate riders, oral Mag-Ox twice a day, recheck magnesium level tonight As well as tomorrow morning, DC planning return to [facility] tomorrow first thing in the morning if stable History Interval history: I have seen and examined the patient at the bedside this afternoon Patient's chart and medications reviewed Patient's blood test show severe hypomagnesemia with Mg of 0.90 No new overnight events reported by the nursing Vital signs noted Hospitalist Physical - Constitutional Vitals: Temp Pulse Resp BP Pulse Ox 98 F 80 20 157/61 97 05/24/22 16:00 05/24/22 16:00 05/24/22 16:00 05/24/22 16:00 05/24/22 16:00 General appearance: Present: no acute distress, well-nourished - EENT Eyes: Present: PERRL, EOM intact - Neck Neck: Present: supple, normal ROM - Respiratory Respiratory effort: normal Respiratory: bilateral: diminished, negative: rales, rhonchi, wheezing - Cardiovascular Rhythm: regular Heart Sounds: Present: S1 & S2 - Extremities Extremities: no ischemia, No edema - Abdominal General gastrointestinal: soft, non-tender, non-distended, normal bowel sounds - Integumentary Integumentary: Present: clear, warm - Psychiatric Psychiatric: appropriate mood/affect, cooperative - Neurologic Neurologic: CNII-XII intact, moves all extremities Results - Labs CBC & Chem 7: 05/24/22 04:47 05/24/22 04:47 Labs: Laboratory Last Values WBC 12.0 K/mm3 (4.5-11.0) H 05/24/22 04:47 RBC 3.59 M/mm3 (3.65-5.03) L 05/24/22 04:47 Hgb 10.8 gm/dl (10.1-14.3) 05/24/22 04:47 Hct 33.4 % (30.3-42.9) 05/24/22 04:47 MCV 93 fl (79-97) 05/24/22 04:47 MCH 30 pg (28-32) 05/24/22 04:47 MCHC 32 % (30-34) 05/24/22 04:47 RDW 14.0 % (13.2-15.2) 05/24/22 04:47 Plt Count 188 K/mm3 (140-440) 05/24/22 04:47 Lymph % (Auto) 9.2 % (13.4-35.0) L 05/24/22 04:47 [place] % (Auto) 4.1 % (0.0-7.3) 05/24/22 04:47 Eos % (Auto) 2.2 % (0.0-4.3) 05/24/22 04:47 Baso % (Auto) 0.5 % (0.0-1.8) 05/24/22 04:47 Lymph # (Auto) 1.1 K/mm3 (1.2-5.4) L 05/24/22 04:47 [place] # (Auto) 0.5 K/mm3 (0.0-0.8) 05/24/22 04:47 Eos # (Auto) 0.3 K/mm3 (0.0-0.4) 05/24/22 04:47 Baso # (Auto) 0.1 K/mm3 (0.0-0.1) 05/24/22 04:47 Add Manual Diff Complete 05/23/22 05:23 Total Counted 100 05/23/22 05:23 Seg Neutrophils % 84.0 % (40.0-70.0) H 05/24/22 04:47 Seg Neuts % (Manual) 91.0 % (40.0-70.0) H 05/23/22 05:23 Band Neutrophils % 0 % 05/23/22 05:23 Lymphocytes % (Manual) 6.0 % (13.4-35.0) L 05/23/22 05:23 Reactive Lymphs % (Man) 0 % 05/23/22 05:23 Monocytes % (Manual) 1.0 % (0.0-7.3) 05/23/22 05:23 Eosinophils % (Manual) 2.0 % (0.0-4.3) 05/23/22 05:23 Basophils % (Manual) 0 % (0.0-1.8) 05/23/22 05:23 Metamyelocytes % 0 % 05/23/22 05:23 Myelocytes % 0 % 05/23/22 05:23 Promyelocytes % 0 % 05/23/22 05:23 Blast Cells % 0 % 05/23/22 05:23 Nucleated RBC % Not Reportable 05/23/22 05:23 Seg Neutrophils # 10.1 K/mm3 (1.8-7.7) H 05/24/22 04:47 Seg Neutrophils # Man 12.2 K/mm3 (1.8-7.7) H 05/23/22 05:23 Band Neutrophils # 0.0 K/mm3 05/23/22 05:23 Lymphocytes # (Manual) 0.8 K/mm3 (1.2-5.4) L 05/23/22 05:23 Abs React Lymphs (Man) 0.0 K/mm3 05/23/22 05:23 Monocytes # (Manual) 0.1 K/mm3 (0.0-0.8) 05/23/22 05:23 Eosinophils # (Manual) 0.3 K/mm3 (0.0-0.4) 05/23/22 05:23 Basophils # (Manual) 0.0 K/mm3 (0.0-0.1) 05/23/22 05:23 Metamyelocytes # 0.0 K/mm3 05/23/22 05:23 Myelocytes # 0.0 K/mm3 05/23/22 05:23 Promyelocytes # 0.0 K/mm3 05/23/22 05:23 Blast Cells # 0.0 K/mm3 05/23/22 05:23 WBC Morphology Not Reportable 05/23/22 05:23 Hypersegmented Neuts Not Reportable 05/23/22 05:23 Hyposegmented Neuts Not Reportable 05/23/22 05:23 Hypogranular Neuts Not Reportable 05/23/22 05:23 Smudge Cells Not Reportable 05/23/22 05:23 Toxic Granulation Not Reportable 05/23/22 05:23 Toxic Vacuolation Not Reportable 05/23/22 05:23 Dohle Bodies Not Reportable 05/23/22 05:23 Pelger-Huet Anomaly Not Reportable 05/23/22 05:23 Supa Rods Not Reportable 05/23/22 05:23 Platelet Estimate Consistent w auto 05/23/22 05:23 Clumped Platelets Not Reportable 05/23/22 05:23 Plt Clumps, EDTA Not Reportable 05/23/22 05:23 Large Platelets Not Reportable 05/23/22 05:23 Giant Platelets Not Reportable 05/23/22 05:23 Platelet Satelliting Not Reportable 05/23/22 05:23 Plt Morphology Comment Not Reportable 05/23/22 05:23 RBC Morphology Not Reportable 05/23/22 05:23 Dimorphic RBCs Not Reportable 05/23/22 05:23 Polychromasia Not Reportable 05/23/22 05:23 Hypochromasia Not Reportable 05/23/22 05:23 Poikilocytosis Not Reportable 05/23/22 05:23 Anisocytosis 1+ 05/23/22 05:23 Microcytosis Not Reportable 05/23/22 05:23 Macrocytosis Not Reportable 05/23/22 05:23 Spherocytes Not Reportable 05/23/22 05:23 Pappenheimer Bodies Not Reportable 05/23/22 05:23 Sickle Cells Not Reportable 05/23/22 05:23 Target Cells Not Reportable 05/23/22 05:23 Tear Drop Cells Not Reportable 05/23/22 05:23 Ovalocytes Not Reportable 05/23/22 05:23 Helmet Cells Not Reportable 05/23/22 05:23 [place] Bodies Not Reportable 05/23/22 05:23 [place] Rings Not Reportable 05/23/22 05:23 [place] Cells Not Reportable 05/23/22 05:23 Bite Cells Not Reportable 05/23/22 05:23 Crenated Cell Not Reportable 05/23/22 05:23 Elliptocytes Not Reportable 05/23/22 05:23 Acanthocytes (Spur) Not Reportable 05/23/22 05:23 Rouleaux Not Reportable 05/23/22 05:23 Hemoglobin C Crystals Not Reportable 05/23/22 05:23 Schistocytes Not Reportable 05/23/22 05:23 Malaria parasites Not Reportable 05/23/22 05:23 Parveen Bodies Not Reportable 05/23/22 05:23 Hem Pathologist Commnt No 05/23/22 05:23 PT 13.6 Sec. (12.2-14.9) 05/22/22 17:51 INR 0.94 (0.87-1.13) 05/22/22 17:51 ABG pH 7.422 pH Units (7.350-7.450) 05/14/22 10:50 ABG pCO2 40.2 mm Hg 05/14/22 10:50 ABG pO2 51.4 mm Hg (80.0-90.0) L 05/14/22 10:50 ABG HCO3 25.6 mmol/L (20.0-26.0) 05/14/22 10:50 ABG O2 Saturation 88.4 % (95.0-99.0) L 05/14/22 10:50 ABG O2 Content 13.9 (0.0-44) 05/14/22 10:50 ABG Base Excess 1.1 mmol/L (-2.0-3.0) 05/14/22 10:50 ABG Hemoglobin 11.5 gm/dl (12.0-16.0) L 05/14/22 10:50 ABG Carboxyhemoglobin 1.8 % (0.0-5.0) 05/14/22 10:50 ABG Methemoglobin 0.3 % (0.0-1.5) 05/14/22 10:50 Oxyhemoglobin 86.5 % (95.0-99.0) L 05/14/22 10:50 FiO2 50 % 05/14/22 10:50 Sodium 146 mmol/L (137-145) H 05/24/22 04:47 Potassium 3.6 mmol/L (3.6-5.0) 05/24/22 04:47 Chloride 104.1 mmol/L (98-107) 05/24/22 04:47 Carbon Dioxide 35 mmol/L (22-30) H 05/24/22 04:47 Anion Gap 11 mmol/L 05/24/22 04:47 BUN 20 mg/dL (7-17) H 05/24/22 04:47 Creatinine 0.4 mg/dL (0.6-1.2) L 05/24/22 04:47 Estimated GFR > 60 ml/min 05/24/22 04:47 BUN/Creatinine Ratio 50 % 05/24/22 04:47 Glucose 151 mg/dL (65-100) H 05/24/22 04:47 POC Glucose 205 mg/dL (70-105) H 05/24/22 11:36 Lactic Acid 1.50 mmol/L (0.7-2.0) 05/16/22 04:28 Calcium 9.1 mg/dL (8.4-10.2) 05/24/22 04:47 Magnesium 0.90 mg/dL (1.7-2.3) L* 05/24/22 04:47 Total Bilirubin 0.40 mg/dL (0.1-1.2) 05/14/22 05:45 AST 18 units/L (5-40) 05/14/22 05:45 ALT 10 units/L (7-56) 05/14/22 05:45 Alkaline Phosphatase 57 units/L (35-129) 05/14/22 05:45 Total Protein 6.3 g/dL (6.3-8.2) 05/14/22 05:45 Albumin 2.7 g/dL (3.9-5) L 05/14/22 05:45 Albumin/Globulin Ratio 0.8 % 05/14/22 05:45 Urine Color Brown (Yellow) 05/14/22 10:38 Urine Turbidity Turbid (Clear) 05/14/22 10:38 Urine pH 5.0 (5.0-7.0) 05/14/22 10:38 Ur Specific [place] 1.017 (1.003-1.030) 05/14/22 10:38 Urine Protein 100 mg/dl mg/dL (Negative) 05/14/22 10:38 Urine Glucose (UA) Neg mg/dL (Negative) 05/14/22 10:38 Urine Ketones Neg mg/dL (Negative) 05/14/22 10:38 Urine Blood Mod (Negative) 05/14/22 10:38 Urine Nitrite Neg (Negative) 05/14/22 10:38 Urine Bilirubin Neg (Negative) 05/14/22 10:38 Urine Ictotest Not Reportable 05/14/22 10:38 Urine Urobilinogen < 2.0 mg/dL (<2.0) 05/14/22 10:38 Ur Leukocyte Esterase Tr (Negative) 05/14/22 10:38 Urine WBC (Auto) > 182.0 /HPF (0.0-6.0) H 05/14/22 10:38 Urine RBC (Auto) > 182.0 /HPF (0.0-6.0) 05/14/22 10:38 Urine Bacteria (Auto) 4+ /HPF (Negative) 05/14/22 10:38 Urine WBC Clumps 3+ /HPF 05/14/22 10:38 Urine Mucus 1+ /HPF 05/14/22 10:38 SARS-CoV-2 (PCR) Negative (Negative) 05/24/22 12:40 Microbiology: Microbiology 05/20/22 20:03 Peripheral/Venous Blood Culture - Preliminary NO GROWTH AFTER 72 HOURS 05/20/22 20:03 Peripheral/Venous Blood Culture - Preliminary NO GROWTH AFTER 72 HOURS Choe/IV: Voiding Method External Female Catheter Active Medications - Current Medications Current Medications: Generic Name Dose Route Start Last Admin Trade Name Freq PRN Reason Stop Dose Admin Acetaminophen 650 mg 05/14/22 09:33 05/20/22 17:13 Acetaminophen 325 Mg Tab PO 650 mg Q6H PRN Administration Pain MILD(1-3)/Fever >100.5/SNELL Albuterol 2.5 mg 05/14/22 12:52 Albuterol 2.5 Mg/3 Ml Nebu IH Q4H PRN Shortness Of Breath Lipase/Protease/Amylase 1 each 05/23/22 15:34 Lipase 10,500/Protease 25,000/Amylase 43,750 (Units) Dr Caicedo FEEDTUBE PRN PRN For Clogged Feeding Tube Heparin Sodium (Porcine) 5,000 unit 05/14/22 22:00 05/24/22 11:50 Heparin 5,000 Unit/1 Ml Vial SUB-Q 5,000 unit Q12HR DUKE Administration Insulin Glargine 20 units 05/22/22 10:00 05/24/22 11:31 Insulin Glargine 100 Units/Ml SUB-Q 20 units DAILY DUKE Administration Insulin Human Lispro 0 unit 05/14/22 18:00 05/24/22 13:49 Insulin Lispro 100 Unit/Ml SUB-Q 4 unit Q6HR DUKE Administration Protocol Magnesium Oxide 400 mg 05/24/22 12:00 05/24/22 14:00 Magnesium Oxide 400 Mg Tab PO 400 mg QDAY DUKE Administration Morphine Sulfate 2 mg 05/14/22 09:33 Morphine 2 Mg/1 Ml Inj IV Q4H PRN Pain, Moderate (4-6) Simple Syrup 15 ml 05/23/22 15:34 Simple Syrup 15 Ml FEEDTUBE PRN PRN Hypoglycemia Simple Syrup 30 ml 05/23/22 15:34 Simple Syrup 15 Ml FEEDTUBE PRN PRN Hypoglycemia Sodium Bicarbonate 325 mg 05/23/22 15:34 Sodium Bicarbonate 325 Mg Tab FEEDTUBE PRN PRN For Clogged Feeding Tube Sodium Chloride 10 ml 05/14/22 10:00 05/24/22 11:46 Sodium Chloride 0.9% 10 Ml Flush Syringe IV 10 ml BID DUKE Administration Sodium Chloride 10 ml 05/14/22 09:32 Sodium Chloride 0.9% 10 Ml Flush Syringe IV PRN PRN LINE FLUSH Nutrition/Malnutrition Assess - Dietary Evaluation Nutrition/Malnutrition Findings: Nutrition Notes Start: 05/15/22 11:28 Freq: Status: Active Protocol: Document 05/23/22 15:30 CLARENCE (Rec: 05/23/22 15:43 CLARENCE [id number]) Nutrition Notes Initial or Follow up Brief Note Current Diagnosis Acute Kidney Injury,Sepsis, Respiratory Failure, Malnutrition Other Pertinent Diagnosis Metabolic Encephalopathy, UTI, HAP, Lactic Acidosis, ... Current Diet TF-Glucerna 1.2 [place] @ 45 ml/hr (since D 05/23). Height 5 ft 2.4 in Weight 62 kg [place] Body Weight (kg) 50.90 BMI 24.7 Weight change and time frame No body weight change reported in 1 week. Weight Status Appropriate Subjective/Other Information RD consult for resume TF after PEG tube placemnt. Glucerna 1.2 [place] is available; therefore I will prescribe Glucerna TF to provide Pt with energy/protein needs during LOS. Percent of energy/protein needs met: Prescribed TF-Glucerna 1.2 [place] @ 45 ml/hr provides for energy/protein needs (1,310 Kcal/66 g) during LOS, 99% Kcal; 89% AA. #1 Nutrition Diagnosis Malnutrition Diagnosis Progress(for reassessment Continues documentation) Is patient on ventilator? No Is Patient Ambulatory and/or Out of Bed No REE-([place] Jeor-confined to bed) [phone] Calculation Used for Recommendations [facility] Additional Notes Protein: 1.2-1.5 g/Kg ABW; 74- 93 g/day. Fluids: 1 ml/Kcal, or as per MD. Nutrition Intervention Nutrition Support: Change formula back to TF- Glucerna 1.2 [place] @ 45 ml/hr. Flush: 100 ml water Q 4 hr, or as per MD. Kcal 1,310 Protein (gm) 66 Carbohydrates (gm) 125 Fat (gm) 66 Fluid (mL) 879 Fiber (gm) 18 % RDI: 99% Kcal; 89% AA. Goal #1 Provide at least 75% of energy /protein needs through Enteral Feeding during LOS. Goal #2 Adjust the dietary intervention to better serve Pt's needs and clinical conditions during LOS. Follow-Up By: 05/30/22 Additional Comments Continue monitoring TF tolerance and BM.
[2022-05-25] MEDS: INSULIN LISPRO 100 UNIT/ML SUB-Q SCH ×3 (03:31→12:23)
[2022-05-25] MEDS ORDERED: MAGNESIUM SULFATE 2 GM/50 ML BAG IV ONE (05:48)
[2022-05-25] MEDS: HEPARIN 5,000 UNIT/1 ML VIAL SUB-Q SCH (10:34)
[2022-05-25] MEDS: INSULIN GLARGINE 100 UNITS/ML SUB-Q SCH (10:34)
[2022-05-25] MEDS: MAGNESIUM OXIDE 400 MG TAB PO SCH (10:34)
--- NOTE | 2022-05-25 12:10 | Progress Note ---
Hospitalist Physical - Constitutional Vitals: Temp Pulse Resp BP Pulse Ox 98.0 F 71 16 112/52 91 05/24/22 21:22 05/24/22 21:22 05/24/22 21:22 05/24/22 21:22 05/25/22 08:38 General appearance: Present: no acute distress, well-nourished Results - Labs CBC & Chem 7: 05/24/22 04:47 05/24/22 04:47 Labs: Laboratory Last Values WBC 12.0 K/mm3 (4.5-11.0) H 05/24/22 04:47 RBC 3.59 M/mm3 (3.65-5.03) L 05/24/22 04:47 Hgb 10.8 gm/dl (10.1-14.3) 05/24/22 04:47 Hct 33.4 % (30.3-42.9) 05/24/22 04:47 MCV 93 fl (79-97) 05/24/22 04:47 MCH 30 pg (28-32) 05/24/22 04:47 MCHC 32 % (30-34) 05/24/22 04:47 RDW 14.0 % (13.2-15.2) 05/24/22 04:47 Plt Count 188 K/mm3 (140-440) 05/24/22 04:47 Lymph % (Auto) 9.2 % (13.4-35.0) L 05/24/22 04:47 Eagle % (Auto) 4.1 % (0.0-7.3) 05/24/22 04:47 Eos % (Auto) 2.2 % (0.0-4.3) 05/24/22 04:47 Baso % (Auto) 0.5 % (0.0-1.8) 05/24/22 04:47 Lymph # (Auto) 1.1 K/mm3 (1.2-5.4) L 05/24/22 04:47 Eagle # (Auto) 0.5 K/mm3 (0.0-0.8) 05/24/22 04:47 Eos # (Auto) 0.3 K/mm3 (0.0-0.4) 05/24/22 04:47 Baso # (Auto) 0.1 K/mm3 (0.0-0.1) 05/24/22 04:47 Add Manual Diff Complete 05/23/22 05:23 Total Counted 100 05/23/22 05:23 Seg Neutrophils % 84.0 % (40.0-70.0) H 05/24/22 04:47 Seg Neuts % (Manual) 91.0 % (40.0-70.0) H 05/23/22 05:23 Band Neutrophils % 0 % 05/23/22 05:23 Lymphocytes % (Manual) 6.0 % (13.4-35.0) L 05/23/22 05:23 Reactive Lymphs % (Man) 0 % 05/23/22 05:23 Monocytes % (Manual) 1.0 % (0.0-7.3) 05/23/22 05:23 Eosinophils % (Manual) 2.0 % (0.0-4.3) 05/23/22 05:23 Basophils % (Manual) 0 % (0.0-1.8) 05/23/22 05:23 Metamyelocytes % 0 % 05/23/22 05:23 Myelocytes % 0 % 05/23/22 05:23 Promyelocytes % 0 % 05/23/22 05:23 Blast Cells % 0 % 05/23/22 05:23 Nucleated RBC % Not Reportable 05/23/22 05:23 Seg Neutrophils # 10.1 K/mm3 (1.8-7.7) H 05/24/22 04:47 Seg Neutrophils # Man 12.2 K/mm3 (1.8-7.7) H 05/23/22 05:23 Band Neutrophils # 0.0 K/mm3 05/23/22 05:23 Lymphocytes # (Manual) 0.8 K/mm3 (1.2-5.4) L 05/23/22 05:23 Abs React Lymphs (Man) 0.0 K/mm3 05/23/22 05:23 Monocytes # (Manual) 0.1 K/mm3 (0.0-0.8) 05/23/22 05:23 Eosinophils # (Manual) 0.3 K/mm3 (0.0-0.4) 05/23/22 05:23 Basophils # (Manual) 0.0 K/mm3 (0.0-0.1) 05/23/22 05:23 Metamyelocytes # 0.0 K/mm3 05/23/22 05:23 Myelocytes # 0.0 K/mm3 05/23/22 05:23 Promyelocytes # 0.0 K/mm3 05/23/22 05:23 Blast Cells # 0.0 K/mm3 05/23/22 05:23 WBC Morphology Not Reportable 05/23/22 05:23 Hypersegmented Neuts Not Reportable 05/23/22 05:23 Hyposegmented Neuts Not Reportable 05/23/22 05:23 Hypogranular Neuts Not Reportable 05/23/22 05:23 Smudge Cells Not Reportable 05/23/22 05:23 Toxic Granulation Not Reportable 05/23/22 05:23 Toxic Vacuolation Not Reportable 05/23/22 05:23 Dohle Bodies Not Reportable 05/23/22 05:23 Pelger-Huet Anomaly Not Reportable 05/23/22 05:23 Supa Rods Not Reportable 05/23/22 05:23 Platelet Estimate Consistent w auto 05/23/22 05:23 Clumped Platelets Not Reportable 05/23/22 05:23 Plt Clumps, EDTA Not Reportable 05/23/22 05:23 Large Platelets Not Reportable 05/23/22 05:23 Giant Platelets Not Reportable 05/23/22 05:23 Platelet Satelliting Not Reportable 05/23/22 05:23 Plt Morphology Comment Not Reportable 05/23/22 05:23 RBC Morphology Not Reportable 05/23/22 05:23 Dimorphic RBCs Not Reportable 05/23/22 05:23 Polychromasia Not Reportable 05/23/22 05:23 Hypochromasia Not Reportable 05/23/22 05:23 Poikilocytosis Not Reportable 05/23/22 05:23 Anisocytosis 1+ 05/23/22 05:23 Microcytosis Not Reportable 05/23/22 05:23 Macrocytosis Not Reportable 05/23/22 05:23 Spherocytes Not Reportable 05/23/22 05:23 Pappenheimer Bodies Not Reportable 05/23/22 05:23 Sickle Cells Not Reportable 05/23/22 05:23 Target Cells Not Reportable 05/23/22 05:23 Tear Drop Cells Not Reportable 05/23/22 05:23 Ovalocytes Not Reportable 05/23/22 05:23 Helmet Cells Not Reportable 05/23/22 05:23 Truong-Liborio Negron Torres Bodies Not Reportable 05/23/22 05:23 Hughes Rings Not Reportable 05/23/22 05:23 Donovan Cells Not Reportable 05/23/22 05:23 Bite Cells Not Reportable 05/23/22 05:23 Crenated Cell Not Reportable 05/23/22 05:23 Elliptocytes Not Reportable 05/23/22 05:23 Acanthocytes (Spur) Not Reportable 05/23/22 05:23 Rouleaux Not Reportable 05/23/22 05:23 Hemoglobin C Crystals Not Reportable 05/23/22 05:23 Schistocytes Not Reportable 05/23/22 05:23 Malaria parasites Not Reportable 05/23/22 05:23 Parveen Bodies Not Reportable 05/23/22 05:23 Hem Pathologist Commnt No 05/23/22 05:23 PT 13.6 Sec. (12.2-14.9) 05/22/22 17:51 INR 0.94 (0.87-1.13) 05/22/22 17:51 ABG pH 7.422 pH Units (7.350-7.450) 05/14/22 10:50 ABG pCO2 40.2 mm Hg 05/14/22 10:50 ABG pO2 51.4 mm Hg (80.0-90.0) L 05/14/22 10:50 ABG HCO3 25.6 mmol/L (20.0-26.0) 05/14/22 10:50 ABG O2 Saturation 88.4 % (95.0-99.0) L 05/14/22 10:50 ABG O2 Content 13.9 (0.0-44) 05/14/22 10:50 ABG Base Excess 1.1 mmol/L (-2.0-3.0) 05/14/22 10:50 ABG Hemoglobin 11.5 gm/dl (12.0-16.0) L 05/14/22 10:50 ABG Carboxyhemoglobin 1.8 % (0.0-5.0) 05/14/22 10:50 ABG Methemoglobin 0.3 % (0.0-1.5) 05/14/22 10:50 Oxyhemoglobin 86.5 % (95.0-99.0) L 05/14/22 10:50 FiO2 50 % 05/14/22 10:50 Sodium 146 mmol/L (137-145) H 05/24/22 04:47 Potassium 3.6 mmol/L (3.6-5.0) 05/24/22 04:47 Chloride 104.1 mmol/L (98-107) 05/24/22 04:47 Carbon Dioxide 35 mmol/L (22-30) H 05/24/22 04:47 Anion Gap 11 mmol/L 05/24/22 04:47 BUN 20 mg/dL (7-17) H 05/24/22 04:47 Creatinine 0.4 mg/dL (0.6-1.2) L 05/24/22 04:47 Estimated GFR > 60 ml/min 05/24/22 04:47 BUN/Creatinine Ratio 50 % 05/24/22 04:47 Glucose 151 mg/dL (65-100) H 05/24/22 04:47 POC Glucose 168 mg/dL (70-105) H 05/25/22 10:30 Lactic Acid 1.50 mmol/L (0.7-2.0) 05/16/22 04:28 Calcium 9.1 mg/dL (8.4-10.2) 05/24/22 04:47 Magnesium 1.50 mg/dL (1.7-2.3) L 05/24/22 20:32 Total Bilirubin 0.40 mg/dL (0.1-1.2) 05/14/22 05:45 AST 18 units/L (5-40) 05/14/22 05:45 ALT 10 units/L (7-56) 05/14/22 05:45 Alkaline Phosphatase 57 units/L (35-129) 05/14/22 05:45 Total Protein 6.3 g/dL (6.3-8.2) 05/14/22 05:45 Albumin 2.7 g/dL (3.9-5) L 05/14/22 05:45 Albumin/Globulin Ratio 0.8 % 05/14/22 05:45 Urine Color Brown (Yellow) 05/14/22 10:38 Urine Turbidity Turbid (Clear) 05/14/22 10:38 Urine pH 5.0 (5.0-7.0) 05/14/22 10:38 Ur Specific Hardy 1.017 (1.003-1.030) 05/14/22 10:38 Urine Protein 100 mg/dl mg/dL (Negative) 05/14/22 10:38 Urine Glucose (UA) Neg mg/dL (Negative) 05/14/22 10:38 Urine Ketones Neg mg/dL (Negative) 05/14/22 10:38 Urine Blood Mod (Negative) 05/14/22 10:38 Urine Nitrite Neg (Negative) 05/14/22 10:38 Urine Bilirubin Neg (Negative) 05/14/22 10:38 Urine Ictotest Not Reportable 05/14/22 10:38 Urine Urobilinogen < 2.0 mg/dL (<2.0) 05/14/22 10:38 Ur Leukocyte Esterase Tr (Negative) 05/14/22 10:38 Urine WBC (Auto) > 182.0 /HPF (0.0-6.0) H 05/14/22 10:38 Urine RBC (Auto) > 182.0 /HPF (0.0-6.0) 05/14/22 10:38 Urine Bacteria (Auto) 4+ /HPF (Negative) 05/14/22 10:38 Urine WBC Clumps 3+ /HPF 05/14/22 10:38 Urine Mucus 1+ /HPF 05/14/22 10:38 SARS-CoV-2 (PCR) Negative (Negative) 05/24/22 12:40 Microbiology: Microbiology 05/20/22 20:03 Peripheral/Venous Blood Culture - Preliminary NO GROWTH AFTER 4 DAYS 05/20/22 20:03 Peripheral/Venous Blood Culture - Preliminary NO GROWTH AFTER 4 DAYS Choe/IV: Voiding Method External Female Catheter Active Medications - Current Medications Current Medications: Generic Name Dose Route Start Last Admin Trade Name Freq PRN Reason Stop Dose Admin Acetaminophen 650 mg 05/14/22 09:33 05/20/22 17:13 Acetaminophen 325 Mg Tab PO 650 mg Q6H PRN Administration Pain MILD(1-3)/Fever >100.5/SNELL Albuterol 2.5 mg 05/14/22 12:52 Albuterol 2.5 Mg/3 Ml Nebu IH Q4H PRN Shortness Of Breath Lipase/Protease/Amylase 1 each 05/23/22 15:34 Lipase 10,500/Protease 25,000/Amylase 43,750 (Units) Dr Caicedo FEEDTUBE PRN PRN For Clogged Feeding Tube Heparin Sodium (Porcine) 5,000 unit 05/14/22 22:00 05/25/22 10:34 Heparin 5,000 Unit/1 Ml Vial SUB-Q 5,000 unit Q12HR DUKE Administration Insulin Glargine 20 units 05/22/22 10:00 05/25/22 10:34 Insulin Glargine 100 Units/Ml SUB-Q 20 units DAILY DUKE Administration Insulin Human Lispro 0 unit 05/14/22 18:00 05/25/22 06:06 Insulin Lispro 100 Unit/Ml SUB-Q Not Given Q6HR DUKE Protocol Magnesium Oxide 400 mg 05/24/22 12:00 05/25/22 10:34 Magnesium Oxide 400 Mg Tab PO 400 mg QDAY DUKE Administration Morphine Sulfate 2 mg 05/14/22 09:33 Morphine 2 Mg/1 Ml Inj IV Q4H PRN Pain, Moderate (4-6) Simple Syrup 15 ml 05/23/22 15:34 Simple Syrup 15 Ml FEEDTUBE PRN PRN Hypoglycemia Simple Syrup 30 ml 05/23/22 15:34 Simple Syrup 15 Ml FEEDTUBE PRN PRN Hypoglycemia Sodium Bicarbonate 325 mg 05/23/22 15:34 Sodium Bicarbonate 325 Mg Tab FEEDTUBE PRN PRN For Clogged Feeding Tube Sodium Chloride 10 ml 05/14/22 10:00 05/25/22 10:34 Sodium Chloride 0.9% 10 Ml Flush Syringe IV 10 ml BID DUKE Administration Sodium Chloride 10 ml 05/14/22 09:32 Sodium Chloride 0.9% 10 Ml Flush Syringe IV PRN PRN LINE FLUSH Nutrition/Malnutrition Assess - Dietary Evaluation Nutrition/Malnutrition Findings: Nutrition Notes Start: 05/15/22 11: 28 Freq: Status: Active Protocol: Document 05/23/22 15:30 CLARENCE (Rec: 05/23/22 15:43 CLARENCE [id number]) Nutrition Notes Initial or Follow up Brief Note Current Diagnosis Acute Kidney Injury,Sepsis, Respiratory Failure, Malnutrition Other Pertinent Diagnosis Metabolic Encephalopathy, UTI, HAP, Lactic Acidosis, ... Current Diet TF-Glucerna 1.2 [place] @ 45 ml/hr (since D 05/23). Height 5 ft 2.4 in Weight 62 kg [place] Body Weight (kg) 50.90 BMI 24.7 Weight change and time frame No body weight change reported in 1 week. Weight Status Appropriate Subjective/Other Information RD consult for resume TF after PEG tube placemnt. Glucerna 1.2 Le[place] is available; therefore I will prescribe Glucerna TF to provide Pt with energy/protein needs during LOS. Percent of energy/protein needs met: Prescribed TF-Glucerna 1.2 [place] @ 45 ml/hr provides for energy/protein needs (1,310 Kcal/66 g) during LOS, 99% Kcal; 89% AA. #1 Nutrition Diagnosis Malnutrition Diagnosis Progress(for reassessment Continues documentation) Is patient on ventilator? No Is Patient Ambulatory and/or Out of Bed No REE-([facility]-confined to bed) [phone] Calculation Used for Recommendations [facility] Additional Notes Protein: 1.2-1.5 g/Kg ABW; 74- 93 g/day. Fluids: 1 ml/Kcal, or as per MD. Nutrition Intervention Nutrition Support: Change formula back to TF- Glucerna 1.2 [place] @ 45 ml/hr. Flush: 100 ml water Q 4 hr, or as per MD. Kcal 1,310 Protein (gm) 66 Carbohydrates (gm) 125 Fat (gm) 66 Fluid (mL) 879 Fiber (gm) 18 % RDI: 99% Kcal; 89% AA. Goal #1 Provide at least 75% of energy /protein needs through Enteral Feeding during LOS. Goal #2 Adjust the dietary intervention to better serve Pt's needs and clinical conditions during LOS. Follow-Up By: 05/30/22 Additional Comments Continue monitoring TF tolerance and BM.
--- NOTE | 2022-05-25 12:25 | Discharge Summary ---
Providers - Providers Date of Admission: 05/14/22 09:32 Date of discharge: 05/25/22 Attending physician: REECE RODRÍGUEZ 05/14/22 11:24 Consult to Physician [CONS] Urgent Comment: Consulting Provider: KENNETH ALVES Physician Instructions: Reason For Exam: pneumonia, hypoxia 05/14/22 13:22 Consult to Dietitian/Nutrition [CONS] Routine Physician Instructions: Reason For Exam: Reason for Consult: Malnutrition 05/14/22 19:09 Consult to Wound/ET Nurse [CONS] Urgent Reason For Exam: wound eval LEFT HEEL AND LEFT LEG 05/18/22 09:14 Physical Therapy Evaluation and Treat [CONS] Stat Comment: Eval and Treat Reason For Exam: Physical Therapy 05/18/22 09:15 Occupational Therapy Evaluate and Treat [CONS] Stat Comment: Eval and Treat Reason For Exam: Occupational Therapy 05/18/22 12:16 Consult to Physician [CONS] Routine Comment: Consulting Provider: TROY SAMANIEGO Physician Instructions: Reason For Exam: peg placement 05/19/22 15:54 Speech Therapy Evaluation and Treat [CONS] Routine Reason For Exam: Dysphagia 05/23/22 12:27 Consult to Dietitian/Nutrition [CONS] Stat Physician Instructions: pt was on ngt, now with a peg Reason For Exam: Reason for Consult: Write/Manage Tube Feeding Primary care physician: LAITH MARSH Hospitalization Reason for admission: Acute hypoxic respiratory failure, altered level of consciousness, fever Condition: Stable Pertinent studies: CT head without contrast Chest x-ray Abdominal x-ray Procedures: Esophagus duodenoscopy/PEG placement Hospital course: 71-year-old female patient [facility] resident with significant past medical history of Alzheimer's dementia diabetes, coronary artery disease, depression, dysphagia, thrombocytopenia was sent to the emergency room with complaints of altered level of consciousness and sepsis. Patient was noted to be severely hypoxemic on arrival saturating only 88% on room air however improved to 91% on 2 L. After returning from CT scan patient suddenly went into severe hypoxic respiratory failure requiring 15 L When I went and re evaluated the patient, the respiratory therapist at the bedside and patient is on high flow nasal cannula oxygen 30 L/65% FiO2/O2 sats 95 percent. Patient was admitted to IMCU, evaluated by pulmonary medications optimized, COVID-19 test x2 is negative Patient also has sepsis due to left-sided pneumonia and urinary tract infection which was appropriately managed, urine cultures positive for E. coli. Patient remains severely encephalopathic , with dysphagia, GI evaluated and recommended PEG and patient received PEG placement yesterday Also has severe electrolyte imbalances were corrected per protocol Today patient is comfortable no new complaints, vital signs stable, physical examination prior to discharge is unremarkable Case management assisted with SNF placement Patient is being discharged and transferred to SNF today. Home O2 evaluation patient saturating well on room air at this point no need for home oxygen Discharge diagnosis; COVID-19 test[ 05/14/2022]--negative COVID-19 test[ 05/24/2022]--negative #Dysphagia s/p PEG tube placement 05/23/2022; Patient tolerated the procedure well Start tube feeding per PEG tube protocols Aspiration precautions #Severe hypomagnesemia; Mg 0.90 Replenished with mag sulfate 4 g IV riders Mag-Ox 400 twice a day Closely monitor electrolytes Seizure precaution #Acute hypoxic respiratory failure Requiring supplemental oxygen Probably secondary to pneumonia Oxygen titrate O2 sats to more than 90%, currently on high flow nasal cannula Pulmonary consultation #Sepsis POA secondary to left-sided pneumonia/Urinary Tract Infection - follow bcx,scx,ucx - COVID RT PCR negative - abx: vanc/cefepime IV - trend fever curve/wbc ct #Hospital Acquired Pneumonia [place] resident Blood cultures, sputum cultures Empiric antibiotics cefepime Oxygen titrate O2 sats to more than 90% Supportive care Pulmonary/ID service needed #E. coli urinary tract infection #Acute metabolic encephalopathy; -Multifactorial, sepsis, pneumonia , hypoxia in the setting of advanced dementia -Respiratory failure advanced age -Treat the underlying cause -CT brain on admission demonstrated no acute intracranial abnormality #Lactic acidosis; -Probably secondary to sepsis, IV fluids -Empiric IV antibiotics, follow cultures -Trend lactic levels #Acute kidney injury; vasomotor nephropathy -Gentle hydration, monitor renal function -Avoid nephrotoxins, nephrology consult if needed #Mild hyponatremia; -Closely monitor electrolytes #Severe protein calorie malnutrition; -Nutrition supplements, supportive care -Nutrition consult #Severe hypoalbuminemia; -Nutrition supplements and supportive care Patient is hemodynamically and clinically stable at discharge Disposition: 03 [facility] Final Discharge Diagnosis (Prints w/discharge instructions): COVID-19 test x2 negative. Dysphagia s/p PEG placement. Severe hypomagnesemia corrected. Acute hypoxic respiratory failure. Sepsis secondary to left-sided pneumonia/urinary tract infection. Hospital-acquired pneumonia. E. coli urinary tract infection. Lactic acidosis. Acute kidney injury. Mild hyponatremia. Severe protein calorie malnutrition. Severe hypoalbuminemia Time spent for discharge: 35 minutes Core Measure Documentation - Palliative Care Palliative Care/ Comfort Measures: Not Applicable - Core Measures Any of the following diagnoses?: none Exam - Constitutional Vitals: Temp Pulse Resp BP Pulse Ox 98.0 F 71 16 112/52 91 05/24/22 21:22 05/24/22 21:22 05/24/22 21:22 05/24/22 21:22 05/25/22 08:38 General appearance: Present: no acute distress, well-nourished - EENT Eyes: Present: PERRL, EOM intact - Neck Neck: Present: supple, normal ROM - Respiratory Respiratory effort: normal Respiratory: bilateral: diminished, negative: rales, rhonchi, wheezing - Cardiovascular Rhythm: regular Heart Sounds: Present: S1 & S2 - Extremities Extremities: no ischemia, No edema - Abdominal General gastrointestinal: Present: soft, non-tender, non-distended, normal bowel sounds - Integumentary Integumentary: Present: clear, warm - Musculoskeletal Musculoskeletal: strength equal bilaterally, generalized weakness - Psychiatric Psychiatric: intact judgment & insight, other (Confused at times) - Neurologic Neurologic: moves all extremities Plan Activity: advance as tolerated, fall precautions Diet: other (Tube feeding per protocol) Wound: per wound nurse instructions Additional Instructions: The patient has worsening symptoms contact MD or go to the nearest emergency room. Tube feeding per protocol, aspiration precautions, fall precautions. Follow his primary care physician, GI and pulmonary per schedule Follow up with: LAITH MARSH MD [Primary Care Provider] - 3-5 Days KENNETH ALVES MD [Staff Physician] - 14 Days
--- NOTE | 2022-05-25 12:42 | Progress Note ---
Assessment and Plan 71 y/o female with sepsis, and acute respiratory failure most likely secondary to left lower lobe infiltrate with acute renal failure 05/25/22: Acute pulm issues resolved and now on room air. Being discharged. 05/24/22: Wean FiO2 as tolerated. No objection to discharge from a pulm standpoint. 05/18/22: Stable pulm status, however, would continue to attempt to wean for sats >88%. Pt/OT and Incentive naila. No objection to discharge once bed available. Will continue to follow. 05/17/22: IV abx therapy. Growing E. Coli. Wean FiO2 as tolerated for sats >88% 05/16/22: I gave 2 boluses yesterday secondary to marginal BP's. thats likely why cxr looks slightly worse. Will discontinue IVF's. Continue to wean FiO2 for sats >88%. Continue IV abx, has gram negative rods in the urine so maybe able to stop vanc. stable BP. Would be ok with patient going back to floor. Replace K 1. Pulm-has been weaned to 15 liters and 55%. Sats good. Continue to wean for sats >88%. Agree with repeat CXR tomorrow and ABG if needed. 2. CV-hypotensive, will bolus now and reassess. May be more volume deplete, especially given renal failure. Repeat chemistry later today to see if renal function improves with volume. If so give more 3. Neuro-intial head CT is negative. May need repeat if she does not improve with abx and fluid hydration. Given her mental state, if her oxygenation worsens, would need intubation, not a candidate for bipap 4. Guarded progonsis CCT 31 minutes. Subjective Date of service: 05/25/22 Principal diagnosis: Pneumonia, Sepsis Interval history: Weaned to room air. Being discharged today. Objective Vital Signs - 12hr 05/25/22 08:38 O2 Sat by Pulse 91 Oximetry Constitutional: no acute distress Eyes: non-icteric ENT: oropharynx moist Neck: supple Effort: normal Ascultation: Left: rales (left lower lobe), Bilateral: rhonchi Cardiovascular: regular rate and rhythm (no mrg) Gastrointestinal: normoactive bowel sounds, soft, non-tender, non-distended Integumentary: normal Extremities: no cyanosis, no edema, pink and warm Neurologic: unable to assess Psychiatric: other (unable to assess) CBC and BMP: 05/24/22 04:47 05/25/22 11:23 ABG, PT/INR, D-dimer: ABG ABG pH 7.422 pH Units (7.350-7.450) 05/14/22 10:50 ABG pCO2 40.2 mm Hg 05/14/22 10:50 ABG pO2 51.4 mm Hg (80.0-90.0) L 05/14/22 10:50 ABG O2 Saturation 88.4 % (95.0-99.0) L 05/14/22 10:50 PT/INR, D-dimer PT 13.6 Sec. (12.2-14.9) 05/22/22 17:51 INR 0.94 (0.87-1.13) 05/22/22 17:51 Abnormal lab findings: Abnormal Labs 05/14/22 05/14/22 05/14/22 05:45 05:45 05:45 WBC 20.8 H RBC Lymph % (Auto) Lymph # (Auto) Seg Neutrophils % Seg Neuts % (Manual) 85.0 H Lymphocytes % (Manual) 5.0 L Seg Neutrophils # Seg Neutrophils # Man 17.7 H Lymphocytes # (Manual) 1.0 L ABG pO2 ABG O2 Saturation ABG Hemoglobin Oxyhemoglobin Sodium 134 L Potassium Chloride 94.2 L Carbon Dioxide BUN 35 H Creatinine 2.1 H Glucose 403 H POC Glucose Lactic Acid 6.60 H* Calcium Magnesium Albumin 2.7 L Urine WBC (Auto) 05/14/22 05/14/22 05/14/22 05:45 07:02 09:26 WBC RBC Lymph % (Auto) Lymph # (Auto) Seg Neutrophils % Seg Neuts % (Manual) Lymphocytes % (Manual) Seg Neutrophils # Seg Neutrophils # Man Lymphocytes # (Manual) ABG pO2 ABG O2 Saturation ABG Hemoglobin Oxyhemoglobin Sodium Potassium Chloride Carbon Dioxide BUN Creatinine Glucose POC Glucose Lactic Acid 5.70 H* 5.30 H* Calcium Magnesium 1.10 L Albumin Urine WBC (Auto) 05/14/22 05/14/22 05/14/22 09:31 10:38 10:50 WBC RBC Lymph % (Auto) Lymph # (Auto) Seg Neutrophils % Seg Neuts % (Manual) Lymphocytes % (Manual) Seg Neutrophils # Seg Neutrophils # Man Lymphocytes # (Manual) ABG pO2 51.4 L ABG O2 Saturation 88.4 L ABG Hemoglobin 11.5 L Oxyhemoglobin 86.5 L Sodium Potassium Chloride Carbon Dioxide BUN Creatinine Glucose POC Glucose 209 H Lactic Acid Calcium Magnesium Albumin Urine WBC (Auto) > 182.0 H 05/14/22 05/14/22 05/14/22 13:24 17:15 23:38 WBC RBC Lymph % (Auto) Lymph # (Auto) Seg Neutrophils % Seg Neuts % (Manual) Lymphocytes % (Manual) Seg Neutrophils # Seg Neutrophils # Man Lymphocytes # (Manual) ABG pO2 ABG O2 Saturation ABG Hemoglobin Oxyhemoglobin Sodium Potassium Chloride Carbon Dioxide BUN Creatinine Glucose POC Glucose 212 H 245 H 246 H Lactic Acid Calcium Magnesium Albumin Urine WBC (Auto) 05/15/22 05/15/22 05/15/22 05:23 11:25 16:16 WBC RBC Lymph % (Auto) Lymph # (Auto) Seg Neutrophils % Seg Neuts % (Manual) Lymphocytes % (Manual) Seg Neutrophils # Seg Neutrophils # Man Lymphocytes # (Manual) ABG pO2 ABG O2 Saturation ABG Hemoglobin Oxyhemoglobin Sodium Potassium Chloride Carbon Dioxide BUN Creatinine Glucose POC Glucose 236 H 232 H 166 H Lactic Acid Calcium Magnesium Albumin Urine WBC (Auto) 05/15/22 05/16/22 05/16/22 17:56 00:58 04:28 WBC 21.8 H RBC Lymph % (Auto) Lymph # (Auto) Seg Neutrophils % Seg Neuts % (Manual) 97.0 H Lymphocytes % (Manual) 0 L Seg Neutrophils # Seg Neutrophils # Man 21.1 H Lymphocytes # (Manual) 0.0 L ABG pO2 ABG O2 Saturation ABG Hemoglobin Oxyhemoglobin Sodium Potassium 3.5 L Chloride 110.1 H Carbon Dioxide BUN 32 H Creatinine Glucose 207 H POC Glucose 215 H Lactic Acid Calcium Magnesium Albumin Urine WBC (Auto) 05/16/22 05/16/22 05/16/22 04:28 05:47 11:36 WBC RBC Lymph % (Auto) Lymph # (Auto) Seg Neutrophils % Seg Neuts % (Manual) Lymphocytes % (Manual) Seg Neutrophils # Seg Neutrophils # Man Lymphocytes # (Manual) ABG pO2 ABG O2 Saturation ABG Hemoglobin Oxyhemoglobin Sodium Potassium 3.5 L Chloride 110.2 H Carbon Dioxide BUN 29 H Creatinine Glucose 222 H POC Glucose 186 H 193 H Lactic Acid Calcium Magnesium Albumin Urine WBC (Auto) 05/16/22 05/16/22 05/17/22 17:24 23:21 00:17 WBC 18.6 H RBC Lymph % (Auto) Lymph # (Auto) Seg Neutrophils % Seg Neuts % (Manual) 91.0 H Lymphocytes % (Manual) 4.0 L Seg Neutrophils # Seg Neutrophils # Man 16.9 H Lymphocytes # (Manual) 0.7 L ABG pO2 ABG O2 Saturation ABG Hemoglobin Oxyhemoglobin Sodium Potassium Chloride Carbon Dioxide BUN Creatinine Glucose POC Glucose 170 H 192 H Lactic Acid Calcium Magnesium Albumin Urine WBC (Auto) 05/17/22 05/17/22 05/17/22 00:17 05:17 12:13 WBC RBC Lymph % (Auto) Lymph # (Auto) Seg Neutrophils % Seg Neuts % (Manual) Lymphocytes % (Manual) Seg Neutrophils # Seg Neutrophils # Man Lymphocytes # (Manual) ABG pO2 ABG O2 Saturation ABG Hemoglobin Oxyhemoglobin Sodium 150 H Potassium 3.5 L Chloride 112.5 H Carbon Dioxide 18 L BUN 22 H Creatinine 0.4 L Glucose 242 H POC Glucose 277 H 305 H Lactic Acid Calcium Magnesium Albumin Urine WBC (Auto) 05/17/22 05/17/22 05/18/22 18:17 23:41 05:16 WBC RBC Lymph % (Auto) Lymph # (Auto) Seg Neutrophils % Seg Neuts % (Manual) Lymphocytes % (Manual) Seg Neutrophils # Seg Neutrophils # Man Lymphocytes # (Manual) ABG pO2 ABG O2 Saturation ABG Hemoglobin Oxyhemoglobin Sodium Potassium Chloride Carbon Dioxide BUN Creatinine Glucose POC Glucose 331 H 372 H 313 H Lactic Acid Calcium Magnesium Albumin Urine WBC (Auto) 05/18/22 05/18/22 05/18/22 11:23 16:43 23:53 WBC RBC Lymph % (Auto) Lymph # (Auto) Seg Neutrophils % Seg Neuts % (Manual) Lymphocytes % (Manual) Seg Neutrophils # Seg Neutrophils # Man Lymphocytes # (Manual) ABG pO2 ABG O2 Saturation ABG Hemoglobin Oxyhemoglobin Sodium Potassium Chloride Carbon Dioxide BUN Creatinine Glucose POC Glucose 332 H 287 H 300 H Lactic Acid Calcium Magnesium Albumin Urine WBC (Auto) 05/19/22 05/19/22 05/19/22 04:22 04:22 04:59 WBC 17.3 H RBC Lymph % (Auto) Lymph # (Auto) Seg Neutrophils % Seg Neuts % (Manual) 96.0 H Lymphocytes % (Manual) 1.0 L Seg Neutrophils # Seg Neutrophils # Man 16.6 H Lymphocytes # (Manual) 0.2 L ABG pO2 ABG O2 Saturation ABG Hemoglobin Oxyhemoglobin Sodium 151 H Potassium Chloride 111.9 H Carbon Dioxide 32 H D BUN 18 H Creatinine 0.4 L Glucose 323 H POC Glucose 296 H Lactic Acid Calcium 10.4 H Magnesium Albumin Urine WBC (Auto) 05/19/22 05/19/22 05/19/22 11:17 17:17 23:20 WBC RBC Lymph % (Auto) Lymph # (Auto) Seg Neutrophils % Seg Neuts % (Manual) Lymphocytes % (Manual) Seg Neutrophils # Seg Neutrophils # Man Lymphocytes # (Manual) ABG pO2 ABG O2 Saturation ABG Hemoglobin Oxyhemoglobin Sodium Potassium Chloride Carbon Dioxide BUN Creatinine Glucose POC Glucose 295 H 266 H 250 H Lactic Acid Calcium Magnesium Albumin Urine WBC (Auto) 05/20/22 05/20/22 05/20/22 05:36 11:50 17:29 WBC RBC Lymph % (Auto) Lymph # (Auto) Seg Neutrophils % Seg Neuts % (Manual) Lymphocytes % (Manual) Seg Neutrophils # Seg Neutrophils # Man Lymphocytes # (Manual) ABG pO2 ABG O2 Saturation ABG Hemoglobin Oxyhemoglobin Sodium Potassium Chloride Carbon Dioxide BUN Creatinine Glucose POC Glucose 263 H 314 H 255 H Lactic Acid Calcium Magnesium Albumin Urine WBC (Auto) 05/20/22 05/21/22 05/21/22 23:55 05:34 11:19 WBC RBC Lymph % (Auto) Lymph # (Auto) Seg Neutrophils % Seg Neuts % (Manual) Lymphocytes % (Manual) Seg Neutrophils # Seg Neutrophils # Man Lymphocytes # (Manual) ABG pO2 ABG O2 Saturation ABG Hemoglobin Oxyhemoglobin Sodium Potassium Chloride Carbon Dioxide BUN Creatinine Glucose POC Glucose 216 H 266 H 290 H Lactic Acid Calcium Magnesium Albumin Urine WBC (Auto) 05/21/22 05/21/22 05/22/22 16:13 23:57 06:30 WBC RBC Lymph % (Auto) Lymph # (Auto) Seg Neutrophils % Seg Neuts % (Manual) Lymphocytes % (Manual) Seg Neutrophils # Seg Neutrophils # Man Lymphocytes # (Manual) ABG pO2 ABG O2 Saturation ABG Hemoglobin Oxyhemoglobin Sodium Potassium Chloride Carbon Dioxide BUN Creatinine Glucose POC Glucose 240 H 137 H 134 H Lactic Acid Calcium Magnesium Albumin Urine WBC (Auto) 05/22/22 05/23/22 05/23/22 12:07 05:23 05:23 WBC 13.4 H RBC 3.35 L Lymph % (Auto) Lymph # (Auto) Seg Neutrophils % Seg Neuts % (Manual) 91.0 H Lymphocytes % (Manual) 6.0 L Seg Neutrophils # Seg Neutrophils # Man 12.2 H Lymphocytes # (Manual) 0.8 L ABG pO2 ABG O2 Saturation ABG Hemoglobin Oxyhemoglobin Sodium 147 H Potassium 3.5 L Chloride Carbon Dioxide 38 H BUN 23 H Creatinine 0.3 L Glucose POC Glucose 123 H Lactic Acid Calcium Magnesium Albumin Urine WBC (Auto) 05/24/22 05/24/22 05/24/22 04:47 04:47 05:57 WBC 12.0 H RBC 3.59 L Lymph % (Auto) 9.2 L Lymph # (Auto) 1.1 L Seg Neutrophils % 84.0 H Seg Neuts % (Manual) Lymphocytes % (Manual) Seg Neutrophils # 10.1 H Seg Neutrophils # Man Lymphocytes # (Manual) ABG pO2 ABG O2 Saturation ABG Hemoglobin Oxyhemoglobin Sodium 146 H Potassium Chloride Carbon Dioxide 35 H BUN 20 H Creatinine 0.4 L Glucose 151 H POC Glucose 153 H Lactic Acid Calcium Magnesium 0.90 L* Albumin Urine WBC (Auto) 05/24/22 05/24/22 05/24/22 11:36 18:49 20:32 WBC RBC Lymph % (Auto) Lymph # (Auto) Seg Neutrophils % Seg Neuts % (Manual) Lymphocytes % (Manual) Seg Neutrophils # Seg Neutrophils # Man Lymphocytes # (Manual) ABG pO2 ABG O2 Saturation ABG Hemoglobin Oxyhemoglobin Sodium Potassium Chloride Carbon Dioxide BUN Creatinine Glucose POC Glucose 205 H 157 H Lactic Acid Calcium Magnesium 1.50 L Albumin Urine WBC (Auto) 05/25/22 05/25/22 06:05 10:30 WBC RBC Lymph % (Auto) Lymph # (Auto) Seg Neutrophils % Seg Neuts % (Manual) Lymphocytes % (Manual) Seg Neutrophils # Seg Neutrophils # Man Lymphocytes # (Manual) ABG pO2 ABG O2 Saturation ABG Hemoglobin Oxyhemoglobin Sodium Potassium Chloride Carbon Dioxide BUN Creatinine Glucose POC Glucose 132 H 168 H Lactic Acid Calcium Magnesium Albumin Urine WBC (Auto)
[2022-05-25 14:28] VITALS: BP 151/56
== END 2022-05-25 14:29 | DRG 871 ==
LOC: ED 04:56 → IMCU 09:32 → 3A 05-16 16:47
PROVIDERS: ADMIT Internal Medicine; ATTEND Internal Medicine
PROC: 4A033R1 Measurement of Arterial Saturation, Peripheral, Percutaneous Approach (ICD-10-PCS; principal; 2022-05-14)
PROC: 0DH63UZ Insertion of Feeding Device into Stomach, Percutaneous Approach (ICD-10-PCS; 2022-05-23)
DX: A41.51 Sepsis due to Escherichia coli [E. coli] (principal); J96.01 Acute respiratory failure with hypoxia; J18.9 Pneumonia, unspecified organism; N17.0 Acute kidney failure with tubular necrosis; E43 Unspecified severe protein-calorie malnutrition; G93.41 Metabolic encephalopathy; E87.1 Hypo-osmolality and hyponatremia; N39.0 Urinary tract infection, site not specified; Z20.822 Contact with and (suspected) exposure to COVID-19; E11.65 Type 2 diabetes mellitus with hyperglycemia; E83.42 Hypomagnesemia; G30.9 Alzheimer's disease, unspecified; F02.80 Dementia in other diseases classified elsewhere, unspecified severity, without behavioral disturbance, psychotic disturbance, mood disturbance, and anxiety; E11.22 Type 2 diabetes mellitus with diabetic chronic kidney disease; K29.70 Gastritis, unspecified, without bleeding; N18.9 Chronic kidney disease, unspecified; I25.10 Atherosclerotic heart disease of native coronary artery without angina pectoris; F32.9 Major depressive disorder, single episode, unspecified; I12.9 Hypertensive chronic kidney disease with stage 1 through stage 4 chronic kidney disease, or unspecified chronic kidney disease; Z68.24 Body mass index [BMI] 24.0-24.9, adult; Y95 Nosocomial condition; R13.19 Other dysphagia; Z79.82 Long term (current) use of aspirin; Z88.8 Allergy status to other drugs, medicaments and biological substances
CPT/HCPCS: 36415; 36600; 70450; 71045; 74018; 80048; 80053; 81001; 82140; 82803; 82962; 83735; 84132; 85007; 85025; 85610; 87040; 87076; 87086; 87186; 93005; 94640; 94760; G0378; Q9967; J0456; J0690; J0692; J0696; J1644; J1815; J2704; J3370; J3475; J7030; J7040; U0003